=== PATIENT | female | born 1960 | race Caucasian/White ===

== ENCOUNTER → 2018-06-22 | Outpatient (CLI) | payer SELFPAY ==
--- NOTE | 2018-06-22 12:30 | RADIOLOGY REPORT (SQ) ---
EXAM DESCRIPTION: CHEST PA/LATERAL COMPLETED DATE/TIME: 06/22/2018 12:13 pm REASON FOR STUDY: CHRONIC OBSTRUCTIVE PULMONARY DISEASE COMPARISON: None. EXAM PARAMETERS: NUMBER OF VIEWS: two views TECHNIQUE: Digital Frontal and Lateral radiographic views of the chest acquired. RADIATION DOSE: NA LIMITATIONS: none FINDINGS: LUNGS AND PLEURA: Mild hyperinflation of the lungs and some flattening of the diaphragms. Mild bronchiectatic changes are noted centrally. Mild prominence of the interstitial markings in t he lungs, likely on a chronic basis. No acute pulmonary consolidation. No pneumothorax or pleural e ffusion. MEDIASTINUM AND HILAR STRUCTURES: No masses or contour abnormalities. HEART AND VASCULAR STRUCTURES: Heart normal size. No evidence for failure. BONES: No acute findings. HARDWARE: None in the chest. OTHER: No other significant finding. IMPRESSION: 1. Findings suggest COPD. Chronic mild changes in the lungs as above. No acute findin gs. TECHNICAL DOCUMENTATION: JOB ID: [id number] [employer]- All Rights Reserved Reading location - IP/workstation name: [email or web address]
== END ==
LOC: OD 11:56
PROVIDERS: ATTEND Internal Medicine
DX: J44.9 Chronic obstructive pulmonary disease, unspecified (principal)
CPT/HCPCS: 71046

== ENCOUNTER 2018-07-12 19:47 | Inpatient (IN) | payer SELFPAY ==
[2018-07-12] MEDS ORDERED: PREDNISONE 20 MG TABLET PO ONE (21:10)
[2018-07-12] MEDS ORDERED: IPRATROPIUM/ALBUTEROL 0.5-2.5 MG/3 ML AMPUL NEB ONE ×2 (21:10→21:44)
--- NOTE | 2018-07-12 21:43 | ER Document Report ---
ED Medical Screen (RME) - General Chief Complaint: Breathing Difficulty Stated Complaint: DIFFICULTY BREATHING Time Seen by Provider: 07/12/18 21:40 Primary Care Provider: YANELY DORMAN MD [Primary Care Provider] - Follow up as needed Notes: Patient is a 49-year-old female presents to the emergency department for shortness of breath. Patient states she does have a history of COPD and has been. States she has noticed some increased shortness of breath on exertion over the last couple of days. Patient states she also has a generalized cough and congestion but is denying fever. RME order set had already been placed by nursing staff. Patient had already been to x-ray upon my evaluation. GENERAL: Alert, interacts well. No acute distress. LUNGS: rhonchi to auscultation bilaterally . No respiratory distress. Patient is on 4 L oxygen via nasal cannula which is her norm. Patient speaking in full sentences. I have greeted and performed a rapid initial assessment of this patient. A comprehensive ED assessment and evaluation of the patient, analysis of test results and completion of the medical decision making process will be conducted by additional ED providers. TRAVEL OUTSIDE OF THE [place] IN LAST 30 DAYS: No - Related Data Allergies/Adverse Reactions: levofloxacin [From Levaquin] Adverse Reaction (Verified 07/12/18 20:01) Past Medical History Renal/ Medical History: Denies: Hx Peritoneal Dialysis Physical Exam - Vital signs Vitals: Temp Pulse Resp BP Pulse Ox 98.7 F 92 16 142/70 H 99 07/12/18 20:15 07/12/18 20:15 07/12/18 20:15 07/12/18 20:15 07/12/18 20:15 Course - Vital Signs Vital signs: Temp Pulse Resp BP Pulse Ox 98.7 F 92 16 142/70 H 99 07/12/18 20:15 07/12/18 20:15 07/12/18 20:15 07/12/18 20:15 07/12/18 20:15 Doctor's Discharge - Discharge Referrals: YANELY DORMAN MD [Primary Care Provider] - Follow up as needed
[2018-07-12] MEDS ORDERED: METHYLPREDNISOLONE INJ 125 MG/2 ML SDV IV ONE (21:44)
--- NOTE | 2018-07-12 22:14 | RADIOLOGY REPORT (SQ) ---
EXAM DESCRIPTION: XR CHEST 1 VIEW COMPLETED DATE/TME: 07/12/2018 21:10 CLINICAL HISTORY: 57 years, Female, difficulty breathing Compared to chest radiograph dated 06/22/2018. Findings: The heart is not enlarged. Left upper lobe airspace disease consistent with pneumonia. No pleural effusions. No pneumothorax. IMPRESSION: Patchy left upper lobe airspace disease. New from prior study, therefore consistent with pneumonia.
[2018-07-12] MEDS ORDERED: LEVOFLOXACIN 750 MG/D5W RTU 750 MG/150 ML RTUPB IV ONE (22:17)
[2018-07-13 00:03] LABS: ABSOLUTE BASOPHILS # (AUTO) 0.1 10^3/uL (0.0-0.2); ABSOLUTE EOSINOPHILS # (AUTO) 1.9 10^3/uL (0.0-0.6); ABSOLUTE LYMPHOCYTES (AUTO) 1.2 10^3/uL (0.5-4.7); ABSOLUTE MONOCYTES (AUTO) 1.6 10^3/uL (0.1-1.4); ABSOLUTE NEUT (AUTO) 13.7 10^3/uL (1.7-8.2); BASOPHILS % (AUTO) 0.3 % (0-2); EOSINOPHILS % (AUTO) 10.2 % (0-6); HEMATOCRIT 39.1 % (36.0-47.0); HEMOGLOBIN 12.9 g/dL (12.0-15.5); LYMPHOCYTES % (AUTO) 6.5 % (13-45); MEAN CORPUSCULAR HEMOGLOBIN 29.5 pg (27.0-33.4); MEAN CORPUSCULAR HGB CONC 32.9 g/dL (32.0-36.0); MEAN CORPUSCULAR VOLUME 90 fl (80-97); MONOCYTES % (AUTO) 8.7 % (3-13); PLATELET COUNT 474 10^3/uL (150-450); RED BLOOD COUNT 4.36 10^6/uL (3.72-5.28); RED CELL DISTRIBUTION WIDTH 13.8 % (11.5-14.0); SEGMENTED NEUTROPHILS % (AUTO) 74.3 % (42-78); TOTAL CELLS COUNTED % (AUTO) 100 %; WHITE BLOOD COUNT 18.5 10^3/uL (4.0-10.5)
[2018-07-13 00:17] LABS: ALANINE AMINOTRANSFERASE 22 U/L (9-52); ALBUMIN 3.8 g/dL (3.5-5.0); ALKALINE PHOSPHATASE 110 U/L (38-126); ANION GAP 11 (5-19); ASPARTATE AMINO TRANSFERASE 28 U/L (14-36); BILIRUBIN,DIRECT 0.3 mg/dL (0.0-0.4); BILIRUBIN,TOTAL 0.6 mg/dL (0.2-1.3); BLOOD UREA NITROGEN 18 mg/dL (7-20); CALCIUM 9.9 mg/dL (8.4-10.2); CARBON DIOXIDE 35 mmol/L (22-30); CHLORIDE 93 mmol/L (98-107); GLUCOSE 119 mg/dL (75-110); POTASSIUM 3.9 mmol/L (3.6-5.0); SODIUM 139.1 mmol/L (137-145); TOTAL PROTEIN 6.9 g/dL (6.3-8.2)
[2018-07-13] MEDS: ALBUTEROL SULFATE 0.083% NEB 2.5 MG/3 ML AMPUL NEB SCH ×2 (00:47→02:03)
[2018-07-13 01:15] LABS: APPEARANCE,URINE SLIGHTLY-CLOUDY; BILIRUBIN,URINE NEGATIVE (NEGATIVE); COLOR,URINE AMBER; GLUCOSE, URINE NEGATIVE (NEGATIVE); KETONES,URINE NEGATIVE (NEGATIVE); LEUKOCYTE ESTERASE,URINE LARGE (NEGATIVE); NITRITE,URINE NEGATIVE (NEGATIVE); PROTEIN,URINE NEGATIVE (NEGATIVE); URINE SPECIFIC GRAVITY 1.028; UROBILINOGEN,URINE NEGATIVE mg/dL (<2.0)
--- NOTE | 2018-07-13 01:39 | ER Document Report ---
ED General - General Chief Complaint: Breathing Difficulty Stated Complaint: DIFFICULTY BREATHING Time Seen by Provider: 07/12/18 21:40 Notes: Patient is a pleasant 57-year-old female with a history of COPD who is chronically on 3 L of oxygen at home. She said over the last week and a half she is been battling cough and difficulty breathing. She is followed by Dr. Gutierrez. Initially placed on Levaquin however the patient said she was g etting tremors in her hands and they thought it could be related to the Levaquin therefore they stopped and switched to doxycycline. She said despite this she her breathing is gotten worse and today she noticed that whenever she got up and walked she became very short of breath and sweaty and could not exert herself at all and therefore came to the ER. Subjective fevers at home. No vomiting. She was admitted last year with pneumonia and she says this feels very similar. TRAVEL OUTSIDE OF THE [place] IN LAST 30 DAYS: No - Related Data Allergies/Adverse Reactions: levofloxacin [From Levaquin] Adverse Reaction (Verified 07/12/18 23:11) Past Medical History - Social History Smoking Status: Unknown if Ever Smoked Frequency of alcohol use: None Drug Abuse: None Family History: Reviewed & Not Pertinent Patient has suicidal ideation: No Patient has homicidal ideation: No Renal/ Medical History: Denies: Hx Peritoneal Dialysis Review of Systems - Review of Systems Notes: My Normal Review Basic REVIEW OF SYSTEMS: CONSTITUTIONAL : Subjective fevers EENT: Denies eye, ear, throat, or mouth pain or symptoms. Denies nasal or sinus congestion. RESPIRATORY: Difficulty breathing GASTROINTESTINAL: Denies abdominal pain. Denies nausea, vomiting, or diarrhea. GENITOURINARY: Denies difficulty urinating, painful urination, burning, darrick quency, or blood in urine. MUSCULOSKELETAL: Denies neck or back pain or joint pain or swelling. SKIN: Denies rash or skin lesions. NEUROLOGICAL: Denies altered mental status or loss of consciousness. Denies headache. Denies weakness or paralysis or loss of use of either side. Denies problems with gait or speech. Denies sensory or motor loss. ALL OTHER SYSTEMS REVIEWED AND NEGATIVE. Physical Exam - Vital signs Vitals: Temp Pulse Resp BP Pulse Ox 98.7 F 92 16 142/70 H 99 07/12/18 20:15 07/12/18 20:15 07/12/18 20:15 07/12/18 20:15 07/12/18 20:15 - Notes Notes: General Appearance: Well nourished, alert, cooperative, mild acute distress, no obvious discomfort. Vitals: reviewed, See vital signs table. Head: no swelling or tenderness to the head Eyes: PERRL, EOMI, Conjuctiva clear Mouth: No decreasd moisture Lungs: Some rhonchorous breath sounds with diminished in the left Heart: Normal rate, Regular rythm, No murmur, no rub Abdomen: Normal BS, soft, No rigidity, No abdominal tenderness, No guarding, no rebound, no abdominal masses, no organomegaly Extremities: s good pulses in all extremities, no swelling or tenderness in the extremities, no edema. Skin: warm, dry, appropriate color, no rash Neuro: speech clear, oriented x 3, normal affect, responds appropriately to questions. Course - Re-evaluation Re-evalutation: 07/13/18 01:45 Patient has significant upper lobe pneumonia in the left side with failure of outpatient antibiotics as well as increased oxygen requirement and difficulty breathing. I feel the appropriate to admit her for admission. I did speak with Dr. Gutierrez who agrees with plan. I did give the patient Levaquin as she says last time she had pneumonia last year this is what worked well for her. She is has a Levaquin allergy list but she says she is does not think she is actually allergic to it and they had try to afford and she developed a tremor which they were not convinced is related to Levaquin. She received Levaquin here and has not had any tremor or other adverse reaction. Dictation of this chart was performed using voice recognition software; therefore, there may be some unintended grammatical errors. - Vital Signs Vital signs: Temp Pulse Resp BP Pulse Ox 98.2 F 96 19 97/59 L 96 07/13/18 00:01 07/13/18 02:40 07/13/18 04:01 07/13/18 04:01 07/13/18 04:01 - Laboratory Result Diagrams: 07/12/18 23:30 07/12/18 23:30 Laboratory results interpreted by me: 07/12/18 07/12/18 07/13/18 23:30 23:30 00:53 WBC 18.5 H Plt Count 474 H Lymphocytes % 6.5 L Eosinophils % 10.2 H Absolute Neutrophils 13.7 H Absolute Monocytes 1.6 H Absolute Eosinophils 1.9 H Chloride 93 L Carbon Dioxide 35 H Glucose 119 H Ur Leukocyte Esterase LARGE H Discharge - Discharge Clinical Impression: Pneumonia Qualifiers: Pneumonia type: due to unspecified organism Laterality: left Lung location: upper lobe of lung Qualified Code(s): J18.1 - Lobar pneumonia, unspecified organism Condition: Stable Disposition: ADMITTED INPATIENT Admitting Provider: Matt
[2018-07-13] MEDS ORDERED: TIZANIDINE HCL 4 MG TABLET PO ONE (01:43)
[2018-07-13] MEDS ORDERED: LEVOTHYROXINE SODIUM 0.075 MG TABLET PO ONE (01:44)
[2018-07-13] MEDS ORDERED: MONTELUKAST SODIUM 10 MG TABLET PO ONE (01:44)
[2018-07-13] MEDS ORDERED: GABAPENTIN 300 MG CAPSULE PO ONE (01:44)
[2018-07-13] MEDS ORDERED: ARIPIPRAZOLE 5 MG TABLET PO ONE (01:44)
[2018-07-13 02:27] LABS: CREATINE KINASE MB 1.81 ng/mL (<4.55)
[2018-07-13 02:28] LABS: TROPONIN I < 0.012 ng/mL
[2018-07-13] MEDS: LEVALBUTEROL HCL NEB 1.25 MG/3 ML AMPUL NEB SCH ×8 (02:40→23:53)
[2018-07-13 03:18] LABS: ARTERIAL BLOOD BASE EXCESS 9.7 mmol/L; ARTERIAL BLOOD H2CO3 1.48 mmol/L (1.05-1.35); ARTERIAL BLOOD HCO3 34.8 mmol/L (20-24); ARTERIAL BLOOD O2 SATURATION 95.3 % (94-98); ARTERIAL BLOOD PCO2 49.2 mmHg (35-45); ARTERIAL BLOOD PH 7.47 (7.35-7.45); ARTERIAL BLOOD PO2 72.7 mmHg (80-100); ARTERIAL BLOOD TOTAL CO2 36.4 mmol/L (21-25)
[2018-07-13 03:19] LABS: ARTERIAL BLOOD FIO2 2L
[2018-07-13] MEDS: NORMAL SALINE 1000 ML 1,000 ML IV PRN ×2 (03:24→19:21)
[2018-07-13] MEDS ORDERED: CEFEPIME 2 GM/D5W RTU 2 GM/50 ML RTUPB IV SCH (06:00)
--- NOTE | 2018-07-13 06:05 | RADIOLOGY REPORT (SQ) ---
EXAM: CT chest with IV contrast CLINICAL DATA: 57-year-old female with severe COPD, pneumonia and possible lung mass TECHNICAL DATA: Axial CT imaging of the chest was performed following the administration of intravenous contrast. Sagittal and coronal reconstructed images were then performed. The CT study is performed according to ALARA (as low as reasonably achievable) or ALARA/IMAGE GENTLY, with automatic adjustment of mA and/or kV according to patient size. Performed on: 07/13/2018 at 5:30 AM Comparison: Prior CT chest performed on 03/25/2012 and chest x-ray performed on 07/12/2018 and 06/22/2018. FINDINGS: CT CHEST: Lungs: The lungs are well expanded. There are diffuse centrilobular emphysematous changes. There is patchy airspace consolidation throughout the left upper lobe with air bronchograms most consistent with lobar pneumonia. There is very minimal septal thickening throughout the left lung. The right lung is grossly clear with minimal fibrosis and/or atelectatic changes. There is no evidence of a pneumothorax. There is no pleural effusion. Heart: The heart is normal in size. There is no pericardial effusion. Mediastinum:The mediastinum is unremarkable. The mediastinal vessels are normal in caliber and contour. Bones:No acute osseous abnormalities are identified. There are mild degenerative changes along the thoracic spine. Soft tissues:No focal soft tissue abnormalities are identified. Lymphadenopathy: No pathologic hilar, mediastinal or axillary lymphadenopathy is identified. Upper abdomen: No acute abnormalities are identified. IMPRESSION: 1. Patchy airspace consolidation throughout the left upper lobe most consistent with lobar pneumonia. 2. Diffuse centrilobular emphysematous changes. 3. Minimal fibrosis and/or atelectasis in the right lower lobe
[2018-07-13] MEDS: LANSOPRAZOLE 30 MG TAB.RAP.DR PO SCH ×2 (06:32→19:20)
--- NOTE | 2018-07-13 06:54 | EKG REPORT ---
SEVERITY:- NORMAL ECG - SINUS RHYTHM : Confirmed by: Iain Sánchez MD 13-Jul-2018 06:54:18
[2018-07-13] MEDS: ENOXAPARIN SODIUM INJ 40 MG/0.4 ML DISP.SYRIN SUBCUT SCH (10:59)
[2018-07-13] MEDS ORDERED: (PENDING PHARMACY ID) (Buspirone Hcl [Buspar 5 Mg Tablet] 7.5 MG) PO SCH (18:30)
[2018-07-13] MEDS ORDERED: (PENDING PHARMACY ID) (Losartan/Hydrochlorothiazide [Hyzaar 100-12.5 Tablet] 1 TAB) PO SCH (18:30)
[2018-07-13] MEDS ORDERED: HYDROCODONE/ACETAMINOPHEN 10-325 MG TABLET PO PRN (18:51)
[2018-07-13] MEDS: HYDROCODONE/ACETAMINOPHEN 10-325 MG TABLET PO PRN (19:20)
[2018-07-13] MEDS: LOSARTAN POTASSIUM 50 MG TABLET PO SCH (20:41)
--- NOTE | 2018-07-13 20:48 | PDOC H&P ---
History of Present Illness Admission Date/PCP: 07/13/18 01:58 YANELY DORMAN MD History of Present Illness: DEBI CHAVEZ is a 57 year old female, She has very severe chronic obstructive lung disease, she came to the hospital for evaluation of cough, shortness of breath, she was treated outpatient for COPD exacerbation with p.o. antibiotic, bronchodilators, in the emergency room a chest x-ray was done that demonstrated left upper lobe patchy infiltrate subsequently CT chest with contrast was obtained it confirmed that is left upper lobe pneumonia. The arterial blood gas was done consistent with hypoxemia with respiratory alkalosis. Past Medical History Cardiac Medical History: Reports: Hypertension Pulmonary Medical History: Reports: Chronic Obstructive Pulmonary Disease (COPD) Psychiatric Medical History: Reports: Depression, General Anxiety Disorder Social History Smoking Status: Former Smoker Last Time Smoked: 2011 Frequency of Alcohol Use: None Hx Recreational Drug Use: No Hx Prescription Drug Abuse: No - Advance Directive Resuscitation Status: Full Code Family History Family History: Reviewed & Not Pertinent Parental Family History Reviewed: Yes Children Family History Reviewed: Yes Sibling(s) Family History Reviewed.: Yes Medication/Allergy Home Medications: Albuterol Sulfate [Proair HFA Inhalation Aerosol 8.5 gm MDI] 2 puff IH Q6HP PRN 07/13/18 Buspirone HCl [Buspar 5 mg Tablet] 7.5 mg PO Q12 07/13/18 Fluticasone/Salmeterol [Fluticasone-Salmeterol 113-14] 2 puff IH Q12 07/13/18 Guaifenesin [Mucinex] 600 mg PO Q12HP PRN 07/13/18 Hydrocodone Bit/Acetaminophen [Hydrocodon-Acetaminophn 10-325] 1 tab PO Q8HP PRN 07/13/18 Levothyroxine Sodium [Synthroid 0.075 mg Tablet] 0.075 mg PO DAILY 07/13/18 RX: Albuterol Sulfate [Ventolin 0.083% Neb 2.5 mg/3 mL Ampul] 1 vial IH RTQ4HP PRN 07/13/18 RX: Aripiprazole [Abilify] 5 mg PO DAILY 07/13/18 RX: Gabapentin [Neurontin 300 mg Capsule] 300 mg PO Q8H 07/13/18 RX: Ipratropium [place] [Atrovent 0.02% Neb 0.5 mg/2.5 ml Ampul] 1 vial IH RTQ6 07/13/18 RX: Losartan/Hydrochlorothiazide [Hyzaar 100-12.5 Tablet] 1 tab PO DAILY 07/13/18 RX: Montelukast Sodium [Singulair] 10 mg PO DAILY 07/13/18 RX: Paroxetine HCl [Paxil] 30 mg PO DAILY 07/13/18 RX: Testosterone Cypionate [Depo-Testosterone] 15 mg IM Q14D 07/13/18 Tizanidine HCl [Zanaflex] 2 mg PO Q12 07/13/18 Wixela 250/50 Mcg 1 puff IH Q12 07/13/18 Allergies/Adverse Reactions: [facility] [[facility] Adverse Reaction (Verified 07/12/18 23:11) Review of Systems Constitutional: PRESENT: fatigue Eyes: ABSENT: visual disturbances Ears: ABSENT: hearing changes Cardiovascular: PRESENT: dyspnea on exertion Respiratory: PRESENT: cough, dyspnea, sputum Gastrointestinal: ABSENT: as per HPI, abdominal pain, bloating, coffee ground emesis, constipation, diarrhea, dysphagia, heartburn, hematemesis, hematochezia, melena, nausea, vomiting, other Genitourinary: ABSENT: dysuria, hematuria Musculoskeletal: ABSENT: joint swelling Integumentary: ABSENT: rash, wounds Neurological: ABSENT: abnormal gait, abnormal speech, confusion, dizziness, focal weakness, syncope Psychiatric: ABSENT: anxiety, depression, homidical ideation, suicidal ideation Hematologic/Lymphatic: ABSENT: easy bleeding, easy bruising, lymphadenopathy Physical Exam Vital Signs: Temp Pulse Resp BP Pulse Ox 97.9 F 89 18 110/43 L 98 07/13/18 16:18 07/13/18 19:29 07/13/18 16:58 07/13/18 16:18 07/13/18 16:58 Intake & Output 07/12/18 07/13/18 07/14/18 06:59 06:59 06:59 Intake Total 150 848 Balance 150 848 Weight 68.8 kg General appearance: PRESENT: mild distress Head exam: PRESENT: atraumatic, normocephalic Eye exam: PRESENT: PERRLA Ear exam: PRESENT: normal external ear exam Mouth exam: PRESENT: moist, tongue midline Neck exam: PRESENT: full ROM Respiratory exam: PRESENT: decreased breath sounds, rhonchi Cardiovascular exam: PRESENT: RRR, +S1, +S2 Vascular exam: PRESENT: normal capillary refill GI/Abdominal exam: PRESENT: normal bowel sounds, soft Rectal exam: PRESENT: deferred Neurological exam: PRESENT: alert, CN II-XII grossly intact Psychiatric exam: PRESENT: appropriate affect, normal mood Skin exam: PRESENT: dry, intact, warm Results Laboratory Results: 07/12/18 23:30 07/12/18 23:30 07/12/18 07/12/18 07/13/18 23:30 23:30 00:53 WBC 18.5 H RBC 4.36 Hgb 12.9 Hct 39.1 MCV 90 MCH 29.5 MCHC 32.9 RDW 13.8 Plt Count 474 H Seg Neutrophils % 74.3 Lymphocytes % 6.5 L Monocytes % 8.7 Eosinophils % 10.2 H Basophils % 0.3 Absolute Neutrophils 13.7 H Absolute Lymphocytes 1.2 Absolute Monocytes 1.6 H Absolute Eosinophils 1.9 H Absolute Basophils 0.1 Carbonic Acid HCO3/H2CO3 Ratio ABG pH ABG pCO2 ABG pO2 ABG HCO3 ABG O2 Saturation ABG Base Excess FiO2 Sodium 139.1 Potassium 3.9 Chloride 93 L Carbon Dioxide 35 H Anion Gap 11 BUN 18 Creatinine 0.85 Est GFR ( Amer) > 60 Est GFR (Non-Af Amer) > 60 Glucose 119 H Calcium 9.9 Total Bilirubin 0.6 AST 28 ALT 22 Alkaline Phosphatase 110 Total Protein 6.9 Albumin 3.8 Urine Color RISHI Urine Appearance SLIGHTLY-CLOUDY Urine pH 5.0 Ur Specific [place] 1.028 Urine Protein NEGATIVE Urine Glucose (UA) NEGATIVE Urine Ketones NEGATIVE Urine Blood NEGATIVE Urine Nitrite NEGATIVE Ur Leukocyte Esterase LARGE H Urine WBC (Auto) 35 Urine RBC (Auto) 3 07/13/18 02:55 WBC RBC Hgb Hct MCV MCH MCHC RDW Plt Count Seg Neutrophils % Lymphocytes % Monocytes % Eosinophils % Basophils % Absolute Neutrophils Absolute Lymphocytes Absolute Monocytes Absolute Eosinophils Absolute Basophils Carbonic Acid 1.48 H HCO3/H2CO3 Ratio 23:1 ABG pH 7.47 H ABG pCO2 49.2 H ABG pO2 72.7 L ABG HCO3 34.8 H ABG O2 Saturation 95.3 ABG Base Excess 9.7 FiO2 2L Sodium Potassium Chloride Carbon Dioxide Anion Gap BUN Creatinine Est GFR ( Amer) Est GFR (Non-Af Amer) Glucose Calcium Total Bilirubin AST ALT Alkaline Phosphatase Total Protein Albumin Urine Color Urine Appearance Urine pH Ur Specific [place] Urine Protein Urine Glucose (UA) Urine Ketones Urine Blood Urine Nitrite Ur Leukocyte Esterase Urine WBC (Auto) Urine RBC (Auto) 07/12/18 07/12/18 23:30 23:30 Creatine Kinase 86 CK-MB (CK-2) 1.81 Troponin I < 0.012 Impressions: Chest X-Ray 07/12/18 21:10 IMPRESSION: Patchy left upper lobe airspace disease. New from prior study, therefore consistent with pneumonia. Chest CT 07/13/18 00:00 IMPRESSION: 1. Patchy airspace consolidation throughout the left upper lobe most consistent with lobar pneumonia. 2. Diffuse centrilobular emphysematous changes. 3. Minimal fibrosis and/or atelectasis in the right lower lobe Assessment & Plan - Diagnosis (1) Left upper lobe pneumonia Qualifiers: Pneumonia type: due to unspecified organism Qualified Code(s): J18.1 - Lobar pneumonia, unspecified organism Is this a current diagnosis for this admission?: Yes Plan: Patient will be treated with IV antibiotic to cover community-acquired pathogens including Pseudomonas (2) Acute hypoxemic respiratory failure Is this a current diagnosis for this admission?: Yes Plan: Continue oxygen via nasal cannula (3) Acute respiratory alkalosis Is this a current diagnosis for this admission?: Yes
[2018-07-13] MEDS: CEFEPIME HCL 2 GM in DEXTROSE 5%-WATER 50 ML IV SCH (20:49)
[2018-07-13] MEDS: MONTELUKAST SODIUM 10 MG TABLET PO SCH (20:49)
[2018-07-13] MEDS: ARIPIPRAZOLE 5 MG TABLET PO SCH (20:49)
[2018-07-13] MEDS: LEVOTHYROXINE SODIUM 0.075 MG TABLET PO SCH (20:49)
[2018-07-13] MEDS: HYDROCHLOROTHIAZIDE 12.5 MG TABLET PO SCH (20:50)
[2018-07-13] MEDS: LEVOFLOXACIN 750 MG/D5W RTU 750 MG/150 ML RTUPB IV SCH (21:09)
[2018-07-13] MEDS: BUSPIRONE 7.5 MG PO SCH (21:53)
[2018-07-13] MEDS ORDERED: BUSPIRONE 5 MG PO SCH (22:00)
[2018-07-14] MEDS: LEVALBUTEROL HCL NEB 1.25 MG/3 ML AMPUL NEB SCH ×8 (02:23→23:48)
[2018-07-14] MEDS: LANSOPRAZOLE 30 MG TAB.RAP.DR PO SCH ×2 (05:02→17:17)
[2018-07-14] MEDS: CEFEPIME HCL 2 GM in DEXTROSE 5%-WATER 50 ML IV SCH (05:02)
[2018-07-14 07:01] LABS: HEMATOCRIT 35.2 % (36.0-47.0); HEMOGLOBIN 11.7 g/dL (12.0-15.5); MEAN CORPUSCULAR HEMOGLOBIN 29.6 pg (27.0-33.4); MEAN CORPUSCULAR HGB CONC 33.2 g/dL (32.0-36.0); MEAN CORPUSCULAR VOLUME 89 fl (80-97); PLATELET COUNT 442 10^3/uL (150-450); RED BLOOD COUNT 3.94 10^6/uL (3.72-5.28); RED CELL DISTRIBUTION WIDTH 13.4 % (11.5-14.0); WHITE BLOOD COUNT 18.9 10^3/uL (4.0-10.5)
[2018-07-14 07:14] LABS: ALANINE AMINOTRANSFERASE 24 U/L (9-52); ALBUMIN 3.4 g/dL (3.5-5.0); ALKALINE PHOSPHATASE 95 U/L (38-126); ANION GAP 8 (5-19); ASPARTATE AMINO TRANSFERASE 20 U/L (14-36); BILIRUBIN,DIRECT 0.3 mg/dL (0.0-0.4); BILIRUBIN,TOTAL 0.3 mg/dL (0.2-1.3); BLOOD UREA NITROGEN 15 mg/dL (7-20); CALCIUM 9.1 mg/dL (8.4-10.2); CARBON DIOXIDE 34 mmol/L (22-30); CHLORIDE 99 mmol/L (98-107); GLUCOSE 141 mg/dL (75-110); POTASSIUM 4.4 mmol/L (3.6-5.0); SODIUM 141.2 mmol/L (137-145); TOTAL PROTEIN 6.3 g/dL (6.3-8.2)
[2018-07-14 08:06] LABS: ABSOLUTE LYMPHOCYTES# (MANUAL) 0.4 10^3/uL (0.5-4.7); ABSOLUTE MONOCYTES # (MANUAL) 0.8 10^3/uL (0.1-1.4); ABSOLUTE NEUTROPHILS# (MANUAL) 17.8 10^3/uL (1.7-8.2); BASOPHILS % (MANUAL) 0 % (0-2); EOSINOPHILS % (MANUAL) 0 % (0-6); LYMPHOCYTES % (MANUAL) 2 % (13-45); MONOCYTES % (MANUAL) 4 % (3-13); PLATELET COMMENT ADEQUATE; RBC MORPHOLOGY COMMENT NORMO-CYTIC/CHROMIC; SEGMENTED NEUTROPHILS % (MAN) 94 % (42-78); TOTAL CELLS COUNTED 100
[2018-07-14] MEDS: HYDROCODONE/ACETAMINOPHEN 10-325 MG TABLET PO PRN ×2 (08:18→17:16)
[2018-07-14] MEDS: LEVOTHYROXINE SODIUM 0.075 MG TABLET PO SCH (08:18)
[2018-07-14] MEDS: NORMAL SALINE 1000 ML 1,000 ML IV PRN (08:24)
[2018-07-14] MEDS ORDERED: FLUTICASONE IH SCH (10:00)
[2018-07-14] MEDS ORDERED: SALMETEROL IH SCH (10:00)
[2018-07-14] MEDS ORDERED: (PENDING PHARMACY ID) (Paroxetine Hcl [Paxil] 30 MG) PO SCH (10:00)
[2018-07-14] MEDS ORDERED: PAROXETINE HCL 20 MG TABLET PO SCH (10:00)
[2018-07-14] MEDS: HYDROCHLOROTHIAZIDE 12.5 MG TABLET PO SCH (12:29)
[2018-07-14] MEDS: ARIPIPRAZOLE 5 MG TABLET PO SCH (12:29)
[2018-07-14] MEDS: MONTELUKAST SODIUM 10 MG TABLET PO SCH (12:29)
[2018-07-14] MEDS: LOSARTAN POTASSIUM 50 MG TABLET PO SCH (12:29)
[2018-07-14] MEDS: ENOXAPARIN SODIUM INJ 40 MG/0.4 ML DISP.SYRIN SUBCUT SCH (12:30)
[2018-07-14] MEDS: BUSPIRONE 7.5 MG PO SCH ×2 (12:35→21:22)
[2018-07-14] MEDS: GABAPENTIN 300 MG CAPSULE PO SCH ×2 (17:17→21:22)
[2018-07-14] MEDS: CEFEPIME 2 GM/D5W RTU 2 GM/50 ML RTUPB IV SCH (17:20)
--- NOTE | 2018-07-14 20:07 | PDOC PROGRESS REPORT ---
Subjective Progress Note for:: 07/14/18 Subjective:: She complains of shortness of breath on minimal exertion Reason For Visit: CHELSEA PNEUMONIA, H/O VERY SEVERE COPD Physical Exam Vital Signs: Temp Pulse Resp BP Pulse Ox 97.4 F 80 16 124/56 L 98 07/14/18 15:08 07/14/18 17:37 07/14/18 17:37 07/14/18 15:08 07/14/18 17:37 Intake & Output 07/13/18 07/14/18 07/15/18 06:59 06:59 06:59 Intake Total 150 1598 1653 Output Total 800 750 Balance 150 798 903 Weight 68.8 kg 68.9 kg General appearance: PRESENT: no acute distress Eye exam: PRESENT: PERRLA Respiratory exam: PRESENT: rhonchi Cardiovascular exam: PRESENT: +S1, +S2 GI/Abdominal exam: PRESENT: soft Neurological exam: PRESENT: alert Results Laboratory Results: 07/14/18 05:42 07/14/18 05:42 07/14/18 07/14/18 05:42 05:42 WBC 18.9 H RBC 3.94 Hgb 11.7 L Hct 35.2 L MCV 89 MCH 29.6 MCHC 33.2 RDW 13.4 Plt Count 442 Seg Neutrophils % Not Reportable Lymphocytes % Not Reportable Monocytes % Not Reportable Eosinophils % Not Reportable Basophils % Not Reportable Absolute Neutrophils Not Reportable Absolute Lymphocytes Not Reportable Absolute Monocytes Not Reportable Absolute Eosinophils Not Reportable Absolute Basophils Not Reportable Sodium 141.2 Potassium 4.4 Chloride 99 Carbon Dioxide 34 H Anion Gap 8 BUN 15 Creatinine 0.80 Est GFR ( Amer) > 60 Est GFR (Non-Af Amer) > 60 Glucose 141 H Calcium 9.1 Total Bilirubin 0.3 AST 20 ALT 24 Alkaline Phosphatase 95 Total Protein 6.3 Albumin 3.4 L 07/12/18 07/12/18 23:30 23:30 Creatine Kinase 86 CK-MB (CK-2) 1.81 Troponin I < 0.012 Impressions: Chest X-Ray 07/12/18 21:10 IMPRESSION: Patchy left upper lobe airspace disease. New from prior study, therefore consistent with pneumonia. Chest CT 07/13/18 00:00 IMPRESSION: 1. Patchy airspace consolidation throughout the left upper lobe most consistent with lobar pneumonia. 2. Diffuse centrilobular emphysematous changes. 3. Minimal fibrosis and/or atelectasis in the right lower lobe Assessment & Plan - Diagnosis (1) Left upper lobe pneumonia Qualifiers: Pneumonia type: due to unspecified organism Qualified Code(s): J18.1 - Lobar pneumonia, unspecified organism Is this a current diagnosis for this admission?: Yes Plan: continue antibiotic , (2) Acute hypoxemic respiratory failure Is this a current diagnosis for this admission?: Yes (3) Acute respiratory alkalosis Is this a current diagnosis for this admission?: Yes (4) Chronic obstructive pulmonary disease Qualifiers: COPD type: unspecified COPD Qualified Code(s): J44.9 - Chronic obstructive pulmonary disease, unspecified Is this a current diagnosis for this admission?: Yes Plan: consult pulmonary
[2018-07-14] MEDS: LEVOFLOXACIN 750 MG/D5W RTU 750 MG/150 ML RTUPB IV SCH (21:22)
[2018-07-15] MEDS: LEVALBUTEROL HCL NEB 1.25 MG/3 ML AMPUL NEB SCH ×6 (02:23→20:14)
[2018-07-15 04:55] LABS: ABSOLUTE BASOPHILS # (AUTO) 0.1 10^3/uL (0.0-0.2); ABSOLUTE EOSINOPHILS # (AUTO) 0.5 10^3/uL (0.0-0.6); ABSOLUTE LYMPHOCYTES (AUTO) 1.5 10^3/uL (0.5-4.7); BASOPHILS % (AUTO) 0.7 % (0-2); EOSINOPHILS % (AUTO) 3.4 % (0-6); HEMATOCRIT 34.1 % (36.0-47.0); HEMOGLOBIN 11.4 g/dL (12.0-15.5); LYMPHOCYTES % (AUTO) 10.6 % (13-45); MEAN CORPUSCULAR HEMOGLOBIN 29.6 pg (27.0-33.4); MEAN CORPUSCULAR HGB CONC 33.4 g/dL (32.0-36.0); MEAN CORPUSCULAR VOLUME 89 fl (80-97); MONOCYTES % (AUTO) 7.3 % (3-13); PLATELET COUNT 511 10^3/uL (150-450); RED BLOOD COUNT 3.85 10^6/uL (3.72-5.28); RED CELL DISTRIBUTION WIDTH 13.6 % (11.5-14.0); TOTAL CELLS COUNTED % (AUTO) 100 %; WHITE BLOOD COUNT 14.1 10^3/uL (4.0-10.5)
[2018-07-15] MEDS: GABAPENTIN 300 MG CAPSULE PO SCH ×3 (05:05→22:29)
[2018-07-15] MEDS: CEFEPIME 2 GM/D5W RTU 2 GM/50 ML RTUPB IV SCH ×2 (05:05→18:17)
[2018-07-15] MEDS: LANSOPRAZOLE 30 MG TAB.RAP.DR PO SCH ×2 (05:05→18:08)
[2018-07-15] MEDS: LEVOTHYROXINE SODIUM 0.075 MG TABLET PO SCH (05:05)
[2018-07-15 05:23] LABS: ALANINE AMINOTRANSFERASE 15 U/L (9-52); ALBUMIN 3.1 g/dL (3.5-5.0); ALKALINE PHOSPHATASE 81 U/L (38-126); ANION GAP 6 (5-19); ASPARTATE AMINO TRANSFERASE 16 U/L (14-36); BILIRUBIN,DIRECT 0.3 mg/dL (0.0-0.4); BILIRUBIN,TOTAL 0.3 mg/dL (0.2-1.3); BLOOD UREA NITROGEN 17 mg/dL (7-20); CALCIUM 8.8 mg/dL (8.4-10.2); CARBON DIOXIDE 35 mmol/L (22-30); CHLORIDE 100 mmol/L (98-107); GLUCOSE 103 mg/dL (75-110); SODIUM 140.9 mmol/L (137-145); TOTAL PROTEIN 5.7 g/dL (6.3-8.2)
[2018-07-15] MEDS: HYDROCODONE/ACETAMINOPHEN 10-325 MG TABLET PO PRN ×2 (09:36→18:08)
--- NOTE | 2018-07-15 10:11 | RADIOLOGY REPORT (SQ) ---
EXAM DESCRIPTION: CHEST 2 VIEWS COMPLETED DATE/TIME: 07/15/2018 9:57 am REASON FOR STUDY: pneumonia COMPARISON: 07/12/2018, CT chest, 07/13/2018 EXAM PARAMETERS: NUMBER OF VIEWS: two views TECHNIQUE: Digital Frontal and Lateral radiographic views of the chest acquired. RADIATION DOSE: NA LIMITATIONS: none FINDINGS: LUNGS AND PLEURA: There is improved heterogeneous opacity of the left upper lobe. MEDIASTINUM AND HILAR STRUCTURES: No masses or contour abnormalities. HEART AND VASCULAR STRUCTURES: Heart normal size. No evidence for failure. BONES: No acute findings. HARDWARE: None in the chest. OTHER: No other significant finding. IMPRESSION: Improved heterogeneous opacity of the left upper lobe. Findings most consistent with im proving infection. Recommend continued radiographic follow-up to complete resolution in 6 to 8 weeks . TECHNICAL DOCUMENTATION: JOB ID: [id number] [employer]- All Rights Reserved Reading location - IP/workstation name: [email or web address]
[2018-07-15] MEDS: LOSARTAN POTASSIUM 50 MG TABLET PO SCH (11:25)
[2018-07-15] MEDS: ENOXAPARIN SODIUM INJ 40 MG/0.4 ML DISP.SYRIN SUBCUT SCH (11:25)
[2018-07-15] MEDS: HYDROCHLOROTHIAZIDE 12.5 MG TABLET PO SCH (11:25)
[2018-07-15] MEDS: MONTELUKAST SODIUM 10 MG TABLET PO SCH (11:26)
[2018-07-15] MEDS: BUSPIRONE 7.5 MG PO SCH ×2 (11:26→22:29)
[2018-07-15] MEDS: ARIPIPRAZOLE 5 MG TABLET PO SCH (11:26)
--- NOTE | 2018-07-15 14:36 | RADIOLOGY REPORT (SQ) ---
EXAM DESCRIPTION: CT HEAD WITHOUT COMPLETED DATE/TIME: 07/15/2018 2:19 pm REASON FOR STUDY: Diplopia COMPARISON: None. TECHNIQUE: Axial images acquired through the brain without intravenous contrast. Images reviewed wi th bone, brain and subdural windows. Additional sagittal and coronal reconstructions were generated. Images stored on PACS. All CT scanners at this facility use dose modulation, iterative reconstruction, and/or weight based d osing when appropriate to reduce radiation dose to as low as reasonably achievable (ALARA). [facility]: Dose Right [facility]: CareDose [facility]: Dose Right [facility]: Teradose 4D [facility]: Procyrion RADIATION DOSE: CT Rad equipment meets quality standard of care and radiation dose reduction techniq ues were employed. CTDIvol: 48.6 mGy. DLP: 856 mGy-cm. mGy. LIMITATIONS: None. FINDINGS: VENTRICLES: Normal size and contour. CEREBRUM: No masses. No hemorrhage. No midline shift. No evidence for acute infarction. Few scatte red areas of low density in the white matter most likely chronic small vessel ischemic changes. CEREBELLUM: No masses. No hemorrhage. No alteration of density. No evidence for acute infarction. EXTRAAXIAL SPACES: No fluid collections. No masses. ORBITS AND GLOBE: No intra- or extraconal masses. Normal contour of globe without masses. CALVARIUM: No fracture. PARANASAL SINUSES: No fluid or mucosal thickening. SOFT TISSUES: No mass or hematoma. OTHER: No other significant finding. IMPRESSION: MILD CHRONIC MICROVASCULAR ISCHEMIA. NO ACUTE IMAGING FINDINGS IN THE BRAIN. EVIDENCE OF ACUTE STROKE: NO. COMMENT: Quality ID # [id number]: Final reports with documentation of one or more dose reduction techniques (e.g., Automated exposure control, adjustment of the mA and/or kV according to patient size, use of iterative reconstruction technique) TECHNICAL DOCUMENTATION: JOB ID: [id number]- All Rights Reserved Reading location - IP/workstation name: [email or web address]
--- NOTE | 2018-07-15 17:46 | PDOC PROGRESS REPORT ---
Subjective Progress Note for:: 07/15/18 Subjective:: Patient was seen by the bedside, the chest x-ray that was done today showed improvement in the pneumonia, she is very symptomatic from her disease because of the underlying very severe COPD. She was advised to stay a few more days to continue the present regimen of IV cefepime and Levaquin, the cefepime is only in IV form because she is responding very well it is appropriate to continue antibiotic for at least 7 days hopefully she could be discharged on Friday that liu be a total of 5 days of IV therapy Reason For Visit: CHELSEA PNEUMONIA, H/O VERY SEVERE COPD Physical Exam Vital Signs: Temp Pulse Resp BP Pulse Ox 97.4 F 84 24 H 119/58 L 100 07/15/18 16:00 07/15/18 16:00 07/15/18 16:00 07/15/18 16:00 07/15/18 16:00 Intake & Output 07/14/18 07/15/18 07/16/18 06:59 06:59 06:59 Intake Total 1598 2003 222 Output Total 269 948 8954 Balance 798 1253 -978 Weight 68.9 kg 71.2 kg General appearance: PRESENT: no acute distress Eye exam: PRESENT: PERRLA Respiratory exam: PRESENT: clear to auscultation christina Cardiovascular exam: PRESENT: +S1, +S2 GI/Abdominal exam: PRESENT: soft Neurological exam: PRESENT: alert Results Laboratory Results: 07/15/18 04:39 07/15/18 04:39 07/15/18 07/15/18 04:39 04:39 WBC 14.1 H RBC 3.85 Hgb 11.4 L Hct 34.1 L MCV 89 MCH 29.6 MCHC 33.4 RDW 13.6 Plt Count 511 H Seg Neutrophils % 78.0 Lymphocytes % 10.6 L Monocytes % 7.3 Eosinophils % 3.4 Basophils % 0.7 Absolute Neutrophils 11.0 H Absolute Lymphocytes 1.5 Absolute Monocytes 1.0 Absolute Eosinophils 0.5 Absolute Basophils 0.1 Sodium 140.9 Potassium 4.0 Chloride 100 Carbon Dioxide 35 H Anion Gap 6 BUN 17 Creatinine 0.95 Est GFR ( Amer) > 60 Est GFR (Non-Af Amer) > 60 Glucose 103 Calcium 8.8 Total Bilirubin 0.3 AST 16 ALT 15 Alkaline Phosphatase 81 Total Protein 5.7 L Albumin 3.1 L 07/12/18 07/12/18 23:30 23:30 Creatine Kinase 86 CK-MB (CK-2) 1.81 Troponin I < 0.012 Impressions: Chest CT 07/13/18 00:00 IMPRESSION: 1. Patchy airspace consolidation throughout the left upper lobe most consistent with lobar pneumonia. 2. Diffuse centrilobular emphysematous changes. 3. Minimal fibrosis and/or atelectasis in the right lower lobe Chest X-Ray 07/15/18 00:00 IMPRESSION: Improved heterogeneous opacity of the left upper lobe. Findings most consistent with improving infection. Recommend continued radiographic follow-up to complete resolution in 6 to [address] 07/15/18 00:00 IMPRESSION: MILD CHRONIC MICROVASCULAR ISCHEMIA. NO ACUTE IMAGING FINDINGS IN THE BRAIN. EVIDENCE OF ACUTE STROKE: NO. Assessment & Plan - Diagnosis (1) Left upper lobe pneumonia Qualifiers: Pneumonia type: due to unspecified organism Qualified Code(s): J18.1 - Lobar pneumonia, unspecified organism Is this a current diagnosis for this admission?: Yes Plan: Continue IV treatment (2) Acute hypoxemic respiratory failure Is this a current diagnosis for this admission?: Yes (3) Acute respiratory alkalosis Is this a current diagnosis for this admission?: Yes (4) Chronic obstructive pulmonary disease Qualifiers: COPD type: unspecified COPD Qualified Code(s): J44.9 - Chronic obstructive pulmonary disease, unspecified Is this a current diagnosis for this admission?: Yes
[2018-07-15] MEDS: LEVOFLOXACIN 750 MG/D5W RTU 750 MG/150 ML RTUPB IV SCH (22:29)
[2018-07-16] MEDS: LEVALBUTEROL HCL NEB 1.25 MG/3 ML AMPUL NEB SCH ×4 (02:18→20:14)
[2018-07-16] MEDS: CEFEPIME 2 GM/D5W RTU 2 GM/50 ML RTUPB IV SCH ×2 (05:35→18:00)
[2018-07-16] MEDS: LANSOPRAZOLE 30 MG TAB.RAP.DR PO SCH ×2 (05:35→16:11)
[2018-07-16] MEDS: LEVOTHYROXINE SODIUM 0.075 MG TABLET PO SCH (05:35)
[2018-07-16 05:37] LABS: ABSOLUTE BASOPHILS # (AUTO) 0.1 10^3/uL (0.0-0.2); ABSOLUTE EOSINOPHILS # (AUTO) 1.4 10^3/uL (0.0-0.6); ABSOLUTE LYMPHOCYTES (AUTO) 1.4 10^3/uL (0.5-4.7); ABSOLUTE MONOCYTES (AUTO) 1.3 10^3/uL (0.1-1.4); ABSOLUTE NEUT (AUTO) 8.9 10^3/uL (1.7-8.2); BASOPHILS % (AUTO) 0.6 % (0-2); EOSINOPHILS % (AUTO) 10.9 % (0-6); HEMATOCRIT 35.4 % (36.0-47.0); HEMOGLOBIN 11.8 g/dL (12.0-15.5); MEAN CORPUSCULAR HEMOGLOBIN 29.7 pg (27.0-33.4); MEAN CORPUSCULAR HGB CONC 33.3 g/dL (32.0-36.0); MEAN CORPUSCULAR VOLUME 89 fl (80-97); MONOCYTES % (AUTO) 9.8 % (3-13); PLATELET COUNT 609 10^3/uL (150-450); RED BLOOD COUNT 3.97 10^6/uL (3.72-5.28); RED CELL DISTRIBUTION WIDTH 13.9 % (11.5-14.0); SEGMENTED NEUTROPHILS % (AUTO) 67.7 % (42-78); TOTAL CELLS COUNTED % (AUTO) 100 %; WHITE BLOOD COUNT 13.1 10^3/uL (4.0-10.5)
[2018-07-16 05:59] LABS: ALANINE AMINOTRANSFERASE 19 U/L (9-52); ALBUMIN 3.1 g/dL (3.5-5.0); ALKALINE PHOSPHATASE 79 U/L (38-126); ANION GAP 5 (5-19); ASPARTATE AMINO TRANSFERASE 11 U/L (14-36); BILIRUBIN,DIRECT 0.4 mg/dL (0.0-0.4); BILIRUBIN,TOTAL 0.4 mg/dL (0.2-1.3); BLOOD UREA NITROGEN 12 mg/dL (7-20); CALCIUM 9.2 mg/dL (8.4-10.2); CARBON DIOXIDE 39 mmol/L (22-30); CHLORIDE 97 mmol/L (98-107); GLUCOSE 97 mg/dL (75-110); POTASSIUM 4.1 mmol/L (3.6-5.0); SODIUM 141.3 mmol/L (137-145); TOTAL PROTEIN 5.6 g/dL (6.3-8.2)
[2018-07-16] MEDS: HYDROCODONE/ACETAMINOPHEN 10-325 MG TABLET PO PRN ×2 (08:08→16:11)
[2018-07-16] MEDS: MONTELUKAST SODIUM 10 MG TABLET PO SCH (10:47)
[2018-07-16] MEDS: HYDROCHLOROTHIAZIDE 12.5 MG TABLET PO SCH (10:47)
[2018-07-16] MEDS: ENOXAPARIN SODIUM INJ 40 MG/0.4 ML DISP.SYRIN SUBCUT SCH (10:47)
[2018-07-16] MEDS: LOSARTAN POTASSIUM 50 MG TABLET PO SCH (10:48)
[2018-07-16] MEDS: ARIPIPRAZOLE 5 MG TABLET PO SCH (10:48)
[2018-07-16] MEDS: BUSPIRONE 7.5 MG PO SCH ×2 (14:49→21:38)
--- NOTE | 2018-07-16 21:24 | PDOC PROGRESS REPORT ---
Subjective Progress Note for:: 07/16/18 Subjective:: Patient seen by the bedside, she continues to improve on present regimen Reason For Visit: CHELSEA PNEUMONIA, H/O VERY SEVERE COPD Physical Exam Vital Signs: Temp Pulse Resp BP Pulse Ox 98.0 F 86 16 105/53 L 96 07/16/18 08:09 07/16/18 20:15 07/16/18 20:15 07/16/18 08:09 07/16/18 20:15 Intake & Output 07/15/18 07/16/18 07/17/18 06:59 06:59 06:59 Intake Total 2002 999 50 Output Total 750 2100 Balance 1253 -1101 50 Weight 71.2 kg 70.9 kg General appearance: PRESENT: no acute distress Eye exam: PRESENT: PERRLA Respiratory exam: PRESENT: rhonchi Cardiovascular exam: PRESENT: +S1, +S2 GI/Abdominal exam: PRESENT: soft Neurological exam: PRESENT: alert Results Laboratory Results: 07/16/18 05:26 07/16/18 05:26 07/16/18 07/16/18 05:26 05:26 WBC 13.1 H RBC 3.97 Hgb 11.8 L Hct 35.4 L MCV 89 MCH 29.7 MCHC 33.3 RDW 13.9 Plt Count 609 H Seg Neutrophils % 67.7 Lymphocytes % 11.0 L Monocytes % 9.8 Eosinophils % 10.9 H Basophils % 0.6 Absolute Neutrophils 8.9 H Absolute Lymphocytes 1.4 Absolute Monocytes 1.3 Absolute Eosinophils 1.4 H Absolute Basophils 0.1 Sodium 141.3 Potassium 4.1 Chloride 97 L Carbon Dioxide 39 H Anion Gap 5 BUN 12 Creatinine 0.88 Est GFR ( Amer) > 60 Est GFR (Non-Af Amer) > 60 Glucose 97 Calcium 9.2 Total Bilirubin 0.4 AST 11 L ALT 19 Alkaline Phosphatase 79 Total Protein 5.6 L Albumin 3.1 L 07/12/18 07/12/18 23:30 23:30 Creatine Kinase 86 CK-MB (CK-2) 1.81 Troponin I < 0.012 Impressions: Chest CT 07/13/18 00:00 IMPRESSION: 1. Patchy airspace consolidation throughout the left upper lobe most consistent with lobar pneumonia. 2. Diffuse centrilobular emphysematous changes. 3. Minimal fibrosis and/or atelectasis in the right lower lobe Chest X-Ray 07/15/18 00:00 IMPRESSION: Improved heterogeneous opacity of the left upper lobe. Findings most consistent with improving infection. Recommend continued radiographic follow-up to complete resolution in 6 to [address] 07/15/18 00:00 IMPRESSION: MILD CHRONIC MICROVASCULAR ISCHEMIA. NO ACUTE IMAGING FINDINGS IN THE BRAIN. EVIDENCE OF ACUTE STROKE: NO. Assessment & Plan - Diagnosis (1) Left upper lobe pneumonia Qualifiers: Pneumonia type: due to unspecified organism Qualified Code(s): J18.1 - Lobar pneumonia, unspecified organism Is this a current diagnosis for this admission?: Yes Plan: Continue IV treatment (2) Acute hypoxemic respiratory failure Is this a current diagnosis for this admission?: Yes (3) Acute respiratory alkalosis Is this a current diagnosis for this admission?: Yes (4) Chronic obstructive pulmonary disease Qualifiers: COPD type: unspecified COPD Qualified Code(s): J44.9 - Chronic obstructive pulmonary disease, unspecified Is this a current diagnosis for this admission?: Yes
[2018-07-16] MEDS: GABAPENTIN 300 MG CAPSULE PO SCH (21:39)
[2018-07-16] MEDS: LEVOFLOXACIN 750 MG/D5W RTU 750 MG/150 ML RTUPB IV SCH (21:39)
[2018-07-17] MEDS: LEVALBUTEROL HCL NEB 1.25 MG/3 ML AMPUL NEB SCH ×4 (02:31→21:05)
[2018-07-17] MEDS: CEFEPIME 2 GM/D5W RTU 2 GM/50 ML RTUPB IV SCH ×2 (05:34→17:31)
[2018-07-17] MEDS: LANSOPRAZOLE 30 MG TAB.RAP.DR PO SCH (05:34)
[2018-07-17] MEDS: LEVOTHYROXINE SODIUM 0.075 MG TABLET PO SCH (05:34)
[2018-07-17] MEDS: HYDROCODONE/ACETAMINOPHEN 10-325 MG TABLET PO PRN ×2 (08:15→16:39)
[2018-07-17] MEDS: ENOXAPARIN SODIUM INJ 40 MG/0.4 ML DISP.SYRIN SUBCUT SCH (11:32)
[2018-07-17] MEDS: HYDROCHLOROTHIAZIDE 12.5 MG TABLET PO SCH (11:33)
[2018-07-17] MEDS: BUSPIRONE 7.5 MG PO SCH ×2 (11:33→22:58)
[2018-07-17] MEDS: MONTELUKAST SODIUM 10 MG TABLET PO SCH (11:33)
[2018-07-17] MEDS: ARIPIPRAZOLE 5 MG TABLET PO SCH (11:33)
[2018-07-17] MEDS: LOSARTAN POTASSIUM 50 MG TABLET PO SCH (11:33)
[2018-07-17] MEDS: PANTOPRAZOLE SODIUM 40 MG TABLET.DR PO SCH (16:39)
--- NOTE | 2018-07-17 22:09 | PDOC PROGRESS REPORT ---
Subjective Progress Note for:: 07/17/18 Subjective:: Patient alert, she continues to improve on present antibiotic regimen, she is advised to stay the weekend. She has very severe COPD, she presented with severe pneumonia that affected predominantly the left upper lobe the last CXR that was done suggest improvement typically pneumonia is treated for 7 days because she has underlying very severe COPD I advised her to stay the weekend to receive more antibiotics for total of 10 days Reason For Visit: CHELSEA PNEUMONIA, H/O VERY SEVERE COPD Physical Exam Vital Signs: Temp Pulse Resp BP Pulse Ox 97.3 F 73 16 109/53 L 97 07/17/18 11:35 07/17/18 19:00 07/17/18 13:40 07/17/18 11:35 07/17/18 13:40 Intake & Output 07/16/18 07/17/18 07/18/18 06:59 06:59 06:59 Intake Total 999 2 644 Output Total 2100 0 Balance -1101 2052 644 Weight 70.9 kg 71 kg 71 kg General appearance: PRESENT: no acute distress, well-developed, well-nourished Head exam: PRESENT: atraumatic, normocephalic Eye exam: PRESENT: conjunctiva pink, EOMI, PERRLA. ABSENT: scleral icterus Ear exam: PRESENT: normal external ear exam Mouth exam: PRESENT: moist, tongue midline Neck exam: PRESENT: full ROM. ABSENT: carotid bruit, JVD, lymphadenopathy, thyromegaly Respiratory exam: PRESENT: rhonchi Cardiovascular exam: PRESENT: RRR, +S1, +S2 Pulses: PRESENT: normal dorsalis pedis pul, +2 pedal pulses bilateral Vascular exam: PRESENT: normal capillary refill GI/Abdominal exam: PRESENT: normal bowel sounds, soft Rectal exam: PRESENT: deferred Neurological exam: PRESENT: alert, awake, oriented to person, oriented to place, oriented to time, oriented to situation, CN II-XII grossly intact. ABSENT: motor sensory deficit Psychiatric exam: PRESENT: appropriate affect, normal mood. ABSENT: homicidal ideation, suicidal ideation Skin exam: PRESENT: dry, intact, warm. ABSENT: cyanosis, rash Results Laboratory Results: 07/16/18 05:26 07/16/18 05:26 07/12/18 07/12/18 23:30 23:30 Creatine Kinase 86 CK-MB (CK-2) 1.81 Troponin I < 0.012 Impressions: Chest CT 07/13/18 00:00 IMPRESSION: 1. Patchy airspace consolidation throughout the left upper lobe most consistent with lobar pneumonia. 2. Diffuse centrilobular emphysematous changes. 3. Minimal fibrosis and/or atelectasis in the right lower lobe Chest X-Ray 07/15/18 00:00 IMPRESSION: Improved heterogeneous opacity of the left upper lobe. Findings most consistent with improving infection. Recommend continued radiographic follow-up to complete resolution in 6 to [address] 07/15/18 00:00 IMPRESSION: MILD CHRONIC MICROVASCULAR ISCHEMIA. NO ACUTE IMAGING FINDINGS IN THE BRAIN. EVIDENCE OF ACUTE STROKE: NO. Assessment & Plan - Diagnosis (1) Left upper lobe pneumonia Qualifiers: Pneumonia type: due to unspecified organism Qualified Code(s): J18.1 - Lobar pneumonia, unspecified organism Is this a current diagnosis for this admission?: Yes Plan: Continue IV treatment (2) Acute hypoxemic respiratory failure Is this a current diagnosis for this admission?: Yes (3) Acute respiratory alkalosis Is this a current diagnosis for this admission?: Yes (4) Chronic obstructive pulmonary disease Qualifiers: COPD type: unspecified COPD Qualified Code(s): J44.9 - Chronic obstructive pulmonary disease, unspecified Is this a current diagnosis for this admission?: Yes Plan: She would need pulmonary rehabilitation
[2018-07-17] MEDS: GABAPENTIN 300 MG CAPSULE PO SCH (22:51)
[2018-07-17] MEDS: LEVOFLOXACIN 750 MG/D5W RTU 750 MG/150 ML RTUPB IV SCH (22:51)
[2018-07-18] MEDS: LEVALBUTEROL HCL NEB 1.25 MG/3 ML AMPUL NEB SCH ×4 (02:04→20:26)
[2018-07-18] MEDS: CEFEPIME 2 GM/D5W RTU 2 GM/50 ML RTUPB IV SCH ×2 (06:05→17:06)
[2018-07-18] MEDS: LEVOTHYROXINE SODIUM 0.075 MG TABLET PO SCH (06:09)
[2018-07-18] MEDS: PANTOPRAZOLE SODIUM 40 MG TABLET.DR PO SCH ×2 (06:09→17:06)
[2018-07-18] MEDS: HYDROCODONE/ACETAMINOPHEN 10-325 MG TABLET PO PRN ×2 (06:22→14:33)
[2018-07-18] MEDS: LOSARTAN POTASSIUM 50 MG TABLET PO SCH (09:16)
[2018-07-18] MEDS: ENOXAPARIN SODIUM INJ 40 MG/0.4 ML DISP.SYRIN SUBCUT SCH (09:16)
[2018-07-18] MEDS: HYDROCHLOROTHIAZIDE 12.5 MG TABLET PO SCH (09:16)
[2018-07-18] MEDS: ARIPIPRAZOLE 5 MG TABLET PO SCH (09:16)
[2018-07-18] MEDS: MONTELUKAST SODIUM 10 MG TABLET PO SCH (09:16)
[2018-07-18] MEDS: BUSPIRONE 7.5 MG PO SCH ×2 (09:17→21:28)
--- NOTE | 2018-07-18 11:19 | PDOC PROGRESS REPORT ---
Subjective Progress Note for:: 07/18/18 Subjective:: Patient was admitted for the pneumonia and COPD currently doing well Patient is denied any chest pain denied any shortness of the breath Patient is oxygen dependent Reason For Visit: CHELSEA PNEUMONIA, H/O VERY SEVERE COPD Physical Exam Vital Signs: Temp Pulse Resp BP Pulse Ox 97.4 F 77 16 103/58 L 98 07/18/18 07:58 07/18/18 08:37 07/18/18 08:37 07/18/18 07:58 07/18/18 08:37 Intake & Output 07/17/18 07/18/18 07/19/18 06:59 06:59 06:59 Intake Total 2051 1266 50 Output Total 0 Balance 2051 126 50 Weight 71 kg 70 kg General appearance: PRESENT: no acute distress, well-developed, well-nourished Head exam: PRESENT: atraumatic, normocephalic Eye exam: PRESENT: conjunctiva pink, EOMI, PERRLA. ABSENT: scleral icterus Ear exam: PRESENT: normal external ear exam Mouth exam: PRESENT: moist, tongue midline Neck exam: PRESENT: full ROM. ABSENT: carotid bruit, JVD, lymphadenopathy, thyromegaly Respiratory exam: PRESENT: clear to auscultation christina Cardiovascular exam: PRESENT: RRR. ABSENT: diastolic murmur, rubs, systolic murmur Vascular exam: PRESENT: normal capillary refill GI/Abdominal exam: PRESENT: normal bowel sounds, soft. ABSENT: distended, guarding, mass, organolmegaly, rebound, tenderness Rectal exam: PRESENT: deferred Musculoskeletal exam: PRESENT: ambulatory Neurological exam: PRESENT: alert, awake, oriented to person, oriented to place, oriented to time, oriented to situation, CN II-XII grossly intact. ABSENT: motor sensory deficit Psychiatric exam: PRESENT: appropriate affect, normal mood. ABSENT: homicidal ideation, suicidal ideation Skin exam: PRESENT: dry, intact, warm. ABSENT: cyanosis, rash Results Laboratory Results: 07/16/18 05:26 07/16/18 05:26 07/15/18 22:30 Sputum Gram Stain - Final 07/12/18 23:43 Blood Blood Culture - Final NO GROWTH IN 5 DAYS 07/12/18 23:30 Blood Blood Culture - Final NO GROWTH IN 5 DAYS 07/12/18 07/12/18 23:30 23:30 Creatine Kinase 86 CK-MB (CK-2) 1.81 Troponin I < 0.012 Impressions: Chest CT 07/13/18 00:00 IMPRESSION: 1. Patchy airspace consolidation throughout the left upper lobe most consistent with lobar pneumonia. 2. Diffuse centrilobular emphysematous changes. 3. Minimal fibrosis and/or atelectasis in the right lower lobe Chest X-Ray 07/15/18 00:00 IMPRESSION: Improved heterogeneous opacity of the left upper lobe. Findings most consistent with improving infection. Recommend continued radiographic follow-up to complete resolution in 6 to [address] 07/15/18 00:00 IMPRESSION: MILD CHRONIC MICROVASCULAR ISCHEMIA. NO ACUTE IMAGING FINDINGS IN THE BRAIN. EVIDENCE OF ACUTE STROKE: NO. Assessment & Plan - Diagnosis (1) Acute hypoxemic respiratory failure Is this a current diagnosis for this admission?: Yes (2) Chronic obstructive pulmonary disease Qualifiers: COPD type: unspecified COPD Qualified Code(s): J44.9 - Chronic obstructive pulmonary disease, unspecified Is this a current diagnosis for this admission?: Yes (3) Left upper lobe pneumonia Qualifiers: Pneumonia type: due to unspecified organism Qualified Code(s): J18.1 - Lobar pneumonia, unspecified organism Is this a current diagnosis for this admission?: Yes - Time Time Spent with patient: 15-24 minutes Medications reviewed and adjusted accordingly: Yes Anticipated discharge: Other Within: Other - Plan Summary Plan Summary: Continues to IV antibiotic Continues to nebulizer treatments
[2018-07-18] MEDS: GABAPENTIN 300 MG CAPSULE PO SCH (21:28)
[2018-07-18] MEDS: LEVOFLOXACIN 750 MG/D5W RTU 750 MG/150 ML RTUPB IV SCH (21:28)
[2018-07-19] MEDS: LEVALBUTEROL HCL NEB 1.25 MG/3 ML AMPUL NEB SCH ×4 (02:15→20:37)
[2018-07-19] MEDS: LEVOTHYROXINE SODIUM 0.075 MG TABLET PO SCH (05:28)
[2018-07-19] MEDS: CEFEPIME 2 GM/D5W RTU 2 GM/50 ML RTUPB IV SCH ×2 (05:28→17:02)
[2018-07-19] MEDS: PANTOPRAZOLE SODIUM 40 MG TABLET.DR PO SCH ×2 (05:28→16:31)
[2018-07-19] MEDS: HYDROCODONE/ACETAMINOPHEN 10-325 MG TABLET PO PRN ×2 (08:37→16:31)
[2018-07-19] MEDS: ENOXAPARIN SODIUM INJ 40 MG/0.4 ML DISP.SYRIN SUBCUT SCH (09:29)
[2018-07-19] MEDS: ARIPIPRAZOLE 5 MG TABLET PO SCH (09:30)
[2018-07-19] MEDS: HYDROCHLOROTHIAZIDE 12.5 MG TABLET PO SCH (09:30)
[2018-07-19] MEDS: MONTELUKAST SODIUM 10 MG TABLET PO SCH (09:30)
[2018-07-19] MEDS: BUSPIRONE 7.5 MG PO SCH ×2 (09:31→21:24)
--- NOTE | 2018-07-19 10:14 | PDOC PROGRESS REPORT ---
Subjective Progress Note for:: 07/19/18 Subjective:: Patient is feeling much better Patient is denied any chest pain denied any shortness of the breath Patient with no fever no chills Patient's blood pressure is running lower end but patients denied any symptoms currently hold the losartan Reason For Visit: CHELSEA PNEUMONIA, H/O VERY SEVERE COPD Physical Exam Vital Signs: Temp Pulse Resp BP Pulse Ox 97.7 F 73 16 108/47 L 99 07/19/18 07:44 07/19/18 09:09 07/19/18 09:09 07/19/18 07:44 07/19/18 09:09 Intake & Output 07/18/18 07/19/18 07/20/18 06:59 06:59 06:59 Intake Total 1266 1678 Output Total 0 Balance 1266 1678 Weight 70 kg 70.8 kg General appearance: PRESENT: no acute distress, well-developed, well-nourished Head exam: PRESENT: atraumatic, normocephalic Eye exam: PRESENT: conjunctiva pink, EOMI, PERRLA. ABSENT: scleral icterus Ear exam: PRESENT: normal external ear exam Mouth exam: PRESENT: moist, tongue midline Neck exam: PRESENT: full ROM. ABSENT: carotid bruit, JVD, lymphadenopathy, thyromegaly Respiratory exam: PRESENT: clear to auscultation christina Cardiovascular exam: ABSENT: diastolic murmur, rubs, systolic murmur Vascular exam: PRESENT: normal capillary refill GI/Abdominal exam: PRESENT: normal bowel sounds, soft. ABSENT: distended, guarding, mass, organolmegaly, rebound, tenderness Rectal exam: PRESENT: deferred Extremities exam: ABSENT: pedal edema Neurological exam: PRESENT: alert, awake, oriented to person, oriented to place, oriented to time, oriented to situation, CN II-XII grossly intact. ABSENT: motor sensory deficit Psychiatric exam: PRESENT: appropriate affect, normal mood. ABSENT: homicidal ideation, suicidal ideation Skin exam: PRESENT: dry, intact, warm. ABSENT: cyanosis, rash Results Laboratory Results: 07/16/18 05:26 07/16/18 05:26 07/15/18 22:30 Sputum Gram Stain - Final 07/12/18 07/12/18 23:30 23:30 Creatine Kinase 86 CK-MB (CK-2) 1.81 Troponin I < 0.012 Impressions: Chest CT 07/13/18 00:00 IMPRESSION: 1. Patchy airspace consolidation throughout the left upper lobe most consistent with lobar pneumonia. 2. Diffuse centrilobular emphysematous changes. 3. Minimal fibrosis and/or atelectasis in the right lower lobe Chest X-Ray 07/15/18 00:00 IMPRESSION: Improved heterogeneous opacity of the left upper lobe. Findings most consistent with improving infection. Recommend continued radiographic follow-up to complete resolution in 6 to [address] 07/15/18 00:00 IMPRESSION: MILD CHRONIC MICROVASCULAR ISCHEMIA. NO ACUTE IMAGING FINDINGS IN THE BRAIN. EVIDENCE OF ACUTE STROKE: NO. Assessment & Plan - Diagnosis (1) Acute hypoxemic respiratory failure Is this a current diagnosis for this admission?: Yes Plan: Currently doing better (2) Chronic obstructive pulmonary disease Qualifiers: COPD type: unspecified COPD Qualified Code(s): J44.9 - Chronic obstructive pulmonary disease, unspecified Is this a current diagnosis for this admission?: Yes Plan: Continues on nebulizers (3) Left upper lobe pneumonia Qualifiers: Pneumonia type: due to unspecified organism Qualified Code(s): J18.1 - Lobar pneumonia, unspecified organism Is this a current diagnosis for this admission?: Yes Plan: Continues to IV antibiotic - Time Time Spent with patient: 15-24 minutes Medications reviewed and adjusted accordingly: Yes Anticipated discharge: Home Within: Other - Plan Summary Plan Summary: hold losartan Continues to current medications
[2018-07-19] MEDS: LOSARTAN POTASSIUM 50 MG TABLET PO SCH (10:33)
[2018-07-19] MEDS: GABAPENTIN 300 MG CAPSULE PO SCH (21:23)
[2018-07-19] MEDS: LEVOFLOXACIN 750 MG/D5W RTU 750 MG/150 ML RTUPB IV SCH (21:25)
[2018-07-20] MEDS: LEVALBUTEROL HCL NEB 1.25 MG/3 ML AMPUL NEB SCH ×4 (02:23→20:45)
[2018-07-20] MEDS: LEVOTHYROXINE SODIUM 0.075 MG TABLET PO SCH (05:29)
[2018-07-20] MEDS: PANTOPRAZOLE SODIUM 40 MG TABLET.DR PO SCH ×2 (05:29→17:00)
[2018-07-20] MEDS: CEFEPIME 2 GM/D5W RTU 2 GM/50 ML RTUPB IV SCH ×2 (05:30→17:00)
[2018-07-20] MEDS: HYDROCODONE/ACETAMINOPHEN 10-325 MG TABLET PO PRN (08:35)
[2018-07-20] MEDS: ARIPIPRAZOLE 5 MG TABLET PO SCH (10:13)
[2018-07-20] MEDS: HYDROCHLOROTHIAZIDE 12.5 MG TABLET PO SCH (10:13)
[2018-07-20] MEDS: MONTELUKAST SODIUM 10 MG TABLET PO SCH (10:13)
[2018-07-20] MEDS: ENOXAPARIN SODIUM INJ 40 MG/0.4 ML DISP.SYRIN SUBCUT SCH (10:13)
[2018-07-20] MEDS: LOSARTAN POTASSIUM 50 MG TABLET PO SCH (10:13)
[2018-07-20] MEDS: BUSPIRONE 7.5 MG PO SCH ×2 (10:17→21:45)
--- NOTE | 2018-07-20 16:23 | Pulmonary Function Test ---
Pulmonary Function Test Date of Procedure:: 07/20/18 INDICATION:: dyspnea Referring Provider: Dr. Shereen Gutierrez - Report Spirometry: FVC 1.15 L 37% FEV1 0.42 L 18% FEV1/FVC % 37 predicted 78 FEF 25-75% 0.31 L 13% Impression: Severe obstructive ventilatory defect.restrictive defect is suggested but cannot be diagnosed on the basis of spirometry alone. if clinically indicated complete pulmonary function test would be warranted
--- NOTE | 2018-07-20 18:11 | RADIOLOGY REPORT (SQ) ---
EXAM DESCRIPTION: CHEST SINGLE VIEW COMPLETED DATE/TIME: 07/20/2018 5:46 pm REASON FOR STUDY: copd COMPARISON: 07/15/2018 EXAM PARAMETERS: NUMBER OF VIEWS: One view. TECHNIQUE: Single frontal radiographic view of the chest acquired. RADIATION DOSE: NA LIMITATIONS: None. FINDINGS: LUNGS AND PLEURA: Persistent opacification the left upper lobe laterally with stranding to the left hilum MEDIASTINUM AND HILAR STRUCTURES: No masses. Contour normal. HEART AND VASCULAR STRUCTURES: Heart normal in size. Normal vasculature. BONES: No acute findings. HARDWARE: None in the chest. OTHER: No other significant finding. IMPRESSION: Opacification in the left upper lobe with stranding toward the left hilum. May represen t resolving pneumonia. Cannot exclude neoplasm. TECHNICAL DOCUMENTATION: JOB ID: [id number] [email or web address] All Rights Reserved Reading location - IP/workstation name: [email or web address]
--- NOTE | 2018-07-20 20:10 | PDOC DISCHARGE SUMMARY ---
General - Admit/Disc Date/PCP Admission Date/Primary Care Provider: 07/13/18 01:58 YANELY DORMNA MD Discharge Date: 07/21/18 - Discharge Diagnosis (1) Left upper lobe pneumonia Is this a current diagnosis for this admission?: Yes (2) Acute hypoxemic respiratory failure Is this a current diagnosis for this admission?: Yes (3) Acute respiratory alkalosis Is this a current diagnosis for this admission?: Yes (4) Chronic obstructive pulmonary disease Is this a current diagnosis for this admission?: Yes - Additional Information Resuscitation Status: Full Code Prescriptions: Levofloxacin [Levaquin 750 mg Tablet] 750 mg PO DAILY #10 tab Home Medications: Albuterol Sulfate [Proair HFA Inhalation Aerosol 8.5 gm MDI] 2 puff IH Q6HP PRN 07/13/18 Albuterol Sulfate [Ventolin 0.083% Neb 2.5 mg/3 mL Ampul] 1 vial IH RTQ4HP PRN 07/13/18 Aripiprazole [Abilify] 5 mg PO DAILY 07/13/18 Buspirone HCl [Buspar 5 mg Tablet] 7.5 mg PO Q12 07/13/18 Gabapentin [Neurontin 300 mg Capsule] 300 mg PO QHS 07/13/18 Guaifenesin [Mucinex] 600 mg PO Q12HP PRN 07/13/18 Hydrocodone Bit/Acetaminophen [Hydrocodon-Acetaminophn 10-325] 1 tab PO Q8HP PRN 07/13/18 Ipratropium [place] [Atrovent 0.02% Neb 0.5 mg/2.5 ml Ampul] 1 vial IH RTQ6 07/13/18 Levothyroxine Sodium [Synthroid 0.075 mg Tablet] 0.075 mg PO Q6AM 07/13/18 Losartan/Hydrochlorothiazide [Hyzaar 100-12.5 Tablet] 1 tab PO DAILY 07/13/18 Montelukast Sodium [Singulair] 10 mg PO DAILY 07/13/18 Testosterone Cypionate [Depo-Testosterone] 15 mg IM Q14D 07/13/18 Tizanidine HCl [Zanaflex] 4 mg PO QHS 07/13/18 Fluticasone/Salmeterol [Advair 250-50 Diskus 14 Dose/Diskus] 1 inh IH Q12 07/14/18 Guaifenesin/Dextromethorphan [Mucinex Dm ER 600-30 mg Tablet] 1 each PO Q12 07/14/18 Vortioxetine Hydrobromide [Trintellix] 10 mg PO DAILY 07/14/18 Levofloxacin [Levaquin 750 mg Tablet] 750 mg PO DAILY #10 tab 07/20/18 History of Present Illness History of Present Illness: DEBI CHAVEZ is a 57 year old female, She has very severe chronic obstructive lung disease, she came to the hospital for evaluation of cough, shortness of breath, she was treated outpatient for COPD exacerbation with p.o. antibiotic, bronchodilators, in the emergency room a chest x-ray was done that demonstrated left upper lobe patchy infiltrate subsequently CT chest with contrast was obtained it confirmed that is left upper lobe pneumonia. The arterial blood gas was done consistent with hypoxemia with respiratory alkalosis. Hospital Course Hospital Course: She has very severe COPD she was admitted for the management of left upper lobe pneumonia, she was treated with IV Levaquin and cefepime with improvement in her symptoms. She has end-stage COPD very symptomatic on minimal exertion.She has very severe COPD she also was seen by pulmonary she may be a candidate for lung transplant, I explained to her that I would refer her to [facility] lung transplant program for consideration for lung transplant she is a candidate Physical Exam Vital Signs: Temp Pulse Resp BP Pulse Ox 97.5 F 71 16 114/49 L 100 07/20/18 16:43 07/20/18 19:00 07/20/18 16:43 07/20/18 16:43 07/20/18 16:43 Intake & Output 07/19/18 07/20/18 07/21/18 06:59 06:59 06:59 Intake Total 1678 1419 1160 Output Total 0 0 Balance 1678 1419 1160 Weight 70.8 kg 71.2 kg General appearance: PRESENT: no acute distress Eye exam: PRESENT: PERRLA Respiratory exam: PRESENT: decreased breath sounds, rhonchi Cardiovascular exam: PRESENT: +S1, +S2 Neurological exam: PRESENT: alert, CN II-XII grossly intact Results Laboratory Results: 07/16/18 05:26 07/16/18 05:26 07/15/18 22:30 Sputum Gram Stain - Final 07/15/18 22:30 Sputum Sputum Culture - Final Acinetobacter Baumannii/Haem C.albicans/C.dubliniensis Greatly Reduced Normal Jennifer 07/12/18 07/12/18 23:30 23:30 Creatine Kinase 86 CK-MB (CK-2) 1.81 Troponin I < 0.012 Impressions: Chest CT 07/13/18 00:00 IMPRESSION: 1. Patchy airspace consolidation throughout the left upper lobe most consistent with lobar pneumonia. 2. Diffuse centrilobular emphysematous changes. 3. Minimal fibrosis and/or atelectasis in the right lower lobe Head CT 07/15/18 00:00 IMPRESSION: MILD CHRONIC MICROVASCULAR ISCHEMIA. NO ACUTE IMAGING FINDINGS IN THE BRAIN. EVIDENCE OF ACUTE STROKE: NO. Chest X-Ray 07/20/18 00:00 IMPRESSION: Opacification in the left upper lobe with stranding toward the left hilum. May represent resolving pneumonia. Cannot exclude neoplasm. Qualifiers - * PATIENT BEING DISCHARGED WITH ANY OF THE FOLLOWING DIAGNOSIS: No
[2018-07-20] MEDS: GABAPENTIN 300 MG CAPSULE PO SCH (21:45)
[2018-07-21] MEDS: LEVALBUTEROL HCL NEB 1.25 MG/3 ML AMPUL NEB SCH ×3 (01:37→13:36)
[2018-07-21] MEDS: LEVOTHYROXINE SODIUM 0.075 MG TABLET PO SCH (05:24)
[2018-07-21] MEDS: PANTOPRAZOLE SODIUM 40 MG TABLET.DR PO SCH (05:24)
[2018-07-21] MEDS: CEFEPIME 2 GM/D5W RTU 2 GM/50 ML RTUPB IV SCH (05:25)
[2018-07-21] MEDS: HYDROCODONE/ACETAMINOPHEN 10-325 MG TABLET PO PRN ×2 (05:35→13:54)
[2018-07-21] MEDS: MONTELUKAST SODIUM 10 MG TABLET PO SCH (13:11)
[2018-07-21] MEDS: LOSARTAN POTASSIUM 50 MG TABLET PO SCH (13:11)
[2018-07-21] MEDS: HYDROCHLOROTHIAZIDE 12.5 MG TABLET PO SCH (13:11)
[2018-07-21] MEDS: ARIPIPRAZOLE 5 MG TABLET PO SCH (13:11)
[2018-07-21] MEDS: BUSPIRONE 7.5 MG PO SCH (13:12)
[2018-07-21] MEDS: ENOXAPARIN SODIUM INJ 40 MG/0.4 ML DISP.SYRIN SUBCUT SCH (13:13)
[2018-07-21 14:07] VITALS: BP 119/58
== END 2018-07-21 14:44 | disposition home or self-care (01) | DRG 193 ==
LOC: ER 19:47 → EH 07-13 01:58 → 3W 07-13 16:05
PROVIDERS: ADMIT Internal Medicine; ATTEND Internal Medicine
PROC: 3E0F73Z Introduction of Anti-inflammatory into Respiratory Tract, Via Natural or Artificial Opening (ICD-10-PCS; principal; 2018-07-13)
DX: J18.1 Lobar pneumonia, unspecified organism (principal); J96.01 Acute respiratory failure with hypoxia; J44.0 Chronic obstructive pulmonary disease with (acute) lower respiratory infection; J44.1 Chronic obstructive pulmonary disease with (acute) exacerbation; I10 Essential (primary) hypertension; F32.9 Major depressive disorder, single episode, unspecified; F41.1 Generalized anxiety disorder; Z79.899 Other long term (current) drug therapy; Z79.891 Long term (current) use of opiate analgesic; Z79.890 Hormone replacement therapy; Z87.891 Personal history of nicotine dependence; Z88.3 Allergy status to other anti-infective agents; Z99.81 Dependence on supplemental oxygen
CPT/HCPCS: 36415; 70450; 71045; 71046; 71260; 80053; 81001; 81332; 82550; 82553; 82803; 83036; 84484; 85025; 87040; 87070; 87077; 87186; 87205; 93005; 93010; 94010; 94640; 94667; 94668; 96365; 96375; 99285; J0692; J1650; J1956; J2930; J3490; J7030; J7620

== ENCOUNTER → 2018-08-04 | Outpatient (CLI) | payer SELFPAY ==
--- NOTE | 2018-08-04 15:07 | RADIOLOGY REPORT (SQ) ---
EXAM DESCRIPTION: KNEE LEFT 2 VIEWS COMPLETED DATE/TIME: 08/04/2018 2:38 pm REASON FOR STUDY: PAIN IN LEFT KNEE M25.562 PAIN IN LEFT KNEE COMPARISON: None. NUMBER OF VIEWS: Four views. TECHNIQUE: AP, lateral, and both oblique radiographic images acquired of the left knee. LIMITATIONS: None. FINDINGS: MINERALIZATION: Normal. BONES: No acute fracture or dislocation. No worrisome bone lesions. JOINT: Mild narrowing at the patellofemoral compartment and the lateral compartment of the knee. Sm all to mild suprapatellar effusion suggested. SOFT TISSUES: No soft tissue swelling. No radio-opaque foreign body. OTHER: No other significant finding. IMPRESSION: 1. No acute osseous findings. 2. Mild narrowing at the patellofemoral and lateral compartments of the knee. 3. Small to mild suprapatellar effusion suggested. TECHNICAL DOCUMENTATION: JOB ID: [id number] [employer]- All Rights Reserved Reading location - IP/workstation name: [email or web address]
== END ==
LOC: OD 14:11
PROVIDERS: ATTEND Internal Medicine
DX: M25.562 Pain in left knee (principal)

== ENCOUNTER → 2018-11-24 | Outpatient (CLI) | payer SELFPAY ==
--- NOTE | 2018-11-24 16:43 | RADIOLOGY REPORT (SQ) ---
EXAM DESCRIPTION: CTA CHEST COMPLETED DATE/TIME: 11/24/2018 4:02 pm REASON FOR STUDY: (R06.02)SHORTNESS OF BREATH R06.02 SHORTNESS OF BREATH COMPARISON: 07/13/2018 TECHNIQUE: CT scan of the chest performed using helical scanning technique with dynamic intravenous contrast injection. Images reviewed with lung, soft tissue and bone windows. Reconstructed coronal and sagittal MPR images reviewed. Additional 3 dimensional post-processing performed to develop Maximal Intensity Projection images (CO P). All images stored on PACS. All CT scanners at this facility use dose modulation, iterative reconstruction, and/or weight based d osing when appropriate to reduce radiation dose to as low as reasonably achievable (ALARA). [facility]: Dose Right [facility]: CareDose [facility]: Dose Right [facility]: Teradose 4D [facility]: [email or web address] CONTRAST TYPE AND DOSE: contrast/concentration: Isovue 350.00 mg/ml; Total Contrast Delivered: 63.0 ml; Total Saline Delivered: 85.0 ml Contrast bolus adequate for pulmonary arteries and aorta. RENAL FUNCTION: GFR > 60. RADIATION DOSE: CT Rad equipment meets quality standard of care and radiation dose reduction techniq ues were employed. CTDIvol: 7.1 - 22.5 mGy. DLP: 302 mGy-cm. . LIMITATIONS: None. FINDINGS: LUNGS AND PLEURA: No pneumothorax. Multiple bilateral areas of parenchymal nodularity are similar compared with the July exam, however some nodular areas in the left upper lobe were obscure d by consolidation on the previous study. Severe emphysema. No pleural effusions. AORTA AND GREAT VESSELS: No aneurysm or dissection. HEART: No pericardial effusion. Moderate coronary artery calcifications. PULMONARY ARTERIES: No emboli visualized in the main pulmonary arteries or the segmental branches. HILAR AND MEDIASTINAL STRUCTURES: Similar small nodes. HARDWARE: None in the chest. UPPER ABDOMEN: No significant findings. Limited exam. THYROID AND OTHER SOFT TISSUES: No masses. No adenopathy. BONES: No acute or significant finding. 3D MIPS: Confirm above findings. OTHER: No other significant finding. IMPRESSION: No emboli visualized in the main pulmonary arteries or the segmental branches.Multiple b ilateral areas of parenchymal nodularity are similar compared with the July exam, however some nodul ar areas in the left upper lobe were obscured by consolidation on the previous study. Severe emphyse ma. No pleural effusions. COMMENT: Additional follow-up chest CT recommended in 4-6 months to document stability. Quality ID # [id number]: Final reports with documentation of one or more dose reduction techniques (e.g., Au tomated exposure control, adjustment of the mA and/or kV according to patient size, use of iterative reconstruction technique) TECHNICAL DOCUMENTATION: JOB ID: [id number] [place]-72 2010 [employer]- All Rights Reserved Reading location - IP/workstation name: [email or web address]
== END ==
LOC: RAD 15:48
PROVIDERS: ATTEND Internal Medicine
DX: R06.02 Shortness of breath (principal)
CPT/HCPCS: 71275; 82565

== ENCOUNTER → 2018-12-18 | Outpatient (CLI) | payer SELFPAY ==
--- NOTE | 2018-12-18 14:30 | RADIOLOGY REPORT (SQ) ---
EXAM DESCRIPTION: CT ABD/PELVIS WITH IV ONLY COMPLETED DATE/TIME: 12/18/2018 2:11 pm REASON FOR STUDY: (R10.9)UNSPECIFIED ABDOMINAL PAIN R10.9 UNSPECIFIED ABDOMINAL PAIN COMPARISON: None. TECHNIQUE: CT scan of the abdomen and pelvis performed using helical scanning technique with dynamic intravenous contrast injection. No oral contrast. Images reviewed with lung, soft tissue, and bone windows. Reconstructed coronal and sagittal MPR images reviewed. Delayed images for evaluation of the urinary system also acquired. All images stored on PACS. All CT scanners at this facility use dose modulation, iterative reconstruction, and/or weight based d osing when appropriate to reduce radiation dose to as low as reasonably achievable (ALARA). [facility]: Dose Right [facility]: CareDose [facility]: Dose Right [facility]: Teradose 4D [facility]: [employer] CONTRAST TYPE AND DOSE: contrast/concentration: Isovue 350.00 mg/ml; Total Contrast Delivered: 74.0 ml; Total Saline Delivered: 67.0 ml RENAL FUNCTION: GFR > 60. RADIATION DOSE: CT Rad equipment meets quality standard of care and radiation dose reduction techniq ues were employed. CTDIvol: NaN - NaN mGy. DLP: 0 mGy-cm.. LIMITATIONS: None. FINDINGS: LOWER CHEST: No significant findings. No nodules or infiltrates. LIVER: Normal size. No masses. No dilated ducts. SPLEEN: Normal size. No focal lesions. PANCREAS: No masses. No significant calcifications. No adjacent inflammation or peripancreatic fluid collections. Pancreatic duct not dilated. GALLBLADDER: No identified stones by CT criteria. No inflammatory changes to suggest cholecystitis. ADRENAL GLANDS: No significant masses or asymmetry. RIGHT KIDNEY AND URETER: No solid masses. No significant calcifications. No hydronephrosis or hyd roureter. LEFT KIDNEY AND URETER: No solid masses. No significant calcifications. No hydronephrosis or hydr oureter. AORTA AND VESSELS: No aneurysm. No dissection. Renal arteries, SMA, celiac without stenosis. RETROPERITONEUM: No retroperitoneal adenopathy, hemorrhage or masses. BOWEL AND PERITONEAL CAVITY: Abundant gas and fecal material within nondilated colon. No masses or i nflammatory changes. No free fluid or peritoneal masses. APPENDIX: Normal. PELVIS: No mass. No free fluid. Normal bladder. ABDOMINAL WALL: No masses. No hernias. BONES: No significant or acute findings. OTHER: No other significant finding. IMPRESSION: No acute findings in the abdomen or pelvis. TECHNICAL DOCUMENTATION: JOB ID: [id number] Quality ID # [id number]: Final reports with documentation of one or more dose reduction techniques (e.g., Au tomated exposure control, adjustment of the mA and/or kV according to patient size, use of iterative reconstruction technique) 2010 [employer]- All Rights Reserved Reading location - IP/workstation name: [email or web address]
== END ==
LOC: RAD 13:42
PROVIDERS: ATTEND Internal Medicine
DX: R10.9 Unspecified abdominal pain (principal)
CPT/HCPCS: 74177; 82565

== ENCOUNTER → 2019-03-01 | Outpatient (CLI) | payer SELFPAY ==
--- NOTE | 2019-03-01 17:02 | RADIOLOGY REPORT (SQ) ---
EXAM DESCRIPTION: CHEST PA/LATERAL COMPLETED DATE/TIME: 03/01/2019 4:44 pm REASON FOR STUDY: PNEUMONIA, UNSPECIFIED ORGANISM COMPARISON: 11/23/2018 EXAM PARAMETERS: NUMBER OF VIEWS: two views TECHNIQUE: Digital Frontal and Lateral radiographic views of the chest acquired. RADIATION DOSE: NA LIMITATIONS: none FINDINGS: LUNGS AND PLEURA: No opacities, masses or pneumothorax. No pleural effusion. MEDIASTINUM AND HILAR STRUCTURES: No masses or contour abnormalities. HEART AND VASCULAR STRUCTURES: Heart normal size. No evidence for failure. BONES: No acute findings. HARDWARE: None in the chest. OTHER: No other significant finding. IMPRESSION: NO SIGNIFICANT RADIOGRAPHIC FINDING IN THE CHEST. TECHNICAL DOCUMENTATION: JOB ID: [id number] [employer]- All Rights Reserved Reading location - IP/workstation name: [email or web address]
== END ==
LOC: OD 16:29
PROVIDERS: ATTEND Internal Medicine
DX: J18.9 Pneumonia, unspecified organism (principal)
CPT/HCPCS: 71046

== ENCOUNTER 2019-05-03 14:12 | Emergency (ER) | payer SELFPAY ==
[2019-05-03] MEDS ORDERED: IPRATROPIUM/ALBUTEROL 0.5-2.5 MG/3 ML AMPUL NEB ONE ×2 (15:47→20:17)
--- NOTE | 2019-05-03 15:50 | ER Document Report ---
ED Medical Screen (RME) - General Chief Complaint: Breathing Difficulty Stated Complaint: BREATHING PROBLEMS Time Seen by Provider: 05/03/19 15:41 Primary Care Provider: YANELY DORMAN MD [Primary Care Provider] - Follow up as needed Notes: Patient is a 58-year-old female with a history of COPD, dependent on 2 L nasal nasal cannula of oxygen who presents emergency department with a chief complaint of shortness of breath and difficulty breathing. Patient reports is been present for 4 days. She reports she has had a productive cough with green sputum. Patient states she does take albuterol inhalers, duo nebulizers as well as Spiriva at home without much relief. Patient reports that her grandson does have similar symptoms and was diagnosed with upper respiratory infection. Patient reports she has not had to increase for 2 L of oxygen since having increased shortness of breath. Patient denies nausea, vomiting or diarrhea. Patient denies body aches. Patient denies fever. TRAVEL OUTSIDE OF THE [place] IN LAST 30 DAYS: No - Related Data Allergies/Adverse Reactions: No Known Allergies Allergy (Unverified 07/14/18 12:49) Past Medical History - Social History Frequency of alcohol use: None Drug Abuse: None - Past Medical History Cardiac Medical History: Reports: Hx Hypertension Pulmonary Medical History: Reports: Hx COPD Renal/ Medical History: Denies: Hx Peritoneal Dialysis Psychiatric Medical History: Reports: Hx Depression Physical Exam - Vital signs Vitals: Temp Pulse Resp BP Pulse Ox 98.1 F 89 24 H 123/59 L 96 05/03/19 14:20 05/03/19 14:20 05/03/19 14:20 05/03/19 14:20 05/03/19 14:20 - Respiratory Respiratory status: No respiratory distress Chest status: Nontender Breath sounds: Rhonchi - Scattered rhonchi noted throughout. There is no stridor, rales or wheezing. Patient does have a productive cough. Chest palpation: Normal Course - Re-evaluation Re-evalutation: 05/03/19 15:49 In triage patient's oxygen saturation is at 95 to 96% on 2 L nasal cannula. Patient is not tachycardic, hypotensive or febrile. I have greeted and performed a rapid initial assessment of this patient. A comprehensive ED assessment and evaluation of the patient, analysis of test results and completion of the medical decision making process will be conducted by additional ED providers. - Vital Signs Vital signs: Temp Pulse Resp BP Pulse Ox 98.1 F 89 24 H 123/59 L 96 05/03/19 14:20 05/03/19 14:20 05/03/19 14:20 05/03/19 14:20 05/03/19 14:20 Doctor's Discharge - Discharge Referrals: YANELY DORMAN MD [Primary Care Provider] - Follow up as needed
[2019-05-03 16:28] LABS: ABSOLUTE BASOPHILS # (AUTO) 0.1 10^3/uL (0.0-0.2); ABSOLUTE EOSINOPHILS # (AUTO) 0.4 10^3/uL (0.0-0.6); ABSOLUTE LYMPHOCYTES (AUTO) 1.9 10^3/uL (0.5-4.7); ABSOLUTE MONOCYTES (AUTO) 1.2 10^3/uL (0.1-1.4); ABSOLUTE NEUT (AUTO) 9.9 10^3/uL (1.7-8.2); BASOPHILS % (AUTO) 1.1 % (0-2); EOSINOPHILS % (AUTO) 3.1 % (0-6); HEMATOCRIT 44.6 % (36.0-47.0); HEMOGLOBIN 14.7 g/dL (12.0-15.5); LYMPHOCYTES % (AUTO) 13.8 % (13-45); MEAN CORPUSCULAR HEMOGLOBIN 29.3 pg (27.0-33.4); MEAN CORPUSCULAR HGB CONC 32.9 g/dL (32.0-36.0); MEAN CORPUSCULAR VOLUME 89 fl (80-97); MONOCYTES % (AUTO) 8.8 % (3-13); PLATELET COUNT 501 10^3/uL (150-450); RED CELL DISTRIBUTION WIDTH 13.8 % (11.5-14.0); SEGMENTED NEUTROPHILS % (AUTO) 73.2 % (42-78); TOTAL CELLS COUNTED % (AUTO) 100 %; WHITE BLOOD COUNT 13.5 10^3/uL (4.0-10.5)
--- NOTE | 2019-05-03 16:41 | RADIOLOGY REPORT (SQ) ---
EXAM DESCRIPTION: CHEST 2 VIEWS COMPLETED DATE/TIME: 05/03/2019 4:31 pm REASON FOR STUDY: PRODUCTIVE COUGH COMPARISON: 03/01/2019 EXAM PARAMETERS: NUMBER OF VIEWS: two views TECHNIQUE: Digital Frontal and Lateral radiographic views of the chest acquired. RADIATION DOSE: NA LIMITATIONS: none FINDINGS: LUNGS AND PLEURA: No opacities, masses or pneumothorax. No pleural effusion. MEDIASTINUM AND HILAR STRUCTURES: No masses or contour abnormalities. HEART AND VASCULAR STRUCTURES: Heart normal size. No evidence for failure. BONES: No acute findings. HARDWARE: None in the chest. OTHER: No other significant finding. IMPRESSION: NO ACUTE RADIOGRAPHIC FINDING IN THE CHEST. TECHNICAL DOCUMENTATION: JOB ID: [id number] [employer]- All Rights Reserved Reading location - IP/workstation name: [email or web address]
[2019-05-03 16:45] LABS: ALBUMIN 4.5 g/dL (3.5-5.0); ALKALINE PHOSPHATASE 95 U/L (38-126); ANION GAP 12 (5-19); ASPARTATE AMINO TRANSFERASE 26 U/L (14-36); BILIRUBIN,DIRECT 0.2 mg/dL (0.0-0.4); BILIRUBIN,TOTAL 0.4 mg/dL (0.2-1.3); BLOOD UREA NITROGEN 18 mg/dL (7-20); CALCIUM 10.2 mg/dL (8.4-10.2); CARBON DIOXIDE 35 mmol/L (22-30); CHLORIDE 94 mmol/L (98-107); GLUCOSE 97 mg/dL (75-110); POTASSIUM 4.5 mmol/L (3.6-5.0); TOTAL PROTEIN 7.7 g/dL (6.3-8.2)
[2019-05-03] MEDS ORDERED: PREDNISONE 20 MG TABLET PO ONE (20:17)
--- NOTE | 2019-05-03 20:18 | ER Document Report ---
HPI - HPI Time Seen by Provider: 05/03/19 15:41 Pain Level: Denies Context: Patient is a 58-year-old female with a history of COPD, dependent on 2 L nasal nasal cannula of oxygen who presents emergency department with a chief complaint of shortness of breath and difficulty breathing. Patient reports is been present for 4 days. She reports she has had a productive cough with green sputum. Patient states she does take albuterol inhalers, duo nebulizers as well as Spiriva at home without much relief. Patient reports that her grandson does have similar symptoms and was diagnosed with upper respiratory infection. Patient reports she has not had to increase for 2 L of oxygen since having increased shortness of breath. Patient denies nausea, vomiting or diarrhea. Patient denies body aches. Patient denies fever. Past Medical History - General Information source: Patient - Social History Smoking Status: Former Smoker Frequency of alcohol use: None Drug Abuse: None Lives with: Family Family History: Reviewed & Not Pertinent Patient has suicidal ideation: No Patient has homicidal ideation: No - Past Medical History Cardiac Medical History: Reports: Hx Hypertension Pulmonary Medical History: Reports: Hx COPD EENT Medical History: Reports: None Neurological Medical History: Reports: None Endocrine Medical History: Reports: None Renal/ Medical History: Reports: None. Denies: Hx Peritoneal Dialysis Malignancy Medical History: Reports: None GI Medical History: Reports: None Musculoskeletal Medical History: Reports None Skin Medical History: Reports None Psychiatric Medical History: Reports: Hx Depression Traumatic Medical History: Reports: None Infectious Medical History: Reports: None Surgical Hx: Negative - Immunizations Hx Pneumococcal Vaccination: 06/05/18 Vertical Provider Document - CONSTITUTIONAL Agree With Documented VS: Yes Exam Limitations: No Limitations General Appearance: No Apparent Distress Notes: GENERAL: Well-appearing, well-nourished and in no acute distress. HEAD: Atraumatic, normocephalic. EYES: Pupils equal round and reactive to light, extraocular movements intact, sclera anicteric, conjunctiva are normal. ENT: TMs normal, nares patent, oropharynx clear without exudates. Moist mucous membranes. + rhinorrhea. NECK: Normal range of motion, supple without lymphadenopathy or JVD. LUNGS: Scattered rhonchi. No wheezing, rales, or crackles. HEART: Regular rate and rhythm without murmurs, rubs or gallops. ABDOMEN: Soft, nontender, normoactive bowel sounds. No guarding, no rebound. No masses appreciated. BACK: No cervical, thoracic, lumbar midline tenderness. No saddle anesthesia, normal distal neurovascular exam. GENITOURINARY: Deferred. EXTREMITIES: Normal range of motion, no pitting or edema. No clubbing or cyanosis. NEUROLOGICAL: Cranial nerves II through XII grossly intact. Normal speech, norm al gait. PSYCH: Normal mood, normal affect. SKIN: Warm, Dry, normal turgor, no rashes or lesions noted. - INFECTION CONTROL TRAVEL OUTSIDE OF THE [place] IN LAST 30 DAYS: No Course - Re-evaluation Re-evalutation: 05/03/19 20:25 Patient chest x-ray is negative. Patient does have a slight leukocytosis of 13. We will treat the patient as a upper respiratory infection with COPD exacerbation. Patient reports she does feel much better after receiving her DuoNeb earlier during her emergency department stay. Will give patient another breathing treatment. Patient reports she does have a nebulizer at home with her Spiriva and her albuterol. We will start the patient on steroids and have her follow-up with Dr. Dorman tomorrow. I did give the patient strict return precautions. Patient is on 2 L nasal cannula at this time which she always wears. Patient no acute distress and is ambulating around the department without dyspnea or cough. She reports that her grandson does have similar symptoms as well. 05/03/19 20:36 At time of discharge patient is not tachycardic, hypotensive or hypoxic. Patient nontoxic-appearing. Patient receiving duo neb and then will be discharged home. - Vital Signs Vital signs: Temp Pulse Resp BP Pulse Ox 98.1 F 89 24 H 123/59 L 96 05/03/19 14:20 05/03/19 14:20 05/03/19 14:20 05/03/19 14:20 05/03/19 14:20 - Laboratory Result Diagrams: 05/03/19 16:14 05/03/19 16:14 Laboratory results interpreted by me: 05/03/19 05/03/19 16:14 16:14 WBC 13.5 H Plt Count 501 H Absolute Neuts (auto) 9.9 H Chloride 94 L Carbon Dioxide 35 H Est GFR (MDRD) Non-Af 52 L Discharge - Discharge Clinical Impression: Cough, Shortness of breath COPD (chronic obstructive pulmonary disease) Qualifiers: COPD type: chronic bronchitis Chronic bronchitis type: mucopurulent Qualified Code(s): J41.1 - Mucopurulent chronic bronchitis Condition: Stable Disposition: HOME, SELF-CARE Additional Instructions: *Today was in the emergency department for shortness of breath. Your chest x- ray was negative. *I have also started you on oral steroids. Please take this as prescribed. Please continue to use your albuterol inhaler, nebulizer and your Spiriva. Please follow-up with your primary care physician and return to the emergency department if your symptoms worsen such as fever, increased shortness of breath, inability to take a deep breath or chest pain. Chronic Obstructive Lung Disease You have chronic obstructive lung disease (COPD). The symptoms come from emphysema (damage to small airways, with trapping of air in large sacks in the lung) and chronic bronchitis (repeated infection and damage to larger airways). The cause is almost always cigarette smoking, although dust exposure, asthma, and infections contribute. You should avoid fumes, dust, and smoke (especially tobacco smoke). Your condition will flare from time to time. There is no cure, but the symptoms can be treated. Bronchodilators (asthma medicine) are often helpful. Antibiotics help when infection is present. When shortness of breath is severe, we may prescribe cortisone medication. If medicine doesn't help enough, we can arrange for you to have an oxygen tank at home. Notify your doctor at once if sputum becomes thick, foul, or bloody, if you develop a fever or chest pain, or if your shortness of breath worsens. Prescriptions: Prednisone [Deltasone 10 mg Tablet] 10 mg PO ASDIR PRN #21 tablet PRN Reason: Referrals: YANELY DORMAN MD [Primary Care Provider] - Follow up as needed
[2019-05-03 20:32] VITALS: BP 126/69
== END 2019-05-03 21:01 | disposition home or self-care (01) ==
LOC: ER 14:12
DX: J44.9 Chronic obstructive pulmonary disease, unspecified (principal); Z99.81 Dependence on supplemental oxygen; Z79.899 Other long term (current) drug therapy; R06.02 Shortness of breath; R05 Cough; I10 Essential (primary) hypertension; Z87.891 Personal history of nicotine dependence; D72.829 Elevated white blood cell count, unspecified
CPT/HCPCS: 94640 ×2; 99285; 36415; 85025; 80053; 71046; J7512; J7620

== ENCOUNTER 2019-10-17 23:37 | Inpatient (IN) | payer SELFPAY ==
--- NOTE | 2019-10-18 00:02 | ER Document Report ---
ED Medical Screen (RME) - General Chief Complaint: Abdominal Pain Stated Complaint: ABDOMINAL PAIN Time Seen by Provider: 10/17/19 23:58 Primary Care Provider: MELLISA BERUMEN DO [Primary Care Provider] - Follow up as needed Information source: Patient Notes: This is a 58-year-old female who was recently discharged from another facility for exacerbation of COPD 2 days ago. Since that time she is gone home and she is developed right lower quadrant pain which she has had for about 2 days she took a laxative today try to see if it would help she did have a bowel movement did not really relieve the pain she is actually pretty tender to touch they did send her home on steroids she has had an appendectomy when she was a child but she does have an awful lot of pain she has no history of diverticulitis. TRAVEL OUTSIDE OF THE [place] IN LAST 30 DAYS: No - Related Data Allergies/Adverse Reactions: No Known Allergies Allergy (Unverified 07/14/18 12:49) Past Medical History - Social History Chew tobacco use (# tins/day): No Frequency of alcohol use: None Drug Abuse: None - Past Medical History Cardiac Medical History: Reports: Hx Hypertension Pulmonary Medical History: Reports: Hx COPD Renal/ Medical History: Denies: Hx Peritoneal Dialysis Psychiatric Medical History: Reports: Hx Depression Physical Exam - Vital signs Vitals: Temp Pulse Resp BP Pulse Ox 98.9 F 80 24 H 149/73 H 97 10/17/19 23:46 10/17/19 23:46 10/17/19 23:46 10/17/19 23:46 10/17/19 23:46 Course - Vital Signs Vital signs: Temp Pulse Resp BP Pulse Ox 97.6 F 80 24 H 149/73 H 97 10/17/19 23:47 10/17/19 23:46 10/17/19 23:46 10/17/19 23:46 10/17/19 23:46 Doctor's Discharge - Discharge Referrals: MELLISA BERUMEN DO [Primary Care Provider] - Follow up as needed
[2019-10-18 00:50] LABS: HEMATOCRIT 46.2 % (36.0-47.0); HEMOGLOBIN 15.2 g/dL (12.0-15.5); MEAN CORPUSCULAR HEMOGLOBIN 29.4 pg (27.0-33.4); MEAN CORPUSCULAR VOLUME 89 fl (80-97); PLATELET COUNT 586 10^3/uL (150-450); RED BLOOD COUNT 5.17 10^6/uL (3.72-5.28); RED CELL DISTRIBUTION WIDTH 14.3 % (11.5-14.0); WHITE BLOOD COUNT 10.9 10^3/uL (4.0-10.5)
[2019-10-18 01:04] LABS: ALBUMIN 3.5 g/dL (3.5-5.0); ALKALINE PHOSPHATASE 93 U/L (38-126); ANION GAP 6 (5-19); ASPARTATE AMINO TRANSFERASE 20 U/L (14-36); BILIRUBIN,DIRECT 0.3 mg/dL (0.0-0.4); BILIRUBIN,TOTAL 1.3 mg/dL (0.2-1.3); BLOOD UREA NITROGEN 19 mg/dL (7-20); CALCIUM 9.6 mg/dL (8.4-10.2); CARBON DIOXIDE 38 mmol/L (22-30); CHLORIDE 93 mmol/L (98-107); GLUCOSE 172 mg/dL (75-110); POTASSIUM 4.7 mmol/L (3.6-5.0); TOTAL PROTEIN 5.9 g/dL (6.3-8.2)
[2019-10-18] MEDS: NORMAL SALINE 1000 ML 1,000 ML IV PRN ×2 (01:10→03:38)
[2019-10-18 01:12] LABS: ABSOLUTE LYMPHOCYTES# (MANUAL) 0.2 10^3/uL (0.5-4.7); ABSOLUTE MONOCYTES # (MANUAL) 0.4 10^3/uL (0.1-1.4); ANISOCYTOSIS 1+; BAND NEUTROPHILS % (MANUAL) 3 % (3-5); BASOPHILS % (MANUAL) 0 % (0-2); EOSINOPHILS % (MANUAL) 0 % (0-6); LYMPHOCYTES % (MANUAL) 2 % (13-45); MONOCYTES % (MANUAL) 4 % (3-13); PLATELET COMMENT INCREASED; POLYCHROMASIA 1+; SEGMENTED NEUTROPHILS % (MAN) 91 % (42-78); TOTAL CELLS COUNTED 100
[2019-10-18] MEDS ORDERED: KETOROLAC TROMETHAMINE INJ/PF 30 MG/1 ML SDV IV ONE (01:42)
--- NOTE | 2019-10-18 01:44 | ER Document Report ---
ED General - General Chief Complaint: Abdominal Pain Stated Complaint: ABDOMINAL PAIN Time Seen by Provider: 10/17/19 23:58 Primary Care Provider: MELLISA BERUMEN DO [NO LOCAL MD] - Follow up as needed Notes: Patient is a 58-year-old white female with a history of COPD who was recently admitted to another hospital for COPD exacerbation who was discharged today and a half ago returns today with a chief complaint of lower abdominal discomfort and constipation. Patient started for the past 4 days or so she has been constipated. She states that she became constipated while in the hospital. She does not know why specifically. States that she is tried home oral laxatives without any improvement. She denies any associated nausea or vomiting. Denies any chest pain or shortness of breath. Denies any urinary complaints, vaginal bleeding or discharge. No fevers. TRAVEL OUTSIDE OF THE [place] IN LAST 30 DAYS: No - Related Data Allergies/Adverse Reactions: No Known Allergies Allergy (Unverified 07/14/18 12:49) Past Medical History - General Information source: Patient - Social History Smoking Status: Never Smoker Chew tobacco use (# tins/day): No Frequency of alcohol use: None Drug Abuse: None Family History: Reviewed & Not Pertinent Patient has homicidal ideation: No - Past Medical History Cardiac Medical History: Reports: Hx Hypertension Pulmonary Medical History: Reports: Hx COPD Renal/ Medical History: Denies: Hx Peritoneal Dialysis Psychiatric Medical History: Reports: Hx Depression - Immunizations Hx Pneumococcal Vaccination: 06/05/18 Review of Systems - Review of Systems Gastrointestinal: Abdominal pain, Other - Constipation -: Yes All other systems reviewed and negative Physical Exam - Vital signs Vitals: Temp Pulse Resp BP Pulse Ox 98.9 F 80 24 H 149/73 H 97 10/17/19 23:46 10/17/19 23:46 10/17/19 23:46 10/17/19 23:46 10/17/19 23:46 - General General appearance: Appears well, Alert In distress: None - Respiratory Respiratory status: No respiratory distress Chest status: Nontender Breath sounds: Normal Chest palpation: Normal - Cardiovascular Rhythm: Regular Heart sounds: Normal auscultation - Abdominal Inspection: Normal Distension: No distension Bowel sounds: Normal Tenderness: Tender - Diffuse - Back Back: No: CVA tenderness - Neurological Neuro grossly intact: Yes Cognition: Normal Orientation: AAOx4 Wallace Coma Scale Eye Opening: Spontaneous Emmons Coma Scale Verbal: Oriented Emmons Coma Scale Motor: Obeys Commands Wallace Coma Scale Total: 15 Speech: Normal Sensory: Normal - Psychological Associated symptoms: Normal affect, Normal mood - Skin Skin Temperature: Warm Skin Moisture: Dry Skin Color: Normal Course - Re-evaluation Re-evalutation: 10/18/19 03:[address] Montez, radiologist and he advised that the patient has a ruptured cecal volvulus. I immediately called Dr. Hawkins, surgical list operations intern. He requested Zosyn IV, 2 L normal saline, rapid COVID testing, a Romo catheter with measurements of output and 150 cc/h normal saline. I discussed with the patient the findings and the need for surgery. The patient immediately refused. She stated she will not have surgery. I explained to her that if she does not have the operation she will most certainly . She then stated she did not want to have the surgery here. She advised that she wanted to wait and talk to her . I advised her that time is greatly of the essence. She stated that she did not care that she still wanted to call her to consult with him before making any decisions. I asked her if we may provide her the maintenance care Dr. Hawkins recommended while she attempt to make a d ecision. She agreed to the measures noted above but at this time has declined surgery at our facility. She states she thinks she would like to go to a neighboring facility [place]. She will discuss with her and let us know. 10/18/19 03:38 Dr. Hawkins in the ED, evaluated the patient in the emergency department room. He is planning for surgery however the patient is still undecided as to whether or not she would like to have surgery here. 10/18/19 04:17 Patient is elected to stay for surgery. The OR team is here to obtain the patient. She is still stable and will be transported to the operating room under the care of Dr. Hawkins. - Vital Signs Vital signs: Temp Pulse Resp BP Pulse Ox 97.6 F 80 21 H 149/73 H 92 10/17/19 23:47 10/17/19 23:46 10/18/19 03:22 10/17/19 23:46 10/18/19 03:22 - Laboratory Result Diagrams: 10/18/19 00:24 10/18/19 00:24 Laboratory results interpreted by me: 10/18/19 10/18/19 10/18/19 00:24 00:24 03:48 WBC 10.9 H RDW 14.3 H Plt Count 586 H Seg Neuts % (Manual) 91 H Lymphocytes % (Manual) 2 L Abs Neuts (Manual) 10.2 H Abs Lymphs (Manual) 0.2 L Sodium 136.5 L Chloride 93 L Carbon Dioxide 38 H Glucose 172 H Total Protein 5.9 L Lipase 19.3 L Urine Protein 100 H Urine Ketones TRACE H Urine Urobilinogen 2.0 H Discharge - Discharge Clinical Impression: perforated cecal volvulus Condition: Serious Disposition: ADMITTED INPATIENT Admitting Provider: Dr. Do Joe Admitted: OR Referrals: MELLISA BERUMEN DO [NO LOCAL MD] - Follow up as needed
[2019-10-18] MEDS ORDERED: HYDROMORPHONE HCL INJ/PF 2 MG/ML AMPULE IV ONE (02:54)
--- NOTE | 2019-10-18 02:58 | RADIOLOGY REPORT (SQ) ---
EXAM DESCRIPTION: CT ABDOMEN PELVIS WITH IV CONTRAST COMPLETED DATE/TME: 10/17/2019 23:59 CLINICAL HISTORY: pain COMPARISON: 12/18/2018 TECHNIQUE: CT of the abdomen and pelvis performed following IV administration of 73 mL of Omnipaque 350. FINDINGS: Lung Bases: The visualized lung bases are clear. Bones: No destructive bone lesions identified. Abdomen: Liver: The liver has normal size and density. No intrahepatic biliary dilatation. Gallbladder: No calcified gallstones. Spleen, Pancreas, and Adrenal Glands: The spleen, pancreas, and adrenal glands are unremarkable. Kidneys: No hydronephrosis or obstructing calculus. Vasculature: Aortoiliac atherosclerosis. The portal vein is patent. The proximal visceral and renal arteries are patent. Stomach: The stomach and duodenum have normal course. Other: Free intraperineal air. Moderate amount of free fluid. Pelvis: Bladder: Urinary bladder is unremarkable. Bowel: The cecum is distended and contains post toward the left upper abdomen. There is twisting of the mid ascending colon. Mild wall thickening of the small bowel may be reactive. Appendix: Not identified. Pelvis: Uterus is not enlarged. IMPRESSION: 1. 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 Urgent finding reported to Olu SILVEIRA at 10/18/2019 1:55 AM CDT This exam was performed according to our departmental dose-optimization program, which includes automated exposure control, adjustment of the mA and/or kV according to patient size and/or use of iterative reconstruction technique.
[2019-10-18] MEDS ORDERED: PIPERACILLIN/TAZOBACTAM 3.375 GM VIAL IV ONE (02:59)
[2019-10-18] MEDS ORDERED: NORMAL SALINE 1000 ML 1,000 ML IV PRN ×3 (02:59→06:36)
[2019-10-18] MEDS ORDERED: BUPIVACAINE HCL 0.25 % INJ/PF (2.5 MG/1 ML) 30 ML VIAL ONE (03:54)
[2019-10-18 04:12] LABS: APPEARANCE,URINE CLEAR; BILIRUBIN,URINE NEGATIVE (NEGATIVE); COLOR,URINE YELLOW; GLUCOSE, URINE NEGATIVE (NEGATIVE); KETONES,URINE TRACE mg/dL (NEGATIVE); LEUKOCYTE ESTERASE,URINE NEGATIVE (NEGATIVE); NITRITE,URINE NEGATIVE (NEGATIVE); PROTEIN,URINE 100 mg/dL (NEGATIVE); URINE SPECIFIC GRAVITY 1.023
[2019-10-18] MEDS ORDERED: METHYLPREDNISOLONE INJ 125 MG/2 ML SDV ONE (04:12)
[2019-10-18] MEDS ORDERED: MORPHINE SULFATE 10 MG/ML INJ ONE (04:12)
[2019-10-18] MEDS ORDERED: FENTANYL CITRATE INJ/PF 250 MCG/5 ML AMPULE ONE (04:12)
[2019-10-18] MEDS ORDERED: MIDAZOLAM 2 MG/2 ML INJ ONE ×2 (04:12→06:04)
[2019-10-18] MEDS ORDERED: SUGAMMADEX SODIUM 200 MG/2 ML SDV IV ONE (04:12)
[2019-10-18] MEDS ORDERED: PROPOFOL INJ 200 MG/20 ML VIAL IV ONE (04:13)
--- NOTE | 2019-10-18 04:25 | PDOC CONSULTATION ---
Consultation Consult Date: 10/18/19 Provider Consulted: SURGICAL SURGICALIST Consult reason:: free air on CT History of Present Illness Admission Date/PCP: YANELY DORMAN MD Patient complains of: severe abdominal pain History of Present Illness: DEBI CHAVEZ is a 58 year old female with a 2 day history of increasing abdominal pain. She has COPD and is on home oxygen. She reports abdominal pain that is sharp,stabbing, and is constant. She rates it 6 out of 10. She was recently released from the hospital in [place] 2 days ago for respiratory difficulties. Her pain encompasses her entire abdomen. It does not radiate. Movement and palpation make it worse. Nothing makes it better. She reports chronic shortness of breath and home O2. She also suffers from chronic constipation. She denies CP, headache orthostasis, nausea, vomiting, fevers, chills, melena, hematochezia, hematemesis, blurry vision, dizziness, orthostasis. Past Medical History Cardiac Medical History: Reports: Hypertension Pulmonary Medical History: Reports: Chronic Obstructive Pulmonary Disease (COPD) Psychiatric Medical History: Reports: Depression Past Surgical History Past Surgical History: Reports: Appendectomy Social History Smoking Status: Never Smoker Electronic Cigarette use?: No Frequency of Alcohol Use: None Hx Recreational Drug Use: No Hx Prescription Drug Abuse: No Family History Family History: Reviewed & Not Pertinent Parental Family History Reviewed: Yes Children Family History Reviewed: Yes Sibling(s) Family History Reviewed.: Yes Medication/Allergy Home Medications: Albuterol Sulfate [Proair HFA Inhalation Aerosol 8.5 gm MDI] 2 puff IH Q6HP PRN 07/13/18 Albuterol Sulfate [Ventolin 0.083% Neb 2.5 mg/3 mL Ampul] 1 vial IH RTQ4HP PRN 07/13/18 Aripiprazole [Abilify] 5 mg PO DAILY 07/13/18 Buspirone HCl [Buspar 5 mg Tablet] 7.5 mg PO Q12 07/13/18 Gabapentin [Neurontin 300 mg Capsule] 300 mg PO QHS 07/13/18 Guaifenesin [Mucinex] 600 mg PO Q12HP PRN 07/13/18 Hydrocodone Bit/Acetaminophen [Hydrocodon-Acetaminophn 10-325] 1 tab PO Q8HP PRN 07/13/18 Ipratropium [place] [Atrovent 0.02% Neb 0.5 mg/2.5 ml Ampul] 1 vial IH RTQ6 07/13/18 Levothyroxine Sodium [Synthroid 0.075 mg Tablet] 0.075 mg PO Q6AM 07/13/18 Losartan/Hydrochlorothiazide [Hyzaar 100-12.5 Tablet] 1 tab PO DAILY 07/13/18 Montelukast Sodium [Singulair] 10 mg PO DAILY 07/13/18 Testosterone Cypionate [Depo-Testosterone] 15 mg IM Q14D 07/13/18 Tizanidine HCl [Zanaflex] 4 mg PO QHS 07/13/18 Fluticasone/Salmeterol [Advair 250-50 Diskus 14 Dose/Diskus] 1 inh IH Q12 07/14/18 Guaifenesin/Dextromethorphan [Mucinex Dm ER 600-30 mg Tablet] 1 each PO Q12 0 07/14/18 Vortioxetine Hydrobromide [Trintellix] 10 mg PO DAILY 07/14/18 Levofloxacin [Levaquin 750 mg Tablet] 750 mg PO DAILY #10 tab 07/20/18 Prednisone [Deltasone 10 mg Tablet] 10 mg PO ASDIR PRN #21 tablet 05/03/19 Allergies/Adverse Reactions: No Known Allergies Allergy (Unverified 07/14/18 12:49) Review of Systems Constitutional: ABSENT: anorexia, chills, fatigue, fever(s), headache(s), weakness Eyes: ABSENT: visual disturbances Ears: ABSENT: hearing changes Nose, Mouth, and Throat: ABSENT: sore throat Cardiovascular: PRESENT: dyspnea on exertion. ABSENT: chest pain Respiratory: PRESENT: cough, dyspnea - chronic Gastrointestinal: PRESENT: abdominal pain, bloating. ABSENT: hematemesis, hematochezia, melena, nausea, vomiting Genitourinary: ABSENT: dysuria Musculoskeletal: ABSENT: back pain Integumentary: ABSENT: pruritus, rash Neurological: ABSENT: confusion, convulsions, dizziness, weakness Psychiatric: ABSENT: anxiety, depression Endocrine: ABSENT: cold intolerance, heat intolerance Hematologic/Lymphatic: ABSENT: easy bleeding, easy bruising Physical Exam Vital Signs: Temp Pulse Resp BP Pulse Ox 97.6 F 80 24 H 149/73 H 97 10/17/19 23:47 10/17/19 23:46 10/17/19 23:46 10/17/19 23:46 10/17/19 23:46 Intake & Output 10/16/19 10/17/19 10/18/19 06:59 06:59 06:59 Intake Total 1000 Balance 1000 Weight 63.049 kg General appearance: PRESENT: mild distress - abdominal discomfort Head exam: PRESENT: atraumatic, normocephalic Eye exam: PRESENT: EOMI, PERRLA. ABSENT: scleral icterus Mouth exam: PRESENT: moist, neck supple Neck exam: ABSENT: meningismus, tenderness, thyromegaly, tracheal deviation Respiratory exam: PRESENT: unlabored, other - wearing supplemental oxygen. ABSENT: tachypnea, wheezes Cardiovascular exam: PRESENT: RRR. ABSENT: tachycardia Pulses: PRESENT: normal radial pulses Vascular exam: PRESENT: normal capillary refill. ABSENT: pallor GI/Abdominal exam: PRESENT: distended, firm, guarding, tenderness - all 4 abdominal quadrants Rectal exam: PRESENT: deferred Musculoskeletal exam: ABSENT: deformity Neurological exam: PRESENT: alert, awake, oriented to person, oriented to place, oriented to time, oriented to situation, CN II-XII grossly intact Psychiatric exam: PRESENT: anxious. ABSENT: agitated, depressed Skin exam: ABSENT: cyanosis, erythema, jaundice Results Laboratory Results: 10/18/19 00:24 10/18/19 00:24 10/18/19 10/18/19 00:24 00:24 WBC 10.9 H RBC 5.17 Hgb 15.2 Hct 46.2 MCV 89 MCH 29.4 MCHC 33.0 RDW 14.3 H Plt Count 586 H Seg Neutrophils % Not Reportable Sodium 136.5 L Potassium 4.7 Chloride 93 L Carbon Dioxide 38 H Anion Gap 6 BUN 19 Creatinine 0.55 Est GFR ( Amer) > 60 Glucose 172 H Calcium 9.6 Total Bilirubin 1.3 AST 20 Alkaline Phosphatase 93 Total Protein 5.9 L Albumin 3.5 Lipase 19.3 L 10/18/19 00:24 Troponin I 0.012 Impressions: Abdomen/Pelvis CT 10/17/19 23:59 IMPRESSION: 1. 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 Urgent finding reported to Olu SILVEIRA at 10/18/2019 1:55 AM CDT This exam was performed according to our departmental dose-optimization program, which includes automated exposure control, adjustment of the mA and/or kV according to patient size and/or use of iterative reconstruction technique. Assessment & Plan - Diagnosis (1) Free intraperitoneal air Is this a current diagnosis for this admission?: Yes (2) Acute abdomen Is this a current diagnosis for this admission?: Yes - Plan Summary Plan Summary: This is a 58-year-old female with an acute abdomen and pneumoperitoneum. Her pain has progressively worsened over the last [address] scan is consistent with possible cecal volvulus (I have personally reviewed the images), although her free air could be from any number of sources. I have discussed the differential diagnosis, surgical treatments, and myriad options at length with the patient. After several discussions with her (including a discussion of transfer to [place]) she has decided to remain in [place], and pursue treatment here. I have recommended exploratory laparotomy, with possible bowel resection, possible ostomy. The patient has agreed to this. Risks/benefits discussed, informed consent obtained, and all questions answered. Patient has a long history of COPD. She is currently taking oral steroids. This will certainly affect her postsurgical critical care, as well as decisions made in the operating room. I have discussed prolonged ventilatory support as a possibility. The patient is aware of the possibility of such complications, and wishes to proceed with surgery. I have personally discussed the patient's care with the cash processor, who will be asked to manage the patient after surgery. Start Zosyn. Romo catheter now. 2 L normal saline bolus now.
[2019-10-18] MEDS ORDERED: PROPOFOL 1,000 MG/100 ML INFUS..BTL IV PRN (06:35)
[2019-10-18] MEDS ORDERED: DEXTROSE 50%-WATER 25 GM/50 ML DISP.SYRIN IV PRN ×4 (06:35→06:36)
[2019-10-18] MEDS ORDERED: GLUCAGON,HUMAN RECOMB 1 MG INJ SUBCUT PRN ×2 (06:35→06:36)
[2019-10-18] MEDS ORDERED: DEXTROSE 40% GEL 15 GM TUBE PO PRN ×4 (06:35→06:36)
[2019-10-18] MEDS ORDERED: ONDANSETRON HCL INJ/PF 4 MG/2 ML SDV IV PRN ×2 (06:35→06:36)
[2019-10-18] MEDS ORDERED: ACETAMINOPHEN 1,000 MG/100 ML RTUPB IV SCH (06:40)
[2019-10-18] MEDS ORDERED: PROPOFOL 1,000 MG/100 ML INFUS..BTL IV ONE (06:41)
[2019-10-18] MEDS ORDERED: PANTOPRAZOLE SODIUM 40 MG VIAL IV SCH (07:00)
--- NOTE | 2019-10-18 07:09 | Operative Report ---
Nonrecallable Operative Report DATE OF SURGERY: 10/18/19 PREOPERATIVE DIAGNOSIS: 1. Free intra-abdominal air. 2. Acute abdomen. POSTOPERATIVE DIAGNOSIS: 1. and 2. the same. 3. Perforated sigmoid diverticulitis with feculent peritonitis OPERATION: 1. Exploratory laparotomy. 2. Sigmoid colon resection. 3. Descending colon, end colostomy SURGEON: SERJIO AVILA ANESTHESIA: GA TISSUE REMOVED OR ALTERED: Sigmoid colon COMPLICATIONS: Feculent peritonitis. Hypotension. Need for ventilatory support after surgery. ESTIMATED BLOOD LOSS: 50 cc PROCEDURE: Drains/implants: 15 Bahamian round Sudarshan drain in the pelvis. Procedure in detail: After informed consent was obtained from the patient, she was brought to the operating room and laid in supine position. The area of the abdomen was prepped and draped in a normal sterile fashion. A midline laparotomy incision was then created with a 10 blade scalpel. The abdomen was entered sharply. Upon entering the abdomen feculent peritonitis was identified. The abdomen was then copiously irrigated and suctioned to clean the murky/feculent fluid from the abdominal cavity. Inspection of the abdomen was then undertaken. Inspection started in the right lower quadrant at the cecum. The cecum was very dilated, but this appears chronic. There was no evidence of abnormal cecal rotation, cecal necrosis, or cecal obstruction. Next the transverse colon was identified, which was normal. The duodenum and stomach were inspected. The posterior sac was entered, and the posterior stomach was inspected. No evidence of perforation was found on the anterior stomach, posterior stomach, or along the duodenum. Next the sigmoid and descending colon were inspected. Upon mobilization of the sigmoid colon, obvious feculent material was found in the pelvis. There was a large amount of small bowel stuck to the sigmoid colon. It was evident that the sigmoid colon was the source of the issue. The small bowel was run from the ligament of Treitz to the ileocecal valve. There was some serosal reaction to the feculent peritonitis and perforation, however no obvious perforation of the small bowel could be identified. Next, attention was turned to removal of the inflamed/perforated segment of sigmoid colon. The sigmoid colon was elevated away from the left pelvic sidewall. The peritoneum was incised sharply. Mobilization was undertaken using a mixture of sharp and blunt dissection. The ureter was identified and spared from injury along its entire course. Next the sigmoid colon was retracted anteriorly. The sigmoid colon was divided at the rectosigmoid junction using a contour stapler. Next, an area of the proximal sigmoid/descending colon was chosen for division. An unaffected area of the colon was divided, again using the contour stapler. Next, the affected portion of the sigmoid colon was removed from its mesentery using clamps and ties. The sigmoid colon was then passed off the field and sent to pathology. The abdomen was then copiously irrigated and suctioned. The remaining colon and small bowel was again inspected. No evidence of further perforation could be identified. The small bowel and colon were then returned to the abdominal cavity. A suitable place was chosen on the left lower quadrant for colostomy placement. An area of the skin was excised, and a cruciate incision was created in the anterior fascia. The rectus muscle was spread, and the posterior fascia was also divided in cruciate fashion. The descending colon was then brought out through the left lower quadrant incision. It reached the skin nicely. A 15 Bahamian round Sudarshan drain was then placed through a separate stab incision and left within the pelvis. The drain was sutured to the skin using 2-0 nylon. Next, the midline fascia was reapproximated using #1 looped PDS suture in simple running fashion. The overlying skin was closed with skin sachin. Attention was then turned to maturing of the colostomy. The colon was opened, and matured in Eunice fashion. 3-0 Vicryl pop-off were used circumferentially to Eunice the ostomy. After this was completed, the ostomy appliance was placed, and the procedure was concluded. All sponge, instrument, and needle counts were correct x2. Condition: Critical to ICU.
--- NOTE | 2019-10-18 07:20 | EKG REPORT ---
SEVERITY:- ABNORMAL ECG - SINUS RHYTHM RIGHT ATRIAL ABNORMALITY : Confirmed by: Iain Sánchez MD 18-Oct-2019 07:19:57
--- NOTE | 2019-10-18 07:20 | EKG REPORT ---
SEVERITY:- ABNORMAL ECG - SINUS RHYTHM RIGHT ATRIAL ABNORMALITY : Confirmed by: Iain Sánchez MD 18-Oct-2019 07:19:43
[2019-10-18] MEDS ORDERED: DEXMEDETOMIDINE IN 0.9 % NACL 400 MCG/100 ML RTUPB IV PRN (07:28)
--- NOTE | 2019-10-18 07:46 | CRITICAL CARE ADMISSION REPORT ---
HPI Date:: 10/18/19 Time:: 06:40 Reason for ICU Reason:: Perforated Bowel Admission Date/Time & PCP: Admission Date/Time: 10/18/19 04:32 Primary Care Provider: YANELY DORMAN MD HPI: DEBI CHAVEZ is a 58 year old female with medical history of COPD on home oxygen at 2 L nasal cannula. Was recently discharged from [place] with COPD exacerbation on prednisone. Presented to the ED with a 2 day history of increasing abdominal pain. She reported abdominal pain that is sharp,stabbing, and is constant. She rates it 6 out of 10. Her pain is diffuse. It does not radiate. Movement and palpation make it worse. Nothing makes it better. She is on opiates for chronic pain also suffers from chronic constipation. She denies CP, headache orthostasis, nausea, vomiting, fevers, chills, melena, hematochezia, hematemesis, blurry vision, dizziness, orthostasis. CT A/P showed perforated cecal volvulus with dilationof the cecum directed toward the left upper abdomen and free intraperitoneal air and fluid. She was taken to the OR by Dr. Hawkins for exploratory lap. She is status post sigmoid resection with end colostomy. She is admitted to the ICU for further management, she is currently intubated. - Diagnosis/Plan (1) Acute abdomen Is this a current diagnosis for this admission?: Yes Plan: CT scan of the abdomen and pelvis showed a cecal volvulus with free fluid and free air. She was taken to the OR by Dr. Hawkins she is status post sigmoid resection with end colostomy. Continue Zosyn CBC and BMP now Start Precedex for sedation and this should also help with her pain. Monitor SAMANTHA output (2) Chronic obstructive pulmonary disease Qualifiers: COPD type: chronic bronchitis Chronic bronchitis type: mucopurulent Qualified Code(s): J41.1 - Mucopurulent chronic bronchitis Is this a current diagnosis for this admission?: Yes Plan: Had recent hospitalization at [place] for COPD exacerbation, is on prednisone at home Start hydrocortisone 100 mg every 8 hours Chest x-ray now Start duo nebs Plan Summary: VTE Prophylaxis: - Lovenox -SCD's Disposition: -ICU Past Medical History Cardiac Medical History: Reports: Hypertension Pulmonary Medical History: Reports: Chronic Obstructive Pulmonary Disease (COPD) Psychiatric Medical History: Reports: Depression Past Surgical History Past Surgical History: Reports: Appendectomy Social/Family History - Social History Smoking Status: Unknown if Ever Smoked Frequency of Alcohol Use: None Hx Recreational Drug Use: No Hx Prescription Drug Abuse: No - Medication/Allergies Home Medications: Albuterol Sulfate [Proair HFA Inhalation Aerosol 8.5 gm MDI] 2 puff IH Q6HP PRN 07/13/18 Albuterol Sulfate [Ventolin 0.083% Neb 2.5 mg/3 mL Ampul] 1 vial IH RTQ4HP PRN 07/13/18 Aripiprazole [Abilify] 5 mg PO DAILY 07/13/18 Buspirone HCl [Buspar 5 mg Tablet] 7.5 mg PO Q12 07/13/18 Gabapentin [Neurontin 300 mg Capsule] 300 mg PO QHS 07/13/18 Guaifenesin [Mucinex] 600 mg PO Q12HP PRN 07/13/18 Hydrocodone Bit/Acetaminophen [Hydrocodon-Acetaminophn 10-325] 1 tab PO Q8HP PRN 07/13/18 Ipratropium [place] [Atrovent 0.02% Neb 0.5 mg/2.5 ml Ampul] 1 vial IH RTQ6 07/13/18 Levothyroxine Sodium [Synthroid 0.075 mg Tablet] 0.075 mg PO Q6AM 07/13/18 Losartan/Hydrochlorothiazide [Hyzaar 100-12.5 Tablet] 1 tab PO DAILY 07/13/18 Montelukast Sodium [Singulair] 10 mg PO DAILY 07/13/18 Testosterone Cypionate [Depo-Testosterone] 15 mg IM Q14D 07/13/18 Tizanidine HCl [Zanaflex] 4 mg PO QHS 07/13/18 Fluticasone/Salmeterol [Advair 250-50 Diskus 14 Dose/Diskus] 1 inh IH Q12 07/14/18 Guaifenesin/Dextromethorphan [Mucinex Dm ER 600-30 mg Tablet] 1 each PO Q12 07/14/18 Vortioxetine Hydrobromide [Trintellix] 10 mg PO DAILY 07/14/18 Levofloxacin [Levaquin 750 mg Tablet] 750 mg PO DAILY #10 tab 07/20/18 Prednisone [Deltasone 10 mg Tablet] 10 mg PO ASDIR PRN #21 tablet 05/03/19 Allergies/Adverse Reactions: No Known Allergies Allergy (Unverified 07/14/18 12:49) Physical Exam Vital Signs: Temp Pulse Resp BP Pulse Ox 98.4 F 55 L 16 99/69 L 92 10/18/19 06:46 10/18/19 06:51 10/18/19 06:46 10/18/19 06:46 10/18/19 03:22 Intake & Output 10/17/19 10/18/19 10/19/19 06:59 06:59 06:59 Intake Total 3850 Output Total 2850 Balance 1000 Weight 62.9 kg Weight/Height Weight 62.9 kg Height 5 ft 1 in General appearance: PRESENT: no acute distress Head exam: PRESENT: atraumatic Eye exam: PRESENT: PERRLA Mouth exam: PRESENT: moist, neck supple Neck exam: PRESENT: full ROM Respiratory exam: PRESENT: wheezes Cardiovascular exam: PRESENT: RRR, +S1, +S2 GI/Abdominal exam: PRESENT: other - Midline abd incision, Left side colostomy, Right side SAMANTHA Gentrourinary exam: PRESENT: indwelling catheter Extremities exam: PRESENT: full ROM Neurological exam: PRESENT: other - Sedated on propofol Tubes/Lines: PRESENT: Endotracheal Tube, Other - SAMANTHA drain, Colostomy Laboratory/Radiographs Laboratory Results: 10/18/19 00:24 10/18/19 00:24 10/18/19 10/18/19 10/18/19 00:24 00:24 03:48 WBC 10.9 H RBC 5.17 Hgb 15.2 Hct 46.2 MCV 89 MCH 29.4 MCHC 33.0 RDW 14.3 H Plt Count 586 H Seg Neutrophils % Not Reportable Sodium 136.5 L Potassium 4.7 Chloride 93 L Carbon Dioxide 38 H Anion Gap 6 BUN 19 Creatinine 0.55 Est GFR ( Amer) > 60 Glucose 172 H Calcium 9.6 Total Bilirubin 1.3 AST 20 Alkaline Phosphatase 93 Total Protein 5.9 L Albumin 3.5 Lipase 19.3 L Urine Color YELLOW Urine Appearance CLEAR Urine pH 8.0 Ur Specific Berry 1.023 Urine Protein 100 H Urine Glucose (UA) NEGATIVE Urine Ketones TRACE H Urine Blood NEGATIVE Urine Nitrite NEGATIVE Ur Leukocyte Esterase NEGATIVE Urine WBC (Auto) 2 Urine RBC (Auto) 4 10/18/19 00:24 Troponin I 0.012 Impressions: Abdomen/Pelvis CT 10/17/19 23:59 IMPRESSION: 1. 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 Urgent finding reported to Olu SILVEIRA at 10/18/2019 1:55 AM CDT This exam was performed according to our departmental dose-optimization program, which includes automated exposure control, adjustment of the mA and/or kV according to patient size and/or use of iterative reconstruction technique. Critical Time Critical Time (minutes): 60 -: The care of a critically ill patient is dynamic. This note represents a static moment in the admission process. Orders and treatments may be given simultaneously and urgently, and time is not operations support representative of the treatment process. This patient requires Critical Care secondary to life threatening organ or limb dysfunction. Without Critical Care services, the patient is at risk for increased mortality and morbidity.
--- NOTE | 2019-10-18 08:13 | RADIOLOGY REPORT (SQ) ---
EXAM DESCRIPTION: CHEST SINGLE VIEW IMAGES COMPLETED DATE/TIME: 10/18/2019 7:52 am REASON FOR STUDY: ETT placement COMPARISON: Chest films 05/03/2019, 03/01/2019, 11/23/2018 CT angio chest 11/24/2018 EXAM PARAMETERS: NUMBER OF VIEWS: One view. TECHNIQUE: Single frontal radiographic view of the chest acquired. RADIATION DOSE: NA LIMITATIONS: Portable technique, respiratory therapy hardware over the left lung apex FINDINGS: LUNGS AND PLEURA: Hyperinflated and hyperlucent from obstructive disease. Left apical ple uroparenchymal scarring is partly obscured by respiratory therapy hardware. No acute infiltrates. N o pleural effusion or pneumothorax. MEDIASTINUM AND HILAR STRUCTURES: No masses. Contour normal. HEART AND VASCULAR STRUCTURES: Heart normal in size. Normal vasculature. BONES: No acute findings. HARDWARE: Endotracheal tube tip 6 cm above the kai. Nasogastric tube tip in the stomach, side por t at the GE junction. No central venous catheter identified OTHER: No other significant finding. IMPRESSION: Obstructive lung disease. Tubes in good positioning TECHNICAL DOCUMENTATION: JOB ID: [id number] 2010 [employer]- All Rights Reserved Reading location - IP/workstation name: [email or web address]
[2019-10-18 08:14] LABS: INTERNATIONAL RATION (INR) 1.06; PROTHROMBIN TIME 13.8 SEC (11.4-15.4)
[2019-10-18 08:15] LABS: PARTIAL THROMBOPLASTIN TIME 25.1 SEC (23.5-35.8)
[2019-10-18] MEDS ORDERED: ALBUMIN HUMAN 500 ML IV ONE ×2 (08:53→19:00)
[2019-10-18] MEDS ORDERED: FENTANYL CITRATE INJ/PF 100 MCG/2 ML AMPUL ONE (09:21)
[2019-10-18] MEDS ORDERED: NOREPINEPHRINE BITARTRATE INJ/PF 4 MG/4 ML SDV IV ONE (09:48)
[2019-10-18] MEDS ORDERED: FENTANYL CITRATE INJ/PF 100 MCG/2 ML AMPUL IV ONE (10:00)
[2019-10-18] MEDS ORDERED: PHENYLEPHRINE HCL INJ/PF 10 MG/1 ML SDV ONE (10:12)
[2019-10-18] MEDS ORDERED: SUCCINYLCHOLINE CHLORIDE INJ 200 MG/10 ML VIAL ONE (10:12)
[2019-10-18] MEDS ORDERED: ONDANSETRON HCL INJ/PF 4 MG/2 ML SDV ONE (10:12)
[2019-10-18] MEDS ORDERED: ROCURONIUM BROMIDE INJ 50 MG/5 ML VIAL IV ONE (10:12)
[2019-10-18] MEDS ORDERED: LIDOCAINE 2% INJ-PF (20 MG/ML) 2 ML AMPUL ONE (10:12)
--- NOTE | 2019-10-18 10:48 | Operative Report ---
Bedside Procedure - History of Present Illness History of Present Illness: DEBI CHAVEZ is a 58 year old female with medical history of COPD on home oxygen at 2 L nasal cannula. Was recently discharged from [facility] with COPD exacerbation on prednisone. Presented to the ED with a 2 day history of increasing abdominal pain. She reported abdominal pain that is sharp,stabbing, and is constant. She rates it 6 out of 10. Her pain is diffuse. It does not radiate. Movement and palpation make it worse. Nothing makes it better. She is on opiates for chronic pain also suffers from chronic constipation. She denies CP, headache orthostasis, nausea, vomiting, fevers, chills, melena, hematochezia, hematemesis, blurry vision, dizziness, orthostasis. CT A/P showed perforated cecal volvulus with dilationof the cecum directed toward the left upper abdomen and free intraperitoneal air and fluid. She was taken to the OR by Dr. Hawkins for exploratory lap. She is status post sigmoid resection with end colostomy. She is admitted to the ICU for further management, she is currently intubated. She developed hypotension in ICU. Indication for Procedure: Sepsis with shock Date: 10/18/19 Provider: RANDA BRITO - Central Line Right Internal jugular Time completed: 10:00 Consent obtained: Yes Central line pre-insertion: Sterile PPE donned, Chloraprep applied, Sterile drapes applied Central line lumen type: Triple Anesthetic type: 1% Lidocaine mL's of anesthesia: 4 Ultrasound guided: Yes CM at insertion site: 15 Line secured with sutures: Yes Central line post-insertion: Blood return from lumens, Biopatch applied, Sutured, Sterile dressing applied, Position confirmed w/ CXR, Other - Confirmed on ultrasound--wire seen in IJ Number of attempts: 1 Complications: No Notes: 10/18/19 10:44 Procedure: Central line placement Indication: Procedure stretcher leveler operator: Anastasiia Attending physician: Anastasiia Consent: Emergent, discussed with on phone due to pandemic restrictions Consent was obtained from on phone prior to the procedure. Indications, risks, and benefits were explained and all questions were addressed. The procedure was performed emergently. Procedure summary: Amount of A timeout was performed. My hands were cleaned immediately prior to the procedure. I wore surgical cap, mask with protective eyewear, full gown and sterile gloves throughout the procedure. The patient was placed in Trendelenburg position. RIGHT IJ was prepped using chlorhexidine scrub and draped in sterile fashion using a full drape. Sterile probe cover was placed on ultrasound probe. The internal jugular vein was identified using ultrasound. Anesthesia was achieved over the vein using 4 cc of 1% lidocaine. Using real- time guidance, the introducer needle was inserted into the internal jugular vein under direct ultrasound visualization. Venous blood was withdrawn. The syringe was removed and a guidewire was advanced into the introducer needle. The guidewire was visualized in the internal jugular vein by ultrasound. A small incision was made at the skin surface with a scalpel and the introducer needle was exchanged for a dilator over the guidewire. After appropriate dilation was obtained, the dilator was exchanged over a wire for a 7 Norwegian, 20 cm central venous catheter. The wire was removed and the catheter was sutured in place at 15 cm. A IO patch was placed and a sterile Sorbaview shield was placed over the catheter at the insertion site. The patient tolerated the procedure well without any hemodynamic compromise. At time of procedure completion, all ports aspirated and flushed properly. Postprocedure x-ray shows central line in proper place. Estimated blood loss is approximately 5-8 cc.
--- NOTE | 2019-10-18 10:52 | Operative Report ---
Bedside Procedure - History of Present Illness History of Present Illness: DEBI CHAVEZ is a 58 year old female with medical history of COPD on home oxygen at 2 L nasal cannula. Was recently discharged from [place] with COPD exacerbation on prednisone. Presented to the ED with a 2 day history of increasing abdominal pain. She reported abdominal pain that is sharp,stabbing, and is constant. She rates it 6 out of 10. Her pain is diffuse. It does not radiate. Movement and palpation make it worse. Nothing makes it better. She is on opiates for chronic pain also suffers from chronic constipation. She denies CP, headache orthostasis, nausea, vomiting, fevers, chills, melena, hematochezia, hematemesis, blurry vision, dizziness, orthostasis. CT A/P showed perforated cecal volvulus with dilationof the cecum directed toward the left upper abdomen and free intraperitoneal air and fluid. She was taken to the OR by Dr. Hawkins for exploratory lap. She is status post sigmoid resection with end colostomy. She is admitted to the ICU for further management, she is currently intubated. She developed hypotension in ICU. Indication for Procedure: Hypotension Date: 10/18/19 Provider: RANDA LAURENT - Additional Procedures Arterial Line Time performed: 20:00 Notes: A-Line: Axillary Indication: Hypotension sepsis with shock Postprocedure diagnosis same Procedure husker operator: DO LORENZA Laurent Attending physician: DO LORENZA Laurent Consent: Obtained emergently by phone Indications, risks, and benefits were explained at length. Procedure summary: A timeout was performed. My hands were washed immediately prior to the procedure. I were surgical cap, mask with protective eyewear, sterile gown and sterile gloves throughout the procedure. A first attempt was tried in the right radial artery. Unfortunately wire could not be placed although blood was obtained. Given her hypotension we then cleansed and sterilized the right axillary region. First attempt without ultrasound guidance was done and placement into the vessel was noted but wire could not be placed and so it was repeated under ultrasound guidance using sterile dynamic ultrasound. Needle was placed in the artery good pulsatile blood flow was noted. A wire was unable to be placed in a 20-gauge long catheter was placed over wire. Wire was removed without difficulty. After the wire was removed blood was allowed to flow to clear debris. Catheter sutured in place and affixed to transducer tubing and then zeroed. Tolerated procedure well No complications except for inability to place right radial. Procedure excludes critical care time
[2019-10-18] MEDS ORDERED: DEXTROSE 5%-WATER 250 ML with NOREPINEPHRINE BITARTRATE 4 MG IV PRN ×2 (11:18)
[2019-10-18] MEDS ORDERED: RINGERS SOLUTION,LACTATED 1,000 ML IV ONE (11:18)
[2019-10-18] MEDS ORDERED: ESCITALOPRAM OXALATE 10 MG TABLET PO SCH (11:30)
[2019-10-18] MEDS ORDERED: PHARMACY COMMUNICATION ORDER MC NR (11:30)
[2019-10-18] MEDS: ALBUTEROL SULFATE 0.083% NEB 2.5 MG/3 ML AMPUL NEB SCH ×3 (11:33→20:22)
[2019-10-18] MEDS: ACETAMINOPHEN 1,000 MG/100 ML RTUPB IV SCH ×2 (11:56→17:21)
[2019-10-18] MEDS: RINGERS SOLUTION,LACTATED 1,000 ML IV PRN (11:58)
[2019-10-18] MEDS: ENOXAPARIN SODIUM INJ 40 MG/0.4 ML DISP.SYRIN SUBCUT SCH (11:58)
[2019-10-18 11:59] LABS: ARTERIAL BLOOD BASE EXCESS 1.3 mmol/L; ARTERIAL BLOOD H2CO3 1.44 mmol/L (1.05-1.35); ARTERIAL BLOOD HCO3 27.1 mmol/L (20-24); ARTERIAL BLOOD O2 SATURATION 92.2 % (94-98); ARTERIAL BLOOD PCO2 47.8 mmHg (35-45); ARTERIAL BLOOD PH 7.37 (7.35-7.45); ARTERIAL BLOOD PO2 65.3 mmHg (80-100); ARTERIAL BLOOD TOTAL CO2 28.5 mmol/L (21-25)
[2019-10-18 12:00] LABS: ARTERIAL BLOOD FIO2 25%
[2019-10-18] MEDS ORDERED: PIPERACILLIN SODIUM/TAZOBACTAM 3.375 GM in NORMAL SALINE 100 ML IV SCH (12:00)
[2019-10-18] MEDS ORDERED: PIPERACILLIN SODIUM/TAZOBACTAM 4.5 GM in NORMAL SALINE 100 ML IV SCH (12:00)
[2019-10-18] MEDS: FENTANYL CITRATE INJ/PF 100 MCG/2 ML AMPUL IV PRN ×2 (12:14→17:22)
--- NOTE | 2019-10-18 12:41 | RADIOLOGY REPORT (SQ) ---
EXAM DESCRIPTION: CHEST SINGLE VIEW IMAGES COMPLETED DATE/TIME: 10/18/2019 12:26 pm REASON FOR STUDY: Line placement COMPARISON: CT chest 11/24/2018 Chest films 03/01/2019, 10/18/2019 EXAM PARAMETERS: NUMBER OF VIEWS: One view. TECHNIQUE: Single frontal radiographic view of the chest acquired. RADIATION DOSE: NA LIMITATIONS: Respiratory therapy hardware over the left lung apex FINDINGS: LUNGS AND PLEURA: Left apical pleuroparenchymal scarring. No acute infiltrates. No pleur al effusion. No pneumothorax. MEDIASTINUM AND HILAR STRUCTURES: No masses. Contour normal. HEART AND VASCULAR STRUCTURES: No cardiomegaly BONES: No acute findings. HARDWARE: Endotracheal tube tip 5 cm above the kai. Nasogastric tube tip in the stomach, side por t at the GE junction. Right jugular central line tip superior vena cava. Right-sided PICC line tip in the right subclavian vein OTHER: No other significant finding. IMPRESSION: Tubes and lines in good positioning. Left apical pleuroparenchymal scarring. No acute infiltrates. TECHNICAL DOCUMENTATION: JOB ID: [id number] 2010 [employer]- All Rights Reserved Reading location - IP/workstation name: [email or web address]
[2019-10-18] MEDS: HYDROCORTISONE SOD SUCCINATE INJ/PF 100 MG/2 ML SDV IV SCH ×2 (13:20→20:59)
[2019-10-18] MEDS: PIPERACILLIN SODIUM/TAZOBACTAM 4.5 GM in NORMAL SALINE 100 ML IV SCH ×2 (15:36→20:44)
--- NOTE | 2019-10-18 18:14 | Progress Note ---
Provider Note Provider Note: Patient seen in follow-up for hypotension and sepsis. She has received maintenance IV fluids as well as 500 cc of albumin. Her Levophed requirements are decreased but she is still dependent on 2 mics. Examination at bedside shows capillary refill at about 3 to 4 seconds. Extremities are slightly cool but there is no evidence of ischemia. Straight leg raise exam shows an improvement in blood pressure by more than 20 mmHg. Abdomen is nondistended there is no bleeding. Lactic acid is improved and less than 2 She is following commands. ABG reviewed Patient appears to have's some volume depletion still present and will give an additional dose of colloid therapy. We will continue to follow labs as well as pH status. Given her advanced lung disease disruption in the thoracoabdominal cylinder will maintain on ventilator to assure that there is stability. Will attempt to wean throughout the night as long as her labs and vitals remained stable.
[2019-10-19] MEDS: FENTANYL CITRATE INJ/PF 100 MCG/2 ML AMPUL IV PRN ×6 (00:06→19:51)
[2019-10-19] MEDS: ALBUTEROL SULFATE 0.083% NEB 2.5 MG/3 ML AMPUL NEB SCH ×4 (00:22→11:22)
[2019-10-19] MEDS: ACETAMINOPHEN 1,000 MG/100 ML RTUPB IV SCH ×3 (02:23→17:11)
[2019-10-19] MEDS: PIPERACILLIN SODIUM/TAZOBACTAM 4.5 GM in NORMAL SALINE 100 ML IV SCH ×4 (02:25→21:51)
[2019-10-19 04:52] LABS: ARTERIAL BLOOD BASE EXCESS 3.3 mmol/L; ARTERIAL BLOOD H2CO3 1.73 mmol/L (1.05-1.35); ARTERIAL BLOOD HCO3 30.4 mmol/L (20-24); ARTERIAL BLOOD O2 SATURATION 94.4 % (94-98); ARTERIAL BLOOD PCO2 57.6 mmHg (35-45); ARTERIAL BLOOD PH 7.34 (7.35-7.45); ARTERIAL BLOOD PO2 77.2 mmHg (80-100); ARTERIAL BLOOD TOTAL CO2 32.1 mmol/L (21-25); HEMATOCRIT 31.9 % (36.0-47.0); MEAN CORPUSCULAR HEMOGLOBIN 29.2 pg (27.0-33.4); MEAN CORPUSCULAR HGB CONC 32.9 g/dL (32.0-36.0); MEAN CORPUSCULAR VOLUME 89 fl (80-97); PLATELET COUNT 338 10^3/uL (150-450); RED BLOOD COUNT 3.59 10^6/uL (3.72-5.28); RED CELL DISTRIBUTION WIDTH 14.4 % (11.5-14.0)
[2019-10-19 04:55] LABS: ARTERIAL BLOOD FIO2 40%
[2019-10-19 04:57] LABS: INTERNATIONAL RATION (INR) 1.37
[2019-10-19 04:58] LABS: PARTIAL THROMBOPLASTIN TIME 35.1 SEC (23.5-35.8)
[2019-10-19 05:11] LABS: ALBUMIN 2.9 g/dL (3.5-5.0); ALKALINE PHOSPHATASE 51 U/L (38-126); ANION GAP 6 (5-19); ASPARTATE AMINO TRANSFERASE 18 U/L (14-36); BILIRUBIN,DIRECT 0.2 mg/dL (0.0-0.4); BILIRUBIN,TOTAL 0.8 mg/dL (0.2-1.3); BLOOD UREA NITROGEN 22 mg/dL (7-20); CALCIUM 8.3 mg/dL (8.4-10.2); CARBON DIOXIDE 31 mmol/L (22-30); CHLORIDE 101 mmol/L (98-107); GLUCOSE 108 mg/dL (75-110); PHOSPHORUS 3.5 mg/dL (2.5-4.5); POTASSIUM 3.9 mmol/L (3.6-5.0); TOTAL PROTEIN 4.9 g/dL (6.3-8.2)
[2019-10-19 05:16] LABS: HEMOGLOBIN 10.5 g/dL (12.0-15.5)
[2019-10-19 05:17] LABS: ABSOLUTE LYMPHOCYTES# (MANUAL) 0.6 10^3/uL (0.5-4.7); ABSOLUTE MONOCYTES # (MANUAL) 0.6 10^3/uL (0.1-1.4); BAND NEUTROPHILS % (MANUAL) 1 % (3-5); BASOPHILS % (MANUAL) 0 % (0-2); EOSINOPHILS % (MANUAL) 0 % (0-6); LYMPHOCYTES % (MANUAL) 3 % (13-45); MONOCYTES % (MANUAL) 3 % (3-13); SEGMENTED NEUTROPHILS % (MAN) 93 % (42-78); TOTAL CELLS COUNTED 100
[2019-10-19 05:19] LABS: ANISOCYTOSIS SLIGHT; OVALOCYTES SLIGHT; PLATELET COMMENT ADEQUATE; POIKILOCYTOSIS SLIGHT; SCHISTOCYTES SLIGHT; TEAR DROP CELLS SLIGHT; TOXIC GRANULATION SLIGHT
[2019-10-19] MEDS: HYDROCORTISONE SOD SUCCINATE INJ/PF 100 MG/2 ML SDV IV SCH ×3 (05:23→21:53)
[2019-10-19] MEDS: LEVOTHYROXINE SODIUM 0.1 MG TABLET NG SCH (08:41)
--- NOTE | 2019-10-19 09:39 | RADIOLOGY REPORT (SQ) ---
EXAM DESCRIPTION: CHEST SINGLE VIEW IMAGES COMPLETED DATE/TIME: 10/19/2019 5:48 am REASON FOR STUDY: sepsis with respiratory failure COMPARISON: CT angio chest 11/24/2018 Chest films 05/03/2019, 10/18/2019 EXAM PARAMETERS: NUMBER OF VIEWS: One view. TECHNIQUE: Single frontal radiographic view of the chest acquired. RADIATION DOSE: NA LIMITATIONS: None. FINDINGS: LUNGS AND PLEURA: Lungs are hyperlucent from obstructive lung disease. Left apical pleuro parenchymal nodular scarring is stable. No pleural effusion. No pneumothorax. No acute infiltrate. MEDIASTINUM AND HILAR STRUCTURES: No masses. Contour normal. HEART AND VASCULAR STRUCTURES: Heart normal in size. Normal vasculature. BONES: No acute findings. HARDWARE: Endotracheal tube has been removed. Nasogastric tube tip in the stomach, side port at the GE junction. Right jugular central line tip superior vena cava. OTHER: No other significant finding. IMPRESSION: Obstructive lung disease. No acute infiltrate. A nasogastric tube, right jugular central line in good positioning TECHNICAL DOCUMENTATION: JOB ID: [id number] 2010 [employer]- All Rights Reserved Reading location - IP/workstation name: [email or web address]
--- NOTE | 2019-10-19 09:59 | PDOC PROGRESS REPORT ---
Subjective Progress Note for:: 10/19/19 Subjective:: Feels okay. Some generalized weakness. Reason For Visit: PERFORATED BOWEL Physical Exam Vital Signs: Temp Pulse Resp BP Pulse Ox 99.1 F 74 16 109/61 98 10/18/19 08:43 10/19/19 09:05 10/19/19 09:05 10/18/19 19:46 10/19/19 09:05 Intake & Output 10/18/19 10/19/19 10/20/19 06:59 06:59 06:59 Intake Total 3850 5004 Output Total 2850 1275 Balance 1000 3729 Weight 62.9 kg 66.6 kg General appearance: PRESENT: no acute distress, cooperative Respiratory exam: PRESENT: clear to auscultation christina Cardiovascular exam: PRESENT: RRR GI/Abdominal exam: PRESENT: other - Soft, mildly distended, appropriate tenderness. Ostomy is pink. Wound is clean dry and intact. Results Laboratory Results: 10/19/19 04:13 10/19/19 04:13 10/18/19 10/18/19 10/19/19 10:49 11:42 04:13 WBC 19.0 H RBC 3.59 L Hgb 10.5 L D Hct 31.9 L MCV 89 MCH 29.2 MCHC 32.9 RDW 14.4 H Plt Count 338 Seg Neutrophils % Not Reportable Carbonic Acid 1.44 H HCO3/H2CO3 Ratio 18:1 ABG pH 7.37 ABG pCO2 47.8 H ABG pO2 65.3 L ABG HCO3 27.1 H ABG O2 Saturation 92.2 L ABG Base Excess 1.3 FiO2 25% Sodium Potassium Chloride Carbon Dioxide Anion Gap BUN Creatinine Est GFR ( Amer) Glucose Lactic Acid 1.5 Calcium Phosphorus Magnesium Total Bilirubin AST Alkaline Phosphatase Total Protein Albumin 10/19/19 10/19/19 10/19/19 04:13 04:13 04:13 WBC RBC Hgb Hct MCV MCH MCHC RDW Plt Count Seg Neutrophils % Carbonic Acid 1.73 H HCO3/H2CO3 Ratio 17:1 ABG pH 7.34 L ABG pCO2 57.6 H ABG pO2 77.2 L ABG HCO3 30.4 H ABG O2 Saturation 94.4 ABG Base Excess 3.3 FiO2 40% Sodium 137.5 Potassium 3.9 Chloride 101 Carbon Dioxide 31 H Anion Gap 6 BUN 22 H Creatinine 0.66 Est GFR ( Amer) > 60 Glucose 108 Lactic Acid 0.7 Calcium 8.3 L Phosphorus 3.5 Magnesium 2.7 H Total Bilirubin 0.8 AST 18 Alkaline Phosphatase 51 Total Protein 4.9 L Albumin 2.9 L 10/18/19 00:24 Troponin I 0.012 Impressions: Abdomen/Pelvis CT 10/17/19 23:59 IMPRESSION: 1. 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 Urgent finding reported to Olu SILVEIRA at 10/18/2019 1:55 AM CDT This exam was performed according to our departmental dose-optimization program, which includes automated exposure control, adjustment of the mA and/or kV according to patient size and/or use of iterative reconstruction technique. Chest X-Ray 10/19/19 06:00 IMPRESSION: Obstructive lung disease. No acute infiltrate. A nasogastric tube, right jugular central line in good positioning Assessment & Plan - Diagnosis (1) Diverticulitis Is this a current diagnosis for this admission?: Yes Plan: Status post Delgado's procedure. Overall patient looks pretty good. Urine out put diminishing, will give IV fluid bolus.
[2019-10-19] MEDS ORDERED: PANTOPRAZOLE SODIUM 40 MG VIAL IV SCH (10:00)
[2019-10-19] MEDS ORDERED: DILTIAZEM HCL INJ 25 MG/5 ML VIAL ONE (10:03)
[2019-10-19] MEDS ORDERED: DILTIAZEM HCL/D5W 125 MG/125 ML RTUINJ IV PRN (10:07)
[2019-10-19] MEDS ORDERED: DILTIAZEM HCL INJ 25 MG/5 ML VIAL IV ONE (10:15)
[2019-10-19] MEDS: ENOXAPARIN SODIUM INJ 40 MG/0.4 ML DISP.SYRIN SUBCUT SCH (10:18)
[2019-10-19] MEDS: ESCITALOPRAM OXALATE 10 MG TABLET NG SCH (10:19)
[2019-10-19] MEDS: RINGERS SOLUTION,LACTATED 1,000 ML IV PRN (10:22)
[2019-10-19] MEDS ORDERED: DILTIAZEM HCL 30 MG TABLET PO SCH ×2 (12:15→22:00)
[2019-10-19] MEDS ORDERED: NORMAL SALINE 1000 ML 1,000 ML IV ONE (15:30)
[2019-10-19] MEDS: LEVALBUTEROL HCL NEB 1.25 MG/3 ML AMPUL NEB SCH ×3 (15:33→20:31)
[2019-10-19] MEDS: BUDESONIDE NEB 0.5 MG/2 ML AMPUL NEB SCH ×2 (15:34→20:31)
--- NOTE | 2019-10-19 16:50 | PDOC CRITICAL CARE PROG REPORT ---
General Date:: 10/19/19 ICU Day:: 2 Hospital Day:: 2 Resuscitation Status: Full Code Medical Power of Director Of Business Continuity: Daniel Events in the past 12 to 24 Hours:: 10.19.2019: Patient is continuing to improve and she is now off vasopressor therapy. She met suitability for liberation from mechanical ventilation and this was done safely throughout the night. She did develop atrial fibrillation with rapid ventricular response this morning and this was controlled with an IV bolus of Cardizem and she was started on a Cardizem drip as well as her oral regimen. This was not associated with any hypotension. Heart rate is now currently controlled. Review of systems relevant to events:: 10.19.2019: Patient's heart rate now controlled on Cardizem. No abdominal discomfort. She denies chest pain. She feels slightly dyspneic when she develops atrial fibrillation but this is improved. When asked about her need for anticoagulation she was told that she would not needed and she has not wanted to be on anticoagulation for fear of bleeding. Reason for ICU Addmission:: Perforated Bowel - Medications: Medications reviewed and adjusted accordingly: Yes Vasopressors:: None Sedation:: None Physical Exam Vital Signs: Temp Pulse Resp BP Pulse Ox 99.1 F 74 14 109/61 100 10/18/19 08:43 10/19/19 09:05 10/19/19 13:00 10/18/19 19:46 10/19/19 13:00 Intake & Output 10/18/19 10/19/19 10/20/19 06:59 06:59 06:59 Intake Total 3850 5004 1210 Output Total 2850 1275 200 Balance 1000 3729 1010 Weight 62.9 kg 66.6 kg Weight/Height Weight 66.6 kg Height 5 ft 1 in General appearance: PRESENT: no acute distress, cooperative, thin Exam: Thin, ill appearing chronically ill-appearing 58-year-old female heart rate 130 during this initial part of the examination Head exam: PRESENT: atraumatic, normocephalic Eye exam: PRESENT: conjunctiva pink, EOMI, PERRLA. ABSENT: conjunctival injection, nystagmus, scleral icterus Mouth exam: PRESENT: dry mucosa, neck supple, tongue midline Teeth exam: PRESENT: edentulous Neck exam: ABSENT: carotid bruit, JVD, lymphadenopathy, thyromegaly Respiratory exam: PRESENT: clear to auscultation christina, unlabored. ABSENT: accessory muscle use, rales, rhonchi, tachypnea, wheezes Cardiovascular exam: PRESENT: irregular rhythm, tachycardia - Yes they can take anything he has a large Pulses: PRESENT: normal dorsalis pedis pul Vascular exam: PRESENT: normal capillary refill. ABSENT: pallor GI/Abdominal exam: PRESENT: diminished bowel sounds, tenderness - Near incision site., other - Ostomy mucosa appears pink and clear. No stool output. ABSENT: ascites, distended, organolmegaly - Yes yes that person was from [facility] and so I gave [place] papers to Luz Maria and out of there with the chart yet thanks Rectal exam: PRESENT: other - Ostomy bag present Gentrourinary exam: PRESENT: indwelling catheter Extremities exam: ABSENT: joint swelling Musculoskeletal exam: ABSENT: deformity, dislocation Neurological exam: PRESENT: awake, oriented to person, oriented to place, oriented to time, oriented to situation, CN II-XII grossly intact. ABSENT: motor sensory deficit Psychiatric exam: PRESENT: appropriate affect, normal mood Focused psych exam: ABSENT: restlessness Skin exam: PRESENT: dry, intact, normal color, warm. ABSENT: cyanosis, mottled, rash Tubes/Lines: PRESENT: Central Line, Arterial Catheter, Nasogastic Tube, Other - Romo catheter Laboratory/Radiographs Laboratory Results: 10/19/19 04:13 10/19/19 04:13 10/19/19 10/19/19 10/19/19 04:13 04:13 04:13 WBC 19.0 H RBC 3.59 L Hgb 10.5 L D Hct 31.9 L MCV 89 MCH 29.2 MCHC 32.9 RDW 14.4 H Plt Count 338 Seg Neutrophils % Not Reportable Carbonic Acid 1.73 H HCO3/H2CO3 Ratio 17:1 ABG pH 7.34 L ABG pCO2 57.6 H ABG pO2 77.2 L ABG HCO3 30.4 H ABG O2 Saturation 94.4 ABG Base Excess 3.3 FiO2 40% Sodium 137.5 Potassium 3.9 Chloride 101 Carbon Dioxide 31 H Anion Gap 6 BUN 22 H Creatinine 0.66 Est GFR ( Amer) > 60 Glucose 108 Lactic Acid Calcium 8.3 L Phosphorus 3.5 Magnesium 2.7 H Total Bilirubin 0.8 AST 18 Alkaline Phosphatase 51 Total Protein 4.9 L Albumin 2.9 L 10/19/19 04:13 WBC RBC Hgb Hct MCV MCH MCHC RDW Plt Count Seg Neutrophils % Carbonic Acid HCO3/H2CO3 Ratio ABG pH ABG pCO2 ABG pO2 ABG HCO3 ABG O2 Saturation ABG Base Excess FiO2 Sodium Potassium Chloride Carbon Dioxide Anion Gap BUN Creatinine Est GFR ( Amer) Glucose Lactic Acid 0.7 Calcium Phosphorus Magnesium Total Bilirubin AST Alkaline Phosphatase Total Protein Albumin 10/18/19 00:24 Troponin I 0.012 Impressions: Abdomen/Pelvis CT 10/17/19 23:59 IMPRESSION: 1. 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 Urgent finding reported to Olu SILVEIRA at 10/18/2019 1:55 AM CDT This exam was performed according to our departmental dose-optimization program, which includes automated exposure control, adjustment of the mA and/or kV according to patient size and/or use of iterative reconstruction technique. Chest X-Ray 10/19/19 06:00 IMPRESSION: Obstructive lung disease. No acute infiltrate. A nasogastric tube, right jugular central line in good positioning All labs, radiographs, diagnostic studies and EKGs were personally reviewed: Yes In addition, reports of radiographic and diagnostic studies were read: Yes Assessment and Plan - Diagnosis (1) Sepsis with acute respiratory failure and septic shock Qualifiers: Sepsis type: sepsis due to unspecified organism Is this a current diagnosis for this admission?: Yes (2) Peritonitis, acute generalized Is this a current diagnosis for this admission?: Yes (3) Perforation of sigmoid colon due to diverticulitis Is this a current diagnosis for this admission?: Yes (4) Acute hypoxemic respiratory failure Is this a current diagnosis for this admission?: Yes (5) Encounter for weaning from ventilator Is this a current diagnosis for this admission?: Yes (6) Chronic obstructive pulmonary disease Qualifiers: COPD type: chronic bronchitis Chronic bronchitis type: mucopurulent Qualified Code(s): J41.1 - Mucopurulent chronic bronchitis Is this a current diagnosis for this admission?: Yes Plan Summary: Respiratory: Patient's hypoxic respiratory failure is improved and she was able to be liberated from mechanical ventilation. She discloses that she often goes into atrial fibrillation when she is given albuterol treatments and notes that Xopenex does not cause tachycardia for her. We will exchange the albuterol for Xopenex. Continue to provide respiratory hygiene and support. She has extensive COPD and may need nighttime respiratory assistance. Infectious: Continue antibiotics. Recommendations are for at least 5 to 7 days as long as no active peritonitis continues. No need for antifungals Cardiac: By far the biggest reason for patient's ICU stay today include her respiratory failure and weaning from mechanical ventilation as well as her atrial fibrillation with rapid ventricular rate. Her chads vas 2 score is less than 1% which does not obligate her to anticoagulation. Given the paroxysmal nature of this she is at somewhat of a risk and maintenance on aspirin is recommended. Will start oral Cardizem therapy which she does take at home. Wean Cardizem drip. Hematologic: No active issues except for leukocytosis which may be explained by her surgery and steroids. We will continue to monitor Endocrine: Patient on stress dose steroids. Will attempt to wean as her condition clears. Renal: No active renal issues. Continue to monitor GFR Metabolic: Continue to monitor electrolytes. At some point nutrition will need to be considered. She has been ill and on steroids for a number of weeks. She has bitemporal muscle loss indicative of at least mild to moderate protein calorie malnutrition Alimentary: Currently no output from her ostomy. Continue to monitor closely. Limit narcotics as much as possible. Neurologic: Patient has physical deconditioning prior to admission. Will need physical therapy involved and have ordered this for today. Lines/Tubes: Central and arterial catheters placed 10/18/2019; will remove when patient is stable. Critical Time Critical Time (minutes): 50 Level of Care: ICU -: 1. The care of a critical patient is a dynamic process. This note is a sales representative printing supplies synopsis but static in nature. The timeframe for treatments given in order is not necessarily the actual time these treatments may have been done. 2. This patient requires critical care secondary to ongoing requirements for therapy not offered or safe outside the critical care environment. Transfer to a lower level of care will result in altered life or limb morbidity and mortality. 3. Multidisciplinary rounds completed. 4. ABCDE bundle addressed.
[2019-10-19] MEDS: DILTIAZEM HCL 30 MG TABLET NG SCH (21:40)
[2019-10-19] MEDS: KETOROLAC TROMETHAMINE 60 MG/2 ML SDV IV PRN (21:52)
[2019-10-20] MEDS: LEVALBUTEROL HCL NEB 1.25 MG/3 ML AMPUL NEB SCH ×6 (00:41→19:49)
[2019-10-20] MEDS: FENTANYL CITRATE INJ/PF 100 MCG/2 ML AMPUL IV PRN ×4 (01:16→16:49)
[2019-10-20] MEDS: PIPERACILLIN SODIUM/TAZOBACTAM 4.5 GM in NORMAL SALINE 100 ML IV SCH ×4 (03:06→20:40)
[2019-10-20] MEDS: ACETAMINOPHEN 1,000 MG/100 ML RTUPB IV SCH ×3 (03:06→22:34)
[2019-10-20] MEDS: RINGERS SOLUTION,LACTATED 1,000 ML IV PRN (04:50)
[2019-10-20 05:00] LABS: HEMATOCRIT 29.7 % (36.0-47.0); HEMOGLOBIN 9.8 g/dL (12.0-15.5); MEAN CORPUSCULAR HEMOGLOBIN 29.6 pg (27.0-33.4); MEAN CORPUSCULAR VOLUME 90 fl (80-97); RED BLOOD COUNT 3.31 10^6/uL (3.72-5.28); RED CELL DISTRIBUTION WIDTH 14.7 % (11.5-14.0); WHITE BLOOD COUNT 19.5 10^3/uL (4.0-10.5)
[2019-10-20 05:11] LABS: ANION GAP 6 (5-19); BLOOD UREA NITROGEN 24 mg/dL (7-20); CALCIUM 8.4 mg/dL (8.4-10.2); CARBON DIOXIDE 29 mmol/L (22-30); CHLORIDE 104 mmol/L (98-107); GLUCOSE 85 mg/dL (75-110); PHOSPHORUS 3.5 mg/dL (2.5-4.5); POTASSIUM 3.7 mmol/L (3.6-5.0)
[2019-10-20 05:21] LABS: ABSOLUTE LYMPHOCYTES# (MANUAL) 0.8 10^3/uL (0.5-4.7); BAND NEUTROPHILS % (MANUAL) 1 % (3-5); BASOPHILS % (MANUAL) 0 % (0-2); EOSINOPHILS % (MANUAL) 0 % (0-6); LYMPHOCYTES % (MANUAL) 4 % (13-45); MONOCYTES % (MANUAL) 5 % (3-13); SEGMENTED NEUTROPHILS % (MAN) 90 % (42-78); TOTAL CELLS COUNTED 100
[2019-10-20 05:22] LABS: ANISOCYTOSIS SLIGHT; PLATELET CLUMPS PRESENT; PLATELET COMMENT ADEQUATE; TOXIC GRANULATION SLIGHT
[2019-10-20 05:24] LABS: OVALOCYTES SLIGHT; PLATELET COUNT 295 10^3/uL (150-450)
[2019-10-20] MEDS: HYDROCORTISONE SOD SUCCINATE INJ/PF 100 MG/2 ML SDV IV SCH (05:29)
[2019-10-20 05:35] LABS: INTERNATIONAL RATION (INR) 1.08; PROTHROMBIN TIME 14.1 SEC (11.4-15.4)
[2019-10-20 05:36] LABS: PARTIAL THROMBOPLASTIN TIME 31.9 SEC (23.5-35.8)
[2019-10-20] MEDS: BUDESONIDE NEB 0.5 MG/2 ML AMPUL NEB SCH (08:33)
[2019-10-20] MEDS: LEVOTHYROXINE SODIUM 0.1 MG TABLET NG SCH (08:47)
[2019-10-20] MEDS: KETOROLAC TROMETHAMINE 60 MG/2 ML SDV IV PRN (09:03)
[2019-10-20] MEDS: ESCITALOPRAM OXALATE 10 MG TABLET NG SCH (09:05)
[2019-10-20] MEDS: DILTIAZEM HCL 30 MG TABLET NG SCH ×2 (09:05→22:33)
[2019-10-20] MEDS: ENOXAPARIN SODIUM INJ 40 MG/0.4 ML DISP.SYRIN SUBCUT SCH (09:09)
[2019-10-20] MEDS: ASPIRIN 81 MG TABLET, CHEWABLE PO SCH (09:57)
--- NOTE | 2019-10-20 14:20 | PDOC PROGRESS REPORT ---
Subjective Progress Note for:: 10/20/19 Reason For Visit: PERFORATED BOWEL Physical Exam Vital Signs: Temp Pulse Resp BP Pulse Ox 99.1 F 64 18 153/65 H 99 10/20/19 12:00 10/20/19 12:00 10/20/19 12:00 10/20/19 12:00 10/20/19 12:00 Intake & Output 10/19/19 10/20/19 10/21/19 06:59 06:59 06:59 Intake Total 5004 3692 210 Output Total 1275 785 600 Balance 3729 2907 -390 Weight 66.6 kg 69.7 kg Results Laboratory Results: 10/20/19 04:30 10/20/19 04:30 10/20/19 10/20/19 10/20/19 04:30 04:30 04:30 WBC 19.5 H RBC 3.31 L Hgb 9.8 L Hct 29.7 L MCV 90 MCH 29.6 MCHC 33.0 RDW 14.7 H Plt Count 295 Seg Neutrophils % Not Reportable Sodium Cancelled 139.0 Potassium Cancelled 3.7 Chloride Cancelled 104 Carbon Dioxide Cancelled 29 Anion Gap Cancelled 6 BUN Cancelled 24 H Creatinine Cancelled 0.64 Est GFR ( Amer) Cancelled > 60 Est GFR (Non-Af Amer) Cancelled Glucose Cancelled 85 Calcium Cancelled 8.4 Phosphorus 3.5 Magnesium 2.9 H 10/18/19 00:24 Troponin I 0.012 Impressions: Abdomen/Pelvis CT 10/17/19 23:59 IMPRESSION: 1. 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 Urgent finding reported to Olu SILVEIRA at 10/18/2019 1:55 AM CDT This exam was performed according to our departmental dose-optimization program, which includes automated exposure control, adjustment of the mA and/or kV according to patient size and/or use of iterative reconstruction technique. Chest X-Ray 10/19/19 06:00 IMPRESSION: Obstructive lung disease. No acute infiltrate. A nasogastric tube, right jugular central line in good positioning Assessment & Plan - Diagnosis (1) Free intraperitoneal air Is this a current diagnosis for this admission?: Yes (2) Acute abdomen Is this a current diagnosis for this admission?: Yes (3) Diverticulitis Is this a current diagnosis for this admission?: Yes - Plan Summary Plan Summary: This is a 58-year-old female with perforated sigmoid diverticulitis, and feculent peritonitis. The patient underwent Delgado's procedure with descending colostomy placement. Her colostomy is pink and productive today. I have removed her NG tube, and allowed her to have sips of clears. Wean steroids. Continue antibiotics. Out of bed to chair. Ostomy training. Aggressive pulmonary toilet.
--- NOTE | 2019-10-20 16:14 | PDOC CRITICAL CARE PROG REPORT ---
General Date:: 10/20/19 ICU Day:: 3 Hospital Day:: 3 Resuscitation Status: Full Code Medical Power of Girls Tennis Coach: Daniel Events in the past 12 to 24 Hours:: 10.20.2019: Patient successfully wean from mechanical ventilation and has had no respiratory compromise. She has had paroxysmal bouts of atrial fibrillation with rapid ventricular response requiring Cardizem therapy. She has been started on oral therapy with improvement in her heart rate. Nursing noted bleeding from incision site and Lovenox has been placed on hold. Has semi- formed liquid brown stool without blood in ostomy 10.19.2019: Patient is continuing to improve and she is now off vasopressor therapy. She met suitability for liberation from mechanical ventilation and this was done safely throughout the night. She did develop atrial fibrillation with rapid ventricular response this morning and this was controlled with an IV bolus of Cardizem and she was started on a Cardizem drip as well as her oral regimen. This was not associated with any hypotension. Heart rate is now currently controlled. Review of systems relevant to events:: 10.20.2019: No hemodynamic instability such as hypotension with elevation in heart rate. Her blood pressures have been adequately controlled. No chest pain or shortness of breath today. Midportion of her incision does have some active bleeding please see physical exam notes no hemodynamic instability or significant hemoglobin reduction. 10.19.2019: Patient's heart rate now controlled on Cardizem. No abdominal discomfort. She denies chest pain. She feels slightly dyspneic when she develops atrial fibrillation but this is improved. When asked about her need for anticoagulation she was told that she would not needed and she has not wanted to be on anticoagulation for fear of bleeding. Reason for ICU Addmission:: Perforated Bowel - Medications: Vasopressors:: None Sedation:: None Physical Exam Vital Signs: Temp Pulse Resp BP Pulse Ox 99.1 F 61 15 109/61 100 10/18/19 08:43 10/20/19 08:34 10/20/19 08:34 10/18/19 19:46 10/20/19 08:34 Intake & Output 10/19/19 10/20/19 10/21/19 06:59 06:59 06:59 Intake Total 5004 3692 Output Total 4265 785 175 Balance 3729 2907 -175 Weight 66.6 kg 69.7 kg Weight/Height Weight 69.7 kg Height 5 ft 1 in General appearance: PRESENT: no acute distress, disheveled, thin Exam: Older appearing 58-year-old female who appears chronically and acutely ill. There is no active toxic distress Head exam: PRESENT: atraumatic, normocephalic Eye exam: PRESENT: conjunctiva pink, EOMI, PERRLA. ABSENT: conjunctival injection, nystagmus, scleral icterus Mouth exam: PRESENT: dry mucosa, neck supple, tongue midline Teeth exam: PRESENT: edentulous Neck exam: PRESENT: other - Right internal jugular central venous catheter clean dry and intact. ABSENT: JVD, lymphadenopathy, thyromegaly Respiratory exam: PRESENT: clear to auscultation christina, unlabored. ABSENT: accessory muscle use, rales, rhonchi, tachypnea, wheezes Cardiovascular exam: PRESENT: irregular rhythm - Occasionally. Currently in sinus rhythm, other - Heart rate 60-65. ABSENT: tachycardia Vascular exam: PRESENT: normal capillary refill. ABSENT: pallor GI/Abdominal exam: PRESENT: firm, other - Incision is intact. In the midportion there is a small venule which appears to be bleeding partially. It is suppressed with compression. Placed Surgicel dressing on and pressure dressing with cessation. There was no active arterial bleeding.. ABSENT: ascites, distended Rectal exam: PRESENT: other - Ostomy has brown liquid stool. Mucosa appears pink without any cyanosis or bleeding. Gentrourinary exam: PRESENT: indwelling catheter Extremities exam: ABSENT: pedal edema Musculoskeletal exam: ABSENT: deformity, dislocation Neurological exam: PRESENT: alert, awake, oriented to person, oriented to place, oriented to time, oriented to situation, CN II-XII grossly intact, motor sensory deficit, other - Symmetrically globally weak and deconditioned. No focal motor deficits Psychiatric exam: PRESENT: appropriate affect, normal mood Focused psych exam: ABSENT: psychomotor agitation, restlessness Skin exam: PRESENT: dry, intact, normal color, warm. ABSENT: cyanosis, mottled, rash Tubes/Lines: PRESENT: Central Line, Arterial Catheter, Nasogastic Tube, Other - Romo type urinary catheter Laboratory/Radiographs Laboratory Results: 10/20/19 04:30 10/20/19 04:30 10/20/19 10/20/19 10/20/19 04:30 04:30 04:30 WBC 19.5 H RBC 3.31 L Hgb 9.8 L Hct 29.7 L MCV 90 MCH 29.6 MCHC 33.0 RDW 14.7 H Plt Count 295 Seg Neutrophils % Not Reportable Sodium Cancelled 139.0 Potassium Cancelled 3.7 Chloride Cancelled 104 Carbon Dioxide Cancelled 29 Anion Gap Cancelled 6 BUN Cancelled 24 H Creatinine Cancelled 0.64 Est GFR ( Amer) Cancelled > 60 Est GFR (Non-Af Amer) Cancelled Glucose Cancelled 85 Calcium Cancelled 8.4 Phosphorus 3.5 Magnesium 2.9 H 10/18/19 00:24 Troponin I 0.012 Impressions: Abdomen/Pelvis CT 10/17/19 23:59 IMPRESSION: 1. 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 Urgent finding reported to Olu SILVEIRA at 10/18/2019 1:55 AM CDT This exam was performed according to our departmental dose-optimization program, which includes automated exposure control, adjustment of the mA and/or kV according to patient size and/or use of iterative reconstruction technique. Chest X-Ray 10/19/19 06:00 IMPRESSION: Obstructive lung disease. No acute infiltrate. A nasogastric tube, right jugular central line in good positioning All labs, radiographs, diagnostic studies and EKGs were personally reviewed: Yes In addition, reports of radiographic and diagnostic studies were read: Yes Assessment and Plan - Diagnosis (1) Sepsis with acute respiratory failure and septic shock Qualifiers: Sepsis type: sepsis due to unspecified organism Is this a current diagnosis for this admission?: Yes (2) Peritonitis, acute generalized Is this a current diagnosis for this admission?: Yes (3) Perforation of sigmoid colon due to diverticulitis Is this a current diagnosis for this admission?: Yes (4) Acute hypoxemic respiratory failure Is this a current diagnosis for this admission?: Yes (5) Encounter for weaning from ventilator Is this a current diagnosis for this admission?: Yes (6) Chronic obstructive pulmonary disease Qualifiers: COPD type: chronic bronchitis Chronic bronchitis type: mucopurulent Qualified Code(s): J41.1 - Mucopurulent chronic bronchitis Is this a current diagnosis for this admission?: Yes Plan Summary: 10.20.2019: Respiratory: Patient's respiratory status is tenuous at baseline. Will need to continue aggressive pulmonary toilet and assurance of incentive spirometry use. She is on her current regimen but would not use any anticholinergic type drugs such as ipratropium. Infectious: Continue patient on Zosyn for these 5 to 7 days of less evidence of worsening infection occurs. Cardiac: Patient's atrial fibrillation is controlled. Continue p.o. Cardizem. Hematologic: Patient had some bleeding from the incision site. Chemical DVT prophylaxis has been placed on hold until this ceases. Endocrine: No active issues. Patient is on steroids for concern for adrenal insufficiency and we have reduced to 50 mg every 12h. Retainment of diurnal steroid pattern is essential and I placed her on the every 12 paradigm. She had been on 10 mg of prednisone coming in and the steroids will need to be adj udicated slowly over the next week. Renal: No active issues. Metabolic: Continue to monitor electrolyte panel Alimentary: Patient's NG tube is been removed. She does have stooling in her ostomy bag and the mucosa appears healthy. Surgery starting clears Neurologic: Have discontinued the patient's Abilify secondary to the constipation and parasympathomimetics effects on the bowel. Will need to watch for any withdrawal patterns. Sedation: None Lines/Tubes: Central line, arterial catheter and Romo have been removed today Other: Patient suitable for transfer to telemetry pending surgery evaluation. Physical therapy has been ordered 2020: Respiratory: Patient's hypoxic respiratory failure is improved and she was able to be liberated from mechanical ventilation. She discloses that she often goes into atrial fibrillation when she is given albuterol treatments and notes that Xopenex does not cause tachycardia for her. We will exchange the albuterol for Xopenex. Continue to provide respiratory hygiene and support. She has extensive COPD and may need nighttime respiratory assistance. Infectious: Continue antibiotics. Recommendations are for at least 5 to 7 days as long as no active peritonitis continues. No need for antifungals Cardiac: By far the biggest reason for patient's ICU stay today include her respiratory failure and weaning from mechanical ventilation as well as her atrial fibrillation with rapid ventricular rate. Her chads vas 2 score is less than 1% which does not obligate her to anticoagulation. Given the paroxysmal na ture of this she is at somewhat of a risk and maintenance on aspirin is recommended. Will start oral Cardizem therapy which she does take at home. Wean Cardizem drip. Hematologic: No active issues except for leukocytosis which may be explained by her surgery and steroids. We will continue to monitor Endocrine: Patient on stress dose steroids. Will attempt to wean as her condition clears. Renal: No active renal issues. Continue to monitor GFR Metabolic: Continue to monitor electrolytes. At some point nutrition will need to be considered. She has been ill and on steroids for a number of weeks. She has bitemporal muscle loss indicative of at least mild to moderate protein calorie malnutrition Alimentary: Currently no output from her ostomy. Continue to monitor closely. Limit narcotics as much as possible. Neurologic: Patient has physical deconditioning prior to admission. Will need physical therapy involved and have ordered this for today. Lines/Tubes: Central and arterial catheters placed 10/18/2019; will remove when patient is stable. Critical Time Critical Time (minutes): 0 - 12005- Level of Care: TELE Within: within 48 hours -: 1. The care of a critical patient is a dynamic process. This note is a operations representative synopsis but static in nature. The timeframe for treatments given in order is not necessarily the actual time these treatments may have been done. 2. This patient requires critical care secondary to ongoing requirements for therapy not offered or safe outside the critical care environment. Transfer to a lower level of care will result in altered life or limb morbidity and mortality. 3. Multidisciplinary rounds completed. 4. ABCDE bundle addressed.
[2019-10-20] MEDS: MORPHINE SULFATE 10 MG/ML INJ IV PRN ×2 (16:57→21:00)
[2019-10-20] MEDS ORDERED: HYDROCORTISONE SOD SUCCINATE INJ/PF 100 MG/2 ML SDV IV SCH (18:00)
[2019-10-20] MEDS ORDERED: HEPARIN SOD (PORCINE) 5,000 UNIT/ML 1 ML VIAL SUBCUT SCH (20:15)
[2019-10-20] MEDS: KETOROLAC TROMETHAMINE INJ/PF 30 MG/1 ML SDV IV SCH (22:31)
[2019-10-21] MEDS: LEVALBUTEROL HCL NEB 1.25 MG/3 ML AMPUL NEB SCH ×5 (00:12→19:59)
[2019-10-21] MEDS: MORPHINE SULFATE 10 MG/ML INJ IV PRN ×3 (03:08→17:57)
[2019-10-21] MEDS: PIPERACILLIN SODIUM/TAZOBACTAM 4.5 GM in NORMAL SALINE 100 ML IV SCH ×4 (03:09→21:05)
[2019-10-21] MEDS: RINGERS SOLUTION,LACTATED 1,000 ML IV PRN (03:09)
[2019-10-21 06:13] LABS: HEMATOCRIT 29.9 % (36.0-47.0); HEMOGLOBIN 9.7 g/dL (12.0-15.5); MEAN CORPUSCULAR HEMOGLOBIN 29.1 pg (27.0-33.4); MEAN CORPUSCULAR HGB CONC 32.3 g/dL (32.0-36.0); MEAN CORPUSCULAR VOLUME 90 fl (80-97); PLATELET COUNT 294 10^3/uL (150-450); RED BLOOD COUNT 3.32 10^6/uL (3.72-5.28); RED CELL DISTRIBUTION WIDTH 14.9 % (11.5-14.0); WHITE BLOOD COUNT 21.8 10^3/uL (4.0-10.5)
[2019-10-21 06:15] LABS: INTERNATIONAL RATION (INR) 1.15; PARTIAL THROMBOPLASTIN TIME 29.6 SEC (23.5-35.8); PROTHROMBIN TIME 14.7 SEC (11.4-15.4)
[2019-10-21 06:26] LABS: ANION GAP 5 (5-19); BLOOD UREA NITROGEN 26 mg/dL (7-20); CALCIUM 8.5 mg/dL (8.4-10.2); CARBON DIOXIDE 31 mmol/L (22-30); CHLORIDE 103 mmol/L (98-107); GLUCOSE 70 mg/dL (75-110); PHOSPHORUS 3.1 mg/dL (2.5-4.5); POTASSIUM 3.6 mmol/L (3.6-5.0)
[2019-10-21] MEDS: ACETAMINOPHEN 1,000 MG/100 ML RTUPB IV SCH ×3 (06:30→21:06)
[2019-10-21 06:32] LABS: ABSOLUTE LYMPHOCYTES# (MANUAL) 0.7 10^3/uL (0.5-4.7); ABSOLUTE MONOCYTES # (MANUAL) 0.7 10^3/uL (0.1-1.4); BAND NEUTROPHILS % (MANUAL) 1 % (3-5); BASOPHILS % (MANUAL) 0 % (0-2); EOSINOPHILS % (MANUAL) 0 % (0-6); LYMPHOCYTES % (MANUAL) 3 % (13-45); MONOCYTES % (MANUAL) 3 % (3-13); SEGMENTED NEUTROPHILS % (MAN) 93 % (42-78); TOTAL CELLS COUNTED 100
[2019-10-21 06:33] LABS: ANISOCYTOSIS SLIGHT; PLATELET COMMENT ADEQUATE
[2019-10-21] MEDS: KETOROLAC TROMETHAMINE INJ/PF 30 MG/1 ML SDV IV SCH ×3 (06:52→21:06)
--- NOTE | 2019-10-21 09:28 | PDOC PROGRESS REPORT ---
Subjective Progress Note for:: 10/21/19 Subjective:: Feels well. Awake and alert. Reason For Visit: PERFORATED BOWEL Physical Exam Vital Signs: Temp Pulse Resp BP Pulse Ox 98.2 F 103 H 20 112/72 100 10/21/19 07:21 10/21/19 07:21 10/21/19 07:21 10/21/19 07:21 10/21/19 07:21 Intake & Output 10/20/19 10/21/19 10/22/19 06:59 06:59 06:59 Intake Total 3692 2030 100 Output Total 785 875 Balance 2907 1155 100 Weight 69.7 kg 69 kg General appearance: PRESENT: no acute distress, cooperative Respiratory exam: PRESENT: clear to auscultation christina Cardiovascular exam: PRESENT: irregular rhythm GI/Abdominal exam: PRESENT: other - Soft, mildly distended, ostomy putting out stool and air. Very mild tenderness with no peritoneal signs. Wound is clean and dry with no erythema. Results Laboratory Results: 10/21/19 05:42 10/21/19 05:42 10/21/19 10/21/19 05:42 05:42 WBC 21.8 H RBC 3.32 L Hgb 9.7 L Hct 29.9 L MCV 90 MCH 29.1 MCHC 32.3 RDW 14.9 H Plt Count 294 Seg Neutrophils % Not Reportable Sodium 139.0 Potassium 3.6 Chloride 103 Carbon Dioxide 31 H Anion Gap 5 BUN 26 H Creatinine 0.67 Est GFR ( Amer) > 60 Glucose 70 L Calcium 8.5 Phosphorus 3.1 Magnesium 2.5 H 10/18/19 00:24 Troponin I 0.012 Impressions: Abdomen/Pelvis CT 10/17/19 23:59 IMPRESSION: 1. 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 Urgent finding reported to Olu SILVEIRA at 10/18/2019 1:55 AM CDT This exam was performed according to our departmental dose-optimization program, which includes automated exposure control, adjustment of the mA and/or kV according to patient size and/or use of iterative reconstruction technique. Chest X-Ray 10/19/19 06:00 IMPRESSION: Obstructive lung disease. No acute infiltrate. A nasogastric tube, right jugular central line in good positioning Assessment & Plan - Diagnosis (1) Diverticulitis Is this a current diagnosis for this admission?: Yes Plan: Status post Delgado's procedure. Abdominal exam looks good. Her white blood cell count is elevated but I do not think she has abdominal sepsis, leukocytosis likely due to her steroids. She has been on steroids at home for her COPD and I will leave her on prednisone for stress steroid coverage. I have asked her primary care physician, Dr. Gutierrez to assist in managing this patient with multiple medical issues including COPD, and atrial fib.
[2019-10-21] MEDS: ASPIRIN 81 MG TABLET, CHEWABLE PO SCH (10:22)
[2019-10-21] MEDS: ARIPIPRAZOLE 5 MG TABLET PO SCH (10:22)
[2019-10-21] MEDS: FLUTICASONE/UMECLIDIN/VILANTER 100-62.5-25 MCG/DOSE IH SCH (10:22)
[2019-10-21] MEDS: PREDNISONE 10 MG TABLET PO SCH ×2 (10:22→17:13)
[2019-10-21] MEDS: ESCITALOPRAM OXALATE 10 MG TABLET NG SCH (10:22)
[2019-10-21] MEDS: DILTIAZEM HCL 30 MG TABLET NG SCH ×2 (10:25→21:05)
[2019-10-21] MEDS: PANTOPRAZOLE SODIUM 40 MG TABLET.DR PO SCH (11:11)
[2019-10-21] MEDS ORDERED: ENOXAPARIN SODIUM INJ 40 MG/0.4 ML DISP.SYRIN SUBCUT SCH (20:00)
--- NOTE | 2019-10-21 20:26 | PDOC CONSULTATION ---
Consultation Consult Date: 10/21/19 Attending physician:: KYLIE HALLMAN Provider Consulted: YANELY DORMAN Consult reason:: Medical management of a surgical patient with a chronic medical condition History of Present Illness Admission Date/PCP: 10/18/19 04:32 YANELY DORMAN MD History of Present Illness: DEBI CHAVEZ is a 58 year old female, She is well-known to me, she has end- stage COPD on home oxygen recently referred to lung transplant center at [facility], not yet on the list because of lack of medical insurance she apparently was admitted on October 18, 2019 when she sustained a perforated sigmoid colon she underwent colectomy with diverting colostomy bag subsequently managed in ICU now on the floor. She developed paroxysmal atrial fibrillation, No history of atrial fibrillation that I know of.She has other comorbid conditions including major depression hypothyroidism on hormone placement therapy Past Medical History Cardiac Medical History: Reports: Hypertension Pulmonary Medical History: Reports: Chronic Obstructive Pulmonary Disease (COPD) Endocrine Medical History: Reports: Hypothyroidism Psychiatric Medical History: Reports: Depression Past Surgical History Past Surgical History: Reports: Appendectomy Social History Smoking Status: Former Smoker Electronic Cigarette use?: No Frequency of Alcohol Use: None Hx Recreational Drug Use: No Hx Prescription Drug Abuse: No - Advance Directive Resuscitation Status: Full Code Family History Family History: Reviewed & Not Pertinent Parental Family History Reviewed: Yes Children Family History Reviewed: Yes Sibling(s) Family History Reviewed.: Yes Medication/Allergy Home Medications: Aripiprazole [Abilify] 5 mg PO DAILY 07/13/18 Prednisone [Deltasone 10 mg Tablet] 10 mg PO ASDIR PRN #21 tablet 05/03/19 Budesonide [Pulmicort Neb 0.5 mg/2 ml Ampul] 0.5 mg NEB RTBID 10/18/19 Diltiazem HCl [Cardizem 30 mg Tablet] 1 tab PO DAILY 10/18/19 Escitalopram Oxalate [Lexapro 10 mg Tablet] 20 mg PO DAILY 10/18/19 Ipratropium [place] [Atrovent 0.02% Neb 0.5 mg/2.5 ml Ampul] 0.5 mg NEB RTQID 10/18/19 Levalbuterol HCl [Xopenex Neb 1.25 mg/3 ml Ampul] 1.25 mg NEB [id number] PRN 10/18/19 Levothyroxine Sodium [Synthroid 0.1 mg Tablet] 0.1 mg PO QAM 10/18/19 Allergies/Adverse Reactions: No Known Allergies Allergy (Verified 10/19/19 07:35) Review of Systems Constitutional: ABSENT: chills, fever(s), headache(s), weight gain, weight loss Eyes: ABSENT: visual disturbances Ears: ABSENT: hearing changes Cardiovascular: ABSENT: chest pain, dyspnea on exertion, edema, orthropnea, palpitations Respiratory: ABSENT: cough, hemoptysis Gastrointestinal: ABSENT: abdominal pain, constipation, diarrhea, hematemesis, hematochezia, nausea, vomiting Genitourinary: ABSENT: dysuria, hematuria Musculoskeletal: ABSENT: joint swelling Integumentary: ABSENT: rash, wounds Neurological: ABSENT: abnormal gait, abnormal speech, confusion, dizziness, focal weakness, syncope Psychiatric: ABSENT: anxiety, depression, homidical ideation, suicidal ideation Endocrine: ABSENT: cold intolerance, heat intolerance, menstrual abnormalities, polydipsia, polyuria Hematologic/Lymphatic: ABSENT: easy bleeding, easy bruising, lymphadenopathy Physical Exam Vital Signs: Temp Pulse Resp BP Pulse Ox 97.3 F 59 L 18 125/57 L 98 10/21/19 15:22 10/21/19 19:59 10/21/19 19:59 10/21/19 15:22 10/21/19 19:59 Intake & Output 10/20/19 10/21/19 10/22/19 06:59 06:59 06:59 Intake Total 3692 2030 880 Output Total 785 875 480 Balance 2907 1155 400 Weight 69.7 kg 69 kg General appearance: PRESENT: no acute distress, well-developed, well-nourished Head exam: PRESENT: atraumatic, normocephalic Eye exam: PRESENT: conjunctiva pink, EOMI, PERRLA Ear exam: PRESENT: normal external ear exam Mouth exam: PRESENT: moist, tongue midline Neck exam: PRESENT: full ROM Respiratory exam: PRESENT: decreased breath sounds Cardiovascular exam: PRESENT: RRR, +S1, +S2 Pulses: PRESENT: normal dorsalis pedis pul, +2 pedal pulses bilateral Vascular exam: PRESENT: normal capillary refill GI/Abdominal exam: PRESENT: normal bowel sounds, soft Rectal exam: PRESENT: deferred Neurological exam: PRESENT: alert, CN II-XII grossly intact Psychiatric exam: PRESENT: appropriate affect, normal mood Skin exam: PRESENT: dry, intact, warm Results Laboratory Results: 10/21/19 05:42 10/21/19 05:42 10/21/19 10/21/19 05:42 05:42 WBC 21.8 H RBC 3.32 L Hgb 9.7 L Hct 29.9 L MCV 90 MCH 29.1 MCHC 32.3 RDW 14.9 H Plt Count 294 Seg Neutrophils % Not Reportable Sodium 139.0 Potassium 3.6 Chloride 103 Carbon Dioxide 31 H Anion Gap 5 BUN 26 H Creatinine 0.67 Est GFR ( Amer) > 60 Glucose 70 L Calcium 8.5 Phosphorus 3.1 Magnesium 2.5 H 10/18/19 00:24 Troponin I 0.012 Impressions: Abdomen/Pelvis CT 10/17/19 23:59 IMPRESSION: 1. 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 Urgent finding reported to Olu SILVEIRA at 10/18/2019 1:55 AM CDT This exam was performed according to our departmental dose-optimization program, which includes automated exposure control, adjustment of the mA and/or kV according to patient size and/or use of iterative reconstruction technique. Chest X-Ray 10/19/19 06:00 IMPRESSION: Obstructive lung disease. No acute infiltrate. A nasogastric tube, right jugular central line in good positioning Assessment & Plan - Diagnosis (1) Chronic obstructive pulmonary disease Qualifiers: COPD type: chronic bronchitis Chronic bronchitis type: mucopurulent Qualified Code(s): J41.1 - Mucopurulent chronic bronchitis Is this a current diagnosis for this admission?: Yes Plan: She has end-stage COPD on home oxygen she is very prone to acute exacerbation, start patient back on Trelegy, encourage incentive spirometry to help expand collapsed alveoli, she may need steroid to help her with exacerbation if needed (2) Major depression Qualifiers: Major depression recurrence: recurrent Active/Remission status: currently active Major depression episode severity: severe Psychotic features: without psychotic features Qualified Code(s): F33.2 - Major depressive disorder, recurrent severe without psychotic features Is this a current diagnosis for this admission?: Yes Plan: Start back her regular antidepressant (3) Hypothyroidism Qualifiers: 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
[2019-10-22] MEDS: MORPHINE SULFATE 10 MG/ML INJ IV PRN ×3 (01:40→15:37)
[2019-10-22] MEDS: RINGERS SOLUTION,LACTATED 1,000 ML IV PRN (01:41)
[2019-10-22] MEDS: PIPERACILLIN SODIUM/TAZOBACTAM 4.5 GM in NORMAL SALINE 100 ML IV SCH ×4 (02:29→21:12)
[2019-10-22] MEDS: ACETAMINOPHEN 1,000 MG/100 ML RTUPB IV SCH ×3 (05:14→21:13)
[2019-10-22] MEDS: PANTOPRAZOLE SODIUM 40 MG TABLET.DR PO SCH (05:14)
[2019-10-22] MEDS: KETOROLAC TROMETHAMINE INJ/PF 30 MG/1 ML SDV IV SCH ×3 (05:15→21:11)
[2019-10-22] MEDS: LEVALBUTEROL HCL NEB 1.25 MG/3 ML AMPUL NEB SCH ×2 (07:49→19:46)
[2019-10-22] MEDS: LEVALBUTEROL HCL NEB 0.63 MG/3 ML AMPUL NEB PRN ×2 (08:58→17:49)
[2019-10-22] MEDS: ENOXAPARIN SODIUM INJ 40 MG/0.4 ML DISP.SYRIN SUBCUT SCH (09:26)
[2019-10-22] MEDS: ESCITALOPRAM OXALATE 10 MG TABLET NG SCH (09:27)
[2019-10-22] MEDS: ASPIRIN 81 MG TABLET, CHEWABLE PO SCH (09:27)
[2019-10-22] MEDS: DILTIAZEM HCL 30 MG TABLET NG SCH ×2 (09:27→21:12)
[2019-10-22] MEDS: ARIPIPRAZOLE 5 MG TABLET PO SCH (09:27)
[2019-10-22] MEDS: PREDNISONE 10 MG TABLET PO SCH ×2 (09:28→17:30)
[2019-10-22] MEDS: FLUTICASONE/UMECLIDIN/VILANTER 100-62.5-25 MCG/DOSE IH SCH (09:28)
--- NOTE | 2019-10-22 10:37 | PDOC PROGRESS REPORT ---
Subjective Progress Note for:: 10/22/19 Subjective:: Feels okay. Nursing staff had documented an episode of emesis on the I&O sheet but I believe it is a mistake because the patient vehemently denies any episodes of nausea and vomiting yesterday. She is tolerating a diet well. Reason For Visit: PERFORATED BOWEL Physical Exam Vital Signs: Temp Pulse Resp BP Pulse Ox 97.4 F 121 H 26 H 143/63 H 98 10/22/19 07:16 10/22/19 08:58 10/22/19 08:58 10/22/19 07:16 10/22/19 08:58 Intake & Output 10/21/19 10/22/19 10/23/19 06:59 06:59 06:59 Intake Total 2030 2280 Output Total 875 1930 Balance 1155 350 Weight 69 kg 71.9 kg General appearance: PRESENT: no acute distress, cooperative Respiratory exam: PRESENT: rhonchi Cardiovascular exam: PRESENT: irregular rhythm GI/Abdominal exam: PRESENT: other - Soft, nondistended, minimal tenderness, wound clean dry and intact. Ostomy bag with feces. Drain output is serosanguineous. Results Laboratory Results: 10/21/19 05:42 10/21/19 05:42 10/18/19 00:24 Troponin I 0.012 Impressions: Abdomen/Pelvis CT 10/17/19 23:59 IMPRESSION: 1. 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 Urgent finding reported to Olu SILVEIRA at 10/18/2019 1:55 AM CDT This exam was performed according to our departmental dose-optimization program, which includes automated exposure control, adjustment of the mA and/or kV according to patient size and/or use of iterative reconstruction technique. Chest X-Ray 10/19/19 06:00 IMPRESSION: Obstructive lung disease. No acute infiltrate. A nasogastric tube, right jugular central line in good positioning Assessment & Plan - Diagnosis (1) Diverticulitis Is this a current diagnosis for this admission?: Yes Plan: Status post Delgado's procedure. Patient looks good from abdominal standpoint however she still has A. fib with a intermittent rapid ventricular rate. Defer to Dr. Gutierrez for management. Remove abdominal drain today.
--- NOTE | 2019-10-22 21:12 | PDOC PROGRESS REPORT ---
Subjective Progress Note for:: 10/22/19 Subjective:: Patient seen by the bedside, she is overly short of breath using accessory muscles of respiration to breathe, on auscultation of the lung there is diminished air entry. She said she is very short of breath on mild exertion Reason For Visit: PERFORATED BOWEL Physical Exam Vital Signs: Temp Pulse Resp BP Pulse Ox 98.7 F 60 16 148/70 H 99 10/22/19 18:08 10/22/19 19:46 10/22/19 19:46 10/22/19 18:08 10/22/19 19:46 Intake & Output 10/21/19 10/22/19 10/23/19 06:59 06:59 06:59 Intake Total 2030 2280 660 Output Total 875 1930 75 Balance 1155 350 585 Weight 69 kg 71.9 kg General appearance: PRESENT: severe distress Eye exam: PRESENT: PERRLA Respiratory exam: PRESENT: accessory muscle use, decreased breath sounds Cardiovascular exam: PRESENT: +S1, +S2 GI/Abdominal exam: PRESENT: soft Neurological exam: PRESENT: alert, CN II-XII grossly intact Results Laboratory Results: 10/21/19 05:42 10/21/19 05:42 10/18/19 00:24 Troponin I 0.012 Impressions: Abdomen/Pelvis CT 10/17/19 23:59 IMPRESSION: 1. 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 Urgent finding reported to Olu SILVEIRA at 10/18/2019 1:55 AM CDT This exam was performed according to our departmental dose-optimization program, which includes automated exposure control, adjustment of the mA and/or kV according to patient size and/or use of iterative reconstruction technique. Chest X-Ray 10/19/19 06:00 IMPRESSION: Obstructive lung disease. No acute infiltrate. A nasogastric tube, right jugular central line in good positioning Assessment & Plan - Diagnosis (1) Chronic obstructive pulmonary disease Qualifiers: COPD type: chronic bronchitis Chronic bronchitis type: mucopurulent Qualified Code(s): J41.1 - Mucopurulent chronic bronchitis Is this a current diagnosis for this admission?: Yes Plan: Patient with COPD with acute exacerbation, start prednisone 40 mg p.o. 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 Qualified Code(s): E03.8 - Other specified hypothyroidism; E06.3 - Autoimmune thyroiditis Is this a current diagnosis for this admission?: Yes Plan: Continue hormone replacement therapy (4) Perforation of sigmoid colon due to diverticulitis Is this a current diagnosis for this admission?: Yes - Time Time Spent with patient: 25-34 minutes Level of Care: MEDICAL Medications reviewed and adjusted accordingly: Yes - Inpatient Certification Based on my medical assessment, after consideration of the patient's comorbidities, presenting symptoms, or acuity I expect that the services needed warrant INPATIENT care.: Yes I certify that my determination is in accordance with my understanding of Medicare's requirements for reasonable and necessary INPATIENT services [42 CFR 412.3e].: Yes
[2019-10-23] MEDS: RINGERS SOLUTION,LACTATED 1,000 ML IV PRN ×2 (02:38→23:54)
[2019-10-23] MEDS: PIPERACILLIN SODIUM/TAZOBACTAM 4.5 GM in NORMAL SALINE 100 ML IV SCH ×4 (02:38→21:27)
[2019-10-23] MEDS: MORPHINE SULFATE 10 MG/ML INJ IV PRN ×6 (02:42→23:42)
[2019-10-23] MEDS: ACETAMINOPHEN 1,000 MG/100 ML RTUPB IV SCH ×2 (05:33→16:34)
[2019-10-23] MEDS: KETOROLAC TROMETHAMINE INJ/PF 30 MG/1 ML SDV IV SCH ×3 (05:33→21:27)
[2019-10-23] MEDS: PANTOPRAZOLE SODIUM 40 MG TABLET.DR PO SCH (05:33)
[2019-10-23] MEDS: LEVALBUTEROL HCL NEB 1.25 MG/3 ML AMPUL NEB SCH ×2 (08:31→19:53)
[2019-10-23] MEDS: DILTIAZEM HCL 30 MG TABLET NG SCH (09:27)
[2019-10-23] MEDS: ARIPIPRAZOLE 5 MG TABLET PO SCH (09:27)
[2019-10-23] MEDS: ASPIRIN 81 MG TABLET, CHEWABLE PO SCH (09:27)
[2019-10-23] MEDS: ESCITALOPRAM OXALATE 10 MG TABLET NG SCH (09:27)
[2019-10-23] MEDS: FLUTICASONE/UMECLIDIN/VILANTER 100-62.5-25 MCG/DOSE IH SCH (09:28)
[2019-10-23] MEDS: ENOXAPARIN SODIUM INJ 40 MG/0.4 ML DISP.SYRIN SUBCUT SCH (09:28)
[2019-10-23 09:45] LABS: HEMATOCRIT 30.6 % (36.0-47.0); MEAN CORPUSCULAR HEMOGLOBIN 29.1 pg (27.0-33.4); MEAN CORPUSCULAR HGB CONC 32.5 g/dL (32.0-36.0); MEAN CORPUSCULAR VOLUME 89 fl (80-97); PLATELET COUNT 340 10^3/uL (150-450); RED BLOOD COUNT 3.43 10^6/uL (3.72-5.28); RED CELL DISTRIBUTION WIDTH 14.6 % (11.5-14.0); WHITE BLOOD COUNT 17.5 10^3/uL (4.0-10.5)
[2019-10-23] MEDS ORDERED: PREDNISONE 20 MG TABLET PO SCH (10:00)
[2019-10-23 10:06] LABS: BLOOD UREA NITROGEN 14 mg/dL (7-20); CALCIUM 8.4 mg/dL (8.4-10.2); GLUCOSE 80 mg/dL (75-110); POTASSIUM 4.1 mmol/L (3.6-5.0)
[2019-10-23 10:11] LABS: CARBON DIOXIDE 35 mmol/L (22-30); CHLORIDE 98 mmol/L (98-107)
[2019-10-23 10:15] LABS: ANION GAP 4 (5-19)
[2019-10-23 10:16] LABS: ABSOLUTE LYMPHOCYTES# (MANUAL) 1.2 10^3/uL (0.5-4.7); ABSOLUTE MONOCYTES # (MANUAL) 0.7 10^3/uL (0.1-1.4); BASOPHILS % (MANUAL) 0 % (0-2); EOSINOPHILS % (MANUAL) 0 % (0-6); LYMPHOCYTES % (MANUAL) 7 % (13-45); MONOCYTES % (MANUAL) 4 % (3-13); SEGMENTED NEUTROPHILS % (MAN) 89 % (42-78); TOTAL CELLS COUNTED 100
[2019-10-23 10:17] LABS: ANISOCYTOSIS SLIGHT; OVALOCYTES SLIGHT
[2019-10-23 10:18] LABS: PLATELET COMMENT ADEQUATE
[2019-10-23] MEDS: LEVALBUTEROL HCL NEB 0.63 MG/3 ML AMPUL NEB PRN (12:06)
--- NOTE | 2019-10-23 12:39 | PDOC PROGRESS REPORT ---
Subjective Progress Note for:: 10/23/19 Subjective:: This is a 58-year-old female patient of Dr. Gutierrez with end-stage COPD recently underwent for the perforated sigmoid colon surgery currently on the surgical service Patient is in the floor the nurse call about increasing the more shortness of the breath and A. fib according to the nursing staff patient have at least once a day episode like that patient seen by Dr. Gutierrez's And patient of end-stage COPD and put on a p.o. prednisone When I saw the patient's patient is currently on a nonrebreather feeling better Patient uses a BiPAP at night Patient is waiting for the lung transplant at [facility] Patient's denied any chest pain Patient seen by the cardiology Dr. Camp on a bedside reviewed the EKG consistent with A. fib with a heart rate is 140 and I transfer the patient on IMCU for the Cardizem drips We will also get a CT angiogram to rule out underlying any PE due to recent surgery Patient currently on a heparin subcu for the DVT prophylaxis Reason For Visit: PERFORATED BOWEL Physical Exam Vital Signs: Temp Pulse Resp BP Pulse Ox 97.4 F 63 16 163/75 H 95 10/23/19 06:45 10/23/19 08:31 10/23/19 08:31 10/23/19 06:45 10/23/19 08:31 Intake & Output 10/22/19 10/23/19 10/24/19 06:59 06:59 06:59 Intake Total 2280 2060 100 Output Total 1930 100 Balance 350 1960 100 Weight 71.9 kg 71.9 kg General appearance: PRESENT: mild distress Head exam: PRESENT: atraumatic, normocephalic Eye exam: PRESENT: conjunctiva pink, EOMI, PERRLA. ABSENT: scleral icterus Ear exam: PRESENT: normal external ear exam Mouth exam: PRESENT: moist, tongue midline Neck exam: PRESENT: full ROM. ABSENT: carotid bruit, JVD, lymphadenopathy, thyromegaly Respiratory exam: PRESENT: decreased breath sounds Cardiovascular exam: PRESENT: RRR. ABSENT: diastolic murmur, rubs, systolic murmur Pulses: PRESENT: normal dorsalis pedis pul, +2 pedal pulses bilateral Vascular exam: PRESENT: normal capillary refill GI/Abdominal exam: PRESENT: normal bowel sounds, soft. ABSENT: distended, guarding, mass, organolmegaly, rebound, tenderness Rectal exam: PRESENT: deferred Neurological exam: PRESENT: alert, awake, oriented to person, oriented to place, oriented to time, oriented to situation, CN II-XII grossly intact. ABSENT: motor sensory deficit Psychiatric exam: PRESENT: appropriate affect, normal mood. ABSENT: homicidal ideation, suicidal ideation Skin exam: PRESENT: dry, intact, warm. ABSENT: cyanosis, rash Results Laboratory Results: 10/23/19 09:16 10/23/19 09:16 10/23/19 10/23/19 09:16 09:16 WBC 17.5 H RBC 3.43 L Hgb 10.0 L Hct 30.6 L MCV 89 MCH 29.1 MCHC 32.5 RDW 14.6 H Plt Count 340 Seg Neutrophils % Not Reportable Sodium 137.0 Potassium 4.1 Chloride 98 Carbon Dioxide 35 H Anion Gap 4 L BUN 14 Creatinine 0.49 L Est GFR ( Amer) > 60 Glucose 80 Calcium 8.4 10/18/19 00:24 Troponin I 0.012 Impressions: Abdomen/Pelvis CT 10/17/19 23:59 IMPRESSION: 1. 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 Urgent finding reported to Olu SILVEIRA at 10/18/2019 1:55 AM CDT This exam was performed according to our departmental dose-optimization program, which includes automated exposure control, adjustment of the mA and/or kV according to patient size and/or use of iterative reconstruction technique. Assessment & Plan - Diagnosis (1) Shortness of breath Is this a current diagnosis for this admission?: Yes Plan: With a due to the recent surgery will get the CT angiogram to rule out any PE Patient most likely due to the end-stage COPD Continue Xopenex nebulizer treatment We will start on IV Solu-Medrol Patient's primary need a continuous the BiPAP at night Discussed with the the pulmonary (2) Atrial fibrillation with rapid ventricular response Is this a current diagnosis for this admission?: Yes Plan: Start the patient on a Cardizem drips (3) Perforation of sigmoid colon due to diverticulitis Is this a current diagnosis for this admission?: Yes Plan: Follow-up with the surgery (4) Acute hypoxemic respiratory failure Is this a current diagnosis for this admission?: Yes Plan: We will get the ABG to consult for Dr. Dickey pulmonary (5) Chronic obstructive pulmonary disease Qualifiers: COPD type: chronic bronchitis Chronic bronchitis type: mucopurulent Qualified Code(s): J41.1 - Mucopurulent chronic bronchitis Is this a current diagnosis for this admission?: Yes Plan: Continues the nebulizer treatments start on IV Solu-Medrol - Time Time Spent with patient: 35 or more minutes Level of Care: IMCU Medications reviewed and adjusted accordingly: Yes Anticipated discharge: Other Within: Other - Plan Summary Plan Summary: Put the patient on IMCU Very excellent discussions with the pulmonary cardiology Discussed with the patient's Currently stable We will get the CT angiogram
--- NOTE | 2019-10-23 12:49 | RADIOLOGY REPORT (SQ) ---
EXAM DESCRIPTION: CHEST SINGLE VIEW IMAGES COMPLETED DATE/TIME: 10/23/2019 12:35 pm REASON FOR STUDY: acute shortness of breath COMPARISON: 10/19/2019 EXAM PARAMETERS: NUMBER OF VIEWS: One view. TECHNIQUE: Single frontal radiographic view of the chest acquired. RADIATION DOSE: NA LIMITATIONS: None. FINDINGS: LUNGS AND PLEURA: Bibasilar hazy opacities, new from October 18. No definite pleural effus ions. MEDIASTINUM AND HILAR STRUCTURES: No masses. Contour normal. HEART AND VASCULAR STRUCTURES: Heart normal in size. Normal vasculature. BONES: No acute findings. HARDWARE: None in the chest. OTHER: No other significant finding. IMPRESSION: New bibasilar hazy opacities. This may represent atelectasis, however an infectious pro cess such as pneumonia could have a similar appearance. Clinical correlation is required. TECHNICAL DOCUMENTATION: JOB ID: [id number] 2010 [employer]- All Rights Reserved Reading location - IP/workstation name: [email or web address] PAINTING MACHINE [email or web address]--COMP
[2019-10-23 12:50] LABS: ARTERIAL BLOOD BASE EXCESS 6.4 mmol/L; ARTERIAL BLOOD FIO2 100%; ARTERIAL BLOOD H2CO3 2.12 mmol/L (1.05-1.35); ARTERIAL BLOOD HCO3 34.7 mmol/L (20-24); ARTERIAL BLOOD O2 SATURATION 98.7 % (94-98); ARTERIAL BLOOD PH 7.31 (7.35-7.45); ARTERIAL BLOOD PO2 150.9 mmHg (80-100); ARTERIAL BLOOD TOTAL CO2 36.8 mmol/L (21-25)
[2019-10-23 12:52] LABS: ARTERIAL BLOOD PCO2 70.3 mmHg (35-45)
--- NOTE | 2019-10-23 12:52 | PDOC PROGRESS REPORT ---
Subjective Progress Note for:: 10/23/19 Subjective:: c/o sob no c/o abd pain Reason For Visit: PERFORATED BOWEL s/p hartmans for perforated diverticulitis Physical Exam Vital Signs: Temp Pulse Resp BP Pulse Ox 97.4 F 105 H 22 H 163/75 H 95 10/23/19 06:45 10/23/19 12:06 10/23/19 12:06 10/23/19 06:45 10/23/19 12:06 Intake & Output 10/22/19 10/23/19 10/24/19 06:59 06:59 06:59 Intake Total 2280 2060 100 Output Total 193 100 Balance 350 1960 100 Weight 71.9 kg 71.9 kg General appearance: PRESENT: mild distress Eye exam: PRESENT: EOMI Ear exam: PRESENT: normal external ear exam Mouth exam: PRESENT: moist Respiratory exam: PRESENT: decreased breath sounds, rhonchi Cardiovascular exam: PRESENT: tachycardia Breast: PRESENT: Normal GI/Abdominal exam: PRESENT: soft, other - stoma functional Rectal exam: PRESENT: deferred Extremities exam: PRESENT: full ROM Musculoskeletal exam: PRESENT: ambulatory Neurological exam: PRESENT: alert, awake, oriented to person, oriented to place Psychiatric exam: PRESENT: appropriate affect Skin exam: PRESENT: dry, erythema Results Laboratory Results: 10/23/19 09:16 10/23/19 09:16 10/23/19 10/23/19 09:16 09:16 WBC 17.5 H RBC 3.43 L Hgb 10.0 L Hct 30.6 L MCV 89 MCH 29.1 MCHC 32.5 RDW 14.6 H Plt Count 340 Seg Neutrophils % Not Reportable Sodium 137.0 Potassium 4.1 Chloride 98 Carbon Dioxide 35 H Anion Gap 4 L BUN 14 Creatinine 0.49 L Est GFR ( Amer) > 60 Glucose 80 Calcium 8.4 10/18/19 00:24 Troponin I 0.012 Impressions: Abdomen/Pelvis CT 10/17/19 23:59 IMPRESSION: 1. 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 Urgent finding reported to Olu SILVEIRA at 10/18/2019 1:55 AM CDT This exam was performed according to our departmental dose-optimization program, which includes automated exposure control, adjustment of the mA and/or kV according to patient size and/or use of iterative reconstruction technique. Assessment & Plan - Plan Summary Plan Summary: pt noted to be in atrial fib and sob this am pt passsing stool and michael po no c/o abd pain Dr Harvey notified and will tx to imcu. surgery will cont to follow,, appropiate to tx pt to medical service at this time.
[2019-10-23] MEDS ORDERED: DILTIAZEM HCL/D5W 125 MG/125 ML RTUINJ IV PRN (12:59)
[2019-10-23] MEDS: METHYLPREDNISOLONE INJ 40 MG/1 ML SDV IV SCH ×2 (13:35→21:27)
--- NOTE | 2019-10-23 14:23 | EKG REPORT ---
SEVERITY:- ABNORMAL ECG - ATRIAL FIBRILLATION, V-RATE 96-165 BORDERLINE T WAVE ABNORMALITIES : Confirmed by: Iain Sánchez MD 23-Oct-2019 14:22:23
--- NOTE | 2019-10-23 15:15 | RADIOLOGY REPORT (SQ) ---
EXAM DESCRIPTION: CTA CHEST IMAGES COMPLETED DATE/TIME: 10/23/2019 2:40 pm REASON FOR STUDY: sob COMPARISON: 11/24/2018 TECHNIQUE: CT scan of the chest performed using helical scanning technique with dynamic intravenous contrast injection. Images reviewed with lung, soft tissue and bone windows. Reconstructed coronal and sagittal MPR images reviewed. Additional 3 dimensional post-processing performed to develop Maximal Intensity Projection images ([place] P). All images stored on PACS. All CT scanners at this facility use dose modulation, iterative reconstruction, and/or weight based d osing when appropriate to reduce radiation dose to as low as reasonably achievable (ALARA). [facility]: Dose Right [facility]: CareDose [facility]: Dose Right [facility]: Teradose 4D [facility]: DIIME CONTRAST TYPE AND DOSE: 100 mL Omnipaque 350- low osmolar. Contrast bolus not optimized for the pulmonary arteries. RENAL FUNCTION: GFR > 60. RADIATION DOSE: CT Rad equipment meets quality standard of care and radiation dose reduction techniq ues were employed. CTDIvol: 3.3 - 14.3 mGy. DLP: 510 mGy-cm. . LIMITATIONS: Lack of contrast and pulmonary arteries limits evaluation pulmonary embolus. FINDINGS: LUNGS AND PLEURA: There is a moderate right-sided pleural effusion did show some loculatio n and associated compressive atelectasis. There is a small left-sided pleural effusion present as we ll. Some mild loculation is present with the left effusion. There are multiple pulmonary nodules sc attered throughout the upper lungs, similar to prior exam. Severe centrilobular emphysematous change s are present throughout. No definite new nodules or significant growth in the size nodules when com pared to prior exam. AORTA AND GREAT VESSELS: No aneurysm. No dissection. HEART: No pericardial effusion. No significant coronary artery calcifications. PULMONARY ARTERIES: No contrast present within the pulmonary arteries, limiting evaluation for pulmon betzaida embolus. There is no CT evidence of right heart strain. HILAR AND MEDIASTINAL STRUCTURES: No identified masses or abnormal nodes. HARDWARE: None in the chest. UPPER ABDOMEN: No significant findings. Limited exam. THYROID AND OTHER SOFT TISSUES: No masses. No adenopathy. BONES: No acute or significant finding. OTHER: No other significant finding. IMPRESSION: 1. Limited examination due to contrast bolus timing with no contrast present within pul monary arteries. As such no evaluation for pulmonary embolus is possible. 2. Moderate right-sided pleural effusion with some loculation and small left-sided pleural effusion with some loculation. 3. Severe emphysematous changes. COMMENT: Quality ID # [id number]: Final reports with documentation of one or more dose reduction techniques (e.g., Automated exposure control, adjustment of the mA and/or kV according to patient size, use of iterative reconstruction technique) TECHNICAL DOCUMENTATION: JOB ID: [id number] 2010 [employer]- All Rights Reserved Reading location - IP/workstation name: [email or web address] [email or web address]--COMP
[2019-10-23] MEDS: ENOXAPARIN SODIUM INJ 80 MG/0.8 ML DISP.SYRIN SUBCUT SCH (17:25)
[2019-10-23] MEDS ORDERED: ENOXAPARIN SODIUM INJ 40 MG/0.4 ML DISP.SYRIN SUBCUT SCH (18:00)
--- NOTE | 2019-10-23 18:45 | EKG REPORT ---
SEVERITY:- NORMAL ECG - SINUS BRADYCARDIA : Confirmed by: Iain Sánchez MD 23-Oct-2019 18:44:22
--- NOTE | 2019-10-23 22:11 | PDOC CONSULTATION ---
Consultation-Blank Consultation: CARDIOLOGY CONSULTATION by Dr. Allie Randall on 10/23/2019. Patient seen at 3:30 PM. 60 minutes spent with patient more than 50% time spent in direct patient care. REASON FOR CONSULTATION: Paroxysmal atrial fibrillation. CONSULT REQUESTING PHYSICIAN: Dr. Harvey. History of present illness: Patient is a 58-year-old female with known history of end-stage COPD who has been referred to [facility] for possible lung transplant admitted with abdominal pain and found to have ruptured divertic ulitis. She had had a Pina procedure. Today the patient was seen to go into several episodes of paroxysmal atrial fibrillation interspersed with sinus rhythm. She also was noted to have coinciding symptoms of increased shortness of breath and hypoxemia. She denies any chest pain discomfort. There is chronic orthopnea present. There is no leg edema. There is no ventricle arrhythmia seen on the monitor. The patient's CTA of the chest was inconclusive due to contrast not being present in the pulmonary artery and hence pulmonary embolism could not be ruled out.. The patient is being placed on IV Cardizem drip and will be transferred to a telemetry monitoring unit. She will also be started on Lovenox 1 mg/kg subcutaneously every 12 hours. As mentioned earlier the patient has no prior history of atrial fibrillation or coronary artery disease or [place]. She denies prior history of congestive heart failure. But the patient is very sedentary due to the fact that she has end-stage COPD. The patient's corrected Song vas 2 score is 2. Hence chronic anticoagulation is indicated. Past Medical History Cardiac Medical History: Reports: Hypertension. No prior history of atrial fibrillation. No history of congestive heart failure. No history of myocardial infarction. No syncope. Pulmonary Medical History: Reports: Chronic Obstructive Pulmonary Disease (COPD). She also claims to have sleep apnea and uses BiPAP therapy at home. Endocrine Medical History: Reports: Hypothyroidism. No history of diabetes mellitus. Psychiatric Medical History: Reports: Depression Past Surgical History Past Surgical History: Reports: Appendectomy, at this admission patient has had a Delgado's procedure done for ruptured diverticulitis. Social History Smoking Status: Former Smoker Electronic Cigarette use?: No Frequency of Alcohol Use: None Hx Recreational Drug Use: No Hx Prescription Drug Abuse: No - Advance Directive Resuscitation Status: Full Code. The patient's is her surrogate healthcare decision maker. Family History Family History: Reviewed & Not Pertinent Parental Family History Reviewed: Yes Children Family History Reviewed: Yes Sibling(s) Family History Reviewed.: Yes Medication/Allergy Home Medications: Aripiprazole [Abilify] 5 mg PO DAILY 07/13/18 Prednisone [Deltasone 10 mg Tablet] 10 mg PO ASDIR PRN #21 tablet 05/03/19 Budesonide [Pulmicort Neb 0.5 mg/2 ml Ampul] 0.5 mg NEB RTBID 10/18/19 Diltiazem HCl [Cardizem 30 mg Tablet] 1 tab PO DAILY 10/18/19 Escitalopram Oxalate [Lexapro 10 mg Tablet] 20 mg PO DAILY 10/18/19 Ipratropium [place] [Atrovent 0.02% Neb 0.5 mg/2.5 ml Ampul] 0.5 mg NEB RTQID 10/18/19 Levalbuterol HCl [Xopenex Neb 1.25 mg/3 ml Ampul] 1.25 mg NEB RTQ8HP PRN 10/18/19 Levothyroxine Sodium [Synthroid 0.1 mg Tablet] 0.1 mg PO QAM 10/18/19 Allergies/Adverse Reactions: No Known Allergies Allergy (Verified 10/19/19 07:35) Current Medications Generic Name Dose Route Start Last Admin Trade Name Freq PRN Reason Stop Dose Admin Aripiprazole 5 mg 10/21/19 10:00 10/23/19 09:27 Abilify 5 Mg Tablet PO 11/20/19 09:59 5 mg DAILY JESSA Administration Aspirin 81 mg 10/20/19 10:00 10/23/19 09:27 Aspirin 81 Mg Chewable Tablet PO 11/19/19 09:59 81 mg DAILY JESSA Administration Enoxaparin Sodium 70 mg 10/23/19 18:00 10/23/19 17:25 Lovenox Inj 80 Mg/0.8 Ml Disp.Syrin SUBCUT 11/22/19 17:59 70 mg Q12A JESSA Administration Escitalopram Oxalate 20 mg 10/19/19 10:00 10/23/19 09:27 Lexapro 10 Mg Tablet NG 11/17/19 11:29 20 mg DAILY JESSA Administration Fluticasone/Vilanterol 1 inh 10/21/19 10:00 10/23/19 09:28 Trelegy 100-62.5-25 Mcg Ellipta 14 Dose/Dpi IH 11/20/19 09:59 1 inhaler DAILY JESSA Administration Lactated Ringer's 1,000 mls @ 50 mls/hr 10/18/19 11:18 10/23/19 02:38 Lactated Ringers 1000 Ml Iv Soln IV 11/17/19 11:17 50 mls/hr CONTINUOUS PRN Administration THIS MED IS NOT "PRN" Piperacillin Sod/Tazobactam 100 mls @ 200 mls/hr 10/18/19 15:00 10/23/19 21:27 Sod 4.5 gm/ Sodium Chloride IV 10/25/19 14:59 200 mls/hr Q6A JESSA 200 mls/hr Administration Acetaminophen 1,000 mg in 100 mls @ 400 mls/hr 10/20/19 22:00 10/23/19 16:55 Ofirmev Inj/Pf 1000 Mg/100 Ml Sdv IV 10/23/19 21:59 Infused Q8 JESSA Infusion Diltiazem HCl 125 mg in 125 mls @ 0 mls/hr 10/23/19 12:59 10/23/19 13:29 Cardizem Rtu Inj 125 Mg-D5w 125 Ml Premix IV 11/22/19 12:58 5 mls/hr CONTINUOUS PRN 5 mls/hr THIS MED IS NOT "PRN" Administration Protocol Titrate Ketorolac Tromethamine 30 mg 10/20/19 22:00 10/23/19 21:27 Toradol Inj/Pf 30 Mg/1 Ml Sdv IV 10/25/19 21:59 30 mg Q8 JESSA Administration Levalbuterol HCl 0.63 mg 10/21/19 13:20 10/23/19 12:06 Xopenex Neb 0.63 Mg/3 Ml Ampul NEB 11/20/19 13:19 0.63 mg RTQ6HP PRN Administration FOR WHEEZING Levalbuterol HCl 1.25 mg 10/21/19 20:00 10/23/19 19:53 Xopenex Neb 1.25 Mg/3 Ml Ampul NEB 11/20/19 19:59 1.25 mg RTBID JESSA Administration Methylprednisolone Sodium Succinate 40 mg 10/23/19 14:00 10/23/19 21:27 Solu-Medrol Inj/Pf 40 Mg/1 Ml Sdv IV 11/22/19 13:59 40 mg Q8 JESSA Administration Morphine Sulfate 4 mg 10/20/19 16:47 10/23/19 19:36 Morphine 10 Mg/Ml Inj IV 10/27/19 16:46 4 mg Q4HP PRN Administration FOR BREAKTHROUGH PAIN Pantoprazole Sodium 40 mg 10/21/19 12:00 10/23/19 05:[address] Tablet PO 11/20/19 11:59 40 mg Q6AM JESSA Administration Discontinued Medications Generic Name Dose Route Start Last Admin Trade Name Freq PRN Reason Stop Dose Admin Albuterol 2.5 mg 10/18/19 12:00 10/19/19 11:22 Ventolin 0.083% Neb 2.5 Mg/3 Ml Ampul NEB 11/17/19 11:59 Not Given RTQ4 JESSA Budesonide 0.5 mg 10/19/19 12:15 10/20/19 08:33 Pulmicort Neb 0.5 Mg/2 Ml Ampul NEB 11/18/19 12:14 0.5 mg RTBID JESSA Administration Bupivacaine HCl Confirm 10/18/19 03:54 10/18/19 05:50 Sensorcaine-Mpf 0.25% Inj 30 Ml Sdv Administered 10/18/19 03:55 30 ml Dose Administration 30 ml .ROUTE .STK-MED ONE Dextrose 12.5 gm 10/18/19 06:36 Dextrose Inj 50% Syringe (25 Gm/50 Ml) IV 11/17/19 06:35 PRN PRN FOR BG 50-69 IN ALERT PATIENT Protocol Dextrose 25 gm 10/18/19 06:36 Dextrose Inj 50% Syringe (25 Gm/50 Ml) IV 11/17/19 06:35 PRN PRN See Label Comments Protocol Dextrose 12.5 gm 10/18/19 06:35 Dextrose Inj 50% Syringe (25 Gm/50 Ml) IV 11/17/19 06:34 PRN PRN FOR BG 50-69 IN ALERT PATIENT Protocol Dextrose 25 gm 10/18/19 06:35 Dextrose Inj 50% Syringe (25 Gm/50 Ml) IV 11/17/19 06:34 PRN PRN See Label Comments Protocol Diltiazem HCl Confirm 10/19/19 10:03 10/19/19 10:23 Cardizem Inj 25 Mg/5 Ml Vial Administered 10/19/19 10:04 Not Given Dose 25 mg .ROUTE .STK-MED ONE Diltiazem HCl 10 mg 10/19/19 10:15 10/19/19 10:22 Cardizem Inj 25 Mg/5 Ml Vial IV 10/19/19 10:16 10 mg NOW ONE Administration Diltiazem HCl 30 mg 10/19/19 12:15 10/19/19 12:06 Cardizem 30 Mg Tablet PO 11/18/19 12:14 30 mg DAILY JESSA Administration Diltiazem HCl 30 mg 10/19/19 22:00 Cardizem 30 Mg Tablet PO 11/18/19 21:59 Q12 JESSA Diltiazem HCl 30 mg 10/19/19 22:00 10/23/19 09:27 Cardizem 30 Mg Tablet NG 11/18/19 21:59 30 mg Q12 JESSA Administration Enoxaparin Sodium 40 mg 10/18/19 10:00 10/20/19 09:09 Lovenox Inj 40 Mg/0.4 Ml Disp.Syrin SUBCUT 11/17/19 09:59 40 mg DAILY JESSA Administration Enoxaparin Sodium 40 mg 10/21/19 20:00 Lovenox Inj 40 Mg/0.4 Ml Disp.Syrin SUBCUT 11/20/19 19:59 DAILY JESSA Enoxaparin Sodium 40 mg 10/22/19 10:00 10/23/19 09:28 Lovenox Inj 40 Mg/0.4 Ml Disp.Syrin SUBCUT 11/20/19 09:59 40 mg DAILY JESSA Administration Escitalopram Oxalate 20 mg 10/18/19 11:30 10/18/19 13:24 Lexapro 10 Mg Tablet PO 11/17/19 11:29 Not Given DAILY JESSA Fentanyl Citrate Confirm 10/18/19 04:12 Sublimaze Inj/Pf 250 Mcg/5 Ml Ampule Administered 10/18/19 04:13 Dose 250 mcg .ROUTE .STK-MED ONE Fentanyl Citrate Confirm 10/18/19 09:21 10/18/19 10:01 Sublimaze Inj/Pf 100 Mcg/2 Ml Ampule Administered 10/18/19 09:22 Not Given Dose 100 mcg .ROUTE .STK-MED ONE Fentanyl Citrate 100 mcg 10/18/19 10:00 10/18/19 10:01 Sublimaze Inj/Pf 100 Mcg/2 Ml Ampule IV 10/18/19 10:01 100 mcg NOW ONE Administration Fentanyl Citrate 50 mcg 10/18/19 11:26 10/20/19 12:33 Sublimaze Inj/Pf 100 Mcg/2 Ml Ampule IV 10/25/19 11:25 50 mcg Q4HP PRN Administration FOR PAIN SCALE 1-3 Fentanyl Citrate 100 mcg 10/18/19 11:26 10/19/19 14:58 Sublimaze Inj/Pf 100 Mcg/2 Ml Ampule IV 10/25/19 11:25 100 mcg Q4HP PRN Administration FOR PAIN SCALE 4-5 Glucagon 1 mg 10/18/19 06:36 Glucagen Inj 1 Mg Vial SUBCUT 11/17/19 06:35 PRN PRN Evaluate for BG < 70 Protocol Glucagon 1 mg 10/18/19 06:35 Glucagen Inj 1 Mg Vial SUBCUT 11/17/19 06:34 PRN PRN Evaluate for BG < 70 Protocol Glucose 15 gm 10/18/19 06:36 Glutose 40% Gel 15 Gm Tube PO 11/17/19 06:35 PRN PRN For BG 50-69 in Alert Patient Protocol Glucose 30 gm 10/18/19 06:36 Glutose 40% Gel 15 Gm Tube PO 11/17/19 06:35 PRN PRN FOR BG < 50 IN ALERT PATIENT Protocol Glucose 15 gm 10/18/19 06:35 Glutose 40% Gel 15 Gm Tube PO 11/17/19 06:34 PRN PRN For BG 50-69 in Alert Patient Protocol Glucose 30 gm 10/18/19 06:35 Glutose 40% Gel 15 Gm Tube PO 11/17/19 06:34 PRN PRN FOR BG < 50 IN ALERT PATIENT Protocol Hard Fat/Phenylephrine 10 mg 10/18/19 10:12 Dariusz-Synephrine Inj/Pf 10 Mg/1 Ml Sdv .ROUTE 10/18/19 10:13 .STK-MED ONE Heparin Sodium (Porcine) 5,000 unit 10/20/19 20:15 Heparin Inj 5,000 Units/Ml 1 Ml Vial SUBCUT 11/19/19 20:14 Q8 JESSA Hydrocortisone Sodium Succinate 100 mg 10/18/19 14:00 10/19/19 14:57 Solu-Cortef Inj/Pf 100 Mg/ 2 Ml Sdv IV 11/17/19 13:59 100 mg Q8 JESSA Administration Hydrocortisone Sodium Succinate 50 mg 06/16/20 22:00 10/20/19 05:29 Solu-Cortef Inj/Pf 100 Mg/ 2 Ml Sdv IV 11/18/19 21:59 50 mg Q8 JESSA Administration Hydrocortisone Sodium Succinate 50 mg 10/20/19 18:00 Solu-Cortef Inj/Pf 100 Mg/ 2 Ml Sdv IV 11/19/19 17:59 Q12A JESSA Hydromorphone HCl 1 mg 10/18/19 02:54 10/18/19 02:57 Dilaudid Inj/Pf 2 Mg/Ml Ampule IV 10/18/19 02:55 1 mg NOW ONE Administration Sodium Chloride 1,000 mls @ 999 mls/hr 10/18/19 00:00 10/18/19 07:45 Nacl 0.9% 1000 Ml Iv Soln IV 11/17/19 00:00 Infused CONTINUOUS PRN Infusion THIS MED IS NOT "PRN" Sodium Chloride 1,000 mls @ 0 mls/hr 10/18/19 02:59 10/18/19 07:45 Nacl 0.9% 1000 Ml Iv Soln IV Infused X 2 BAGS PRN Infusion THIS MED IS NOT "PRN" Wide Open Sodium Chloride 1,000 mls @ 0 mls/hr 10/18/19 03:00 Nacl 0.9% 1000 Ml Iv Soln IV 11/17/19 02:59 CONTINUOUS PRN PER PROTOCOL As Directed Sodium Chloride 1,000 mls @ 150 mls/hr 10/18/19 06:36 10/18/19 10:00 Nacl 0.9% 1000 Ml Iv Soln IV 11/17/19 06:35 0 mls/hr CONTINUOUS PRN Infusion THIS MED IS NOT "PRN" Piperacillin Sod/Tazobactam 100 mls @ 200 mls/hr 10/18/19 12:00 Sod 3.375 gm/ Sodium Chloride IV 10/25/19 11:59 Q6 JESSA Acetaminophen 1,000 mg in 100 mls @ 400 mls/hr 10/18/19 06:40 10/18/19 08:38 Ofirmev Inj/Pf 1000 Mg/100 Ml Sdv IV 10/21/19 06:39 Not Given Q8 JESSA Propofol Confirm 10/18/19 06:41 10/18/19 07:45 Diprivan Rtu 1000 Mg/100 Ml Inf.Bottle Administered 10/18/19 06:42 Not Given Dose 1,000 mg in 100 mls @ ud IV .STK-MED ONE Propofol 1,000 mg in 100 mls @ 1.891 mls/hr 10/18/19 06:35 10/19/19 01:20 Diprivan Rtu 1000 Mg/100 Ml Inf.Bottle IV 11/17/19 06:34 0 mcg/kg/min CONTINUOUS PRN 0 mls/hr THIS MED IS NOT "PRN" Titration Protocol 5 MCG/KG/MIN Dexmedetomidine/Sodium Chloride 400 mcg in 100 mls @ 6.29 mls/hr 10/18/19 07:28 10/18/19 11:26 Precedex 400 Mcg/Ns 100 Ml Iv Premix IV 11/17/19 07:27 0 mcg/kg/hr CONTINUOUS PRN 0 mls/hr THIS MED IS NOT "PRN" Titration Protocol 0.4 MCG/KG/HR Acetaminophen 1,000 mg in 100 mls @ 400 mls/hr 10/18/19 10:00 10/20/19 09:25 Ofirmev Inj/Pf 1000 Mg/100 Ml Sdv IV 10/21/19 09:59 Infused Q8A JESSA Infusion Albumin Human 500 mls @ 1,000 mls/hr 10/18/19 08:53 10/18/19 09:41 Albutein 5% Inj 25 Gm/500 Ml Premixed Bottle IV 10/18/19 09:22 Infused NOW ONE Infusion Lactated Ringer's 1,000 mls @ 2,000 mls/hr 10/18/19 11:18 10/18/19 10:45 Lactated Ringers 1000 Ml Iv Soln IV 10/18/19 11:47 Infused BOLUS ONE Infusion Norepinephrine Bitartrate 4 mg 254 mls @ 0 mls/hr 10/18/19 11:18 10/18/19 19:51 / Dextrose IV 11/17/19 11:17 0 mcg/min CONTINUOUS PRN 0 mls/hr THIS MED IS NOT "PRN" Titration Protocol Titrate Albumin Human 500 mls @ 2,000 mls/hr 10/18/19 19:00 10/18/19 19:00 Albutein 5% Inj 25 Gm/500 Ml Premixed Bottle IV 10/18/19 19:14 Infused NOW ONE Infusion Diltiazem HCl 125 mg in 125 mls @ 0 mls/hr 10/19/19 10:07 10/20/19 11:12 Cardizem Rtu Inj 125 Mg-D5w 125 Ml Premix IV 11/18/19 10:06 Infused CONTINUOUS PRN Titration THIS MED IS NOT "PRN" Protocol Titrate Sodium Chloride 1,000 mls @ 500 mls/hr 10/19/19 15:30 10/19/19 17:10 Nacl 0.9% 1000 Ml Iv Soln IV 10/19/19 17:29 Infused BOLUS ONE Infusion Ketorolac Tromethamine 30 mg 10/18/19 01:42 10/18/19 01:54 Toradol Inj/Pf 30 Mg/1 Ml Sdv IV 10/18/19 01:43 30 mg NOW ONE Administration Ketorolac Tromethamine 60 mg 10/19/19 21:22 10/20/19 09:03 Toradol Inj/Pf 60 Mg/2 Ml Sdv IV 10/22/19 21:21 60 mg Q8HP PRN Administration FOR PAIN Levalbuterol HCl 1.25 mg 10/19/19 12:15 10/20/19 16:59 Xopenex Neb 1.25 Mg/3 Ml Ampul NEB 11/18/19 12:14 Not Given Q4H JESSA Levalbuterol HCl 1.25 mg 10/20/19 20:00 10/21/19 12:44 Xopenex Neb 1.25 Mg/3 Ml Ampul NEB 11/19/19 19:59 1.25 mg RTQ4 JESSA Administration Levothyroxine Sodium 0.1 mg 10/19/19 08:00 10/20/19 08:47 Synthroid 0.1 Mg Tablet NG 11/18/19 07:59 0.1 mg QAM JESSA Administration Lidocaine HCl 2 ml 10/18/19 10:12 Xylocaine 2% Inj-Pf (20 Mg/Ml) 2 Ml Ampul .ROUTE 10/18/19 10:13 .STK-MED ONE Methylprednisolone Sodium Succinate Confirm 10/18/19 04:12 Solu-Medrol Inj/Pf 125 Mg/2 Ml Sdv Administered 10/18/19 04:13 Dose 125 mg .ROUTE .STK-MED ONE Midazolam HCl Confirm 10/18/19 04:12 Versed 2 Mg/2 Ml Inj Administered 10/18/19 04:13 Dose 2 mg .ROUTE .STK-MED ONE Midazolam HCl Confirm 10/18/19 06:04 Versed 2 Mg/2 Ml Inj Administered 10/18/19 06:05 Dose 2 mg .ROUTE .STK-MED ONE Morphine Sulfate Confirm 10/18/19 04:12 Morphine 10 Mg/Ml Inj Administered 10/18/19 04:13 Dose 10 mg .ROUTE .STK-MED ONE Norepinephrine Bitartrate Confirm 10/18/19 09:48 10/18/19 11:51 Levophed Inj/Pf 4 Mg/4 Ml Sdv Administered 10/18/19 09:49 Not Given Dose 4 mg IV .STK-MED ONE Ondansetron HCl 4 mg 10/18/19 06:36 Zofran Inj/Pf 4 Mg/2 Ml Sdv IV 11/17/19 06:35 Q4HP PRN FOR NAUSEA/VOMITING Ondansetron HCl 4 mg 10/18/19 06:35 Zofran Inj/Pf 4 Mg/2 Ml Sdv IV 11/17/19 06:34 Q4HP PRN FOR NAUSEA/VOMITING Ondansetron HCl 4 mg 10/18/19 10:12 Zofran Inj/Pf 4 Mg/2 Ml Sdv .ROUTE 10/18/19 10:13 .STK-MED ONE Pantoprazole Sodium 40 mg 10/18/19 07:00 10/18/19 08:29 Protonix Iv Inj 40 Mg Vial IV 10/25/19 06:59 40 mg Q12 JESSA Administration Pantoprazole Sodium 40 mg 10/19/19 10:00 10/19/19 10:14 Protonix Iv Inj 40 Mg Vial IV 10/21/19 09:59 40 mg DAILY JESSA Administration Pharmacy Profile Note 1 each 10/18/19 11:30 Medication Communication Order 11/17/19 11:29 .NOTICE NR Piperacillin Sod/Tazobactam Sod 3.375 gm 10/18/19 02:59 10/18/19 03:21 Zosyn Inj 3.375 Gm Vial IV 10/18/19 03:00 3.375 gm IVBAG (ED) ONE Administration Prednisone 10 mg 10/21/19 10:00 10/22/19 17:30 Deltasone 10 Mg Tablet PO 11/20/19 09:59 10 mg BID JESSA Administration Prednisone 40 mg 10/23/19 10:00 10/23/19 09:27 Deltasone 20 Mg Tablet PO 11/22/19 09:59 40 mg DAILY JESSA Administration Propofol Confirm 10/18/19 04:13 Diprivan Inj 200 Mg/20 Ml Vial Administered 10/18/19 04:14 Dose 200 mg IV .STK-MED ONE Rocuronium [place] 100 mg 10/18/19 10:12 Zemuron Inj 50 Mg/5 Ml Vial IV 10/18/19 10:13 .STK-MED ONE Sodium Chloride 2.5 ml 10/18/19 14:00 10/20/19 13:17 Saline Flush 2.5 Ml Monoject Prefil Syrin IV 11/17/19 13:59 Not Given Q8 JESSA Sodium Chloride 2.5 ml 10/18/19 14:00 10/20/19 13:17 Saline Flush 2.5 Ml Monoject Prefil Syrin IV 11/17/19 13:59 Not Given Q8 JESSA Succinylcholine Chloride 200 mg 10/18/19 10:12 Anectine Inj 200 Mg/10 Ml Vial .ROUTE 10/18/19 10:13 .STK-MED ONE Sugammadex Sodium Confirm 10/18/19 04:12 Bridion 200 Mg/2 Ml Sdv Administered 10/18/19 04:13 Dose 200 mg IV .STK-MED ONE Review of Systems Constitutional: ABSENT: chills, fever(s), headache(s), weight gain, weight loss Eyes: ABSENT: visual disturbances Ears: ABSENT: hearing changes Cardiovascular: ABSENT: chest pain, dyspnea on exertion, edema, orthropnea, palpitations Respiratory: ABSENT: cough, hemoptysis Gastrointestinal: ABSENT: abdominal pain, constipation, diarrhea, hematemesis, hematochezia, nausea, vomiting Genitourinary: ABSENT: dysuria, hematuria Musculoskeletal: ABSENT: joint swelling Integumentary: ABSENT: rash, wounds Neurological: ABSENT: abnormal gait, abnormal speech, confusion, dizziness, focal weakness, syncope Psychiatric: ABSENT: anxiety, depression, homidical ideation, suicidal ideation Endocrine: ABSENT: cold intolerance, heat intolerance, menstrual abnormalities, polydipsia, polyuria Hematologic/Lymphatic: ABSENT: easy bleeding, easy bruising, lymphadenopathy PHYSICAL EXAMINATION: Patient appears to be chronically ill and appears to be frail build and malnourished. She has intermittent shortness of breath. Selected Entries 10/23/19 10/23/19 16:17 16:38 Temperature 98.1 F Temperature Axillary Source Pulse Rate 56 L Respiratory 14 Rate Blood Pressure 123/72 Blood Pressure 89 Mean BP Location Right Arm BP Position Sitting O2 Sat by Pulse 97 Oximetry Fraction of 40 Inspired Oxygen (FIO2) Oxygen Flow 10 Rate Oxygen Delivery Bipap Method HEAD: Is atraumatic. Normocephalic. EYES: Pupils are equal round regular reactive light accommodation. Extraocular movements are normal. There is no conjunctival pallor. There is no scleral icterus. EARS: Tympanic membranes are intact. External auditory canals are clear. NOSE: There is no deviated nasal septum. There is no inflammation nasal mucous membrane. MOUTH: Mucous membranes of the mouth are moist. Tongue is moist. There is no ulcers. There is no bleeding from the gums. THROAT: There is no redness of the oropharynx. There is no exudates. SKIN: There is no skin rashes. There is no petechia or ecchymosis. There is no skin lesions. NECK: Is supple. There is no JVD. Carotids are equal there is no bruit. There is no lymphadenopathy. There is no goiter. There is no accessory muscle respiration use. Trachea central. LUNGS: There is diminished air entry prolonged expiration with scattered rhonchi. There is no wheezing. There is absent breath sounds and a small area in the right base. And to a lesser area in the left base. On percussion there is hyperresonance. There is no chest wall tenderness. HEART: S1-S2 is heard. There is intermittent S1 of variable intensity. S1 is of normal intensity with the patient sinus mechanism. There is systolic murmur left sternal border and the apex there is no rub. ABDOMEN: Soft. Nontender. Recent surgical incision dressing is dry and clean. Bowel sounds are present. EXTREMITIES: Femorals are well felt. Leg pulses well felt. There is no pedal edema. There is no DVT or cellulitis. There is no cyanosis or clubbing. CUSHION PADDER: The patient is conscious awake alert oriented x3 with no focal deficit. PSYCHIATRIC: Although the patient judgment insight are intact she appears to be depressed. She is also slightly anxious. Abdomen/Pelvis CT 10/17/19 23:59 IMPRESSION: 1. 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 Urgent finding reported to Olu SILVEIRA at 10/18/2019 1:55 AM CDT This exam was performed according to our departmental dose-optimization program, which includes automated exposure control, adjustment of the mA and/or kV according to patient size and/or use of iterative reconstruction technique. Chest X-Ray 10/18/19 00:00 IMPRESSION: Tubes and lines in good positioning. Left apical pleuroparenchymal scarring. No acute infiltrates. Chest X-Ray 10/18/19 06:42 IMPRESSION: Obstructive lung disease. Tubes in good positioning Chest X-Ray 10/19/19 06:00 IMPRESSION: Obstructive lung disease. No acute infiltrate. A nasogastric tube, right jugular central line in good positioning Chest X-Ray 10/23/19 00:00 IMPRESSION: New bibasilar hazy opacities. This may represent atelectasis, however an infectious process such as pneumonia could have a similar appearance. Clinical correlation is required. Chest/Abdomen CTA 10/23/19 00:00 IMPRESSION: 1. Limited examination due to contrast bolus timing with no contrast present within pulmonary arteries. As such no evaluation for pulmonary embolus is possible. 2. Moderate right-sided pleural effusion with some loculation and small left- sided pleural effusion with some loculation. 3. Severe emphysematous changes. Labs- Entire Visit 10/18/19 10/18/19 10/18/19 00:24 00:24 00:24 WBC 10.9 H RBC 5.17 Hgb 15.2 Hct 46.2 MCV 89 MCH 29.4 MCHC 33.0 RDW 14.3 H Plt Count 586 H Lymph % (Auto) Not Reportable [place] % (Auto) Not Reportable Eos % (Auto) Not Reportable Baso % (Auto) Not Reportable Absolute Neuts (auto) Not Reportable Absolute Lymphs (auto) Not Reportable Absolute Monos (auto) Not Reportable Absolute Eos (auto) Not Reportable Absolute Basos (auto) Not Reportable Total Counted 100 Seg Neutrophils % Not Reportable Seg Neuts % (Manual) 91 H Band Neutrophils % 3 Lymphocytes % (Manual) 2 L Monocytes % (Manual) 4 Eosinophils % (Manual) 0 Basophils % (Manual) 0 Abs Neuts (Manual) 10.2 H Abs Lymphs (Manual) 0.2 L Abs Monocytes (Manual) 0.4 Absolute Eos (Manual) 0.0 Abs Basophils (Manual) 0.0 Toxic Granulation Clumped Platelets Platelet Comment INCREASED Polychromasia 1+ Poikilocytosis Anisocytosis 1+ Tear Drop Cells Ovalocytes Schistocytes PT INR APTT Carbonic Acid HCO3/H2CO3 Ratio ABG pH ABG pCO2 ABG pO2 ABG HCO3 ABG Total CO2 ABG O2 Saturation ABG Base Excess FiO2 Sodium 136.5 L Potassium 4.7 Chloride 93 L Carbon Dioxide 38 H Anion Gap 6 BUN 19 Creatinine 0.55 Est GFR ( Amer) > 60 Est GFR (Non-Af Amer) Est GFR (MDRD) Non-Af > 60 Glucose 172 H Lactic Acid Calcium 9.6 Phosphorus Magnesium Total Bilirubin 1.3 Direct Bilirubin 0.3 Neonat Total Bilirubin Not Reportable Neonat Direct Bilirubin Not Reportable Neonat Indirect Bili Not Reportable AST 20 ALT 15 Alkaline Phosphatase 93 Troponin I 0.012 Total Protein 5.9 L Albumin 3.5 Lipase 19.3 L EGFR Urine Color Urine Appearance Urine pH Ur Specific [place] Urine Protein Urine Glucose (UA) Urine Ketones Urine Blood Urine Nitrite Urine Bilirubin Urine Urobilinogen Ur Leukocyte Esterase Urine WBC (Auto) Urine RBC (Auto) U Hyaline Cast (Auto) Urine Bacteria (Auto) Urine Mucus (Auto) Urine Ascorbic Acid 10/18/19 10/18/19 10/18/19 03:48 07:59 07:59 WBC RBC Hgb Hct MCV MCH MCHC RDW Plt Count Lymph % (Auto) [place] % (Auto) Eos % (Auto) Baso % (Auto) Absolute Neuts (auto) Absolute Lymphs (auto) Absolute Monos (auto) Absolute Eos (auto) Absolute Basos (auto) Total Counted Seg Neutrophils % Seg Neuts % (Manual) Band Neutrophils % Lymphocytes % (Manual) Monocytes % (Manual) Eosinophils % (Manual) Basophils % (Manual) Abs Neuts (Manual) Abs Lymphs (Manual) Abs Monocytes (Manual) Absolute Eos (Manual) Abs Basophils (Manual) Toxic Granulation Clumped Platelets Platelet Comment Polychromasia Poikilocytosis Anisocytosis Tear Drop Cells Ovalocytes Schistocytes PT 13.8 INR 1.06 APTT 25.1 Carbonic Acid HCO3/H2CO3 Ratio ABG pH ABG pCO2 ABG pO2 ABG HCO3 ABG Total CO2 ABG O2 Saturation ABG Base Excess FiO2 Sodium Potassium Chloride Carbon Dioxide Anion Gap BUN Creatinine Est GFR ( Amer) Est GFR (Non-Af Amer) Est GFR (MDRD) Non-Af Glucose Lactic Acid 2.5 H Calcium Phosphorus Magnesium Total Bilirubin Direct Bilirubin Neonat Total Bilirubin Neonat Direct Bilirubin Neonat Indirect Bili AST ALT Alkaline Phosphatase Troponin I Total Protein Albumin Lipase EGFR Urine Color YELLOW Urine Appearance CLEAR Urine pH 8.0 Ur Specific [place] 1.023 Urine Protein 100 H Urine Glucose (UA) NEGATIVE Urine Ketones TRACE H Urine Blood NEGATIVE Urine Nitrite NEGATIVE Urine Bilirubin NEGATIVE Urine Urobilinogen 2.0 H Ur Leukocyte Esterase NEGATIVE Urine WBC (Auto) 2 Urine RBC (Auto) 4 U Hyaline Cast (Auto) 1 Urine Bacteria (Auto) TRACE Urine Mucus (Auto) MANY Urine Ascorbic Acid NEGATIVE 10/18/19 10/18/19 10/19/19 10:49 11:42 04:13 WBC 19.0 H RBC 3.59 L Hgb 10.5 L D Hct 31.9 L MCV 89 MCH 29.2 MCHC 32.9 RDW 14.4 H Plt Count 338 Lymph % (Auto) Not Reportable [place] % (Auto) Not Reportable Eos % (Auto) Not Reportable Baso % (Auto) Not Reportable Absolute Neuts (auto) Not Reportable Absolute Lymphs (auto) Not Reportable Absolute Monos (auto) Not Reportable Absolute Eos (auto) Not Reportable Absolute Basos (auto) Not Reportable Total Counted 100 Seg Neutrophils % Not Reportable Seg Neuts % (Manual) 93 H Band Neutrophils % 1 L Lymphocytes % (Manual) 3 L Monocytes % (Manual) 3 Eosinophils % (Manual) 0 Basophils % (Manual) 0 Abs Neuts (Manual) 17.9 H Abs Lymphs (Manual) 0.6 Abs Monocytes (Manual) 0.6 Absolute Eos (Manual) 0.0 Abs Basophils (Manual) 0.0 Toxic Granulation SLIGHT Clumped Platelets Platelet Comment ADEQUATE Polychromasia Poikilocytosis SLIGHT Anisocytosis SLIGHT Tear Drop Cells SLIGHT Ovalocytes SLIGHT Schistocytes SLIGHT PT INR APTT Carbonic Acid 1.44 H HCO3/H2CO3 Ratio 18:1 ABG pH 7.37 ABG pCO2 47.8 H ABG pO2 65.3 L ABG HCO3 27.1 H ABG Total CO2 28.5 H ABG O2 Saturation 92.2 L ABG Base Excess 1.3 FiO2 25% Sodium Potassium Chloride Carbon Dioxide Anion Gap BUN Creatinine Est GFR ( Amer) Est GFR (Non-Af Amer) Est GFR (MDRD) Non-Af Glucose Lactic Acid 1.5 Calcium Phosphorus Magnesium Total Bilirubin Direct Bilirubin Neonat Total Bilirubin Neonat Direct Bilirubin Neonat Indirect Bili AST ALT Alkaline Phosphatase Troponin I Total Protein Albumin Lipase EGFR Urine Color Urine Appearance Urine pH Ur Specific [place] Urine Protein Urine Glucose (UA) Urine Ketones Urine Blood Urine Nitrite Urine Bilirubin Urine Urobilinogen Ur Leukocyte Esterase Urine WBC (Auto) Urine RBC (Auto) U Hyaline Cast (Auto) Urine Bacteria (Auto) Urine Mucus (Auto) Urine Ascorbic Acid 10/19/19 10/19/19 10/19/19 04:13 04:13 04:13 WBC RBC Hgb Hct MCV MCH MCHC RDW Plt Count Lymph % (Auto) [place] % (Auto) Eos % (Auto) Baso % (Auto) Absolute Neuts (auto) Absolute Lymphs (auto) Absolute Monos (auto) Absolute Eos (auto) Absolute Basos (auto) Total Counted Seg Neutrophils % Seg Neuts % (Manual) Band Neutrophils % Lymphocytes % (Manual) Monocytes % (Manual) Eosinophils % (Manual) Basophils % (Manual) Abs Neuts (Manual) Abs Lymphs (Manual) Abs Monocytes (Manual) Absolute Eos (Manual) Abs Basophils (Manual) Toxic Granulation Clumped Platelets Platelet Comment Polychromasia Poikilocytosis Anisocytosis Tear Drop Cells Ovalocytes Schistocytes PT 17.0 H INR 1.37 APTT 35.1 Carbonic Acid 1.73 H HCO3/H2CO3 Ratio 17:1 ABG pH 7.34 L ABG pCO2 57.6 H ABG pO2 77.2 L ABG HCO3 30.4 H ABG Total CO2 32.1 H ABG O2 Saturation 94.4 ABG Base Excess 3.3 FiO2 40% Sodium 137.5 Potassium 3.9 Chloride 101 Carbon Dioxide 31 H Anion Gap 6 BUN 22 H Creatinine 0.66 Est GFR ( Amer) > 60 Est GFR (Non-Af Amer) Est GFR (MDRD) Non-Af > 60 Glucose 108 Lactic Acid Calcium 8.3 L Phosphorus 3.5 Magnesium 2.7 H Total Bilirubin 0.8 Direct Bilirubin 0.2 Neonat Total Bilirubin Not Reportable Neonat Direct Bilirubin Not Reportable Neonat Indirect Bili Not Reportable AST 18 ALT 12 Alkaline Phosphatase 51 Troponin I Total Protein 4.9 L Albumin 2.9 L Lipase EGFR Urine Color Urine Appearance Urine pH Ur Specific [place] Urine Protein Urine Glucose (UA) Urine Ketones Urine Blood Urine Nitrite Urine Bilirubin Urine Urobilinogen Ur Leukocyte Esterase Urine WBC (Auto) Urine RBC (Auto) U Hyaline Cast (Auto) Urine Bacteria (Auto) Urine Mucus (Auto) Urine Ascorbic Acid 10/19/19 10/20/19 10/20/19 04:13 04:30 04:30 WBC RBC Hgb Hct MCV MCH MCHC RDW Plt Count Lymph % (Auto) [place] % (Auto) Eos % (Auto) Baso % (Auto) Absolute Neuts (auto) Absolute Lymphs (auto) Absolute Monos (auto) Absolute Eos (auto) Absolute Basos (auto) Total Counted Seg Neutrophils % Seg Neuts % (Manual) Band Neutrophils % Lymphocytes % (Manual) Monocytes % (Manual) Eosinophils % (Manual) Basophils % (Manual) Abs Neuts (Manual) Abs Lymphs (Manual) Abs Monocytes (Manual) Absolute Eos (Manual) Abs Basophils (Manual) Toxic Granulation Clumped Platelets Platelet Comment Polychromasia Poikilocytosis Anisocytosis Tear Drop Cells Ovalocytes Schistocytes PT INR APTT Carbonic Acid HCO3/H2CO3 Ratio ABG pH ABG pCO2 ABG pO2 ABG HCO3 ABG Total CO2 ABG O2 Saturation ABG Base Excess FiO2 Sodium Cancelled 139.0 Potassium Cancelled 3.7 Chloride Cancelled 104 Carbon Dioxide Cancelled 29 Anion Gap Cancelled 6 BUN Cancelled 24 H Creatinine Cancelled 0.64 Est GFR ( Amer) Cancelled > 60 Est GFR (Non-Af Amer) Cancelled Est GFR (MDRD) Non-Af Cancelled > 60 Glucose Cancelled 85 Lactic Acid 0.7 Calcium Cancelled 8.4 Phosphorus 3.5 Magnesium 2.9 H Total Bilirubin Direct Bilirubin Neonat Total Bilirubin Neonat Direct Bilirubin Neonat Indirect Bili AST ALT Alkaline Phosphatase Troponin I Total Protein Albumin Lipase EGFR Cancelled Urine Color Urine Appearance Urine pH Ur Specific [place] Urine Protein Urine Glucose (UA) Urine Ketones Urine Blood Urine Nitrite Urine Bilirubin Urine Urobilinogen Ur Leukocyte Esterase Urine WBC (Auto) Urine RBC (Auto) U Hyaline Cast (Auto) Urine Bacteria (Auto) Urine Mucus (Auto) Urine Ascorbic Acid 10/20/19 10/20/19 10/21/19 04:30 04:30 05:42 WBC 19.5 H RBC 3.31 L Hgb 9.8 L Hct 29.7 L MCV 90 MCH 29.6 MCHC 33.0 RDW 14.7 H Plt Count 295 Lymph % (Auto) Not Reportable [place] % (Auto) Not Reportable Eos % (Auto) Not Reportable Baso % (Auto) Not Reportable Absolute Neuts (auto) Not Reportable Absolute Lymphs (auto) Not Reportable Absolute Monos (auto) Not Reportable Absolute Eos (auto) Not Reportable Absolute Basos (auto) Not Reportable Total Counted 100 Seg Neutrophils % Not Reportable Seg Neuts % (Manual) 90 H Band Neutrophils % 1 L Lymphocytes % (Manual) 4 L Monocytes % (Manual) 5 Eosinophils % (Manual) 0 Basophils % (Manual) 0 Abs Neuts (Manual) 17.7 H Abs Lymphs (Manual) 0.8 Abs Monocytes (Manual) 1.0 Absolute Eos (Manual) 0.0 Abs Basophils (Manual) 0.0 Toxic Granulation SLIGHT Clumped Platelets PRESENT Platelet Comment ADEQUATE Polychromasia Poikilocytosis Anisocytosis SLIGHT Tear Drop Cells Ovalocytes SLIGHT Schistocytes PT 14.1 14.7 INR 1.08 1.15 APTT 31.9 29.6 Carbonic Acid HCO3/H2CO3 Ratio ABG pH ABG pCO2 ABG pO2 ABG HCO3 ABG Total CO2 ABG O2 Saturation ABG Base Excess FiO2 Sodium Potassium Chloride Carbon Dioxide Anion Gap BUN Creatinine Est GFR ( Amer) Est GFR (Non-Af Amer) Est GFR (MDRD) Non-Af Glucose Lactic Acid Calcium Phosphorus Magnesium Total Bilirubin Direct Bilirubin Neonat Total Bilirubin Neonat Direct Bilirubin Neonat Indirect Bili AST ALT Alkaline Phosphatase Troponin I Total Protein Albumin Lipase EGFR Urine Color Urine Appearance Urine pH Ur Specific [place] Urine Protein Urine Glucose (UA) Urine Ketones Urine Blood Urine Nitrite Urine Bilirubin Urine Urobilinogen Ur Leukocyte Esterase Urine WBC (Auto) Urine RBC (Auto) U Hyaline Cast (Auto) Urine Bacteria (Auto) Urine Mucus (Auto) Urine Ascorbic Acid 10/21/19 10/21/19 10/23/19 05:42 05:42 09:16 WBC 21.8 H 17.5 H RBC 3.32 L 3.43 L Hgb 9.7 L 10.0 L Hct 29.9 L 30.6 L MCV 90 89 MCH 29.1 29.1 MCHC 32.3 32.5 RDW 14.9 H 14.6 H Plt Count 294 340 Lymph % (Auto) Not Reportable Not Reportable [place] % (Auto) Not Reportable Not Reportable Eos % (Auto) Not Reportable Not Reportable Baso % (Auto) Not Reportable Not Reportable Absolute Neuts (auto) Not Reportable Not Reportable Absolute Lymphs (auto) Not Reportable Not Reportable Absolute Monos (auto) Not Reportable Not Reportable Absolute Eos (auto) Not Reportable Not Reportable Absolute Basos (auto) Not Reportable Not Reportable Total Counted 100 100 Seg Neutrophils % Not Reportable Not Reportable Seg Neuts % (Manual) 93 H 89 H Band Neutrophils % 1 L Lymphocytes % (Manual) 3 L 7 L Monocytes % (Manual) 3 4 Eosinophils % (Manual) 0 0 Basophils % (Manual) 0 0 Abs Neuts (Manual) 20.5 H 15.6 H Abs Lymphs (Manual) 0.7 1.2 Abs Monocytes (Manual) 0.7 0.7 Absolute Eos (Manual) 0.0 0.0 Abs Basophils (Manual) 0.0 0.0 Toxic Granulation Clumped Platelets Platelet Comment ADEQUATE ADEQUATE Polychromasia Poikilocytosis Anisocytosis SLIGHT SLIGHT Tear Drop Cells Ovalocytes SLIGHT Schistocytes PT INR APTT Carbonic Acid HCO3/H2CO3 Ratio ABG pH ABG pCO2 ABG pO2 ABG HCO3 ABG Total CO2 ABG O2 Saturation ABG Base Excess FiO2 Sodium 139.0 Potassium 3.6 Chloride 103 Carbon Dioxide 31 H Anion Gap 5 BUN 26 H Creatinine 0.67 Est GFR ( Amer) > 60 Est GFR (Non-Af Amer) Est GFR (MDRD) Non-Af > 60 Glucose 70 L Lactic Acid Calcium 8.5 Phosphorus 3.1 Magnesium 2.5 H Total Bilirubin Direct Bilirubin Neonat Total Bilirubin Neonat Direct Bilirubin Neonat Indirect Bili AST ALT Alkaline Phosphatase Troponin I Total Protein Albumin Lipase EGFR Urine Color Urine Appearance Urine pH Ur Specific [place] Urine Protein Urine Glucose (UA) Urine Ketones Urine Blood Urine Nitrite Urine Bilirubin Urine Urobilinogen Ur Leukocyte Esterase Urine WBC (Auto) Urine RBC (Auto) U Hyaline Cast (Auto) Urine Bacteria (Auto) Urine Mucus (Auto) Urine Ascorbic Acid 10/23/19 10/23/19 09:16 12:40 WBC RBC Hgb Hct MCV MCH MCHC RDW Plt Count Lymph % (Auto) [place] % (Auto) Eos % (Auto) Baso % (Auto) Absolute Neuts (auto) Absolute Lymphs (auto) Absolute Monos (auto) Absolute Eos (auto) Absolute Basos (auto) Total Counted Seg Neutrophils % Seg Neuts % (Manual) Band Neutrophils % Lymphocytes % (Manual) Monocytes % (Manual) Eosinophils % (Manual) Basophils % (Manual) Abs Neuts (Manual) Abs Lymphs (Manual) Abs Monocytes (Manual) Absolute Eos (Manual) Abs Basophils (Manual) Toxic Granulation Clumped Platelets Platelet Comment Polychromasia Poikilocytosis Anisocytosis Tear Drop Cells Ovalocytes Schistocytes PT INR APTT Carbonic Acid 2.12 H HCO3/H2CO3 Ratio 16:1 ABG pH 7.31 L ABG pCO2 70.3 H* ABG pO2 150.9 H ABG HCO3 34.7 H ABG Total CO2 36.8 H ABG O2 Saturation 98.7 H ABG Base Excess 6.4 FiO2 100% Sodium 137.0 Potassium 4.1 Chloride 98 Carbon Dioxide 35 H Anion Gap 4 L BUN 14 Creatinine 0.49 L Est GFR ( Amer) > 60 Est GFR (Non-Af Amer) Est GFR (MDRD) Non-Af > 60 Glucose 80 Lactic Acid Calcium 8.4 Phosphorus Magnesium Total Bilirubin Direct Bilirubin Neonat Total Bilirubin Neonat Direct Bilirubin Neonat Indirect Bili AST ALT Alkaline Phosphatase Troponin I Total Protein Albumin Lipase EGFR Urine Color Urine Appearance Urine pH Ur Specific [place] Urine Protein Urine Glucose (UA) Urine Ketones Urine Blood Urine Nitrite Urine Bilirubin Urine Urobilinogen Ur Leukocyte Esterase Urine WBC (Auto) Urine RBC (Auto) U Hyaline Cast (Auto) Urine Bacteria (Auto) Urine Mucus (Auto) Urine Ascorbic Acid Today's first EKG on the patient shows atrial fibrillation with rapid ventricle response. Mild ST wave changes diffuse. Subsequent EKG shows sinus bradycardia within normal limits. Both EKGs have been interpreted by me after reviewing them. IMPRESSION/RECOMMENDATION: 1. Paroxysmal atrial fibrillation: Patient has intermittent episodes of paroxysmal atrial fibrillation. Recommend Lovenox 1 mg/kg subcutaneously every 12 hours and also start the patient on a Cardizem drip. Transfer the patient to the [facility] for further telemetry monitoring. Note the patient's atrial fibrillation coincides with the patient's hypoxic spells with increased shortness of breath. 2. Acute on chronic respiratory failure with hypoxemia continue BiPAP on oxygen and respiratory treatments. 3. Chronic obstructive pulmonary disease with acute exacerbation. Patient has end-stage chronic obstructive pulmonary disease. Also the patient has sleep apnea. Hence would recommend pulmonary consult to see the patient will benefit from a outpatient noninvasive ventilator such as Trilogy. Continue intensive anti-COPD treatment including steroids. And antibiotics. 4. History of hypertension: Blood pressure well controlled 5. History of hypothyroidism: Continue replacement. 6. History of depression. 7. Status post Delgado's procedure for ruptured diverticulitis: The patient is having bowel movement and there is no abdominal pain. Medications reviewed. Medications added. Medical regimen and management plan discussed with Dr Harvey in detail. 60 minutes spent on this patient more than 50% of time spent direct patient care. Medical decision making is of high complexity. Will follow.
[2019-10-24] MEDS: PIPERACILLIN SODIUM/TAZOBACTAM 4.5 GM in NORMAL SALINE 100 ML IV SCH ×4 (03:23→20:35)
[2019-10-24] MEDS: METHYLPREDNISOLONE INJ 40 MG/1 ML SDV IV SCH ×2 (05:47→18:10)
[2019-10-24] MEDS: ENOXAPARIN SODIUM INJ 80 MG/0.8 ML DISP.SYRIN SUBCUT SCH ×2 (05:50→18:10)
[2019-10-24] MEDS: KETOROLAC TROMETHAMINE INJ/PF 30 MG/1 ML SDV IV SCH ×3 (05:52→22:20)
[2019-10-24] MEDS: PANTOPRAZOLE SODIUM 40 MG TABLET.DR PO SCH (05:52)
[2019-10-24] MEDS: MORPHINE SULFATE 10 MG/ML INJ IV PRN ×4 (05:52→22:20)
[2019-10-24 08:33] LABS: HEMATOCRIT 31.8 % (36.0-47.0); HEMOGLOBIN 10.2 g/dL (12.0-15.5); MEAN CORPUSCULAR HEMOGLOBIN 28.7 pg (27.0-33.4); MEAN CORPUSCULAR HGB CONC 32.2 g/dL (32.0-36.0); MEAN CORPUSCULAR VOLUME 89 fl (80-97); PLATELET COUNT 329 10^3/uL (150-450); RED BLOOD COUNT 3.56 10^6/uL (3.72-5.28); RED CELL DISTRIBUTION WIDTH 14.4 % (11.5-14.0); WHITE BLOOD COUNT 23.5 10^3/uL (4.0-10.5)
[2019-10-24 08:38] LABS: ANION GAP 6 (5-19); BLOOD UREA NITROGEN 15 mg/dL (7-20); CALCIUM 8.4 mg/dL (8.4-10.2); CARBON DIOXIDE 32 mmol/L (22-30); CHLORIDE 97 mmol/L (98-107); GLUCOSE 91 mg/dL (75-110); POTASSIUM 3.9 mmol/L (3.6-5.0)
[2019-10-24] MEDS: LEVALBUTEROL HCL NEB 1.25 MG/3 ML AMPUL NEB SCH ×2 (08:38→20:07)
[2019-10-24 08:59] LABS: ABSOLUTE LYMPHOCYTES# (MANUAL) 0.5 10^3/uL (0.5-4.7); ABSOLUTE MONOCYTES # (MANUAL) 0.5 10^3/uL (0.1-1.4); BASOPHILS % (MANUAL) 0 % (0-2); EOSINOPHILS % (MANUAL) 0 % (0-6); LYMPHOCYTES % (MANUAL) 2 % (13-45); MONOCYTES % (MANUAL) 2 % (3-13); SEGMENTED NEUTROPHILS % (MAN) 96 % (42-78); TOTAL CELLS COUNTED 100
[2019-10-24 09:00] LABS: ANISOCYTOSIS SLIGHT; PLATELET COMMENT ADEQUATE
[2019-10-24] MEDS: FLUTICASONE/UMECLIDIN/VILANTER 100-62.5-25 MCG/DOSE IH SCH (09:49)
[2019-10-24] MEDS: ASPIRIN 81 MG TABLET, CHEWABLE PO SCH (09:49)
[2019-10-24] MEDS: ARIPIPRAZOLE 5 MG TABLET PO SCH (09:49)
[2019-10-24] MEDS: ESCITALOPRAM OXALATE 10 MG TABLET NG SCH (09:49)
--- NOTE | 2019-10-24 09:57 | PDOC PROGRESS REPORT ---
Subjective Progress Note for:: 10/24/19 Subjective:: FEELS BETTER THIS AM Reason For Visit: PERFORATED BOWEL Physical Exam Vital Signs: Temp Pulse Resp BP Pulse Ox 98.0 F 98 18 154/76 H 96 10/24/19 07:49 10/24/19 08:40 10/24/19 08:40 10/24/19 07:49 10/24/19 08:40 Intake & Output 10/23/19 10/24/19 10/25/19 06:59 06:59 06:59 Intake Total 2060 2558 Output Total 100 1250 Balance 1960 1308 Weight 71.9 kg 69.7 kg General appearance: PRESENT: no acute distress Head exam: PRESENT: normocephalic Eye exam: PRESENT: EOMI Ear exam: PRESENT: normal external ear exam Mouth exam: PRESENT: moist Neck exam: PRESENT: full ROM Respiratory exam: PRESENT: rhonchi Cardiovascular exam: PRESENT: RRR Pulses: PRESENT: normal radial pulses, normal femoral pulses Vascular exam: PRESENT: normal capillary refill Breast: PRESENT: Normal GI/Abdominal exam: PRESENT: soft, other - STOMA FUNCTIONAL STOOL IN STOMA BAG Rectal exam: PRESENT: deferred Extremities exam: PRESENT: full ROM Musculoskeletal exam: PRESENT: full ROM Neurological exam: PRESENT: alert, awake, oriented to place Skin exam: PRESENT: dry Results Laboratory Results: 10/24/19 07:43 10/24/19 07:43 10/23/19 10/23/19 10/23/19 09:16 09:16 12:40 WBC 17.5 H RBC 3.43 L Hgb 10.0 L Hct 30.6 L MCV 89 MCH 29.1 MCHC 32.5 RDW 14.6 H Plt Count 340 Seg Neutrophils % Not Reportable Carbonic Acid 2.12 H HCO3/H2CO3 Ratio 16:1 ABG pH 7.31 L ABG pCO2 70.3 H* ABG pO2 150.9 H ABG HCO3 34.7 H ABG O2 Saturation 98.7 H ABG Base Excess 6.4 FiO2 100% Sodium 137.0 Potassium 4.1 Chloride 98 Carbon Dioxide 35 H Anion Gap 4 L BUN 14 Creatinine 0.49 L Est GFR ( Amer) > 60 Glucose 80 Calcium 8.4 10/24/19 10/24/19 07:43 07:43 WBC 23.5 H RBC 3.56 L Hgb 10.2 L Hct 31.8 L MCV 89 MCH 28.7 MCHC 32.2 RDW 14.4 H Plt Count 329 Seg Neutrophils % Not Reportable Carbonic Acid HCO3/H2CO3 Ratio ABG pH ABG pCO2 ABG pO2 ABG HCO3 ABG O2 Saturation ABG Base Excess FiO2 Sodium 134.7 L Potassium 3.9 Chloride 97 L Carbon Dioxide 32 H Anion Gap 6 BUN 15 Creatinine 0.49 L Est GFR ( Amer) > 60 Glucose 91 Calcium 8.4 10/18/19 00:24 Troponin I 0.012 Impressions: Abdomen/Pelvis CT 10/17/19 23:59 IMPRESSION: 1. 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 Urgent finding reported to Olu SILVEIRA at 10/18/2019 1:55 AM CDT This exam was performed according to our departmental dose-optimization program, which includes automated exposure control, adjustment of the mA and/or kV according to patient size and/or use of iterative reconstruction technique. Chest X-Ray 10/23/19 00:00 IMPRESSION: New bibasilar hazy opacities. This may represent atelectasis, however an infectious process such as pneumonia could have a similar appearance. Clinical correlation is required. Chest/Abdomen CTA 10/23/19 00:00 IMPRESSION: 1. Limited examination due to contrast bolus timing with no contrast present within pulmonary arteries. As such no evaluation for pulmonary embolus is possible. 2. Moderate right-sided pleural effusion with some loculation and small left- sided pleural effusion with some loculation. 3. Severe emphysematous changes. Assessment & Plan - Plan Summary Plan Summary: S/P EXPLORATORY LAPAROTOMY AND COLOSTOMY IWTH HARTMANS PROCEDURE FOR PERFORATED DIVERYTICULITIS NOW WITH RETURN OF BOWEL FUNCTION HARDIK CLEARS PT DEVELOPED AFIB AND WORSENING COPD, MANAGED IN IMCU BY MEDICINE PT HAS RETURN OF BOWEL FUNCLTION AND HARDIK DIET WILL ADVANCE TO SOFT DIET
--- NOTE | 2019-10-24 10:52 | PDOC PROGRESS REPORT ---
Subjective Progress Note for:: 10/24/19 Subjective:: Patient is currently doing well Patient still having some short of breath Patient CTA was showing some moderate right-sided pleural effusions Unable to comment on the pulmonary embolism Patient otherwise currently off the Cardizem drips Denied any chest pain Patient's white count is elevated but no fever Patient is currently on a steroid Currently on IV Zosyn According to the surgery all stable and surgical standpoint Reason For Visit: PERFORATED BOWEL Physical Exam Vital Signs: Temp Pulse Resp BP Pulse Ox 98.0 F 98 18 154/76 H 96 10/24/19 07:49 10/24/19 08:40 10/24/19 08:40 10/24/19 07:49 10/24/19 08:40 Intake & Output 10/23/19 10/24/19 10/25/19 06:59 06:59 06:59 Intake Total 2060 2558 Output Total 100 1250 Balance 1960 1308 Weight 71.9 kg 69.7 kg General appearance: PRESENT: no acute distress, well-developed, well-nourished Head exam: PRESENT: atraumatic, normocephalic Eye exam: PRESENT: conjunctiva pink, EOMI, PERRLA. ABSENT: scleral icterus Ear exam: PRESENT: normal external ear exam Mouth exam: PRESENT: moist, tongue midline Neck exam: PRESENT: full ROM. ABSENT: carotid bruit, JVD, lymphadenopathy, thyromegaly Respiratory exam: PRESENT: decreased breath sounds Cardiovascular exam: PRESENT: RRR. ABSENT: diastolic murmur, rubs, systolic murmur Vascular exam: PRESENT: normal capillary refill GI/Abdominal exam: PRESENT: normal bowel sounds, soft. ABSENT: distended, guarding, mass, organolmegaly, rebound, tenderness Additonal comments: Surgical site is incision is intact Rectal exam: PRESENT: deferred Neurological exam: PRESENT: alert, awake, oriented to person, oriented to place, oriented to time, oriented to situation, CN II-XII grossly intact. ABSENT: motor sensory deficit Psychiatric exam: PRESENT: appropriate affect, normal mood. ABSENT: homicidal ideation, suicidal ideation Skin exam: PRESENT: dry, intact, warm. ABSENT: cyanosis, rash Results Laboratory Results: 10/24/19 07:43 10/24/19 07:43 10/23/19 10/24/19 10/24/19 12:40 07:43 07:43 WBC 23.5 H RBC 3.56 L Hgb 10.2 L Hct 31.8 L MCV 89 MCH 28.7 MCHC 32.2 RDW 14.4 H Plt Count 329 Seg Neutrophils % Not Reportable Carbonic Acid 2.12 H HCO3/H2CO3 Ratio 16:1 ABG pH 7.31 L ABG pCO2 70.3 H* ABG pO2 150.9 H ABG HCO3 34.7 H ABG O2 Saturation 98.7 H ABG Base Excess 6.4 FiO2 100% Sodium 134.7 L Potassium 3.9 Chloride 97 L Carbon Dioxide 32 H Anion Gap 6 BUN 15 Creatinine 0.49 L Est GFR ( Amer) > 60 Glucose 91 Calcium 8.4 10/18/19 00:24 Troponin I 0.012 Impressions: Abdomen/Pelvis CT 10/17/19 23:59 IMPRESSION: 1. 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 Urgent finding reported to Olu SILVEIRA at 10/18/2019 1:55 AM CDT This exam was performed according to our departmental dose-optimization program, which includes automated exposure control, adjustment of the mA and/or kV according to patient size and/or use of iterative reconstruction technique. Chest X-Ray 10/23/19 00:00 IMPRESSION: New bibasilar hazy opacities. This may represent atelectasis, however an infectious process such as pneumonia could have a similar appearance. Clinical correlation is required. Chest/Abdomen CTA 10/23/19 00:00 IMPRESSION: 1. Limited examination due to contrast bolus timing with no contrast present within pulmonary arteries. As such no evaluation for pulmonary embolus is possible. 2. Moderate right-sided pleural effusion with some loculation and small left- sided pleural effusion with some loculation. 3. Severe emphysematous changes. Assessment & Plan - Diagnosis (1) Shortness of breath Is this a current diagnosis for this admission?: Yes Plan: Patient CT angiograms shows a moderate right-sided pleural effusion May be a consider thoracocentesis Continues the IV antibiotics Continues the nebulizer treatments (2) Atrial fibrillation with rapid ventricular response Is this a current diagnosis for this admission?: Yes Plan: Currently follow with the Dr. Randall patient is off the Cardizem drips currently on a full dose of Lovenox (3) Perforation of sigmoid colon due to diverticulitis Is this a current diagnosis for this admission?: Yes Plan: Currently follow-up with the surgery (4) Acute hypoxemic respiratory failure Is this a current diagnosis for this admission?: Yes Plan: Continues the BiPAP we will repeat the ABG consult the Dr. Cabral (5) Chronic obstructive pulmonary disease Qualifiers: COPD type: chronic bronchitis Chronic bronchitis type: mucopurulent Qualified Code(s): J41.1 - Mucopurulent chronic bronchitis Is this a current diagnosis for this admission?: Yes (6) Pleural effusion Is this a current diagnosis for this admission?: Yes Plan: We will consider repeat the chest x-ray tomorrow and may be a thoracocentesis (7) Leukocytosis Qualifiers: Leukocytosis type: unspecified Qualified Code(s): D72.829 - Elevated white blood cell count, unspecified Is this a current diagnosis for this admission?: Yes Plan: We will get the lactic acid Continue with IV Zosyn We will get the stool for C. difficile Possible from the steroid will reduce the steroid dose (8) Pneumonia Qualifiers: Pneumonia type: due to unspecified organism Laterality: left Lung location: upper lobe of lung Is this a current diagnosis for this admission?: Yes Plan: Continues IV antibiotic - Time Time Spent with patient: 25-34 minutes Level of Care: IMCU Medications reviewed and adjusted accordingly: Yes Anticipated discharge: Other Within: Other - Plan Summary Plan Summary: See MD orders
[2019-10-24 11:46] LABS: ARTERIAL BLOOD BASE EXCESS 10.7 mmol/L; ARTERIAL BLOOD FIO2 40%; ARTERIAL BLOOD H2CO3 1.81 mmol/L (1.05-1.35); ARTERIAL BLOOD HCO3 37.2 mmol/L (20-24); ARTERIAL BLOOD O2 SATURATION 95.7 % (94-98); ARTERIAL BLOOD PH 7.41 (7.35-7.45); ARTERIAL BLOOD PO2 80.4 mmHg (80-100)
[2019-10-24] MEDS: DILTIAZEM HCL 30 MG TABLET PO SCH ×2 (14:39→22:19)
--- NOTE | 2019-10-24 21:37 | Progress Note ---
Provider Note Provider Note: CARDIOLOGY PROGRESS NOTE by Dr. Allie Randall on 10/24/2019 SUBJECTIVE: The patient is off the BiPAP. She is back to baseline which shortness of breath. She still has orthopnea. She is converted to sinus rhythm. Her Cardizem drip has been discontinued last night due to bradycardia. Hence we will start the patient on a small dose of p.o. Cardizem. She denies any chest pain discomfort. She has no PND or leg edema. There is no ventricular arrhythmias seen on the monitor. She does have cough but states that she is not able to bring up any sputum. PHYSICAL EXAMINATION: The patient appears to be chronically ill and appears to be malnourished. At present off of BiPAP and is on nasal cannula oxygen. Selected Entries 10/24/19 11:51 Temperature 97.9 F Temperature Axillary Source Pulse Rate 67 Respiratory 20 Rate Blood Pressure 159/70 H Blood Pressure 99 Mean BP Location Right Arm BP Position Sitting O2 Sat by Pulse 94 Oximetry Oxygen Flow 3.00 Rate Oxygen Delivery Nasal Cannula Method HEAD: Is atraumatic. Normocephalic. EYES: Pupils are equal round regular reactive light accommodation. Extraocular movements are normal. There is no conjunctival pallor. There is no scleral icterus. EARS: Tympanic membranes are intact. External auditory canals are clear. NOSE: There is no deviated nasal septum. There is no inflammation nasal mucous membrane. MOUTH: Mucous membranes of the mouth are moist. Tongue is moist. There is no ulcers. There is no bleeding from the gums. THROAT: There is no redness of the oropharynx. There is no exudates. SKIN: There is no skin rashes. There is no petechia or ecchymosis. There is no skin lesions. NECK: Is supple. There is no JVD. Carotids are equal there is no bruit. There is no lymphadenopathy. There is no goiter. There is no accessory muscle respiration use. Trachea central. LUNGS: There is diminished air entry prolonged expiration with scattered rhonchi. There is no wheezing. There is absent breath sounds and a small area in the right base. And to a lesser area in the left base. On percussion there is hyperresonance. There is no chest wall tenderness. HEART: S1-S2 is heard. There is intermittent S1 of variable intensity. S1 is of normal intensity with the patient sinus mechanism. There is systolic murmur left sternal border and the apex there is no rub. ABDOMEN: Soft. Nontender. Recent surgical incision dressing is dry and clean. Bowel sounds are present. EXTREMITIES: Femorals are well felt. Leg pulses well felt. There is no pedal edema. There is no DVT or cellulitis. There is no cyanosis or clubbing. CORPORATE LEGAL SECRETARY: The patient is conscious awake alert oriented x3 with no focal deficit. PSYCHIATRIC: Although the patient judgment insight are intact she appears to be depressed. She is also slightly anxious. Abdomen/Pelvis CT 10/17/19 23:59 IMPRESSION: 1. 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 Urgent finding reported to Olu SILVEIRA at 10/18/2019 1:55 AM CDT This exam was performed according to our departmental dose-optimization program, which includes automated exposure control, adjustment of the mA and/or kV according to patient size and/or use of iterative reconstruction technique. Chest X-Ray 10/18/19 00:00 IMPRESSION: Tubes and lines in good positioning. Left apical pleuroparenchymal scarring. No acute infiltrates. Chest X-Ray 10/18/19 06:42 IMPRESSION: Obstructive lung disease. Tubes in good positioning Chest X-Ray 10/19/19 06:00 IMPRESSION: Obstructive lung disease. No acute infiltrate. A nasogastric tube, right jugular central line in good positioning Chest X-Ray 10/23/19 00:00 IMPRESSION: New bibasilar hazy opacities. This may represent atelectasis, however an infectious process such as pneumonia could have a similar appearance. Clinical correlation is required. Chest/Abdomen CTA 10/23/19 00:00 IMPRESSION: 1. Limited examination due to contrast bolus timing with no contrast present within pulmonary arteries. As such no evaluation for pulmonary embolus is possible. 2. Moderate right-sided pleural effusion with some loculation and small left- sided pleural effusion with some loculation. 3. Severe emphysematous changes. Labs- All tests 24 hr 10/24/19 10/24/19 10/24/19 07:43 07:43 11:01 WBC 23.5 H RBC 3.56 L Hgb 10.2 L Hct 31.8 L MCV 89 MCH 28.7 MCHC 32.2 RDW 14.4 H Plt Count 329 Lymph % (Auto) Not Reportable [place] % (Auto) Not Reportable Eos % (Auto) Not Reportable Baso % (Auto) Not Reportable Absolute Neuts (auto) Not Reportable Absolute Lymphs (auto) Not Reportable Absolute Monos (auto) Not Reportable Absolute Eos (auto) Not Reportable Absolute Basos (auto) Not Reportable Total Counted 100 Seg Neutrophils % Not Reportable Seg Neuts % (Manual) 96 H Lymphocytes % (Manual) 2 L Monocytes % (Manual) 2 L Eosinophils % (Manual) 0 Basophils % (Manual) 0 Abs Neuts (Manual) 22.6 H Abs Lymphs (Manual) 0.5 Abs Monocytes (Manual) 0.5 Absolute Eos (Manual) 0.0 Abs Basophils (Manual) 0.0 Platelet Comment ADEQUATE Anisocytosis SLIGHT Carbonic Acid HCO3/H2CO3 Ratio ABG pH ABG pCO2 ABG pO2 ABG HCO3 ABG Total CO2 ABG O2 Saturation ABG Base Excess FiO2 Sodium 134.7 L Potassium 3.9 Chloride 97 L Carbon Dioxide 32 H Anion Gap 6 BUN 15 Creatinine 0.49 L Est GFR ( Amer) > 60 Est GFR (MDRD) Non-Af > 60 Glucose 91 Lactic Acid 0.8 Calcium 8.4 10/24/19 11:35 WBC RBC Hgb Hct MCV MCH MCHC RDW Plt Count Lymph % (Auto) [place] % (Auto) Eos % (Auto) Baso % (Auto) Absolute Neuts (auto) Absolute Lymphs (auto) Absolute Monos (auto) Absolute Eos (auto) Absolute Basos (auto) Total Counted Seg Neutrophils % Seg Neuts % (Manual) Lymphocytes % (Manual) Monocytes % (Manual) Eosinophils % (Manual) Basophils % (Manual) Abs Neuts (Manual) Abs Lymphs (Manual) Abs Monocytes (Manual) Absolute Eos (Manual) Abs Basophils (Manual) Platelet Comment Anisocytosis Carbonic Acid 1.81 H HCO3/H2CO3 Ratio 20:1 ABG pH 7.41 ABG pCO2 60.0 H ABG pO2 80.4 ABG HCO3 37.2 H ABG Total CO2 39.0 H ABG O2 Saturation 95.7 ABG Base Excess 10.7 FiO2 40% Sodium Potassium Chloride Carbon Dioxide Anion Gap BUN Creatinine Est GFR ( Amer) Est GFR (MDRD) Non-Af Glucose Lactic Acid Calcium IMPRESSION/RECOMMENDATION: 1. Paroxysmal atrial fibrillation: Patient has intermittent episodes of paroxysmal atrial fibrillation. At presentation sinus rhythm. Hence the Cardizem drip has been stopped due to bradycardia. Her heart rate is improved now. We will start the patient on a small dose of Cardizem 30 mg p.o. every 8 hours and then have transition to long-acting preparation. The patient states she prefers not to be on anticoagulation. Since she has no insurance she is aware of the risks of TIA or CVA. We will try to get the patient Medicaid. 2. Acute on chronic respiratory failure with hypoxemia continue BiPAP on oxygen and respiratory treatments. 3. Chronic obstructive pulmonary disease with acute exacerbation. Patient has end-stage chronic obstructive pulmonary disease. Also the patient has sleep apnea. Hence would recommend pulmonary consult to see the patient will benefit from a outpatient noninvasive ventilator such as Trilogy. Continue intensive anti-COPD treatment including steroids. And antibiotics. This appears to be improved and the patient's making progress towards her baseline status. 4. History of hypertension: Blood pressure well controlled 5. History of hypothyroidism: Continue replacement. 6. History of depression. 7. Status post Delgado's procedure for ruptured diverticulitis: The patient is having bowel movement and there is no abdominal pain. Medications reviewed. Medications added. Medical regimen and management plan discussed with Dr Harvey in detail. 40 minutes spent on this patient more than 50% of time spent direct patient care. Medical decision making is of high complexity. Cardiac status is stable.Hence will sign off.
[2019-10-24] MEDS: RINGERS SOLUTION,LACTATED 1,000 ML IV PRN (22:19)
[2019-10-25] MEDS: PIPERACILLIN SODIUM/TAZOBACTAM 4.5 GM in NORMAL SALINE 100 ML IV SCH ×2 (04:20→10:56)
[2019-10-25] MEDS: DILTIAZEM HCL 30 MG TABLET PO SCH (06:30)
[2019-10-25] MEDS: PANTOPRAZOLE SODIUM 40 MG TABLET.DR PO SCH (06:30)
[2019-10-25] MEDS: METHYLPREDNISOLONE INJ 40 MG/1 ML SDV IV SCH ×2 (06:31→18:01)
[2019-10-25] MEDS: ENOXAPARIN SODIUM INJ 80 MG/0.8 ML DISP.SYRIN SUBCUT SCH (06:32)
[2019-10-25] MEDS: MORPHINE SULFATE 10 MG/ML INJ IV PRN ×2 (06:32→10:56)
[2019-10-25] MEDS: KETOROLAC TROMETHAMINE INJ/PF 30 MG/1 ML SDV IV SCH ×2 (06:32→17:54)
[2019-10-25 06:34] LABS: HEMATOCRIT 28.9 % (36.0-47.0); HEMOGLOBIN 9.5 g/dL (12.0-15.5); MEAN CORPUSCULAR HEMOGLOBIN 28.9 pg (27.0-33.4); MEAN CORPUSCULAR HGB CONC 32.9 g/dL (32.0-36.0); MEAN CORPUSCULAR VOLUME 88 fl (80-97); PLATELET COUNT 295 10^3/uL (150-450); RED BLOOD COUNT 3.29 10^6/uL (3.72-5.28); RED CELL DISTRIBUTION WIDTH 14.1 % (11.5-14.0); WHITE BLOOD COUNT 26.5 10^3/uL (4.0-10.5)
[2019-10-25 07:14] LABS: BLOOD UREA NITROGEN 17 mg/dL (7-20); CALCIUM 8.2 mg/dL (8.4-10.2); GLUCOSE 130 mg/dL (75-110); POTASSIUM 3.4 mmol/L (3.6-5.0)
[2019-10-25 07:19] LABS: CARBON DIOXIDE 36 mmol/L (22-30); CHLORIDE 98 mmol/L (98-107)
[2019-10-25 07:27] LABS: ABSOLUTE LYMPHOCYTES# (MANUAL) 0.5 10^3/uL (0.5-4.7); ABSOLUTE MONOCYTES # (MANUAL) 0.8 10^3/uL (0.1-1.4); ANION GAP 3 (5-19); BASOPHILS % (MANUAL) 0 % (0-2); EOSINOPHILS % (MANUAL) 0 % (0-6); LYMPHOCYTES % (MANUAL) 2 % (13-45); MONOCYTES % (MANUAL) 3 % (3-13); SEGMENTED NEUTROPHILS % (MAN) 95 % (42-78); TOTAL CELLS COUNTED 100
[2019-10-25 07:29] LABS: ANISOCYTOSIS SLIGHT; OVALOCYTES SLIGHT; PLATELET COMMENT ADEQUATE; TOXIC GRANULATION SLIGHT; TOXIC VACUOLATION PRESENT
[2019-10-25] MEDS: LEVALBUTEROL HCL NEB 1.25 MG/3 ML AMPUL NEB SCH (07:51)
--- NOTE | 2019-10-25 08:58 | RADIOLOGY REPORT (SQ) ---
EXAM DESCRIPTION: CHEST SINGLE VIEW IMAGES COMPLETED DATE/TIME: 10/25/2019 7:52 am REASON FOR STUDY: pleural effusion COMPARISON: AP view of the chest from 10/23/2019. EXAM PARAMETERS: NUMBER OF VIEWS: One view. TECHNIQUE: An AP view of the chest was obtained. RADIATION DOSE: NA LIMITATIONS: None. FINDINGS: LUNGS AND PLEURA: Unchanged radiographic appearance of the lungs and pleura. MEDIASTINUM AND HILAR STRUCTURES: Stable mediastinal and hilar contours. HEART AND VASCULAR STRUCTURES: The cardiac silhouette and pulmonary vasculature are within normal watkins its. BONES: No acute findings. HARDWARE: None in the chest. OTHER: No other finding. IMPRESSION: Unchanged bilateral basilar predominant pleural and parenchymal opacities. TECHNICAL DOCUMENTATION: JOB ID: [id number] 2010 [employer] All Rights Reserved Reading location - IP/workstation name: [email or web address]
[2019-10-25] MEDS: ESCITALOPRAM OXALATE 10 MG TABLET NG SCH (10:57)
[2019-10-25] MEDS: ASPIRIN 81 MG TABLET, CHEWABLE PO SCH (10:57)
[2019-10-25] MEDS: ARIPIPRAZOLE 5 MG TABLET PO SCH (10:57)
[2019-10-25] MEDS: FLUTICASONE/UMECLIDIN/VILANTER 100-62.5-25 MCG/DOSE IH SCH (10:58)
--- NOTE | 2019-10-25 11:10 | PDOC CONSULTATION ---
Consultation Consult Date: 10/25/19 Attending physician:: BARI MEMBRENO Provider Consulted: CHARLES BARBA Consult reason:: Acute on chronic respiratory failure History of Present Illness Admission Date/PCP: 10/18/19 04:32 YANELY DORMAN MD History of Present Illness: DEBI CHAVEZ is a 58 year old female with no medical problems presented to the hospital with abdominal pain and found out that she needed a Pina procedure. She was also noted to be in paroxysmal atrial fibrillation and is being followed by cardiology she is maintained on CPAP BiPAP at all times and is also of note that her was recently diagnosed COVID positive and her rapid screen is pending. He denies cough hemoptysis PPD status unknown no history of chronic lung disease as a child or adolescent exposed to large amounts of past smoke as a child as well as an adult she herself smoked a pack and half a day for 30 years denies any occupational exposure to potential respiratory toxins she has 1 pet dog no recent travel no anginal-like chest pain sleeps on 3 pillows no PND no nocturnal cough no edema she carries a diagnosis of obstructive sleep apnea and wears a BiPAP nightly Past Medical History Cardiac Medical History: Reports: Atrial Fibrillation, Hypertension Pulmonary Medical History: Reports: Chronic Obstructive Pulmonary Disease (COPD), Respiratory Failure, Sleep Apnea Endocrine Medical History: Reports: Hypothyroidism Renal/ Medical History: Denies: Chronic Kidney Disease, End Stage Renal Disease Malignancy Medical History: Reports: None GI Medical History: Denies: Crohn's Disease, Ulcerative Colitis Musculoskeltal Medical History: Denies: Gout Skin Medical History: Denies: Eczema, Psoriasis Psychiatric Medical History: Reports: Depression Traumatic Medical History: Denies: Gunshot Wound, Pneumothorax Hematology: Denies: Sickle Cell Disease Infectious Medical History: Denies: HIV Past Surgical History Past Surgical History: Reports: Appendectomy, Other - Pina procedure Social History Information Source: Patient, [facility] Records Smoking Status: Former Smoker Cigarettes Packs Per Day: 2 Number of Years Smokin Passive smoke exposure as: Both Frequency of Alcohol Use: None Hx Recreational Drug Use: No Hx Prescription Drug Abuse: No Do you have pets?: Yes Have you had any respiratory illnesses as a child?: No Have you been exposed to any sick contacts recently?: Yes Have you had any recent respiratory illnesses?: Yes Have you travelled outside of [place] in the past 12 months?: No - Advance Directive Resuscitation Status: Full Code Family History Family History: COPD, Hypertension Parental Family History Reviewed: Yes Children Family History Reviewed: Yes Sibling(s) Family History Reviewed.: Yes Medication/Allergy Home Medications: Aripiprazole [Abilify] 5 mg PO DAILY 07/13/18 Prednisone [Deltasone 10 mg Tablet] 10 mg PO ASDIR PRN #21 tablet 05/03/19 Budesonide [Pulmicort Neb 0.5 mg/2 ml Ampul] 0.5 mg NEB RTBID 10/18/19 Diltiazem HCl [Cardizem 30 mg Tablet] 1 tab PO DAILY 10/18/19 Escitalopram Oxalate [Lexapro 10 mg Tablet] 20 mg PO DAILY 10/18/19 Ipratropium [place] [Atrovent 0.02% Neb 0.5 mg/2.5 ml Ampul] 0.5 mg NEB RTQID 10/18/19 Levalbuterol HCl [Xopenex Neb 1.25 mg/3 ml Ampul] 1.25 mg NEB RTQ8HP PRN 10/18/19 Levothyroxine Sodium [Synthroid 0.1 mg Tablet] 0.1 mg PO QAM 10/18/19 Allergies/Adverse Reactions: No Known Allergies Allergy (Verified 10/19/19 07:35) Review of Systems Hematologic/Lymphatic: PRESENT: easy bleeding Physical Exam Vital Signs: Temp Pulse Resp BP Pulse Ox 97.5 F 58 L 17 138/61 H 91 L 10/25/19 03:27 10/25/19 07:51 10/25/19 07:51 10/25/19 03:27 10/25/19 07:51 Intake & Output 10/24/19 10/25/19 10/26/19 06:59 06:59 06:59 Intake Total 2558 2578 Output Total 1250 Balance 1308 2578 Weight 69.7 kg 73.9 kg General appearance: PRESENT: no acute distress, cooperative, disheveled, thin, well-developed, well-nourished Head exam: PRESENT: atraumatic, normocephalic Eye exam: PRESENT: conjunctiva pale, EOMI. ABSENT: nystagmus, periorbital swelling, scleral icterus Mouth exam: PRESENT: dry mucosa, neck supple, tongue midline Neck exam: ABSENT: carotid bruit, full ROM, JVD, lymphadenopathy, meningismus, tenderness, thyromegaly, tracheal deviation, tracheostomy, other Respiratory exam: PRESENT: decreased breath sounds, prolonged expiratory phas, rhonchi, symmetrical, tachypnea, wheezes. ABSENT: retraction, stridor Cardiovascular exam: PRESENT: irregular rhythm Pulses: PRESENT: normal radial pulses GI/Abdominal exam: PRESENT: soft. ABSENT: guarding, mass, rebound, tenderness Extremities exam: ABSENT: calf tenderness, clubbing, joint swelling, tenderness Musculoskeletal exam: ABSENT: deformity, dislocation Neurological exam: PRESENT: alert, awake Psychiatric exam: PRESENT: depressed, flat affect Skin exam: PRESENT: dry, warm, other - Diffuse ecchymosis Results Laboratory Results: 10/25/19 05:58 10/25/19 05:58 10/24/19 10/24/19 10/25/19 11:01 11:35 05:58 WBC 26.5 H RBC 3.29 L Hgb 9.5 L Hct 28.9 L MCV 88 MCH 28.9 MCHC 32.9 RDW 14.1 H Plt Count 295 Seg Neutrophils % Not Reportable Carbonic Acid 1.81 H HCO3/H2CO3 Ratio 20:1 ABG pH 7.41 ABG pCO2 60.0 H ABG pO2 80.4 ABG HCO3 37.2 H ABG O2 Saturation 95.7 ABG Base Excess 10.7 FiO2 40% Sodium Potassium Chloride Carbon Dioxide Anion Gap BUN Creatinine Est GFR ( Amer) Glucose Lactic Acid 0.8 Calcium 10/25/19 05:58 WBC RBC Hgb Hct MCV MCH MCHC RDW Plt Count Seg Neutrophils % Carbonic Acid HCO3/H2CO3 Ratio ABG pH ABG pCO2 ABG pO2 ABG HCO3 ABG O2 Saturation ABG Base Excess FiO2 Sodium 136.7 L Potassium 3.4 L Chloride 98 Carbon Dioxide 36 H Anion Gap 3 L BUN 17 Creatinine 0.50 L Est GFR ( Amer) > 60 Glucose 130 H Lactic Acid Calcium 8.2 L 10/18/19 00:24 Troponin I 0.012 Impressions: Abdomen/Pelvis CT 10/17/19 23:59 IMPRESSION: 1. 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 Urgent finding reported to Olu SILVEIRA at 10/18/2019 1:55 AM CDT This exam was performed according to our departmental dose-optimization program, which includes automated exposure control, adjustment of the mA and/or kV according to patient size and/or use of iterative reconstruction technique. Chest/Abdomen CTA 10/23/19 00:00 IMPRESSION: 1. Limited examination due to contrast bolus timing with no contrast present within pulmonary arteries. As such no evaluation for pulmonary embolus is possible. 2. Moderate right-sided pleural effusion with some loculation and small left- sided pleural effusion with some loculation. 3. Severe emphysematous changes. Chest X-Ray 10/25/19 08:00 IMPRESSION: Unchanged bilateral basilar predominant pleural and parenchymal opacities. Assessment & Plan - Diagnosis (1) Acute and chronic respiratory failure ([id number]) Qualifiers: Respiratory failure complication: hypoxia and hypercapnia Qualified C ode(s): J96.21 - Acute and chronic respiratory failure with hypoxia; J96.22 - Acute and chronic respiratory failure with hypercapnia Is this a current diagnosis for this admission?: Yes Plan: Even on BiPAP patient has elevated PCO2 may do better on trilogy The above patient has failed BiPAP with a patent airway. This patient would benefit from noninvasive mechanical ventilation via the trilogy AVAPS/AE and faster responding AVAPS rates. The trilogy is able to provide a target tidal volume and also adjusting the EPAP pressures to maintain a patent airway as well as an oral backup rate this machine will help improve PaCO2 levels. The severity of the patient's condition will lead to future hospitalizations and readmissions as well as life-threatening situations without the use of this device day and night. Trilogy home vent needed for [facility]capnic respiratory failure[facility] 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 8 - Other specified hypothyroidism; E06.3 - Autoimmune thyroiditis Is this a current diagnosis for this admission?: Yes Plan: Continue Synthroid (4) Chronic obstructive pulmonary disease Qualifiers: COPD type: chronic bronchitis Chronic bronchitis type: mucopurulent Qualified Code(s): J41.1 - Mucopurulent chronic bronchitis Is this a current diagnosis for this admission?: Yes Plan: Generic Name Dose Route Start Last Admin Trade Name Freq PRN Reason Stop Dose Admin Fluticasone/Vilanterol 1 inh 10/21/19 10:00 10/24/19 09:49 Trelegy 100-62.5-25 Mcg Ellipta 14 Dose/Dpi IH 11/20/19 09:59 1 inhaler DAILY JESSA Methylprednisolone Sodium Succinate 20 mg 10/24/19 18:00 10/25/19 06:31 Solu-Medrol Inj/Pf 40 Mg/1 Ml Sdv IV 11/23/19 17:59 20 mg Q12A JESSA Levalbuterol HCl 0.63 mg 10/21/19 13:20 10/23/19 12:06 Xopenex Neb 0.63 Mg/3 Ml Ampul NEB 11/20/19 13:19 0.63 mg RTQ6HP PRN FOR WHEEZING Levalbuterol HCl 1.25 mg 10/21/19 20:00 10/25/19 07:51 Xopenex Neb 1.25 Mg/3 Ml Ampul NEB 11/20/19 19:59 1.25 mg RTBID JESSA Continue current therapy consider addition of Daliresp (5) Encounter for preoperative screening laboratory testing for COVID-19 virus Is this a current diagnosis for this admission?: Yes Plan: Pending - Time Time Spent with patient: 55 min
[2019-10-25] MEDS ORDERED: DILTIAZEM HCL/D5W 125 MG/125 ML RTUINJ IV ONE (11:45)
[2019-10-25] MEDS ORDERED: FUROSEMIDE INJ/PF 40 MG/4 ML SDV ONE (11:59)
[2019-10-25 12:00] LABS: ARTERIAL BLOOD BASE EXCESS -2.1 mmol/L; ARTERIAL BLOOD FIO2 60%; ARTERIAL BLOOD H2CO3 1.38 mmol/L (1.05-1.35); ARTERIAL BLOOD HCO3 23.8 mmol/L (20-24); ARTERIAL BLOOD O2 SATURATION 98.7 % (94-98); ARTERIAL BLOOD PH 7.33 (7.35-7.45); ARTERIAL BLOOD PO2 147.6 mmHg (80-100); ARTERIAL BLOOD TOTAL CO2 25.2 mmol/L (21-25)
[2019-10-25] MEDS ORDERED: DILTIAZEM HCL/D5W 125 MG/125 ML RTUINJ IV PRN (12:15)
[2019-10-25] MEDS ORDERED: ETOMIDATE INJ/PF 20 MG/10 ML SDV IV ONE (12:48)
[2019-10-25] MEDS ORDERED: FUROSEMIDE INJ/PF 40 MG/4 ML SDV IV ONE (13:00)
--- NOTE | 2019-10-25 13:04 | PDOC PROGRESS REPORT ---
Subjective Progress Note for:: 10/25/19 Reason For Visit: PERFORATED BOWEL Patient seen on the floor at approximately 11:00 AM, and acute respiratory decompensation despite maximum side BiPAP support. Patient was found to be COVID positive this morning. Physical Exam Vital Signs: Temp Pulse Resp BP Pulse Ox 97.5 F 58 L 32 H 138/61 H 100 10/25/19 03:27 10/25/19 07:51 10/25/19 11:50 10/25/19 03:27 10/25/19 11:50 Intake & Output 10/24/19 10/25/19 10/26/19 06:59 06:59 06:59 Intake Total 2558 2578 Output Total 1250 Balance 1308 2578 Weight 69.7 kg 73.9 kg General appearance: PRESENT: other - Obvious respiratory distress with tachypnea, labored breathing Eye exam: PRESENT: other - eyes bulging slightly Respiratory exam: PRESENT: other - Severely labored respirations, with cough GI/Abdominal exam: PRESENT: other - Abdominal wall examined. Midline dressing removed all sachin intact. The ostomy has approximately 100 cc of blood and clots. Ostomy appliance removed, clot around ostomy skin interface mopped up. No active bleeding identified. Colostomy is affected with index finger; no evidence of obstruction or bleeding Results Laboratory Results: 10/25/19 05:58 10/25/19 05:58 10/25/19 10/25/19 10/25/19 05:58 05:58 11:40 WBC 26.5 H RBC 3.29 L Hgb 9.5 L Hct 28.9 L MCV 88 MCH 28.9 MCHC 32.9 RDW 14.1 H Plt Count 295 Seg Neutrophils % Not Reportable Carbonic Acid 1.38 H HCO3/H2CO3 Ratio 17:1 ABG pH 7.33 L ABG pCO2 46.0 H ABG pO2 147.6 H ABG HCO3 23.8 ABG O2 Saturation 98.7 H ABG Base Excess -2.1 FiO2 60% Sodium 136.7 L Potassium 3.4 L Chloride 98 Carbon Dioxide 36 H Anion Gap 3 L BUN 17 Creatinine 0.50 L Est GFR ( Amer) > 60 Glucose 130 H Calcium 8.2 L 10/18/19 00:24 Troponin I 0.012 Impressions: Abdomen/Pelvis CT 10/17/19 23:59 IMPRESSION: 1. 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 Urgent finding reported to Olu SILVEIRA at 10/18/2019 1:55 AM CDT This exam was performed according to our departmental dose-optimization program, which includes automated exposure control, adjustment of the mA and/or kV according to patient size and/or use of iterative reconstruction technique. Chest/Abdomen CTA 10/23/19 00:00 IMPRESSION: 1. Limited examination due to contrast bolus timing with no contrast present within pulmonary arteries. As such no evaluation for pulmonary embolus is possible. 2. Moderate right-sided pleural effusion with some loculation and small left-s ided pleural effusion with some loculation. 3. Severe emphysematous changes. Chest X-Ray 10/25/19 08:00 IMPRESSION: Unchanged bilateral basilar predominant pleural and parenchymal opacities. 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 I spoke with Dr. Gutierrez, then the ski instructor the patient is deteriora ting a pulmonary situation. We just learned that the patient tested COVID positive. Appropriate isolation quarantining being initiated. Patient being transferred to the intensive care unit. 2. Agree with the holding of Lovenox 3. We will follow patient closely with you. Patient's prognosis is extremely grave given her COPD, end-stage, now with a COVID on board. Levels of aggressiveness will need to be addressed. - Time Time Spent: 30 to 50 Minutes
[2019-10-25] MEDS ORDERED: PROPOFOL 1,000 MG/100 ML INFUS..BTL IV ONE (13:31)
--- NOTE | 2019-10-25 14:48 | Operative Report ---
Bedside Procedure - History of Present Illness Indication for Procedure: IV access; critical care Date: 10/18/19 Provider: LUÍS TILLMAN - Central Line Right Internal jugular Time completed: 14:30 Consent obtained: No - Emergency concent Central line pre-insertion: Sterile PPE donned, Chloraprep applied, Sterile drapes applied Central line size (Fr.): 7 Central line lumen type: Triple Anesthetic type: 1% Lidocaine mL's of anesthesia: 3 Ultrasound guided: Yes CM at insertion site: 16 Line secured with sutures: Yes Central line post-insertion: Blood return from lumens, Biopatch applied, Sutured, Sterile dressing applied, Position confirmed w/ CXR Number of attempts: 1 Complications: No Notes: 10/25/19 16:19 Dr. Yuan at bedside during procedure.
--- NOTE | 2019-10-25 14:53 | Progress Note ---
Provider Note Provider Note: Patient was brought down to ICU to room 604 for critical care admission. Patient was obtunded and unresponsive. Patient need to be emergently intubated for airway protection. Dentures were in place. 2 attempts to remove dentures were unsuccessful. Patient was intubated with a 7.5 ET tube, placed at 25 cm at the upper teeth. End-tidal CO2 had positive color change. Breath sounds noted in all lung guzman. Patient placed on the ventilator. Respiratory at bedside secured ET tube OG tube was also placed at [address] Yuan at bedside during procedure. ET tube placement confirmed with chest x-ray. OG tube also in proper placement in the stomach.
[2019-10-25] MEDS ORDERED: NORMAL SALINE 1000 ML 2,000 ML IV ONE (15:03)
--- NOTE | 2019-10-25 15:18 | CRITICAL CARE ADMISSION REPORT ---
HPI Date:: 10/25/19 Time:: 13:00 Reason for ICU Reason:: Respiratory failure Admission Date/Time & PCP: Admission Date/Time: 10/18/19 04:32 Primary Care Provider: YANELY DORMAN MD HPI: Patient is a 58-year-old oxygen dependent female with a history of COPD who was upgraded to the ICU for respiratory failure. Patient was in IMCU and was transferred down to the ICU for ventilator support, she was already on BiPAP upstairs. Patient was discharged from [facility] prior to admission to the hospital. She presented to the emergency department 7 days ago with abdominal pain. Patient was initially brought to the OR for exploratory laparotomy for perforated sigmoid diverticulitis. An exploratory laparotomy was done and a sigmoid colon resection was done, along with a colostomy. Upstairs, the patient was tested for COVID-19, which was positive. Patient's was positive for COVID-19 at home. History obtained from:: Medical Record - Diagnosis/Plan (1) Acute and chronic respiratory failure ([id number]) Qualifiers: Respiratory failure complication: hypoxia and hypercapnia Qualified Code(s): J96.21 - Acute and chronic respiratory failure with hypoxia; J96.22 - A cute and chronic respiratory failure with hypercapnia Is this a current diagnosis for this admission?: Yes Plan: Ventilator support until patient is able to breathe on her own. (2) COVID-19 virus detected Is this a current diagnosis for this admission?: Yes Plan: Ventilator support. (3) Chronic obstructive pulmonary disease Qualifiers: COPD type: chronic bronchitis Chronic bronchitis type: mixed simple and mucopurulent Qualified Code(s): J41.8 - Mixed simple and mucopurulent chronic bronchitis Is this a current diagnosis for this admission?: Yes Plan: Continue ventilator. Daily weaning trials. (4) Perforation of sigmoid colon due to diverticulitis Is this a current diagnosis for this admission?: Yes Plan: We will continue to collaborate with surgery. Plan Summary: Ventilator support until the patient is able to adequately breathe on her own. Prognosis: Poor. Past Medical History Cardiac Medical History: Reports: Atrial Fibrillation, Hypertension Pulmonary Medical History: Reports: Chronic Obstructive Pulmonary Disease (COPD), Respiratory Failure, Sleep Apnea Endocrine Medical History: Reports: Hypothyroidism Renal/ Medical History: Denies: Chronic Kidney Disease, End Stage Renal Disease Malignancy Medical History: Reports: None GI Medical History: Denies: Crohn's Disease, Ulcerative Colitis Musculoskeltal Medical History: Denies: Gout Skin Medical History: Denies: Eczema, Psoriasis Psychiatric Medical History: Reports: Depression Traumatic Medical History: Denies: Gunshot Wound, Pneumothorax Hematology: Denies: Sickle Cell Disease Infectious Medical History: Denies: HIV Past Surgical History Past Surgical History: Reports: Appendectomy, Other - Pina procedure Social/Family History - Social History Smoking Status: Former Smoker Cigarettes Packs Per Day: 2 Number of Years Smokin Frequency of Alcohol Use: None Hx Recreational Drug Use: No Hx Prescription Drug Abuse: No - Medication/Allergies Home Medications: Aripiprazole [Abilify] 5 mg PO DAILY 07/13/18 Prednisone [Deltasone 10 mg Tablet] 10 mg PO ASDIR PRN #21 tablet 05/03/19 Budesonide [Pulmicort Neb 0.5 mg/2 ml Ampul] 0.5 mg NEB RTBID 10/18/19 Diltiazem HCl [Cardizem 30 mg Tablet] 1 tab PO DAILY 10/18/19 Escitalopram Oxalate [Lexapro 10 mg Tablet] 20 mg PO DAILY 10/18/19 Ipratropium [place] [Atrovent 0.02% Neb 0.5 mg/2.5 ml Ampul] 0.5 mg NEB RTQID 10/18/19 Levalbuterol HCl [Xopenex Neb 1.25 mg/3 ml Ampul] 1.25 mg NEB RTQ8HP PRN 10/18/19 Levothyroxine Sodium [Synthroid 0.1 mg Tablet] 0.1 mg PO QAM 10/18/19 Allergies/Adverse Reactions: No Known Allergies Allergy (Verified 10/19/19 07:35) Review of Systems ROS unobtainable: Due to mental status Physical Exam Vital Signs: Temp Pulse Resp BP Pulse Ox 97.5 F 58 L 32 H 138/61 H 94 10/25/19 03:27 10/25/19 07:51 10/25/19 11:50 10/25/19 03:27 10/25/19 14:16 Intake & Output 10/24/19 10/25/19 10/26/19 06:59 06:59 06:59 Intake Total 2558 2578 Output Total 1250 Balance 1308 2578 Weight 69.7 kg 73.9 kg Weight/Height Weight 73.9 kg Height 5 ft 1 in General appearance: PRESENT: other - Obtunded Head exam: PRESENT: atraumatic Eye exam: PRESENT: periorbital swelling Mouth exam: PRESENT: moist, tongue midline Teeth exam: PRESENT: poor dentation Respiratory exam: PRESENT: prolonged expiratory phas, rhonchi Cardiovascular exam: PRESENT: bradycardia Pulses: PRESENT: normal radial pulses, +1 pedal pulses bilateral Vascular exam: PRESENT: pallor GI/Abdominal exam: PRESENT: hypoactive bowel sounds, soft, other - Left-sided ostomy Torso Front/Back Image: 1 - Surgical incision with sachin Rectal exam: PRESENT: deferred Gentrourinary exam: PRESENT: indwelling catheter Extremities exam: PRESENT: full ROM Musculoskeletal exam: PRESENT: other - Generalized weakness Skin exam: PRESENT: mottled Tubes/Lines: PRESENT: Endotracheal Tube - Placed in ICU, Central Line - Right IJ placed in ICU, Arterial Catheter - Right femoral placed in ICU Laboratory/Radiographs Laboratory Results: 10/25/19 05:58 10/25/19 05:58 10/25/19 10/25/19 10/25/19 05:58 05:58 11:40 WBC 26.5 H RBC 3.29 L Hgb 9.5 L Hct 28.9 L MCV 88 MCH 28.9 MCHC 32.9 RDW 14.1 H Plt Count 295 Seg Neutrophils % Not Reportable Carbonic Acid 1.38 H HCO3/H2CO3 Ratio 17:1 ABG pH 7.33 L ABG pCO2 46.0 H ABG pO2 147.6 H ABG HCO3 23.8 ABG O2 Saturation 98.7 H ABG Base Excess -2.1 FiO2 60% Sodium 136.7 L Potassium 3.4 L Chloride 98 Carbon Dioxide 36 H Anion Gap 3 L BUN 17 Creatinine 0.50 L Est GFR ( Amer) > 60 Glucose 130 H Calcium 8.2 L 10/18/19 00:24 Troponin I 0.012 Impressions: Abdomen/Pelvis CT 10/17/19 23:59 IMPRESSION: 1. 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 Urgent finding reported to Olu SILVEIRA at 10/18/2019 1:55 AM CDT This exam was performed according to our departmental dose-optimization program, which includes automated exposure control, adjustment of the mA and/or kV according to patient size and/or use of iterative reconstruction technique. Chest/Abdomen CTA 10/23/19 00:00 IMPRESSION: 1. Limited examination due to contrast bolus timing with no contrast present within pulmonary arteries. As such no evaluation for pulmonary embolus is possible. 2. Moderate right-sided pleural effusion with some loculation and small left- sided pleural effusion with some loculation. 3. Severe emphysematous changes. Chest X-Ray 10/25/19 08:00 IMPRESSION: Unchanged bilateral basilar predominant pleural and parenchymal opacities. All labs, radiographs, diagnostic studies and EKGs were personally reviewed: Yes In addition, reports of radiographic and diagnostic studies were read: Yes Critical Time Critical Time (minutes): 60 -: The care of a critically ill patient is dynamic. This note represents a static moment in the admission process. Orders and treatments may be given simultaneously and urgently, and time is not pharmaceutical service representative of the treatment process. This patient requires Critical Care secondary to life threatening organ or limb dysfunction. Without Critical Care services, the patient is at risk for increased mortality and morbidity.
--- NOTE | 2019-10-25 15:57 | RADIOLOGY REPORT (SQ) ---
EXAM DESCRIPTION: CHEST SINGLE VIEW IMAGES COMPLETED DATE/TIME: 10/25/2019 3:28 pm REASON FOR STUDY: Intubation; central line placement COMPARISON: None. EXAM PARAMETERS: NUMBER OF VIEWS: One view. TECHNIQUE: Single frontal radiographic view of the chest acquired. RADIATION DOSE: NA LIMITATIONS: None. FINDINGS: LUNGS AND PLEURA: No opacities, masses or pneumothorax. No pleural effusion. MEDIASTINUM AND HILAR STRUCTURES: No masses. Contour normal. HEART AND VASCULAR STRUCTURES: Heart normal in size. Normal vasculature. BONES: No acute findings. HARDWARE: Endotracheal tube has its tip 3 cm above the kai. Right says central line has its tip i n the superior vena cava. NG tube extends to the stomach. Ill-defined opacification in the lung bas es, left more than right. OTHER: No other significant finding. IMPRESSION: Tube placement as described. Airspace disease in both lung bases, pneumonia versus atel ectasis. TECHNICAL DOCUMENTATION: JOB ID: [id number] 2010 [employer]- All Rights Reserved Reading location - IP/workstation name: [email or web address]
[2019-10-25] MEDS ORDERED: DEXTROSE 40% GEL 15 GM TUBE PO PRN ×2 (16:40)
[2019-10-25] MEDS ORDERED: DEXTROSE 50%-WATER 25 GM/50 ML DISP.SYRIN IV PRN ×2 (16:40)
[2019-10-25] MEDS ORDERED: GLUCAGON,HUMAN RECOMB 1 MG INJ SUBCUT PRN (16:40)
[2019-10-25] MEDS ORDERED: ACETAMINOPHEN 325 MG TABLET NG PRN (16:43)
[2019-10-25] MEDS ORDERED: PHARMACY COMMUNICATION ORDER MC NR (16:45)
[2019-10-25] MEDS ORDERED: RINGERS SOLUTION,LACTATED 1,000 ML IV PRN ×2 (16:53→22:12)
[2019-10-25] MEDS: FAMOTIDINE INJ/PF 20 MG/2 ML SDV IV SCH (18:01)
[2019-10-25] MEDS: HYDROXYCHLOROQUINE SULFATE 200 MG TABLET NG SCH (18:04)
[2019-10-25] MEDS: ENOXAPARIN SODIUM INJ 40 MG/0.4 ML DISP.SYRIN SUBCUT SCH (18:14)
--- NOTE | 2019-10-25 18:38 | Operative Report ---
Bedside Procedure - History of Present Illness Indication for Procedure: Hemodynamic monitoring Date: 10/18/19 Provider: LUÍS TILLMAN - Additional Procedures Arterial Line Time performed: 17:30 Notes: Right femoral arterial line placed. ChloraPrep was used to prep the area. Ultrasound was used to identify femoral artery. Introducer needle used. Guidewire advanced with no difficulty. Catheter placed. Nursing staff assisted in connecting arterial line to monitor. Arterial line sutured in place. Biopatch and sterile dressing placed.
[2019-10-25] MEDS ORDERED: RINGERS SOLUTION,LACTATED 500 ML IV ONE ×3 (19:35→20:42)
[2019-10-25] MEDS: PROPOFOL 1,000 MG/100 ML INFUS..BTL IV PRN (20:00)
--- NOTE | 2019-10-25 20:39 | PDOC PROGRESS REPORT ---
Subjective Progress Note for:: 10/25/19 Subjective:: Patient was admitted initially for the management of perforated colon. Patient spouse is also a patient in our office, he was seen last week in the office for evaluation of respiratory symptoms and also GI symptoms, SARS-CoV-2 was suspected as a potential etiology nasal swab was taken, results return today confirming that he has SARS-CoV-2 infection. I called the floor to advise them of the result of patient spouse and the need for her to be tested for SARS-CoV-2 with a rapid test, this came back positive. Patient with end-stage COPD, this patient will probably not do well, she has respiratory failure now intubated on mechanical ventilation. I discussed this with the about prognosis. probability of dying from COVID when mechanically intubated is more than 80%. Reason For Visit: ACUTE HYPERCARBIC RESPIRATORY FAILURE,NEED FOR INT Physical Exam Vital Signs: Temp Pulse Resp BP Pulse Ox 97.3 F 59 L 20 118/37 L 96 10/25/19 17:45 10/25/19 20:00 10/25/19 16:45 10/25/19 19:50 10/25/19 19:50 Intake & Output 10/24/19 10/25/19 10/26/19 06:59 06:59 06:59 Intake Total 2558 2578 500 Output Total 1250 65 Balance 1308 2578 435 Weight 69.7 kg 73.9 kg Results Laboratory Results: 10/25/19 05:58 10/25/19 05:58 10/25/19 10/25/19 10/25/19 05:58 05:58 11:40 WBC 26.5 H RBC 3.29 L Hgb 9.5 L Hct 28.9 L MCV 88 MCH 28.9 MCHC 32.9 RDW 14.1 H Plt Count 295 Seg Neutrophils % Not Reportable Carbonic Acid 1.38 H HCO3/H2CO3 Ratio 17:1 ABG pH 7.33 L ABG pCO2 46.0 H ABG pO2 147.6 H ABG HCO3 23.8 ABG O2 Saturation 98.7 H ABG Base Excess -2.1 FiO2 60% Sodium 136.7 L Potassium 3.4 L Chloride 98 Carbon Dioxide 36 H Anion Gap 3 L BUN 17 Creatinine 0.50 L Est GFR ( Amer) > 60 Glucose 130 H Calcium 8.2 L 10/18/19 00:24 Troponin I 0.012 Impressions: Abdomen/Pelvis CT 10/17/19 23:59 IMPRESSION: 1. 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 Urgent finding reported to Olu SILVEIRA at 10/18/2019 1:55 AM CDT This exam was performed according to our departmental dose-optimization program, which includes automated exposure control, adjustment of the mA and/or kV according to patient size and/or use of iterative reconstruction technique. Chest/Abdomen CTA 10/23/19 00:00 IMPRESSION: 1. Limited examination due to contrast bolus timing with no contrast present within pulmonary arteries. As such no evaluation for pulmonary embolus is possible. 2. Moderate right-sided pleural effusion with some loculation and small left- sided pleural effusion with some loculation. 3. Severe emphysematous changes. Chest X-Ray 10/25/19 14:48 IMPRESSION: Tube placement as described. Airspace disease in both lung bases, pneumonia versus atelectasis. Assessment & Plan - Diagnosis (1) Chronic obstructive pulmonary disease Qualifiers: COPD type: chronic bronchitis Chronic bronchitis type: mixed simple and mucopurulent Qualified Code(s): J41.8 - Mixed simple and mucopurulent chronic bronchitis Is this a current diagnosis for this admission?: Yes (2) Major depression Qualifiers: Major depression recurrence: recurrent Active/Remission status: currently active Major depression episode severity: severe Psychotic features: without psychotic features Qualified Code(s): F33.2 - Major depressive disorder, recurrent severe without psychotic features Is this a current diagnosis for this admission?: Yes (3) Hypothyroidism Qualifiers: 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 Qualified Code(s): E03.8 - Other specified hypothyroidism; E06.3 - Autoimmune thyroiditis Is this a current diagnosis for this admission?: Yes (4) Perforation of sigmoid colon due to diverticulitis Is this a current diagnosis for this admission?: Yes (5) Respiratory failure Qualifiers: Chronicity: acute Respiratory failure complication: hypoxia Qualified Code(s): J96.01 - Acute respiratory failure with hypoxia Is this a current diagnosis for this admission?: Yes Plan: Patient with respiratory failure due COVID-19 positive test (U07.1, COVID-19) with Acute Pneumonia (J12.89, Other viral pneumonia) (If respiratory failure or sepsis present, add as separate assessment)In ICU intubated managed by the hearing aid dispenser (6) Atrial fibrillation with rapid ventricular response Is this a current diagnosis for this admission?: Yes - Time Time Spent with patient: 25-34 minutes Level of Care: IMCU
[2019-10-25] MEDS: IPRATROPIUM/ALBUTEROL 0.5-2.5 MG/3 ML AMPUL NEB SCH (20:58)
[2019-10-25] MEDS ORDERED: NOREPINEPHRINE BITARTRATE INJ/PF 4 MG/4 ML SDV IV ONE (21:10)
[2019-10-25] MEDS: CEFTRIAXONE 1 GM/D5W RTU 1 GM/50 ML RTUPB IV SCH (21:30)
[2019-10-25] MEDS: DEXTROSE 5%-WATER 250 ML with NOREPINEPHRINE BITARTRATE 4 MG IV PRN ×2 (21:30)
[2019-10-25] MEDS ORDERED: CEFTRIAXONE SODIUM 1,000 MG in DEXTROSE 5%-WATER 100 ML IV SCH (22:00)
[2019-10-25] MEDS ORDERED: VASOPRESSIN INJ 20 UNIT/1 ML VIAL ONE (22:05)
[2019-10-25] MEDS ORDERED: DEXTROSE 5%-WATER 250 ML with VASOPRESSIN 100 UNIT IV PRN ×2 (22:11)
[2019-10-25 22:18] LABS: APPEARANCE,URINE CLOUDY; BILIRUBIN,URINE NEGATIVE (NEGATIVE); COLOR,URINE YELLOW; GLUCOSE, URINE 50 mg/dL (NEGATIVE); KETONES,URINE NEGATIVE (NEGATIVE); LEUKOCYTE ESTERASE,URINE NEGATIVE (NEGATIVE); NITRITE,URINE NEGATIVE (NEGATIVE); PROTEIN,URINE 100 mg/dL (NEGATIVE); URINE SPECIFIC GRAVITY 1.012; UROBILINOGEN,URINE NEGATIVE mg/dL (<2.0)
[2019-10-25 22:25] LABS: BLOOD UREA NITROGEN 26 mg/dL (7-20); GLUCOSE 143 mg/dL (75-110); PHOSPHORUS 3.6 mg/dL (2.5-4.5); POTASSIUM 3.6 mmol/L (3.6-5.0)
[2019-10-25 22:31] LABS: CARBON DIOXIDE 29 mmol/L (22-30); CHLORIDE 105 mmol/L (98-107)
[2019-10-25 22:37] LABS: ANION GAP 3 (5-19)
[2019-10-25] MEDS: AZITHROMYCIN 500 MG in DEXTROSE 5%-WATER 250 ML IV SCH (22:39)
[2019-10-25] MEDS ORDERED: AZITHROMYCIN INJ 500 MG VIAL IV ONE (23:00)
[2019-10-26] MEDS: IPRATROPIUM/ALBUTEROL 0.5-2.5 MG/3 ML AMPUL NEB SCH ×6 (00:50→19:53)
[2019-10-26] MEDS: RINGERS SOLUTION,LACTATED 1,000 ML IV PRN ×2 (01:30→02:51)
[2019-10-26 03:09] LABS: ANION GAP 5 (5-19); BLOOD UREA NITROGEN 30 mg/dL (7-20); CARBON DIOXIDE 29 mmol/L (22-30); CHLORIDE 102 mmol/L (98-107); GLUCOSE 196 mg/dL (75-110); POTASSIUM 3.4 mmol/L (3.6-5.0)
[2019-10-26 03:46] LABS: HEMATOCRIT 16.1 % (36.0-47.0); MEAN CORPUSCULAR HEMOGLOBIN 28.1 pg (27.0-33.4); MEAN CORPUSCULAR HGB CONC 31.8 g/dL (32.0-36.0); MEAN CORPUSCULAR VOLUME 88 fl (80-97); PLATELET COUNT 251 10^3/uL (150-450); RED BLOOD COUNT 1.83 10^6/uL (3.72-5.28); RED CELL DISTRIBUTION WIDTH 14.3 % (11.5-14.0)
[2019-10-26 04:01] LABS: ARTERIAL BLOOD BASE EXCESS 3.9 mmol/L; ARTERIAL BLOOD FIO2 40%; ARTERIAL BLOOD H2CO3 1.35 mmol/L (1.05-1.35); ARTERIAL BLOOD HCO3 28.7 mmol/L (20-24); ARTERIAL BLOOD O2 SATURATION 95.9 % (94-98); ARTERIAL BLOOD PCO2 44.8 mmHg (35-45); ARTERIAL BLOOD PH 7.42 (7.35-7.45); ARTERIAL BLOOD PO2 79.6 mmHg (80-100)
[2019-10-26] MEDS: LEVALBUTEROL HCL NEB 1.25 MG/3 ML AMPUL NEB SCH (04:04)
[2019-10-26 04:09] LABS: ABSOLUTE LYMPHOCYTES# (MANUAL) 0.9 10^3/uL (0.5-4.7); ABSOLUTE MONOCYTES # (MANUAL) 0.4 10^3/uL (0.1-1.4); BASOPHILS % (MANUAL) 0 % (0-2); EOSINOPHILS % (MANUAL) 0 % (0-6); LYMPHOCYTES % (MANUAL) 2 % (13-45); MONOCYTES % (MANUAL) 1 % (3-13); SEGMENTED NEUTROPHILS % (MAN) 97 % (42-78); TOTAL CELLS COUNTED 100
[2019-10-26 04:10] LABS: ANISOCYTOSIS SLIGHT; HYPOCHROMASIA SLIGHT; OVALOCYTES SLIGHT; PLATELET COMMENT ADEQUATE; POIKILOCYTOSIS SLIGHT; TOXIC GRANULATION 1+
[2019-10-26 04:17] LABS: WHITE BLOOD COUNT 44.3 10^3/uL (4.0-10.5)
[2019-10-26 04:18] LABS: HEMOGLOBIN 5.1 g/dL (12.0-15.5)
[2019-10-26] MEDS ORDERED: NORMAL SALINE 250 ML IV PRN ×2 (04:21)
[2019-10-26 05:02] LABS: CALCIUM 6.8 mg/dL (8.4-10.2)
[2019-10-26] MEDS ORDERED: RINGERS SOLUTION,LACTATED 1,000 ML IV PRN (05:41)
[2019-10-26] MEDS: METHYLPREDNISOLONE INJ 40 MG/1 ML SDV IV SCH ×2 (05:51→17:50)
[2019-10-26] MEDS: FAMOTIDINE INJ/PF 20 MG/2 ML SDV IV SCH ×2 (05:51→17:48)
[2019-10-26] MEDS: PANTOPRAZOLE SODIUM 40 MG PACKET.DR NG SCH (05:54)
[2019-10-26] MEDS: MAGNESIUM SULFATE/D5W 1 GM/100 ML RTUPB IV SCH ×4 (06:25→09:20)
[2019-10-26] MEDS: POTASSI CL 20 MEQ/50 ML RIDER 20 MEQ/50 ML RTUPB IV SCH ×4 (06:25→20:05)
[2019-10-26] MEDS: PROPOFOL 1,000 MG/100 ML INFUS..BTL IV PRN ×3 (06:39→23:45)
--- NOTE | 2019-10-26 08:23 | RADIOLOGY REPORT (SQ) ---
EXAM DESCRIPTION: CHEST SINGLE VIEW IMAGES COMPLETED DATE/TIME: 10/26/2019 6:42 am REASON FOR STUDY: r/o worsening infiltrate COMPARISON: AP view of the chest from 10/25/2019. EXAM PARAMETERS: NUMBER OF VIEWS: One view. TECHNIQUE: An AP view of the chest was obtained. RADIATION DOSE: NA LIMITATIONS: None. FINDINGS: LUNGS AND PLEURA: Unchanged radiographic appearance of the lungs and pleura. MEDIASTINUM AND HILAR STRUCTURES: Stable mediastinal and hilar contours. HEART AND VASCULAR STRUCTURES: Stable cardiac silhouette. BONES: No acute findings. HARDWARE: The tip of the endotracheal tube projects 4.9 cm above the kai. The tip of the right IJ central venous catheter projects within the SVC. The tip of the endotracheal tube projects past the gastroesophageal junction and outside the field of view of the radiograph. OTHER: No other finding. IMPRESSION: Tubes and lines as above. Otherwise unchanged radiographic appearance of the chest. TECHNICAL DOCUMENTATION: JOB ID: [id number] 2010 [employer]- All Rights Reserved Reading location - IP/workstation name: [email or web address]
[2019-10-26] MEDS: ARIPIPRAZOLE 5 MG TABLET NG SCH (09:21)
[2019-10-26] MEDS: ASPIRIN 81 MG TABLET, CHEWABLE NG SCH (09:22)
[2019-10-26] MEDS: ESCITALOPRAM OXALATE 10 MG TABLET NG SCH (09:23)
[2019-10-26] MEDS: HYDROXYCHLOROQUINE SULFATE 200 MG TABLET NG SCH ×3 (09:24→18:49)
[2019-10-26] MEDS: ENOXAPARIN SODIUM INJ 40 MG/0.4 ML DISP.SYRIN SUBCUT SCH (09:24)
--- NOTE | 2019-10-26 09:24 | PDOC PROGRESS REPORT ---
Subjective Progress Note for:: 10/26/19 Reason For Visit: ACUTE HYPERCARBIC RESPIRATORY FAILURE,NEED FOR INT Physical Exam Vital Signs: Temp Pulse Resp BP Pulse Ox 99.7 F 71 16 160/55 H 96 10/26/19 09:10 10/26/19 09:10 10/26/19 09:10 10/26/19 08:00 10/26/19 09:10 Intake & Output 10/25/19 10/26/19 10/27/19 06:59 06:59 06:59 Intake Total 2578 3285 651 Output Total 426 90 Balance 2578 6099 561 Weight 73.9 kg 76.7 kg Results Laboratory Results: 10/26/19 03:19 10/26/19 02:10 10/25/19 10/25/19 10/25/19 11:40 21:45 21:45 WBC RBC Hgb Hct MCV MCH MCHC RDW Plt Count Seg Neutrophils % Carbonic Acid 1.38 H HCO3/H2CO3 Ratio 17:1 ABG pH 7.33 L ABG pCO2 46.0 H ABG pO2 147.6 H ABG HCO3 23.8 ABG O2 Saturation 98.7 H ABG Base Excess -2.1 FiO2 60% Sodium Potassium Chloride Carbon Dioxide Anion Gap BUN Creatinine Est GFR ( Amer) Glucose Calcium Ionized Calcium Dayna 1.07 L Phosphorus Magnesium Ferritin TSH Urine Color YELLOW Urine Appearance CLOUDY Urine pH 6.0 Ur Specific [place] 1.012 Urine Protein 100 H Urine Glucose (UA) 50 H Urine Ketones NEGATIVE Urine Blood MODERATE H Urine Nitrite NEGATIVE Ur Leukocyte Esterase NEGATIVE Urine WBC (Auto) 15 Urine RBC (Auto) 13 Blood Type Antibody Screen 10/25/19 10/25/19 10/26/19 21:45 21:45 02:10 WBC RBC Hgb Hct MCV MCH MCHC RDW Plt Count Seg Neutrophils % Carbonic Acid HCO3/H2CO3 Ratio ABG pH ABG pCO2 ABG pO2 ABG HCO3 ABG O2 Saturation ABG Base Excess FiO2 Sodium 136.9 L 136.2 L Potassium 3.6 3.4 L Chloride 105 102 Carbon Dioxide 29 29 Anion Gap 3 L 5 BUN 26 H 30 H Creatinine 1.12 1.06 Est GFR ( Amer) > 60 > 60 Glucose 143 H 196 H Calcium 7.0 L* 6.8 L* Ionized Calcium Dayna Phosphorus 3.6 Magnesium 1.6 Ferritin 1280.00 H TSH 1.14 Urine Color Urine Appearance Urine pH Ur Specific [place] Urine Protein Urine Glucose (UA) Urine Ketones Urine Blood Urine Nitrite Ur Leukocyte Esterase Urine WBC (Auto) Urine RBC (Auto) Blood Type Antibody Screen 10/26/19 10/26/19 10/26/19 02:10 03:19 03:19 WBC Cancelled 44.3 H* RBC Cancelled 1.83 L Hgb Cancelled 5.1 L D Hct Cancelled 16.1 L MCV Cancelled 88 MCH Cancelled 28.1 MCHC Cancelled 31.8 L RDW Cancelled 14.3 H Plt Count Cancelled 251 Seg Neutrophils % Cancelled Not Reportable Carbonic Acid 1.35 HCO3/H2CO3 Ratio 21:1 ABG pH 7.42 ABG pCO2 44.8 ABG pO2 79.6 L ABG HCO3 28.7 H ABG O2 Saturation 95.9 ABG Base Excess 3.9 FiO2 40% Sodium Potassium Chloride Carbon Dioxide Anion Gap BUN Creatinine Est GFR ( Amer) Glucose Calcium Ionized Calcium Dayna Phosphorus Magnesium Ferritin TSH Urine Color Urine Appearance Urine pH Ur Specific [place] Urine Protein Urine Glucose (UA) Urine Ketones Urine Blood Urine Nitrite Ur Leukocyte Esterase Urine WBC (Auto) Urine RBC (Auto) Blood Type Antibody Screen 10/26/19 03:19 WBC RBC Hgb Hct MCV MCH MCHC RDW Plt Count Seg Neutrophils % Carbonic Acid HCO3/H2CO3 Ratio ABG pH ABG pCO2 ABG pO2 ABG HCO3 ABG O2 Saturation ABG Base Excess FiO2 Sodium Potassium Chloride Carbon Dioxide Anion Gap BUN Creatinine Est GFR ( Amer) Glucose Calcium Ionized Calcium Dayna Phosphorus Magnesium Ferritin TSH Urine Color Urine Appearance Urine pH Ur Specific [place] Urine Protein Urine Glucose (UA) Urine Ketones Urine Blood Urine Nitrite Ur Leukocyte Esterase Urine WBC (Auto) Urine RBC (Auto) Blood Type O POSITIVE Antibody Screen NEGATIVE 10/18/19 00:24 Troponin I 0.012 Impressions: Abdomen/Pelvis CT 10/17/19 23:59 IMPRESSION: 1. 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 Urgent finding reported to Olu SILVEIRA at 10/18/2019 1:55 AM CDT This exam was performed according to our departmental dose-optimization program, which includes automated exposure control, adjustment of the mA and/or kV according to patient size and/or use of iterative reconstruction technique. Chest/Abdomen CTA 10/23/19 00:00 IMPRESSION: 1. Limited examination due to contrast bolus timing with no contrast present within pulmonary arteries. As such no evaluation for pulmonary embolus is possible. 2. Moderate right-sided pleural effusion with some loculation and small left- sided pleural effusion with some loculation. 3. Severe emphysematous changes. Chest X-Ray 10/26/19 05:36 IMPRESSION: Tubes and lines as above. Otherwise unchanged radiographic appearance of the chest. Assessment & Plan - Diagnosis (1) Free intraperitoneal air Is this a current diagnosis for this admission?: Yes (2) Acute abdomen Is this a current diagnosis for this admission?: Yes (3) Diverticulitis Is this a current diagnosis for this admission?: Yes - Plan Summary Plan Summary: 58-year-old female status post Delgado's procedure for perforated sigmoid diverticulitis. The patient's ostomy is pink and productive. She remains on the ventilator, related to her poor baseline pulmonary status plus new infection with COVID-19. Critical care and ventilator management per the cement handler service. Surgery will continue to follow the patient, in relation to her intra- abdominal process. Continue with current supportive measures at this time.
[2019-10-26] MEDS: FLUTICASONE/UMECLIDIN/VILANTER 100-62.5-25 MCG/DOSE IH SCH (09:25)
[2019-10-26 11:53] LABS: HEMATOCRIT 28.5 % (36.0-47.0); MEAN CORPUSCULAR HEMOGLOBIN 29.4 pg (27.0-33.4); MEAN CORPUSCULAR HGB CONC 34.1 g/dL (32.0-36.0); MEAN CORPUSCULAR VOLUME 86 fl (80-97); PLATELET COUNT 184 10^3/uL (150-450); RED CELL DISTRIBUTION WIDTH 14.3 % (11.5-14.0)
[2019-10-26 12:09] LABS: BLOOD UREA NITROGEN 34 mg/dL (7-20); GLUCOSE 188 mg/dL (75-110); POTASSIUM 3.7 mmol/L (3.6-5.0)
[2019-10-26 12:15] LABS: CARBON DIOXIDE 29 mmol/L (22-30); CHLORIDE 102 mmol/L (98-107)
[2019-10-26 12:17] LABS: HEMOGLOBIN 9.7 g/dL (12.0-15.5); WHITE BLOOD COUNT 39.7 10^3/uL (4.0-10.5)
[2019-10-26] MEDS: BUDESONIDE NEB 0.25 MG/2 ML AMPUL NEB SCH ×2 (12:22→19:53)
[2019-10-26 12:27] LABS: ANION GAP 4 (5-19)
[2019-10-26] MEDS ORDERED: FENTANYL CITRATE INJ/PF 100 MCG/2 ML AMPUL ONE (13:13)
[2019-10-26] MEDS: FENTANYL CITRATE INJ/PF 100 MCG/2 ML AMPUL IV PRN ×3 (13:15→22:46)
[2019-10-26] MEDS ORDERED: POTASSIUM CHLORIDE 20 MEQ PACKET PO ONE (14:10)
[2019-10-26 14:22] LABS: PATH REVIEW PATHOLOGIST REVIEWED
--- NOTE | 2019-10-26 15:45 | RADIOLOGY REPORT (SQ) ---
EXAM DESCRIPTION: VENOUS UNILATERAL UPPER IMAGES COMPLETED DATE/TIME: 10/26/2019 3:27 pm REASON FOR STUDY: right upper extremity swelling COMPARISON: None. TECHNIQUE: Dynamic and static bae scale and color images acquired of the right arm venous system. S elected spectral images acquired with additional compression and augmentation maneuvers. The contrala teral subclavian vein and internal jugular vein were also imaged. Images stored on PACS. LIMITATIONS: None. FINDINGS: INTERNAL JUGULAR VEIN: Not able be seen because of central line with a bandage. SUBCLAVIAN VEIN: Normal compression, augmentation. No visualized echogenic material on bae scale. No defects on color images. AXILLARY VEIN: Normal compression, augmentation. No visualized echogenic material on bae scale. No d efects on color images. BRACHIAL VEIN: Normal compression, augmentation. No visualized echogenic material on bae scale. No d efects on color images. BASILIC VEIN: Normal compression, augmentation. No visualized echogenic material on bae scale. No de fects on color images. CEPHALIC VEIN: Normal compression, augmentation. No visualized echogenic material on bae scale. No d efects on color images. OTHER: No other significant finding. CONTRALATERAL SUBCLAVIAN VEIN AND INTERNAL JUGULAR VEIN: Normal phasicity, compression and augmentation. No visualized echogenic material on bae scale. No de fects on color images. IMPRESSION: NO EVIDENCE DVT OR SVT IN THE RIGHT ARM. TECHNICAL DOCUMENTATION: JOB ID: [id number] 2010 [employer]- All Rights Reserved Reading location - IP/workstation name: [email or web address]
--- NOTE | 2019-10-26 17:08 | PDOC CRITICAL CARE PROG REPORT ---
General Date:: 10/26/19 ICU Day:: 2 Ventilator Day:: 2 Hospital Day:: 10 Resuscitation Status: Full Code Medical Power of Drupal Web Developer: Daniel Cole Events in the past 12 to 24 Hours:: This is a 58-year-old female with acute respiratory failure due to COVID-19 pneumonia, identified on 10/24. She was admitted on 10/16 with abdominal pain, which was determined to be due to complicated (perforated) sigmoid diverticulitis. She underwent exploratory laparotomy with sigmoid resection and descending colon colostomy formation on 10/17. Surgery was complicated by feculent peritonitis and septic shock. She was treated with Zosyn and vasopressors. Her hospitalization has been complicated by the development of atrial fibrillation with rapid ventricular response, rate controlled with Cardizem. She actually was recovering well and transferred out of the ICU only to return on , requiring reintubation due to increased work of breathing 10/25: Remains intubated. On SIMV (PRVC) + PSV. FiO2 40%. Respiratory rate 20. Sedated with propofol. Off vasopressors. She has been started on Rocephin/ azithromycin for empiric treatment of community-acquired pneumonia. On Plaquenil. DVT prophylaxis has been discontinued due to concerns about potential bleeding from her colostomy. No bloody output is noted at this time. Nurse reports concerns about increased swelling in the right upper extremity. Patient demonstrates decreased pain sensation and some decrease in mobility of the right upper extremity. WBC 44.3, on steroids. Review of systems relevant to events:: Gastrointestinal: Status post exploratory laparotomy for perforated sigmoid diverticulitis Pulmonary: Acute respiratory failure, COVID-19 pneumonia Reason for ICU Addmission:: Respiratory failure - Medications: Medications reviewed and adjusted accordingly: Yes Physical Exam Vital Signs: Temp Pulse Resp BP Pulse Ox 99.3 F 71 22 H 160/55 H 97 10/26/19 10:00 10/26/19 09:10 10/26/19 10:00 10/26/19 08:00 10/26/19 10:00 Intake & Output 10/25/19 10/26/19 10/27/19 06:59 06:59 06:59 Intake Total 2578 9462 652 Output Total 426 280 Balance 9478 2469 372 Weight 73.9 kg 76.7 kg Weight/Height Weight 76.7 kg Height 1.55 m General appearance: PRESENT: no acute distress, cooperative Head exam: PRESENT: atraumatic, normocephalic Eye exam: PRESENT: conjunctiva pink, EOMI, PERRLA. ABSENT: conjunctival injection Mouth exam: PRESENT: moist, neck supple, other - ET tube in situ Neck exam: PRESENT: full ROM. ABSENT: carotid bruit, JVD, meningismus, tenderness Respiratory exam: PRESENT: clear to auscultation christina. ABSENT: rales, rhonchi Cardiovascular exam: PRESENT: irregular rhythm. ABSENT: gallop, rubs, systolic murmur Pulses: PRESENT: normal carotid pulses, normal dorsalis pedis pul GI/Abdominal exam: PRESENT: diminished bowel sounds, hypoactive bowel sounds, soft, other - Surgical incision stapled. ABSENT: distended, firm, guarding, mass, tenderness Neurological exam: PRESENT: alert, awake, CN II-XII grossly intact, motor sensory deficit - Right upper extremity weakness and decreased pain sensation Psychiatric exam: ABSENT: agitated, anxious Tubes/Lines: PRESENT: Endotracheal Tube, Central Line - Right IJ, Arterial Catheter - Right femoral, Nasogastic Tube Laboratory/Radiographs Laboratory Results: 10/26/19 03:19 10/26/19 02:10 10/25/19 10/25/19 10/25/19 11:40 21:45 21:45 WBC RBC Hgb Hct MCV MCH MCHC RDW Plt Count Seg Neutrophils % Carbonic Acid 1.38 H HCO3/H2CO3 Ratio 17:1 ABG pH 7.33 L ABG pCO2 46.0 H ABG pO2 147.6 H ABG HCO3 23.8 ABG O2 Saturation 98.7 H ABG Base Excess -2.1 FiO2 60% Sodium Potassium Chloride Carbon Dioxide Anion Gap BUN Creatinine Est GFR ( Amer) Glucose Calcium Ionized Calcium Dayna 1.07 L Phosphorus Magnesium Ferritin TSH Urine Color YELLOW Urine Appearance CLOUDY Urine pH 6.0 Ur Specific [place] 1.012 Urine Protein 100 H Urine Glucose (UA) 50 H Urine Ketones NEGATIVE Urine Blood MODERATE H Urine Nitrite NEGATIVE Ur Leukocyte Esterase NEGATIVE Urine WBC (Auto) 15 Urine RBC (Auto) 13 Blood Type Antibody Screen 10/25/19 10/25/19 10/26/19 21:45 21:45 02:10 WBC RBC Hgb Hct MCV MCH MCHC RDW Plt Count Seg Neutrophils % Carbonic Acid HCO3/H2CO3 Ratio ABG pH ABG pCO2 ABG pO2 ABG HCO3 ABG O2 Saturation ABG Base Excess FiO2 Sodium 136.9 L 136.2 L Potassium 3.6 3.4 L Chloride 105 102 Carbon Dioxide 29 29 Anion Gap 3 L 5 BUN 26 H 30 H Creatinine 1.12 1.06 Est GFR ( Amer) > 60 > 60 Glucose 143 H 196 H Calcium 7.0 L* 6.8 L* Ionized Calcium Dayna Phosphorus 3.6 Magnesium 1.6 Ferritin 1280.00 H TSH 1.14 Urine Color Urine Appearance Urine pH Ur Specific [place] Urine Protein Urine Glucose (UA) Urine Ketones Urine Blood Urine Nitrite Ur Leukocyte Esterase Urine WBC (Auto) Urine RBC (Auto) Blood Type Antibody Screen 10/26/19 10/26/19 10/26/19 02:10 03:19 03:19 WBC Cancelled 44.3 H* RBC Cancelled 1.83 L Hgb Cancelled 5.1 L D Hct Cancelled 16.1 L MCV Cancelled 88 MCH Cancelled 28.1 MCHC Cancelled 31.8 L RDW Cancelled 14.3 H Plt Count Cancelled 251 Seg Neutrophils % Cancelled Not Reportable Carbonic Acid 1.35 HCO3/H2CO3 Ratio 21:1 ABG pH 7.42 ABG pCO2 44.8 ABG pO2 79.6 L ABG HCO3 28.7 H ABG O2 Saturation 95.9 ABG Base Excess 3.9 FiO2 40% Sodium Potassium Chloride Carbon Dioxide Anion Gap BUN Creatinine Est GFR ( Amer) Glucose Calcium Ionized Calcium Dayna Phosphorus Magnesium Ferritin TSH Urine Color Urine Appearance Urine pH Ur Specific [place] Urine Protein Urine Glucose (UA) Urine Ketones Urine Blood Urine Nitrite Ur Leukocyte Esterase Urine WBC (Auto) Urine RBC (Auto) Blood Type Antibody Screen 10/26/19 03:19 WBC RBC Hgb Hct MCV MCH MCHC RDW Plt Count Seg Neutrophils % Carbonic Acid HCO3/H2CO3 Ratio ABG pH ABG pCO2 ABG pO2 ABG HCO3 ABG O2 Saturation ABG Base Excess FiO2 Sodium Potassium Chloride Carbon Dioxide Anion Gap BUN Creatinine Est GFR ( Amer) Glucose Calcium Ionized Calcium Dayna Phosphorus Magnesium Ferritin TSH Urine Color Urine Appearance Urine pH Ur Specific [place] Urine Protein Urine Glucose (UA) Urine Ketones Urine Blood Urine Nitrite Ur Leukocyte Esterase Urine WBC (Auto) Urine RBC (Auto) Blood Type O POSITIVE Antibody Screen NEGATIVE 10/18/19 00:24 Troponin I 0.012 Impressions: Abdomen/Pelvis CT 10/17/19 23:59 IMPRESSION: 1. 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 Urgent finding reported to Olu SILVEIRA at 10/18/2019 1:55 AM CDT This exam was performed according to our departmental dose-optimization program, which includes automated exposure control, adjustment of the mA and/or kV according to patient size and/or use of iterative reconstruction technique. Chest/Abdomen CTA 10/23/19 00:00 IMPRESSION: 1. Limited examination due to contrast bolus timing with no contrast present within pulmonary arteries. As such no evaluation for pulmonary embolus is possible. 2. Moderate right-sided pleural effusion with some loculation and small left- sided pleural effusion with some loculation. 3. Severe emphysematous changes. Chest X-Ray 10/26/19 05:36 IMPRESSION: Tubes and lines as above. Otherwise unchanged radiographic appearance of the chest. All labs, radiographs, diagnostic studies and EKGs were personally reviewed: Yes In addition, reports of radiographic and diagnostic studies were read: Yes Assessment and Plan - Diagnosis (1) Acute and chronic respiratory failure ([id number]) Qualifiers: Respiratory failure complication: hypoxia and hypercapnia Qualified Code(s): J96.21 - Acute and chronic respiratory failure with hypoxia; J96.22 - Acute and chronic respiratory failure with hypercapnia Is this a current diagnosis for this admission?: Yes Plan: Titrate vent settings based on ABG results. Propofol for sedation. Titrate for RASS -2. Check CVP. Start TF today. (2) Pneumonia due to COVID-19 virus Is this a current diagnosis for this admission?: Yes Plan: Currently on hydroxychloroquine 200 mg NG 3 times daily (10-day course). Also on azithromycin. Decrease azithromycin to 250 mg IV daily. (3) Atrial fibrillation with rapid ventricular response Is this a current diagnosis for this admission?: Yes Plan: Rate controlled with diltiazem 30 mg NG every 8 hours. (4) Hypokalemia Is this a current diagnosis for this admission?: Yes Plan: Replete (5) Hypomagnesemia Is this a current diagnosis for this admission?: Yes Plan: Replete (6) Leukocytosis Qualifiers: Leukocytosis type: unspecified Qualified Code(s): D72.829 - Elevated white blood cell count, unspecified Is this a current diagnosis for this admission?: Yes (7) Peritonitis, acute generalized Is this a current diagnosis for this admission?: Yes (8) Chronic obstructive pulmonary disease Qualifiers: COPD type: chronic bronchitis Chronic bronchitis type: mixed simple and mucopurulent Qualified Code(s): J41.8 - Mixed simple and mucopurulent chronic bronchitis Is this a current diagnosis for this admission?: Yes Plan: Continue Duonebs. Add Pulmicort. (9) Swelling of right upper extremity Is this a current diagnosis for this admission?: Yes Plan: Ultrasound right upper extremity to rule out DVT. Critical Time Critical Time (minutes): 45 Level of Care: ICU -: 1. The care of a critical patient is a dynamic process. This note is a sales representative door to door synopsis but static in nature. The timeframe for treatments given in order is not necessarily the actual time these treatments may have been done. 2. This patient requires critical care secondary to ongoing requirements for therapy not offered or safe outside the critical care environment. Transfer to a lower level of care will result in altered life or limb morbidity and mortality. 3. Multidisciplinary rounds completed. 4. ABCDE bundle addressed.
[2019-10-26] MEDS ORDERED: NORMAL SALINE 1000 ML 1,000 ML IV PRN (17:16)
[2019-10-26] MEDS ORDERED: POTASSI CL 20 MEQ/NS 1L 1,000 ML IV PRN (17:18)
[2019-10-26] MEDS ORDERED: FUROSEMIDE INJ/PF 40 MG/4 ML SDV IV PRN (17:22)
[2019-10-26] MEDS: CEFTRIAXONE 1 GM/D5W RTU 1 GM/50 ML RTUPB IV SCH (17:51)
[2019-10-26] MEDS ORDERED: FUROSEMIDE INJ/PF 20 MG/2 ML SDV IV ONE (18:00)
[2019-10-26] MEDS: AZITHROMYCIN 500 MG in DEXTROSE 5%-WATER 250 ML IV SCH (22:46)
[2019-10-27] MEDS: IPRATROPIUM/ALBUTEROL 0.5-2.5 MG/3 ML AMPUL NEB SCH ×6 (00:04→21:23)
[2019-10-27 01:13] LABS: ANION GAP 5 (5-19); BLOOD UREA NITROGEN 38 mg/dL (7-20); CARBON DIOXIDE 29 mmol/L (22-30); CHLORIDE 101 mmol/L (98-107); GLUCOSE 241 mg/dL (75-110); POTASSIUM 4.4 mmol/L (3.6-5.0)
[2019-10-27 01:20] LABS: CALCIUM 7.1 mg/dL (8.4-10.2)
[2019-10-27] MEDS ORDERED: INSULIN REG, HUMAN 100 UNIT/ML 3 ML VIAL (PYX) SUBCUT ONE (02:06)
[2019-10-27] MEDS: INSULIN REG, HUMAN 100 UNIT/ML 3 ML VIAL (PYX) SUBCUT SCH ×3 (05:36→18:28)
[2019-10-27] MEDS: METHYLPREDNISOLONE INJ 40 MG/1 ML SDV IV SCH ×2 (05:36→17:52)
[2019-10-27] MEDS: PANTOPRAZOLE SODIUM 40 MG PACKET.DR NG SCH (05:36)
[2019-10-27] MEDS: FAMOTIDINE INJ/PF 20 MG/2 ML SDV IV SCH ×2 (05:36→17:52)
[2019-10-27 06:13] LABS: ARTERIAL BLOOD BASE EXCESS 3.5 mmol/L; ARTERIAL BLOOD FIO2 40%; ARTERIAL BLOOD H2CO3 1.31 mmol/L (1.05-1.35); ARTERIAL BLOOD HCO3 28.2 mmol/L (20-24); ARTERIAL BLOOD O2 SATURATION 95.3 % (94-98); ARTERIAL BLOOD PCO2 43.5 mmHg (35-45); ARTERIAL BLOOD PH 7.43 (7.35-7.45); ARTERIAL BLOOD PO2 74.6 mmHg (80-100); ARTERIAL BLOOD TOTAL CO2 29.5 mmol/L (21-25)
[2019-10-27 06:35] LABS: BLOOD UREA NITROGEN 40 mg/dL (7-20); CALCIUM 7.3 mg/dL (8.4-10.2); CARBON DIOXIDE 29 mmol/L (22-30); CHLORIDE 103 mmol/L (98-107); GLUCOSE 158 mg/dL (75-110); HEMATOCRIT 24.5 % (36.0-47.0); HEMOGLOBIN 8.3 g/dL (12.0-15.5); MEAN CORPUSCULAR HEMOGLOBIN 29.2 pg (27.0-33.4); MEAN CORPUSCULAR HGB CONC 33.9 g/dL (32.0-36.0); MEAN CORPUSCULAR VOLUME 86 fl (80-97); PHOSPHORUS 3.1 mg/dL (2.5-4.5); PLATELET COUNT 160 10^3/uL (150-450); POTASSIUM 4.6 mmol/L (3.6-5.0); RED BLOOD COUNT 2.85 10^6/uL (3.72-5.28); RED CELL DISTRIBUTION WIDTH 14.5 % (11.5-14.0)
[2019-10-27 06:41] LABS: ANION GAP 3 (5-19)
[2019-10-27 07:21] LABS: ABSOLUTE MONOCYTES # (MANUAL) 0.3 10^3/uL (0.1-1.4); BASOPHILS % (MANUAL) 0 % (0-2); EOSINOPHILS % (MANUAL) 0 % (0-6); LYMPHOCYTES % (MANUAL) 0 % (13-45); MONOCYTES % (MANUAL) 1 % (3-13); SEGMENTED NEUTROPHILS % (MAN) 99 % (42-78); TOTAL CELLS COUNTED 100
[2019-10-27 07:22] LABS: TOXIC GRANULATION SLIGHT
[2019-10-27 07:23] LABS: ANISOCYTOSIS SLIGHT; PLATELET COMMENT ADEQUATE
[2019-10-27 07:24] LABS: WHITE BLOOD COUNT 34.7 10^3/uL (4.0-10.5)
[2019-10-27 07:25] LABS: HYPOCHROMASIA SLIGHT
[2019-10-27] MEDS: PROPOFOL 1,000 MG/100 ML INFUS..BTL IV PRN (07:51)
[2019-10-27] MEDS ORDERED: PHOSPHORUS #1 250 MG TABLET NG SCH (08:00)
--- NOTE | 2019-10-27 08:00 | PDOC PROGRESS REPORT ---
Subjective Progress Note for:: 10/27/19 Subjective:: pt more comfortable Reason For Visit: ACUTE HYPERCARBIC RESPIRATORY FAILURE,NEED FOR INT Physical Exam Vital Signs: Temp Pulse Resp BP Pulse Ox 99.0 F 67 7 L 127/51 H 98 10/27/19 06:00 10/27/19 04:00 10/27/19 06:00 10/26/19 20:00 10/27/19 06:00 Intake & Output 10/26/19 10/27/19 10/28/19 06:59 06:59 06:59 Intake Total 3285 1595 57 Output Total 426 1265 Balance 2859 330 57 Weight 76.7 kg 70.4 kg General appearance: PRESENT: mild distress Head exam: PRESENT: normocephalic Eye exam: PRESENT: EOMI Neck exam: PRESENT: full ROM Respiratory exam: PRESENT: decreased breath sounds, prolonged expiratory phas Pulses: PRESENT: normal femoral pulses, normal dorsalis pedis pul Vascular exam: PRESENT: normal capillary refill GI/Abdominal exam: PRESENT: soft, other - stoma pink, prductive Rectal exam: PRESENT: deferred Extremities exam: PRESENT: full ROM Musculoskeletal exam: PRESENT: full ROM Neurological exam: PRESENT: alert, awake Skin exam: PRESENT: dry Results Laboratory Results: 10/27/19 06:00 10/27/19 06:00 10/26/19 10/26/19 10/26/19 03:19 11:25 11:25 WBC 39.7 H* RBC 3.30 L Hgb 9.7 L D Hct 28.5 L MCV 86 MCH 29.4 MCHC 34.1 RDW 14.3 H Plt Count 184 Seg Neutrophils % Carbonic Acid HCO3/H2CO3 Ratio ABG pH ABG pCO2 ABG pO2 ABG HCO3 ABG O2 Saturation ABG Base Excess FiO2 Sodium 134.6 L Potassium 3.7 Chloride 102 Carbon Dioxide 29 Anion Gap 4 L BUN 34 H Creatinine 1.36 H Est GFR ( Amer) 48 L Glucose 188 H Calcium 7.0 L* Phosphorus Magnesium Blood Type O POSITIVE Antibody Screen NEGATIVE 10/26/19 10/27/19 10/27/19 11:25 00:35 06:00 WBC RBC Hgb Hct MCV MCH MCHC RDW Plt Count Seg Neutrophils % Carbonic Acid 1.31 HCO3/H2CO3 Ratio 21:1 ABG pH 7.43 ABG pCO2 43.5 ABG pO2 74.6 L ABG HCO3 28.2 H ABG O2 Saturation 95.3 ABG Base Excess 3.5 FiO2 40% Sodium 134.8 L Potassium 4.4 Chloride 101 Carbon Dioxide 29 Anion Gap 5 BUN 38 H Creatinine 1.64 H Est GFR ( Amer) 39 L Glucose 241 H Calcium 7.1 L Phosphorus Magnesium 2.6 H D Blood Type Antibody Screen 10/27/19 10/27/19 06:00 06:00 WBC 34.7 H* RBC 2.85 L Hgb 8.3 L Hct 24.5 L MCV 86 MCH 29.2 MCHC 33.9 RDW 14.5 H Plt Count 160 Seg Neutrophils % Not Reportable Carbonic Acid HCO3/H2CO3 Ratio ABG pH ABG pCO2 ABG pO2 ABG HCO3 ABG O2 Saturation ABG Base Excess FiO2 Sodium 135.1 L Potassium 4.6 Chloride 103 Carbon Dioxide 29 Anion Gap 3 L BUN 40 H Creatinine 1.88 H Est GFR ( Amer) 33 L Glucose 158 H Calcium 7.3 L Phosphorus 3.1 Magnesium 2.5 H Blood Type Antibody Screen 10/18/19 00:24 Troponin I 0.012 Impressions: Abdomen/Pelvis CT 10/17/19 23:59 IMPRESSION: 1. 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 Urgent finding reported to Olu SILVEIRA at 10/18/2019 1:55 AM CDT This exam was performed according to our departmental dose-optimization program, which includes automated exposure control, adjustment of the mA and/or kV according to patient size and/or use of iterative reconstruction technique. Chest/Abdomen CTA 10/23/19 00:00 IMPRESSION: 1. Limited examination due to contrast bolus timing with no contrast present within pulmonary arteries. As such no evaluation for pulmonary embolus is possible. 2. Moderate right-sided pleural effusion with some loculation and small left- sided pleural effusion with some loculation. 3. Severe emphysematous changes. Venous Doppler Study 10/26/19 00:00 IMPRESSION: NO EVIDENCE DVT OR SVT IN THE RIGHT ARM. Assessment & Plan - Plan Summary Plan Summary: s/p sigmid colectomy and hartmans for perforated diverticulitis copd, sever pneumonia covid + plan, gi function returned no need for surgical intevention surgery will cont to follow vent management per financial report service sales agent.
[2019-10-27] MEDS ORDERED: DEXTROSE 5%-WATER 250 ML with PHENYLEPHRINE HCL 40 MG IV PRN ×2 (08:04)
[2019-10-27] MEDS ORDERED: PHENYLEPHRINE HCL INJ/PF 10 MG/1 ML SDV ONE (08:16)
--- NOTE | 2019-10-27 08:49 | RADIOLOGY REPORT (SQ) ---
EXAM DESCRIPTION: CHEST SINGLE VIEW IMAGES COMPLETED DATE/TIME: 10/27/2019 6:55 am REASON FOR STUDY: ETT tube COMPARISON: 10/26/2019 EXAM PARAMETERS: NUMBER OF VIEWS: One view. TECHNIQUE: Single frontal radiographic view of the chest acquired. RADIATION DOSE: NA LIMITATIONS: None. FINDINGS: LUNGS AND PLEURA: Interval development of mixed interstitial and airspace opacities involv ing the bilateral lung bases as well as the left apex. Small bilateral pleural effusions. No pneumo thorax. MEDIASTINUM AND HILAR STRUCTURES: No masses. Contour normal. HEART AND VASCULAR STRUCTURES: Heart normal in size. Normal vasculature. BONES: No acute findings. HARDWARE: Endotracheal tube terminates approximately 1 cm cranial to the kai. Enteric tube termin ates subdiaphragmatically out of the field of view. Right internal jugular vascular access catheter terminates in the region of the cavoatrial junction. OTHER: No other significant finding. IMPRESSION: 1. Interval development of mixed interstitial and airspace opacities as above. Finding s may represent early CHF exacerbation. Infectious etiology is not excluded. 2. Lines and tubes as above. TECHNICAL DOCUMENTATION: JOB ID: [id number] [employer]- All Rights Reserved Reading location - IP/workstation name: [email or web address]
[2019-10-27] MEDS: BUDESONIDE NEB 0.25 MG/2 ML AMPUL NEB SCH ×2 (08:53→21:23)
[2019-10-27 09:25] LABS: VENOUS BLOOD BASE EXCESS -0.5 mmol/L; VENOUS BLOOD HCO3 24.7 mmol/L (20-32); VENOUS BLOOD PCO2 42.9 mmHg (35-63); VENOUS BLOOD PH 7.38 (7.30-7.42)
[2019-10-27] MEDS ORDERED: PHOSPHORUS #1 250 MG TABLET NG ONE (10:00)
[2019-10-27] MEDS: ESCITALOPRAM OXALATE 10 MG TABLET NG SCH (10:34)
[2019-10-27] MEDS: FENTANYL CITRATE INJ/PF 100 MCG/2 ML AMPUL IV PRN ×2 (10:34→18:11)
[2019-10-27] MEDS: ENOXAPARIN SODIUM INJ 40 MG/0.4 ML DISP.SYRIN SUBCUT SCH (10:34)
[2019-10-27] MEDS: HYDROXYCHLOROQUINE SULFATE 200 MG TABLET NG SCH ×3 (10:35→17:39)
[2019-10-27] MEDS: ARIPIPRAZOLE 5 MG TABLET NG SCH (10:35)
[2019-10-27] MEDS: ASPIRIN 81 MG TABLET, CHEWABLE NG SCH (10:35)
--- NOTE | 2019-10-27 15:30 | PDOC CRITICAL CARE PROG REPORT ---
General Date:: 10/27/19 ICU Day:: 3 Hospital Day:: 3 Resuscitation Status: Full Code Medical Power of Hand Tufter: Daniel Cole Events in the past 12 to 24 Hours:: This is a 58-year-old female with acute respiratory failure due to COVID-19 pneumonia, identified on 10/24. She was admitted on 10/16 with abdominal pain, which was determined to be due to complicated (perforated) sigmoid diverticulitis. She underwent exploratory laparotomy with sigmoid resection and descending colon colostomy formation on 10/17. Surgery was complicated by feculent peritonitis and septic shock. She was treated with Zosyn and vasopressors. Her hospitalization has been complicated by the development of atrial fibrillation with rapid ventricular response, rate controlled with Cardizem. She actually was recovering well and transferred out of the ICU only to return on , requiring reintubation due to increased work of breathing 10/25: Remains intubated. On SIMV (PRVC) + PSV. FiO2 40%. Respiratory rate 20. Sedated with propofol. Off vasopressors. She has been started on Rocephin/azithromycin for empiric treatment of community-acquired pneumonia. On Plaquenil. DVT prophylaxis has been discontinued due to concerns about p otential bleeding from her colostomy. No bloody output is noted at this time. Nurse reports concerns about increased swelling in the right upper extremity. Patient demonstrates decreased pain sensation and some decrease in mobility of the right upper extremity. WBC 44.3, on steroids. 10/26: Remains intubated. On SIMV, f 12. Sedated with propofol. Nurse reports hypotension, somewhat responsive to IV fluid bolus; however, CVP 9. On Rocephin/azithromycin/Plaquenil. Ultrasound right upper extremity done yesterday was negative for DVT. She is moving the right upper extremity much more briskly today. WBC 44.3>34.7. Hemoglobin 5.1>9.7>8.3. No obvious blood loss. She is back on Lovenox for DVT prophylaxis. Review of systems relevant to events:: Gastrointestinal: Status post exploratory laparotomy for perforated sigmoid diverticulitis Pulmonary: Acute respiratory failure, COVID-19 pneumonia Reason for ICU Addmission:: Respiratory failure - Medications: Medications reviewed and adjusted accordingly: Yes Physical Exam Vital Signs: Temp Pulse Resp BP Pulse Ox 99.0 F 67 7 L 127/51 H 98 10/27/19 06:00 10/27/19 04:00 10/27/19 06:00 10/26/19 20:00 10/27/19 06:00 Intake & Output 10/26/19 10/27/19 10/28/19 06:59 06:59 06:59 Intake Total 3285 1595 357 Output Total 426 1265 Balance 2859 330 357 Weight 76.7 kg 70.4 kg Weight/Height Weight 70.4 kg Height 1.55 m General appearance: PRESENT: no acute distress, well-developed, well-nourished, other - Intubated, sedated Head exam: PRESENT: atraumatic, normocephalic Eye exam: PRESENT: conjunctiva pink, EOMI, PERRLA. ABSENT: scleral icterus Mouth exam: PRESENT: moist, tongue midline Neck exam: ABSENT: carotid bruit, JVD, lymphadenopathy, thyromegaly Respiratory exam: PRESENT: clear to auscultation christina. ABSENT: rales, rhonchi, wheezes Cardiovascular exam: PRESENT: irregular rhythm, RRR. ABSENT: diastolic murmur, rubs, systolic murmur GI/Abdominal exam: PRESENT: normal bowel sounds, soft. ABSENT: distended, guarding, mass, organolmegaly, rebound, tenderness Gentrourinary exam: PRESENT: indwelling catheter Extremities exam: PRESENT: full ROM, pedal edema. ABSENT: calf tenderness, clubbing Musculoskeletal exam: PRESENT: normal inspection. ABSENT: deformity Neurological exam: PRESENT: awake, CN II-XII grossly intact, other - Follows commands. ABSENT: motor sensory deficit Skin exam: PRESENT: dry, intact, warm. ABSENT: cyanosis, rash Tubes/Lines: PRESENT: Endotracheal Tube, Central Line - R IJ, Arterial Catheter - Right femoral (previously incorrectly documented as axillary) Laboratory/Radiographs Laboratory Results: 10/27/19 06:00 10/27/19 06:00 10/26/19 10/26/19 10/26/19 03:19 11:25 11:25 WBC 39.7 H* RBC 3.30 L Hgb 9.7 L D Hct 28.5 L MCV 86 MCH 29.4 MCHC 34.1 RDW 14.3 H Plt Count 184 Seg Neutrophils % Carbonic Acid HCO3/H2CO3 Ratio ABG pH ABG pCO2 ABG pO2 ABG HCO3 ABG O2 Saturation ABG Base Excess FiO2 Sodium 134.6 L Potassium 3.7 Chloride 102 Carbon Dioxide 29 Anion Gap 4 L BUN 34 H Creatinine 1.36 H Est GFR ( Amer) 48 L Glucose 188 H Calcium 7.0 L* Phosphorus Magnesium Blood Type O POSITIVE Antibody Screen NEGATIVE 10/26/19 10/27/19 10/27/19 11:25 00:35 06:00 WBC RBC Hgb Hct MCV MCH MCHC RDW Plt Count Seg Neutrophils % Carbonic Acid 1.31 HCO3/H2CO3 Ratio 21:1 ABG pH 7.43 ABG pCO2 43.5 ABG pO2 74.6 L ABG HCO3 28.2 H ABG O2 Saturation 95.3 ABG Base Excess 3.5 FiO2 40% Sodium 134.8 L Potassium 4.4 Chloride 101 Carbon Dioxide 29 Anion Gap 5 BUN 38 H Creatinine 1.64 H Est GFR ( Amer) 39 L Glucose 241 H Calcium 7.1 L Phosphorus Magnesium 2.6 H D Blood Type Antibody Screen 10/27/19 10/27/19 06:00 06:00 WBC 34.7 H* RBC 2.85 L Hgb 8.3 L Hct 24.5 L MCV 86 MCH 29.2 MCHC 33.9 RDW 14.5 H Plt Count 160 Seg Neutrophils % Not Reportable Carbonic Acid HCO3/H2CO3 Ratio ABG pH ABG pCO2 ABG pO2 ABG HCO3 ABG O2 Saturation ABG Base Excess FiO2 Sodium 135.1 L Potassium 4.6 Chloride 103 Carbon Dioxide 29 Anion Gap 3 L BUN 40 H Creatinine 1.88 H Est GFR ( Amer) 33 L Glucose 158 H Calcium 7.3 L Phosphorus 3.1 Magnesium 2.5 H Blood Type Antibody Screen 10/18/19 00:24 Troponin I 0.012 Impressions: Abdomen/Pelvis CT 10/17/19 23:59 IMPRESSION: 1. 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 Urgent finding reported to Olu SILVEIRA at 10/18/2019 1:55 AM CDT This exam was performed according to our departmental dose-optimization program, which includes automated exposure control, adjustment of the mA and/or kV according to patient size and/or use of iterative reconstruction technique. Chest/Abdomen CTA 10/23/19 00:00 IMPRESSION: 1. Limited examination due to contrast bolus timing with no contrast present within pulmonary arteries. As such no evaluation for pulmonary embolus is possible. 2. Moderate right-sided pleural effusion with some loculation and small left- sided pleural effusion with some loculation. 3. Severe emphysematous changes. Venous Doppler Study 10/26/19 00:00 IMPRESSION: NO EVIDENCE DVT OR SVT IN THE RIGHT ARM. All labs, radiographs, diagnostic studies and EKGs were personally reviewed: Yes In addition, reports of radiographic and diagnostic studies were read: Yes Assessment and Plan - Diagnosis (1) Hypotension Qualifiers: Hypotension type: unspecified hypotension type Qualified Code(s): I95.9 - Hypotension, unspecified Is this a current diagnosis for this admission?: Yes Plan: CVP 8-9. Check SvO2. Start phenylephrine. (2) Acute and chronic respiratory failure ([id number]) Qualifiers: Respiratory failure complication: hypoxia and hypercapnia Qualified Code(s): J96.21 - Acute and chronic respiratory failure with hypoxia; J96.22 - Acute and chronic respiratory failure with hypercapnia Is this a current diagnosis for this admission?: Yes Plan: Wean SIMV mode. Evaluate for possible liberation from mechanical ventilatory support. Titrate vent settings based on ABG results. Propofol for sedation. Titrate for RASS -1. (3) Pneumonia due to COVID-19 virus Is this a current diagnosis for this admission?: Yes Plan: Currently on hydroxychloroquine 200 mg NG 3 times daily (10-day course), azithromycin. (4) Atrial fibrillation with rapid ventricular response Is this a current diagnosis for this admission?: Yes Plan: Rate controlled with diltiazem 30 mg NG every 8 hours. (5) Hypokalemia Is this a current diagnosis for this admission?: Yes Plan: Resolved (6) Hypomagnesemia Is this a current diagnosis for this admission?: Yes Plan: Resolved. (7) Leukocytosis Qualifiers: Leukocytosis type: unspecified Qualified Code(s): D72.829 - Elevated white blood cell count, unspecified Is this a current diagnosis for this admission?: Yes (8) Peritonitis, acute generalized Is this a current diagnosis for this admission?: Yes (9) Chronic obstructive pulmonary disease Qualifiers: COPD type: chronic bronchitis Chronic bronchitis type: mixed simple and mucopurulent Qualified Code(s): J41.8 - Mixed simple and mucopurulent chronic bronchitis Is this a current diagnosis for this admission?: Yes Plan: Continue Duonebs. Add Pulmicort. (10) Swelling of right upper extremity Is this a current diagnosis for this admission?: Yes Plan: Ultrasound right upper extremity (10/25) was negative for DVT. Critical Time Critical Time (minutes): 90 Level of Care: ICU -: 1. The care of a critical patient is a dynamic process. This note is a technical support representative synopsis but static in nature. The timeframe for treatments given in order is not necessarily the actual time these treatments may have been done. 2. This patient requires critical care secondary to ongoing requirements for therapy not offered or safe outside the critical care environment. Transfer to a lower level of care will result in altered life or limb morbidity and mortality. 3. Multidisciplinary rounds completed. 4. ABCDE bundle addressed.
[2019-10-27] MEDS: CEFTRIAXONE 1 GM/D5W RTU 1 GM/50 ML RTUPB IV SCH (17:53)
[2019-10-27 19:01] LABS: HEMATOCRIT 24.4 % (36.0-47.0); HEMOGLOBIN 8.2 g/dL (12.0-15.5); MEAN CORPUSCULAR HEMOGLOBIN 29.3 pg (27.0-33.4); MEAN CORPUSCULAR HGB CONC 33.9 g/dL (32.0-36.0); MEAN CORPUSCULAR VOLUME 87 fl (80-97); PLATELET COUNT 198 10^3/uL (150-450); RED BLOOD COUNT 2.81 10^6/uL (3.72-5.28); RED CELL DISTRIBUTION WIDTH 14.6 % (11.5-14.0)
[2019-10-27 19:25] LABS: WHITE BLOOD COUNT 39.7 10^3/uL (4.0-10.5)
[2019-10-27] MEDS: AZITHROMYCIN 500 MG in DEXTROSE 5%-WATER 250 ML IV SCH (22:42)
[2019-10-28] MEDS: INSULIN REG, HUMAN 100 UNIT/ML 3 ML VIAL (PYX) SUBCUT SCH ×5 (00:34→23:37)
[2019-10-28] MEDS: IPRATROPIUM/ALBUTEROL 0.5-2.5 MG/3 ML AMPUL NEB SCH ×7 (00:57→23:43)
[2019-10-28 05:11] LABS: HEMATOCRIT 22.7 % (36.0-47.0); MEAN CORPUSCULAR HEMOGLOBIN 29.1 pg (27.0-33.4); MEAN CORPUSCULAR HGB CONC 33.2 g/dL (32.0-36.0); MEAN CORPUSCULAR VOLUME 88 fl (80-97); PLATELET COUNT 160 10^3/uL (150-450); RED BLOOD COUNT 2.59 10^6/uL (3.72-5.28); RED CELL DISTRIBUTION WIDTH 14.6 % (11.5-14.0)
[2019-10-28 05:15] LABS: HEMOGLOBIN 7.5 g/dL (12.0-15.5); WHITE BLOOD COUNT 35.3 10^3/uL (4.0-10.5)
[2019-10-28 05:19] LABS: BLOOD UREA NITROGEN 42 mg/dL (7-20); CALCIUM 7.5 mg/dL (8.4-10.2); CARBON DIOXIDE 30 mmol/L (22-30); CHLORIDE 104 mmol/L (98-107); GLUCOSE 166 mg/dL (75-110); POTASSIUM 4.8 mmol/L (3.6-5.0)
[2019-10-28 05:24] LABS: ANION GAP 3 (5-19)
[2019-10-28] MEDS ORDERED: PANTOPRAZOLE SODIUM 40 MG VIAL IV ONE ×2 (05:29→05:45)
[2019-10-28 05:42] LABS: ABSOLUTE LYMPHOCYTES# (MANUAL) 1.4 10^3/uL (0.5-4.7); ABSOLUTE MONOCYTES # (MANUAL) 0.4 10^3/uL (0.1-1.4); BASOPHILS % (MANUAL) 0 % (0-2); EOSINOPHILS % (MANUAL) 0 % (0-6); LYMPHOCYTES % (MANUAL) 4 % (13-45); MONOCYTES % (MANUAL) 1 % (3-13); SEGMENTED NEUTROPHILS % (MAN) 95 % (42-78); TOTAL CELLS COUNTED 100
[2019-10-28 05:43] LABS: ANISOCYTOSIS SLIGHT; OVALOCYTES SLIGHT; PLATELET COMMENT ADEQUATE; POIKILOCYTOSIS SLIGHT; POLYCHROMASIA SLIGHT; TOXIC GRANULATION SLIGHT
[2019-10-28] MEDS: METHYLPREDNISOLONE INJ 40 MG/1 ML SDV IV SCH ×2 (05:49→17:45)
[2019-10-28] MEDS: BUDESONIDE NEB 0.25 MG/2 ML AMPUL NEB SCH ×2 (08:34→19:42)
[2019-10-28] MEDS ORDERED: PHARMACY COMMUNICATION ORDER MC NR (09:00)
[2019-10-28] MEDS: ENOXAPARIN SODIUM INJ 40 MG/0.4 ML DISP.SYRIN SUBCUT SCH (09:11)
--- NOTE | 2019-10-28 09:45 | PDOC PROGRESS REPORT ---
Subjective Progress Note for:: 10/28/19 Reason For Visit: ACUTE HYPERCARBIC RESPIRATORY FAILURE,NEED FOR INT Physical Exam Vital Signs: Temp Pulse Resp BP Pulse Ox 98.2 F 67 17 140/58 H 100 10/28/19 08:00 10/28/19 08:00 10/28/19 08:00 10/28/19 08:00 10/28/19 08:00 Intake & Output 10/27/19 10/28/19 10/29/19 06:59 06:59 06:59 Intake Total 1595 583 Output Total 1265 1880 330 Balance 330 -1297 -330 Weight 70.4 kg 69 kg Results Laboratory Results: 10/28/19 04:50 10/28/19 04:50 10/27/19 10/28/19 10/28/19 18:55 04:50 04:50 WBC 39.7 H* 35.3 H* RBC 2.81 L 2.59 L Hgb 8.2 L 7.5 L Hct 24.4 L 22.7 L MCV 87 88 MCH 29.3 29.1 MCHC 33.9 33.2 RDW 14.6 H 14.6 H Plt Count 198 160 Seg Neutrophils % Not Reportable Sodium 136.8 L Potassium 4.8 Chloride 104 Carbon Dioxide 30 Anion Gap 3 L BUN 42 H Creatinine 2.11 H Est GFR ( Amer) 29 L Glucose 166 H Calcium 7.5 L Phosphorus 4.0 Magnesium 2.5 H 10/18/19 00:24 Troponin I 0.012 Impressions: Abdomen/Pelvis CT 10/17/19 23:59 IMPRESSION: 1. 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 Urgent finding reported to Olu SILVEIRA at 10/18/2019 1:55 AM CDT This exam was performed according to our departmental dose-optimization program, which includes automated exposure control, adjustment of the mA and/or kV according to patient size and/or use of iterative reconstruction technique. Chest/Abdomen CTA 10/23/19 00:00 IMPRESSION: 1. Limited examination due to contrast bolus timing with no contr ast present within pulmonary arteries. As such no evaluation for pulmonary embolus is possible. 2. Moderate right-sided pleural effusion with some loculation and small left- sided pleural effusion with some loculation. 3. Severe emphysematous changes. Venous Doppler Study 10/26/19 00:00 IMPRESSION: NO EVIDENCE DVT OR SVT IN THE RIGHT ARM. Chest X-Ray 10/27/19 05:00 IMPRESSION: 1. Interval development of mixed interstitial and airspace opacities as above. Findings may represent early CHF exacerbation. Infectious etiology is not excluded. 2. Lines and tubes as above. Assessment & Plan - Diagnosis (1) Free intraperitoneal air Is this a current diagnosis for this admission?: Yes (2) Acute abdomen Is this a current diagnosis for this admission?: Yes (3) Diverticulitis Is this a current diagnosis for this admission?: Yes - Plan Summary Plan Summary: 58-year-old female status post Delgado's procedure for perforated sigmoid diverticulitis. The patient's ostomy is pink and productive. She is now extubated. She remains critically ill due to her poor baseline pulmonary status and new infection with COVID-19. Critical care and respiratory management per the pipe layer helper service. Surgery will continue to follow the patient, in relation to her intra-abdominal process. Continue with current supportive measures at this time. OK to start feedings at any time.
[2019-10-28] MEDS: ESCITALOPRAM OXALATE 10 MG TABLET NG SCH (10:30)
[2019-10-28] MEDS: ASPIRIN 81 MG TABLET, CHEWABLE NG SCH (10:30)
[2019-10-28] MEDS: ARIPIPRAZOLE 5 MG TABLET NG SCH (10:30)
[2019-10-28] MEDS: HYDROXYCHLOROQUINE SULFATE 200 MG TABLET NG SCH ×3 (10:30→17:45)
--- NOTE | 2019-10-28 10:37 | PDOC CRITICAL CARE PROG REPORT ---
General Date:: 10/28/19 ICU Day:: 4 Hospital Day:: 11 Resuscitation Status: Full Code Medical Power of Office Machine Technician: Daniel Events in the past 12 to 24 Hours:: Patient extubated yesterday. Currently on high flow oxygen. Weaning down high flow oxygen. Review of systems relevant to events:: Patient denies any shortness of breath or difficulty breathing. States she is tolerating high flow oxygen. Reason for ICU Addmission:: Respiratory failure - Medications: Medications reviewed and adjusted accordingly: Yes Physical Exam Vital Signs: Temp Pulse Resp BP Pulse Ox 98.2 F 67 17 140/58 H 100 10/28/19 08:00 10/28/19 08:00 10/28/19 08:00 10/28/19 08:00 10/28/19 08:00 Intake & Output 10/27/19 10/28/19 10/29/19 06:59 06:59 06:59 Intake Total 1595 583 Output Total 1265 1880 330 Balance 330 -1297 -330 Weight 70.4 kg 69 kg Weight/Height Weight 69 kg Height 5 ft 1 in General appearance: PRESENT: no acute distress, cooperative Head exam: PRESENT: atraumatic, normocephalic Eye exam: PRESENT: conjunctiva pale Teeth exam: PRESENT: poor dentation Neck exam: PRESENT: full ROM. ABSENT: JVD, tracheal deviation Respiratory exam: PRESENT: clear to auscultation christina - upper lobes, decreased breath sounds - bilateral lower lobes, unlabored Cardiovascular exam: PRESENT: +S1, +S2 Pulses: PRESENT: normal radial pulses, normal dorsalis pedis pul GI/Abdominal exam: PRESENT: normal bowel sounds, soft, other - left side ostomy; midline surgical incision with sachin Torso Front/Back Image: 1 - Surgical incision with sachin Rectal exam: PRESENT: deferred Gentrourinary exam: PRESENT: indwelling catheter Extremities exam: PRESENT: +1 edema Musculoskeletal exam: PRESENT: full ROM Neurological exam: PRESENT: alert, altered, awake, oriented to person, oriented to place, oriented to time Psychiatric exam: PRESENT: flat affect Skin exam: PRESENT: skin tears - right forearm Tubes/Lines: PRESENT: Central Line - Right internal jugular, Arterial Catheter - Right femoral, Nasogastic Tube Laboratory/Radiographs Laboratory Results: 10/28/19 04:50 10/28/19 04:50 10/27/19 10/28/19 10/28/19 18:55 04:50 04:50 WBC 39.7 H* 35.3 H* RBC 2.81 L 2.59 L Hgb 8.2 L 7.5 L Hct 24.4 L 22.7 L MCV 87 88 MCH 29.3 29.1 MCHC 33.9 33.2 RDW 14.6 H 14.6 H Plt Count 198 160 Seg Neutrophils % Not Reportable Sodium 136.8 L Potassium 4.8 Chloride 104 Carbon Dioxide 30 Anion Gap 3 L BUN 42 H Creatinine 2.11 H Est GFR ( Amer) 29 L Glucose 166 H Calcium 7.5 L Phosphorus 4.0 Magnesium 2.5 H 10/25/19 21:45 Tracheal Aspirate Sputum Culture - Final C.albicans/C.dubliniensis Normal Jennifer 10/18/19 00:24 Troponin I 0.012 Impressions: Abdomen/Pelvis CT 10/17/19 23:59 IMPRESSION: 1. 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 Urgent finding reported to Olu SILVEIRA at 10/18/2019 1:55 AM CDT This exam was performed according to our departmental dose-optimization program, which includes automated exposure control, adjustment of the mA and/or kV according to patient size and/or use of iterative reconstruction technique. Chest/Abdomen CTA 10/23/19 00:00 IMPRESSION: 1. Limited examination due to contrast bolus timing with no contrast present within pulmonary arteries. As such no evaluation for pulmonary embolus is possible. 2. Moderate right-sided pleural effusion with some loculation and small left- sided pleural effusion with some loculation. 3. Severe emphysematous changes. Venous Doppler Study 10/26/19 00:00 IMPRESSION: NO EVIDENCE DVT OR SVT IN THE RIGHT ARM. Chest X-Ray 10/27/19 05:00 IMPRESSION: 1. Interval development of mixed interstitial and airspace opacities as above. Findings may represent early CHF exacerbation. Infectious etiology is not excluded. 2. Lines and tubes as above. All labs, radiographs, diagnostic studies and EKGs were personally reviewed: Yes In addition, reports of radiographic and diagnostic studies were read: Yes Assessment and Plan - Diagnosis (1) Acute and chronic respiratory failure ([id number]) Qualifiers: Respiratory failure complication: hypoxia and hypercapnia Qualified Code(s): J96.21 - Acute and chronic respiratory failure with hypoxia; J96.22 - A cute and chronic respiratory failure with hypercapnia Is this a current diagnosis for this admission?: Yes Plan: Extubated yesterday; wean off high flow oxygen. Currently on 40% FiO2. (2) COVID-19 virus detected Is this a current diagnosis for this admission?: Yes Plan: Continue azithromycin; Rocephin; and hydroxychloroquine. (3) Chronic obstructive pulmonary disease Qualifiers: COPD type: chronic bronchitis Chronic bronchitis type: mixed simple and mucopurulent Qualified Code(s): J41.8 - Mixed simple and mucopurulent chronic bronchitis Is this a current diagnosis for this admission?: Yes Plan: Currently on high flow oxygen; wean down as tolerated. (4) Perforation of sigmoid colon due to diverticulitis Is this a current diagnosis for this admission?: Yes Plan: Continue collaborating with surgical team. Start tube feedings. Vital 1.5 at 30 mls/hr. (5) Atrial fibrillation with rapid ventricular response Is this a current diagnosis for this admission?: Yes Plan: Continue Cardizem 30 mg every 8 hours. (6) Leukocytosis Qualifiers: Leukocytosis type: unspecified Qualified Code(s): D72.829 - Elevated white blood cell count, unspecified Is this a current diagnosis for this admission?: Yes Plan: Continue antibiotics. White blood cell count still elevated at 35,300 with a left shift, this is trending down. (7) Anemia Qualifiers: Anemia type: unspecified type Qualified Code(s): D64.9 - Anemia, unspecified Is this a current diagnosis for this admission?: Yes Plan: Hemoglobin 7.5 this morning. Will recheck labs in the morning. (8) Major depression Qualifiers: Major depression recurrence: recurrent Active/Remission status: currently active Major depression episode severity: severe Psychotic features: without psychotic features Qualified Code(s): F33.2 - Major depressive disorder, recurrent severe without psychotic features Is this a current diagnosis for this admission?: Yes Plan: Continue Abilify/Lexapro. Critical Time Critical Time (minutes): 40 Level of Care: ICU Anticipated discharge: Home -: 1. The care of a critical patient is a dynamic process. This note is a rep resentative synopsis but static in nature. The timeframe for treatments given in order is not necessarily the actual time these treatments may have been done. 2. This patient requires critical care secondary to ongoing requirements for therapy not offered or safe outside the critical care environment. Transfer to a lower level of care will result in altered life or limb morbidity and mortality. 3. Multidisciplinary rounds completed. 4. ABCDE bundle addressed.
--- NOTE | 2019-10-28 10:53 | RADIOLOGY REPORT (SQ) ---
EXAM DESCRIPTION: KUB/ABDOMEN (SINGLE VIEW) IMAGES COMPLETED DATE/TIME: 10/28/2019 10:05 am REASON FOR STUDY: Check Placement of NG Tube COMPARISON: Chest radiograph 10/27/2019 NUMBER OF VIEWS: One view. TECHNIQUE: Supine radiographic image of the abdomen acquired. LIMITATIONS: None. FINDINGS: BOWEL GAS PATTERN: Gas is seen within mildly prominent loops of bowel. There is no eviden ce of high-grade obstruction. CALCIFICATIONS: No suspicious calcifications. SOFT TISSUES: No gross mass or suggestion of organomegaly. HARDWARE: Enteric tube terminates subdiaphragmatically with the proximal port at the level of the gas troesophageal junction. BONES: No acute fracture. No worrisome bone lesions. OTHER: Midline skin sachin. Increased interstitial markings is seen of the lung bases, similar to t hat seen on comparison radiographs. IMPRESSION: Enteric tube terminates subdiaphragmatically with the proximal port at the level of the gastroesophageal junction. Consider advancing 5 to 6 cm. Gas within mildly prominent loops of bowel likely on the basis of ileus. No evidence of high-grade obstruction. Increased interstitial markin gs at the lung bases as seen on recent chest radiograph. TECHNICAL DOCUMENTATION: JOB ID: [id number] 2010 [employer] All Rights Reserved Reading location - IP/workstation name: [email or web address]
--- NOTE | 2019-10-28 11:20 | Progress Note ---
Provider Note Provider Note: Patient seen together with me this AM with Roseann Schaffer. I agree with her note. Criteria for transfer from ICU should be to be more awake and interactive and off the high flow or down more than 50%.
[2019-10-28] MEDS: FENTANYL CITRATE INJ/PF 100 MCG/2 ML AMPUL IV PRN ×2 (12:57→18:17)
[2019-10-28] MEDS: CEFTRIAXONE 1 GM/D5W RTU 1 GM/50 ML RTUPB IV SCH (17:33)
[2019-10-28] MEDS: LEVALBUTEROL HCL NEB 0.63 MG/3 ML AMPUL NEB PRN (18:41)
[2019-10-28] MEDS ORDERED: LORAZEPAM INJ 2 MG/1 ML VIAL IV ONE (20:26)
[2019-10-28] MEDS ORDERED: LORAZEPAM INJ 2 MG/1 ML VIAL ONE (20:27)
[2019-10-28] MEDS ORDERED: FLUMAZENIL INJ 0.5 MG/5 ML VIAL ONE (22:59)
[2019-10-28] MEDS ORDERED: RINGERS SOLUTION,LACTATED 500 ML IV ONE (23:00)
[2019-10-28] MEDS ORDERED: FLUMAZENIL INJ 0.5 MG/5 ML VIAL IV ONE (23:00)
[2019-10-28] MEDS: DEXTROSE 5%-WATER 250 ML with NOREPINEPHRINE BITARTRATE 4 MG IV PRN ×2 (23:06)
[2019-10-28 23:17] LABS: ARTERIAL BLOOD BASE EXCESS 0.2 mmol/L; ARTERIAL BLOOD H2CO3 1.67 mmol/L (1.05-1.35); ARTERIAL BLOOD HCO3 26.6 mmol/L (20-24); ARTERIAL BLOOD O2 SATURATION 89.1 % (94-98); ARTERIAL BLOOD PCO2 55.5 mmHg (35-45); ARTERIAL BLOOD PO2 62.4 mmHg (80-100); ARTERIAL BLOOD TOTAL CO2 28.3 mmol/L (21-25)
[2019-10-28 23:18] LABS: ARTERIAL BLOOD FIO2 35%
[2019-10-28] MEDS ORDERED: NORMAL SALINE 250 ML IV PRN ×2 (23:18)
[2019-10-28 23:32] LABS: ANION GAP 5 (5-19); BLOOD UREA NITROGEN 45 mg/dL (7-20); CALCIUM 7.1 mg/dL (8.4-10.2); CARBON DIOXIDE 26 mmol/L (22-30); CHLORIDE 106 mmol/L (98-107); GLUCOSE 192 mg/dL (75-110); POTASSIUM 4.8 mmol/L (3.6-5.0)
[2019-10-28 23:37] LABS: HEMATOCRIT 15.8 % (36.0-47.0); MEAN CORPUSCULAR HEMOGLOBIN 28.7 pg (27.0-33.4); MEAN CORPUSCULAR VOLUME 90 fl (80-97); RED BLOOD COUNT 1.76 10^6/uL (3.72-5.28); RED CELL DISTRIBUTION WIDTH 14.7 % (11.5-14.0)
[2019-10-29 00:02] LABS: ABSOLUTE LYMPHOCYTES# (MANUAL) 1.5 10^3/uL (0.5-4.7); ABSOLUTE MONOCYTES # (MANUAL) 1.5 10^3/uL (0.1-1.4); BASOPHILS % (MANUAL) 0 % (0-2); EOSINOPHILS % (MANUAL) 0 % (0-6); LYMPHOCYTES % (MANUAL) 3 % (13-45); MONOCYTES % (MANUAL) 3 % (3-13); SEGMENTED NEUTROPHILS % (MAN) 94 % (42-78); TOTAL CELLS COUNTED 100
[2019-10-29 00:05] LABS: ANISOCYTOSIS SLIGHT; OVALOCYTES SLIGHT; PLATELET COMMENT ADEQUATE
[2019-10-29 00:06] LABS: PLATELET CLUMPS PRESENT
[2019-10-29 00:08] LABS: TOXIC GRANULATION SLIGHT
[2019-10-29 00:10] LABS: WHITE BLOOD COUNT 50.3 10^3/uL (4.0-10.5)
[2019-10-29 00:13] LABS: HEMOGLOBIN 5.1 g/dL (12.0-15.5)
[2019-10-29 00:15] LABS: PLATELET COUNT 254 10^3/uL (150-450)
[2019-10-29] MEDS ORDERED: NOREPINEPHRINE BITARTRATE INJ/PF 4 MG/4 ML SDV IV ONE (01:17)
[2019-10-29] MEDS: DEXTROSE 5%-WATER 250 ML with NOREPINEPHRINE BITARTRATE 4 MG IV PRN ×2 (01:24)
[2019-10-29] MEDS ORDERED: NORMAL SALINE 250 ML IV PRN ×2 (01:30)
--- NOTE | 2019-10-29 01:43 | RADIOLOGY REPORT (SQ) ---
EXAM DESCRIPTION: XR CHEST 1 VIEW COMPLETED DATE/TME: 10/28/2019 00:00 CLINICAL HISTORY: 58 years, Female, r/o new infiltrate/alveolar hemorrhage COMPARISON: 10/27/2019 chest NUMBER OF VIEWS: 1 TECHNIQUE: Portable chest LIMITATIONS: None. FINDINGS: Heart size is normal. Interval extubation. Enteric tube and central venous catheter remain in place. Underlying COPD. Patchy bibasilar airspace opacities. Suspected small effusions bilaterally. No pneumothorax IMPRESSION: Interval extubation. Other findings are stable copyright 2011 [employer]- All Rights Reserved
[2019-10-29 01:45] LABS: ARTERIAL BLOOD BASE EXCESS 0.6 mmol/L; ARTERIAL BLOOD H2CO3 1.62 mmol/L (1.05-1.35); ARTERIAL BLOOD HCO3 27.1 mmol/L (20-24); ARTERIAL BLOOD O2 SATURATION 95.8 % (94-98); ARTERIAL BLOOD PCO2 53.8 mmHg (35-45); ARTERIAL BLOOD PH 7.32 (7.35-7.45); ARTERIAL BLOOD TOTAL CO2 28.7 mmol/L (21-25)
[2019-10-29 01:46] LABS: ARTERIAL BLOOD FIO2 45%
[2019-10-29] MEDS: IPRATROPIUM/ALBUTEROL 0.5-2.5 MG/3 ML AMPUL NEB SCH ×6 (04:45→23:51)
[2019-10-29] MEDS: METHYLPREDNISOLONE INJ 40 MG/1 ML SDV IV SCH ×2 (06:19→18:34)
[2019-10-29] MEDS: INSULIN REG, HUMAN 100 UNIT/ML 3 ML VIAL (PYX) SUBCUT SCH ×3 (06:19→18:35)
[2019-10-29 06:57] LABS: INTERNATIONAL RATION (INR) 1.09; PARTIAL THROMBOPLASTIN TIME 25.2 SEC (23.5-35.8); PROTHROMBIN TIME 14.1 SEC (11.4-15.4)
[2019-10-29 06:58] LABS: ARTERIAL BLOOD BASE EXCESS -2.5 mmol/L; ARTERIAL BLOOD FIO2 ROOM AIR; ARTERIAL BLOOD HCO3 24.3 mmol/L (20-24); ARTERIAL BLOOD O2 SATURATION 92.1 % (94-98); ARTERIAL BLOOD PCO2 49.9 mmHg (35-45); ARTERIAL BLOOD PH 7.31 (7.35-7.45); ARTERIAL BLOOD PO2 69.2 mmHg (80-100); ARTERIAL BLOOD TOTAL CO2 25.9 mmol/L (21-25); FIBRINOGEN 193 mg/dL (209-497)
[2019-10-29 07:07] LABS: D-DIMER 3.95 ug/mL (0.00-0.50)
[2019-10-29 07:13] LABS: ALBUMIN 2.2 g/dL (3.5-5.0); ALKALINE PHOSPHATASE 100 U/L (38-126); ASPARTATE AMINO TRANSFERASE 67 U/L (14-36); BILIRUBIN,DIRECT 0.3 mg/dL (0.0-0.4); BILIRUBIN,TOTAL 0.6 mg/dL (0.2-1.3); BLOOD UREA NITROGEN 48 mg/dL (7-20); CALCIUM 7.6 mg/dL (8.4-10.2); CARBON DIOXIDE 29 mmol/L (22-30); CHLORIDE 106 mmol/L (98-107); CREATINE KINASE 78 U/L (30-135); GLUCOSE 194 mg/dL (75-110); PHOSPHORUS 4.9 mg/dL (2.5-4.5); POTASSIUM 4.7 mmol/L (3.6-5.0); TOTAL PROTEIN 4.3 g/dL (6.3-8.2)
--- NOTE | 2019-10-29 07:18 | Progress Note ---
Provider Note Provider Note: Date/Time of initial encounter for ongoing critical care in the overnight hours: 10/28/2019 19:30 pm Patient well known to ICU service admitted for perforated diverticulitis s/p ex- lap, sigmoid resection, and colostomy now in ICU with acute hypoxic respiratory failure, COPD, COVID-19, and DANII whom has been complaining of shortness of breath since 19:30 pm on 10/28/2019. The RN informed me of this complaint for which I assessed her noting moderate labored breathing. The flow rate on heated high flow was increased to 45 L/min initially, but upon re-assessment, I increased her to 60 L/min as she was still SOB and labored. Following up again, Mrs Anderson's labored breathing still had not resolved and she was now hypotensive with a MAP of 51 as well as was now requiring noxious stimuli for responsiveness. A 500 mL LR bolus was administered with no increase in BP at this time. Therefore, I then made the decision to resume Norepinephrine. She quickly required escalation to 30 mcg/min in a very short amount of time, for which her MAP finally increased to 71 mm Hg temporizing the hypotension. To note, she was also experiencing bradycardia with a HR in 50's with frequent PAC's and occasional PVC's. A 12 lead EKG was obtained with no evidence of acute cardiac ischemia or infarction, sinus tachycardia per my read. Her ABG demonstrated mild hypercapnia for which she was placed on BiPAP which temporized her respiratory failure. An ABG, BMP, and CBC were sent. To note, when she experiences a drop in Hgb below 7 g/dL, Mrs Anderson tends to become short of breath as well as hypoxic. Her Hgb returned at 5.2 which was checked twice to ensure accuracy, though the lab cancelled the initial values since we sent re- draw lab work. She was transfused 3 PRBC's for which her mentation, respiratory status and hypotension improved, allowing us to wean her completely of Norepinephrine. Her BMP demonstrated a BUN/Cr that continued to slowly increase, which may be from anemia, though I suspected it could also be drug-induced DANII from Ceftriaxone or Azithromycin for which I discontinued these antibiotics. To note, her cultures are negative to date despite a significant leukocytosis, and she remains afebrile. She is also on steroids. The leukocytosis increased to 50k and after careful consideration, I believe it is certainly possible that this is from either bleeding or hemolysis, though she likely has some degree of leukocytosis from the Methylprednisolone. The leukocytosis seemed to worsen after initiation of antibiotics on 10/24 as well as the development of DANII. Though Mrs Anderson did at one point experience oozing of blood from her new colostomy, she is not currently experiencing overt hematochezia, melena, or hematemesis. It is quite possible she is experiencing hemolytic anemia, which may be drug-induced as well from the Plaquenil and the time line fits since her Hgb, though there was EBL from surgery, was relatively stable in immediately postop period. I am holding the Plaquenil for now, which is currently prescribed as emergent use authorization for COVID-19. I also placed the patient on Zinc for the treatment of COVID-19 when I discontinued the Azithromycin. The patient has no source of infection on recent cultures, a surprisingly high leukocytosis yet has not even been close to having a fever which one would expect if antibiotic coverage was inadequate. Further plan: -obtain hemolytic and DIC workup at 6am -if becomes febrile, panculture and resume empiric antibiotics selecting one that does not contribute to DANII or hemolysis -wean Methylprednisolone as able -repeat CBC at 6am which is following the completion of 3 PRBC's -may need Hematology consult later today -ABG 6am -wean IPAP on NIV, then try back on heated high flow nasal cannula later this morning if ventilation adequate & hypercapnia resolved -if BUN/Cr continue to increase, may need nephrology consultation later today or tomorrow Total cumulative critical care time spent overnight for the above re- assessments/interventions/lab & diagnostic interpretation: 140 minutes Billing code [id number]
[2019-10-29 07:24] LABS: ANION GAP 3 (5-19)
[2019-10-29 07:39] LABS: RED BLOOD COUNT 4.39 10^6/uL (3.72-5.28)
[2019-10-29 07:40] LABS: HEMATOCRIT 39.2 % (36.0-47.0); HEMOGLOBIN 13.2 g/dL (12.0-15.5)
[2019-10-29 07:41] LABS: ABSOLUTE RETICS # 0.083 10^6/uL (0.028-0.122); MEAN CORPUSCULAR HEMOGLOBIN 30.2 pg (27.0-33.4); MEAN CORPUSCULAR HGB CONC 33.8 g/dL (32.0-36.0); MEAN CORPUSCULAR VOLUME 89 fl (80-97); PLATELET COUNT 137 10^3/uL (150-450); RED CELL DISTRIBUTION WIDTH 13.8 % (11.5-14.0)
--- NOTE | 2019-10-29 07:47 | PDOC PROGRESS REPORT ---
Subjective Progress Note for:: 10/29/19 Reason For Visit: ACUTE HYPERCARBIC RESPIRATORY FAILURE,NEED FOR INT Physical Exam Vital Signs: Temp Pulse Resp BP Pulse Ox 97.9 F 61 20 135/62 H 97 10/29/19 06:00 10/29/19 04:45 10/29/19 06:00 10/29/19 03:27 10/29/19 06:00 Intake & Output 10/28/19 10/29/19 10/30/19 06:59 06:59 06:59 Intake Total 633 1569 Output Total 1880 1525 Balance -1247 44 Weight 69 kg 60 kg General appearance: PRESENT: mild distress Head exam: PRESENT: normocephalic Eye exam: PRESENT: EOMI Ear exam: PRESENT: TM's normal bilaterally Mouth exam: PRESENT: moist Neck exam: PRESENT: full ROM Respiratory exam: PRESENT: rhonchi Cardiovascular exam: PRESENT: RRR Pulses: PRESENT: normal radial pulses, normal femoral pulses Vascular exam: PRESENT: normal capillary refill Breast: PRESENT: Normal GI/Abdominal exam: PRESENT: soft, other - tolerating tube feeds Rectal exam: PRESENT: deferred Neurological exam: PRESENT: awake Psychiatric exam: PRESENT: appropriate affect Skin exam: PRESENT: dry Results Laboratory Results: 10/29/19 06:30 10/28/19 10/28/19 10/28/19 23:00 23:00 23:00 WBC Cancelled RBC Cancelled Hgb Cancelled Hct Cancelled MCV Cancelled MCH Cancelled MCHC Cancelled RDW Cancelled Plt Count Cancelled Seg Neutrophils % Cancelled Carbonic Acid 1.67 H HCO3/H2CO3 Ratio 15:1 ABG pH 7.30 L ABG pCO2 55.5 H ABG pO2 62.4 L ABG HCO3 26.6 H ABG O2 Saturation 89.1 L ABG Base Excess 0.2 FiO2 35% Sodium 136.8 L Potassium 4.8 Chloride 106 Carbon Dioxide 26 Anion Gap 5 BUN 45 H Creatinine 2.34 H Est GFR ( Amer) 26 L Glucose 192 H Calcium 7.1 L Ionized Calcium Dayna Phosphorus Magnesium Total Bilirubin AST Alkaline Phosphatase Total Protein Albumin Blood Type Antibody Screen 10/28/19 10/28/19 10/29/19 23:25 23:25 01:30 WBC 50.3 H* RBC 1.76 L Hgb 5.1 L D Hct 15.8 L MCV 90 MCH 28.7 MCHC 32.0 RDW 14.7 H Plt Count 254 Seg Neutrophils % Not Reportable Carbonic Acid 1.62 H HCO3/H2CO3 Ratio 16:1 ABG pH 7.32 L ABG pCO2 53.8 H ABG pO2 87.0 ABG HCO3 27.1 H ABG O2 Saturation 95.8 ABG Base Excess 0.6 FiO2 45% Sodium Potassium Chloride Carbon Dioxide Anion Gap BUN Creatinine Est GFR ( Amer) Glucose Calcium Ionized Calcium Dayna Phosphorus Magnesium Total Bilirubin AST Alkaline Phosphatase Total Protein Albumin Blood Type O POSITIVE Antibody Screen NEGATIVE 10/29/19 10/29/19 10/29/19 06:30 06:30 06:30 WBC Cancelled RBC Cancelled Hgb Cancelled Hct Cancelled MCV Cancelled MCH Cancelled MCHC Cancelled RDW Cancelled Plt Count Cancelled Seg Neutrophils % Cancelled Carbonic Acid 1.50 H HCO3/H2CO3 Ratio 16:1 ABG pH 7.31 L ABG pCO2 49.9 H ABG pO2 69.2 L ABG HCO3 24.3 H ABG O2 Saturation 92.1 L ABG Base Excess -2.5 FiO2 ROOM AIR Sodium 137.7 Potassium 4.7 Chloride 106 Carbon Dioxide 29 Anion Gap 3 L BUN 48 H Creatinine 2.08 H Est GFR ( Amer) 29 L Glucose 194 H Calcium 7.6 L Ionized Calcium Dayna 1.14 Phosphorus 4.9 H Magnesium 2.4 H Total Bilirubin 0.6 AST 67 H Alkaline Phosphatase 100 Total Protein 4.3 L Albumin 2.2 L Blood Type Antibody Screen 10/25/19 21:45 Tracheal Aspirate Gram Stain - Final 10/25/19 21:45 Tracheal Aspirate Sputum Culture - Final C.albicans/C.dubliniensis Normal Jennifer 10/18/19 10/29/19 00:24 06:30 Creatine Kinase 78 Troponin I 0.012 Impressions: Abdomen/Pelvis CT 10/17/19 23:59 IMPRESSION: 1. 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 Urgent finding reported to Olu SILVEIRA at 10/18/2019 1:55 AM CDT This exam was performed according to our departmental dose-optimization program, which includes automated exposure control, adjustment of the mA and/or kV according to patient size and/or use of iterative reconstruction technique. Chest/Abdomen CTA 10/23/19 00:00 IMPRESSION: 1. Limited examination due to contrast bolus timing with no contrast present within pulmonary arteries. As such no evaluation for pulmonary embolus is possible. 2. Moderate right-sided pleural effusion with some loculation and small left- sided pleural effusion with some loculation. 3. Severe emphysematous changes. Venous Doppler Study 10/26/19 00:00 IMPRESSION: NO EVIDENCE DVT OR SVT IN THE RIGHT ARM. Chest X-Ray 10/28/19 00:00 IMPRESSION: Interval extubation. Other findings are stable copyright 2011 [employer]- All Rights Reserved KUB X-Ray 10/28/19 08:57 IMPRESSION: Enteric tube terminates subdiaphragmatically with the proximal port at the level of the gastroesophageal junction. Consider advancing 5 to 6 cm. Gas within mildly prominent loops of bowel likely on the basis of ileus. No evidence of high-grade obstruction. Increased interstitial markings at the lung bases as seen on recent chest radiograph. Assessment & Plan - Plan Summary Plan Summary: 58-year-old female status post Delgado's procedure for perforated sigmoid diverticulitis. The patient's ostomy is pink and productive. She is now extubated. She remains critically ill due to her poor baseline pulmonary status and new infection with COVID-19. Critical care and respiratory management per the precision layout worker service. surgery will sign off at this time as she is tolerating tube feeds and stoma is productive please reconsult surgery as necessary.
[2019-10-29 07:54] LABS: ABSOLUTE LYMPHOCYTES# (MANUAL) 4.3 10^3/uL (0.5-4.7); ABSOLUTE MONOCYTES # (MANUAL) 2.2 10^3/uL (0.1-1.4); BASOPHILS % (MANUAL) 0 % (0-2); EOSINOPHILS % (MANUAL) 0 % (0-6); LYMPHOCYTES % (MANUAL) 10 % (13-45); MONOCYTES % (MANUAL) 5 % (3-13); OVALOCYTES SLIGHT; PLATELET COMMENT DECREASED; POLYCHROMASIA SLIGHT; SEGMENTED NEUTROPHILS % (MAN) 85 % (42-78); TOTAL CELLS COUNTED 100; TOXIC GRANULATION SLIGHT; TOXIC VACUOLATION PRESENT
[2019-10-29 07:58] LABS: WHITE BLOOD COUNT 43.3 10^3/uL (4.0-10.5)
[2019-10-29] MEDS: BUDESONIDE NEB 0.25 MG/2 ML AMPUL NEB SCH ×2 (08:28→20:59)
--- NOTE | 2019-10-29 09:12 | PDOC CRITICAL CARE PROG REPORT ---
General Date:: 10/29/19 ICU Day:: 4 Hospital Day:: 11 Resuscitation Status: Full Code Medical Power of Felt Cutter: , Daniel Events in the past 12 to 24 Hours:: More awake. Respiratory status still tenuous. Review of systems relevant to events:: Respiratory Reason for ICU Addmission:: Respiratory failure, briefly intubated now on bipap. Re-intubation risk. - Medications: Medications reviewed and adjusted accordingly: Yes Vasopressors:: None Sedation:: None Physical Exam Vital Signs: Temp Pulse Resp BP Pulse Ox 98.8 F 70 20 149/63 H 98 10/29/19 08:00 10/29/19 08:00 10/29/19 08:00 10/29/19 08:00 10/29/19 08:00 Intake & Output 10/28/19 10/29/19 10/30/19 06:59 06:59 06:59 Intake Total 633 1569 Output Total 1880 1525 40 Balance -1247 44 -40 Weight 69 kg 60 kg Weight/Height Weight 60 kg Height 5 ft 1 in General appearance: PRESENT: no acute distress, cooperative Head exam: PRESENT: atraumatic, normocephalic Eye exam: PRESENT: conjunctiva pink, EOMI, PERRLA. ABSENT: scleral icterus Ear exam: PRESENT: normal external ear exam Mouth exam: PRESENT: moist, tongue midline Respiratory exam: PRESENT: clear to auscultation christina, decreased breath sounds, other - Respirations somewhat shallow.. ABSENT: rales, rhonchi, wheezes Cardiovascular exam: PRESENT: RRR. ABSENT: diastolic murmur, rubs, systolic murmur GI/Abdominal exam: PRESENT: normal bowel sounds, soft, other - Ostomy pink. Tolerating TF.. ABSENT: distended, guarding, mass, organolmegaly, rebound, tenderness Rectal exam: PRESENT: deferred Gentrourinary exam: PRESENT: indwelling catheter Extremities exam: PRESENT: full ROM. ABSENT: calf tenderness, clubbing, pedal edema Musculoskeletal exam: PRESENT: normal inspection Neurological exam: PRESENT: alert, altered, awake, oriented to person, CN II-XII grossly intact, other - She does seem to be slow to respond but is otherwise apropriate. Skin exam: PRESENT: dry, intact, warm, other - Better with transfusion.. ABSENT: cyanosis, rash Tubes/Lines: PRESENT: Nasogastic Tube Laboratory/Radiographs Laboratory Results: 10/29/19 06:30 10/29/19 06:30 10/28/19 10/28/19 10/28/19 23:00 23:00 23:00 WBC Cancelled RBC Cancelled Hgb Cancelled Hct Cancelled MCV Cancelled MCH Cancelled MCHC Cancelled RDW Cancelled Plt Count Cancelled Seg Neutrophils % Cancelled Retic Count (auto) Carbonic Acid 1.67 H HCO3/H2CO3 Ratio 15:1 ABG pH 7.30 L ABG pCO2 55.5 H ABG pO2 62.4 L ABG HCO3 26.6 H ABG O2 Saturation 89.1 L ABG Base Excess 0.2 FiO2 35% Sodium 136.8 L Potassium 4.8 Chloride 106 Carbon Dioxide 26 Anion Gap 5 BUN 45 H Creatinine 2.34 H Est GFR ( Amer) 26 L Glucose 192 H Calcium 7.1 L Ionized Calcium Dayna Phosphorus Magnesium Total Bilirubin AST Alkaline Phosphatase Total Protein Albumin Blood Type Antibody Screen 10/28/19 10/28/19 10/29/19 23:25 23:25 01:30 WBC 50.3 H* RBC 1.76 L Hgb 5.1 L D Hct 15.8 L MCV 90 MCH 28.7 MCHC 32.0 RDW 14.7 H Plt Count 254 Seg Neutrophils % Not Reportable Retic Count (auto) Carbonic Acid 1.62 H HCO3/H2CO3 Ratio 16:1 ABG pH 7.32 L ABG pCO2 53.8 H ABG pO2 87.0 ABG HCO3 27.1 H ABG O2 Saturation 95.8 ABG Base Excess 0.6 FiO2 45% Sodium Potassium Chloride Carbon Dioxide Anion Gap BUN Creatinine Est GFR ( Amer) Glucose Calcium Ionized Calcium Dayna Phosphorus Magnesium Total Bilirubin AST Alkaline Phosphatase Total Protein Albumin Blood Type O POSITIVE Antibody Screen NEGATIVE 10/29/19 10/29/19 10/29/19 06:30 06:30 06:30 WBC 43.3 H* RBC 4.39 Hgb 13.2 D Hct 39.2 MCV 89 MCH 30.2 MCHC 33.8 RDW 13.8 Plt Count 137 L Seg Neutrophils % Not Reportable Retic Count (auto) 1.90 Carbonic Acid 1.50 H HCO3/H2CO3 Ratio 16:1 ABG pH 7.31 L ABG pCO2 49.9 H ABG pO2 69.2 L ABG HCO3 24.3 H ABG O2 Saturation 92.1 L ABG Base Excess -2.5 FiO2 ROOM AIR Sodium 137.7 Potassium 4.7 Chloride 106 Carbon Dioxide 29 Anion Gap 3 L BUN 48 H Creatinine 2.08 H Est GFR ( Amer) 29 L Glucose 194 H Calcium 7.6 L Ionized Calcium Dayna 1.14 Phosphorus 4.9 H Magnesium 2.4 H Total Bilirubin 0.6 AST 67 H Alkaline Phosphatase 100 Total Protein 4.3 L Albumin 2.2 L Blood Type Antibody Screen 10/29/19 06:30 WBC Cancelled RBC Cancelled Hgb Cancelled Hct Cancelled MCV Cancelled MCH Cancelled MCHC Cancelled RDW Cancelled Plt Count Cancelled Seg Neutrophils % Cancelled Retic Count (auto) Carbonic Acid HCO3/H2CO3 Ratio ABG pH ABG pCO2 ABG pO2 ABG HCO3 ABG O2 Saturation ABG Base Excess FiO2 Sodium Potassium Chloride Carbon Dioxide Anion Gap BUN Creatinine Est GFR ( Amer) Glucose Calcium Ionized Calcium Dayna Phosphorus Magnesium Total Bilirubin AST Alkaline Phosphatase Total Protein Albumin Blood Type Antibody Screen 10/25/19 21:45 Tracheal Aspirate Gram Stain - Final 10/25/19 21:45 Tracheal Aspirate Sputum Culture - Final C.albicans/C.dubliniensis Normal Jennifer 10/18/19 10/29/19 00:24 06:30 Creatine Kinase 78 Troponin I 0.012 Impressions: Abdomen/Pelvis CT 10/17/19 23:59 IMPRESSION: 1. 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 Urgent finding reported to Olu SILVEIRA at 10/18/2019 1:55 AM CDT This exam was performed according to our departmental dose-optimization program, which includes automated exposure control, adjustment of the mA and/or kV according to patient size and/or use of iterative reconstruction technique. Chest/Abdomen CTA 10/23/19 00:00 IMPRESSION: 1. Limited examination due to contrast bolus timing with no contrast present within pulmonary arteries. As such no evaluation for pulmonary embolus is possible. 2. Moderate right-sided pleural effusion with some loculation and small left- sided pleural effusion with some loculation. 3. Severe emphysematous changes. Venous Doppler Study 10/26/19 00:00 IMPRESSION: NO EVIDENCE DVT OR SVT IN THE RIGHT ARM. Chest X-Ray 10/28/19 00:00 IMPRESSION: Interval extubation. Other findings are stable copyright 2011 [employer]- All Rights Reserved KUB X-Ray 10/28/19 08:57 IMPRESSION: Enteric tube terminates subdiaphragmatically with the proximal port at the level of the gastroesophageal junction. Consider advancing 5 to 6 cm. Gas within mildly prominent loops of bowel likely on the basis of ileus. No evidence of high-grade obstruction. Increased interstitial markings at the lung bases as seen on recent chest radiograph. All labs, radiographs, diagnostic studies and EKGs were personally reviewed: Yes In addition, reports of radiographic and diagnostic studies were read: Yes Assessment and Plan - Diagnosis (1) COVID-19 virus detected Is this a current diagnosis for this admission?: Yes Plan: She is doing a bit better from a respiratory standpoint. Still slow to respond b ut appropriate. Not in an ARDS situation. (2) Perforation of sigmoid colon due to diverticulitis Is this a current diagnosis for this admission?: Yes Plan: Resolved with surgery. No complications. (3) Leukocytosis Qualifiers: Leukocytosis type: leukemoid reaction Qualified Code(s): D72.823 - Leukemoid reaction Is this a current diagnosis for this admission?: Yes Plan: Level is down to 43K. No signs of infection other than COVID. (4) DANII (acute kidney injury) Is this a current diagnosis for this admission?: Yes Plan: Cr about 2. A bit improved. Plan Summary: She is best served in the ICU given her mental status, need for bipap and events of last night. Possible hemolytic episode. Critical Time Critical Time (minutes): 35 Level of Care: ICU Anticipated discharge: SNF Within: Other -: 1. The care of a critical patient is a dynamic process. This note is a commercial pest control representative synopsis but static in nature. The timeframe for treatments given in order is not necessarily the actual time these treatments may have been done. 2. This patient requires critical care secondary to ongoing requirements for therapy not offered or safe outside the critical care environment. Transfer to a lower level of care will result in altered life or limb morbidity and morta lity. 3. Multidisciplinary rounds completed. 4. ABCDE bundle addressed.
[2019-10-29] MEDS: ESCITALOPRAM OXALATE 10 MG TABLET NG SCH (09:40)
[2019-10-29] MEDS: ASPIRIN 81 MG TABLET, CHEWABLE NG SCH (09:40)
[2019-10-29] MEDS: PANTOPRAZOLE SODIUM 40 MG VIAL IV SCH (09:40)
[2019-10-29] MEDS: ARIPIPRAZOLE 5 MG TABLET NG SCH (09:40)
[2019-10-29] MEDS: ZINC SULFATE 220 MG CAPSULE NG SCH (09:40)
[2019-10-29] MEDS: FENTANYL CITRATE INJ/PF 100 MCG/2 ML AMPUL IV PRN ×2 (09:44→18:35)
--- NOTE | 2019-10-29 19:18 | EKG REPORT ---
SEVERITY:- ABNORMAL ECG - PROBABLE SINUS RHYTHM APCs : Confirmed by: Moy Limon 29-Oct-2019 19:17:25
[2019-10-30] MEDS: INSULIN REG, HUMAN 100 UNIT/ML 3 ML VIAL (PYX) SUBCUT SCH ×4 (00:27→19:03)
[2019-10-30] MEDS: FENTANYL CITRATE INJ/PF 100 MCG/2 ML AMPUL IV PRN ×3 (00:28→20:41)
[2019-10-30] MEDS: IPRATROPIUM/ALBUTEROL 0.5-2.5 MG/3 ML AMPUL NEB SCH ×6 (03:51→23:58)
[2019-10-30] MEDS: METHYLPREDNISOLONE INJ 40 MG/1 ML SDV IV SCH ×2 (05:43→19:03)
[2019-10-30 07:14] LABS: HEMATOCRIT 31.3 % (36.0-47.0); MEAN CORPUSCULAR HGB CONC 34.5 g/dL (32.0-36.0); MEAN CORPUSCULAR VOLUME 90 fl (80-97); PLATELET COUNT 177 10^3/uL (150-450); RED BLOOD COUNT 3.48 10^6/uL (3.72-5.28); RED CELL DISTRIBUTION WIDTH 14.2 % (11.5-14.0)
[2019-10-30 07:17] LABS: BLOOD UREA NITROGEN 52 mg/dL (7-20); CALCIUM 7.4 mg/dL (8.4-10.2); GLUCOSE 244 mg/dL (75-110); POTASSIUM 4.7 mmol/L (3.6-5.0)
[2019-10-30 07:22] LABS: CARBON DIOXIDE 29 mmol/L (22-30); CHLORIDE 107 mmol/L (98-107)
[2019-10-30 07:30] LABS: ANION GAP 3 (5-19)
[2019-10-30 07:50] LABS: HEMOGLOBIN 10.8 g/dL (12.0-15.5)
[2019-10-30 07:51] LABS: ABSOLUTE LYMPHOCYTES# (MANUAL) 0.6 10^3/uL (0.5-4.7); ABSOLUTE MONOCYTES # (MANUAL) 0.3 10^3/uL (0.1-1.4); BASOPHILS % (MANUAL) 0 % (0-2); EOSINOPHILS % (MANUAL) 0 % (0-6); LYMPHOCYTES % (MANUAL) 2 % (13-45); MONOCYTES % (MANUAL) 1 % (3-13); SEGMENTED NEUTROPHILS % (MAN) 97 % (42-78); TOTAL CELLS COUNTED 100
[2019-10-30 07:55] LABS: ANISOCYTOSIS SLIGHT; PLATELET COMMENT ADEQUATE
[2019-10-30] MEDS: BUDESONIDE NEB 0.25 MG/2 ML AMPUL NEB SCH ×2 (08:57→20:42)
--- NOTE | 2019-10-30 09:31 | PDOC CRITICAL CARE PROG REPORT ---
General Date:: 10/30/19 ICU Day:: 5 Hospital Day:: 12 Resuscitation Status: Full Code Medical Power of Needle Molder: , Daniel Events in the past 12 to 24 Hours:: More awake, beginning slow titration of bipap. Review of systems relevant to events:: Pulmonary Reason for ICU Addmission:: Respiratory failure, briefly intubated now on bipap. Re-intubation risk. - Medications: Medications reviewed and adjusted accordingly: Yes Vasopressors:: None Sedation:: None Physical Exam Vital Signs: Temp Pulse Resp BP Pulse Ox 99.1 F 67 18 144/62 H 97 10/30/19 08:00 10/30/19 08:00 10/30/19 08:00 10/30/19 08:00 10/30/19 07:00 Intake & Output 10/29/19 10/30/19 10/31/19 06:59 06:59 06:59 Intake Total 1569 1130 Output Total 1525 873 445 Balance 44 257 -445 Weight 60 kg Weight/Height Weight 60 kg Height 5 ft 1 in General appearance: PRESENT: no acute distress, cooperative Head exam: PRESENT: atraumatic, normocephalic Eye exam: PRESENT: conjunctiva pink, EOMI, PERRLA. ABSENT: scleral icterus Ear exam: PRESENT: normal external ear exam Mouth exam: PRESENT: moist, tongue midline Respiratory exam: PRESENT: clear to auscultation christina, decreased breath sounds. ABSENT: rales, rhonchi, wheezes Cardiovascular exam: PRESENT: RRR. ABSENT: diastolic murmur, rubs, systolic murmur GI/Abdominal exam: PRESENT: normal bowel sounds, soft. ABSENT: distended, guar ding, mass, organolmegaly, rebound, tenderness Rectal exam: PRESENT: deferred Gentrourinary exam: PRESENT: indwelling catheter Extremities exam: PRESENT: tenderness. ABSENT: other - painful today in upper partmR ar Musculoskeletal exam: PRESENT: tenderness Neurological exam: PRESENT: alert, awake, oriented to person, oriented to place, other - Much imroved over last few days. Psychiatric exam: PRESENT: appropriate affect, normal mood. ABSENT: homicidal ideation, suicidal ideation Skin exam: ABSENT: other - swelling and bruising to R arm.Some Tubes/Lines: PRESENT: Nasogastic Tube Laboratory/Radiographs Laboratory Results: 10/30/19 06:00 10/30/19 06:00 10/30/19 10/30/19 06:00 06:00 WBC 31.0 H* RBC 3.48 L Hgb 10.8 L D Hct 31.3 L MCV 90 MCH 31.0 MCHC 34.5 RDW 14.2 H Plt Count 177 Seg Neutrophils % Not Reportable Sodium 139.3 Potassium 4.7 Chloride 107 Carbon Dioxide 29 Anion Gap 3 L BUN 52 H Creatinine 1.76 H Est GFR ( Amer) 36 L Glucose 244 H Calcium 7.4 L 10/25/19 21:45 Tracheal Aspirate Gram Stain - Final 10/25/19 21:45 Tracheal Aspirate Sputum Culture - Final C.albicans/C.dubliniensis Normal Jennifer 10/18/19 10/29/19 00:24 06:30 Creatine Kinase 78 Troponin I 0.012 Impressions: Abdomen/Pelvis CT 10/17/19 23:59 IMPRESSION: 1. 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 Urgent finding reported to Olu SILVEIRA at 10/18/2019 1:55 AM CDT This exam was performed according to our departmental dose-optimization program, which includes automated exposure control, adjustment of the mA and/or kV according to patient size and/or use of iterative reconstruction technique. Chest/Abdomen CTA 10/23/19 00:00 IMPRESSION: 1. Limited examination due to contrast bolus timing with no contrast present within pulmonary arteries. As such no evaluation for pulmonary embolus is possible. 2. Moderate right-sided pleural effusion with some loculation and small left-sided pleural effusion with some loculation. 3. Severe emphysematous changes. Venous Doppler Study 10/26/19 00:00 IMPRESSION: NO EVIDENCE DVT OR SVT IN THE RIGHT ARM. Chest X-Ray 10/28/19 00:00 IMPRESSION: Interval extubation. Other findings are stable copyright 2011 [employer]- All Rights Reserved KUB X-Ray 10/28/19 08:57 IMPRESSION: Enteric tube terminates subdiaphragmatically with the proximal port at the level of the gastroesophageal junction. Consider advancing 5 to 6 cm. Gas within mildly prominent loops of bowel likely on the basis of ileus. No evidence of high-grade obstruction. Increased interstitial markings at the lung bases as seen on recent chest radiograph. All labs, radiographs, diagnostic studies and EKGs were personally reviewed: Yes In addition, reports of radiographic and diagnostic studies were read: Yes Assessment and Plan - Diagnosis (1) COVID-19 virus detected Is this a current diagnosis for this admission?: Yes Plan: She is slowly improving. We have begun slow wean from bipap. I pressure from 18- 16. (2) Perforation of sigmoid colon due to diverticulitis Is this a current diagnosis for this admission?: Yes Plan: Ostomy pink and functional. (3) Leukocytosis Qualifiers: Leukocytosis type: leukemoid reaction Qualified Code(s): D72.823 - Garret kemoid reaction Is this a current diagnosis for this admission?: Yes Plan: WBC don to 31K. Big improvement. (4) DANII (acute kidney injury) Is this a current diagnosis for this admission?: Yes Plan: Cr 1.74. GFR 30. Better but not resolved. (5) COPD (chronic obstructive pulmonary disease) Qualifiers: COPD type: emphysema Emphysema type: centrilobular Qualified Code(s): J43.2 - Centrilobular emphysema Is this a current diagnosis for this admission?: Yes Plan: She is not wheezing but is on @L oxygen at home. She wont come off O2 but perhaps bipap soon. Plan Summary: She is more awake. When bipap is turned down or off will transfer out of ICU. Critical Time Critical Time (minutes): 35 Level of Care: ICU Anticipated discharge: SNF Within: Other -: 1. The care of a critical patient is a dynamic process. This note is a financial services representative synopsis but static in nature. The timeframe for treatments given in order is not necessarily the actual time these treatments may have been done. 2. This patient requires critical care secondary to ongoing requirements for therapy not offered or safe outside the critical care environment. Transfer to a lower level of care will result in altered life or limb morbidity and mortality. 3. Multidisciplinary rounds completed. 4. ABCDE bundle addressed.
[2019-10-30] MEDS: ZINC SULFATE 220 MG CAPSULE NG SCH (10:32)
[2019-10-30] MEDS: ESCITALOPRAM OXALATE 10 MG TABLET NG SCH (10:32)
[2019-10-30] MEDS: ARIPIPRAZOLE 5 MG TABLET NG SCH (10:32)
[2019-10-30] MEDS: PANTOPRAZOLE SODIUM 40 MG VIAL IV SCH (10:34)
[2019-10-30] MEDS: ASPIRIN 81 MG TABLET, CHEWABLE NG SCH (12:41)
[2019-10-30] MEDS: ENOXAPARIN SODIUM INJ 40 MG/0.4 ML DISP.SYRIN SUBCUT SCH (12:41)
[2019-10-30] MEDS ORDERED: INSULIN GLARGINE,HUM.REC.ANLOG 1,000 UNIT/10 ML VIAL (PYX) SUBCUT ONE (22:51)
[2019-10-30] MEDS: INSULIN GLARGINE,HUM.REC.ANLOG 1,000 UNIT/10 ML VIAL SUBCUT SCH (22:54)
[2019-10-31] MEDS: INSULIN REG, HUMAN 100 UNIT/ML 3 ML VIAL (PYX) SUBCUT SCH ×4 (01:03→17:21)
[2019-10-31] MEDS: IPRATROPIUM/ALBUTEROL 0.5-2.5 MG/3 ML AMPUL NEB SCH ×5 (04:23→21:27)
[2019-10-31 05:45] LABS: HEMATOCRIT 31.8 % (36.0-47.0); HEMOGLOBIN 10.8 g/dL (12.0-15.5); MEAN CORPUSCULAR HEMOGLOBIN 30.9 pg (27.0-33.4); MEAN CORPUSCULAR HGB CONC 33.9 g/dL (32.0-36.0); MEAN CORPUSCULAR VOLUME 91 fl (80-97); PLATELET COUNT 225 10^3/uL (150-450); RED BLOOD COUNT 3.49 10^6/uL (3.72-5.28); RED CELL DISTRIBUTION WIDTH 14.5 % (11.5-14.0); WHITE BLOOD COUNT 25.8 10^3/uL (4.0-10.5)
[2019-10-31] MEDS: METHYLPREDNISOLONE INJ 40 MG/1 ML SDV IV SCH ×2 (06:12→17:20)
[2019-10-31] MEDS: FENTANYL CITRATE INJ/PF 100 MCG/2 ML AMPUL IV PRN (06:12)
[2019-10-31 06:17] LABS: ABSOLUTE LYMPHOCYTES# (MANUAL) 0.5 10^3/uL (0.5-4.7); ABSOLUTE MONOCYTES # (MANUAL) 0.8 10^3/uL (0.1-1.4); ANISOCYTOSIS SLIGHT; BASOPHILS % (MANUAL) 0 % (0-2); EOSINOPHILS % (MANUAL) 0 % (0-6); LYMPHOCYTES % (MANUAL) 2 % (13-45); MONOCYTES % (MANUAL) 3 % (3-13); OVALOCYTES SLIGHT; PLATELET COMMENT ADEQUATE; SEGMENTED NEUTROPHILS % (MAN) 95 % (42-78); TOTAL CELLS COUNTED 100
[2019-10-31 06:20] LABS: BLOOD UREA NITROGEN 52 mg/dL (7-20); CALCIUM 7.6 mg/dL (8.4-10.2); CHLORIDE 108 mmol/L (98-107); GLUCOSE 213 mg/dL (75-110); POTASSIUM 4.8 mmol/L (3.6-5.0)
[2019-10-31 06:27] LABS: ANION GAP 1 (5-19); CARBON DIOXIDE 32 mmol/L (22-30)
[2019-10-31] MEDS: ZINC SULFATE 220 MG CAPSULE NG SCH (09:03)
[2019-10-31] MEDS: PANTOPRAZOLE SODIUM 40 MG VIAL IV SCH (09:03)
[2019-10-31] MEDS: ENOXAPARIN SODIUM INJ 40 MG/0.4 ML DISP.SYRIN SUBCUT SCH (09:03)
[2019-10-31] MEDS: ARIPIPRAZOLE 5 MG TABLET NG SCH (09:04)
[2019-10-31] MEDS: ASPIRIN 81 MG TABLET, CHEWABLE NG SCH (09:04)
[2019-10-31] MEDS: ESCITALOPRAM OXALATE 10 MG TABLET NG SCH (09:04)
--- NOTE | 2019-10-31 09:06 | PDOC CRITICAL CARE PROG REPORT ---
General Date:: 10/31/19 ICU Day:: 6 Hospital Day:: 13 Resuscitation Status: Full Code Medical Power of Marketing Sales Representative: Daniel Cole Events in the past 12 to 24 Hours:: Improved numbers for kidney function, respiratory function, but still feeling deconditioned. Review of systems relevant to events:: Pulmonary Reason for ICU Addmission:: Respiratory failure, briefly intubated now on bipap. Re-intubation risk. Improved - Medications: Medications reviewed and adjusted accordingly: Yes Vasopressors:: None Sedation:: None Physical Exam Vital Signs: Temp Pulse Resp BP Pulse Ox 98.4 F 64 14 168/65 H 97 10/31/19 08:00 10/31/19 08:00 10/31/19 08:00 10/31/19 08:00 10/31/19 08:00 Intake & Output 10/30/19 10/31/19 11/01/19 06:59 06:59 06:59 Intake Total 1130 110 Output Total 873 2045 Balance 257 -1935 Weight 79.3 kg 79.7 kg Weight/Height Weight 79.7 kg Height 5 ft 1 in General appearance: PRESENT: no acute distress, cooperative Head exam: PRESENT: atraumatic, normocephalic Eye exam: PRESENT: conjunctiva pink, EOMI, PERRLA. ABSENT: scleral icterus Ear exam: PRESENT: normal external ear exam Mouth exam: PRESENT: moist, tongue midline Respiratory exam: PRESENT: clear to auscultation christina, decreased breath sounds. ABSENT: rales, rhonchi, wheezes Cardiovascular exam: PRESENT: RRR. ABSENT: diastolic murmur, rubs, systolic murmur Pulses: PRESENT: normal dorsalis pedis pul GI/Abdominal exam: PRESENT: normal bowel sounds, soft. ABSENT: distended, guarding, mass, organolmegaly, rebound, tenderness Rectal exam: PRESENT: deferred Gentrourinary exam: PRESENT: indwelling catheter Extremities exam: PRESENT: full ROM. ABSENT: calf tenderness, clubbing, pedal edema Musculoskeletal exam: PRESENT: normal inspection Neurological exam: PRESENT: alert, awake, oriented to person, oriented to place, oriented to time, oriented to situation, CN II-XII grossly intact. ABSENT: motor sensory deficit Skin exam: PRESENT: dry, intact, warm. ABSENT: cyanosis, rash Laboratory/Radiographs Laboratory Results: 10/31/19 05:25 10/31/19 05:25 10/31/19 10/31/19 10/31/19 05:25 05:25 05:25 WBC 25.8 H RBC 3.49 L Hgb 10.8 L Hct 31.8 L MCV 91 MCH 30.9 MCHC 33.9 RDW 14.5 H Plt Count 225 Seg Neutrophils % Not Reportable Sodium 140.8 Potassium 4.8 Chloride 108 H Carbon Dioxide 32 H Anion Gap 1 L BUN 52 H Creatinine 1.58 H Est GFR ( Amer) 41 L Glucose 213 H Calcium 7.6 L Ionized Calcium Dayna 1.07 L 10/25/19 21:45 Blood Blood Culture - Final NO GROWTH IN 5 DAYS 10/25/19 21:08 Blood Blood Culture - Final NO GROWTH IN 5 DAYS 10/18/19 10/29/19 00:24 06:30 Creatine Kinase 78 Troponin I 0.012 Impressions: Abdomen/Pelvis CT 10/17/19 23:59 IMPRESSION: 1. 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 Urgent finding reported to Olu SILVEIRA at 10/18/2019 1:55 AM CDT This exam was performed according to our departmental dose-optimization program, which includes automated exposure control, adjustment of the mA and/or kV according to patient size and/or use of iterative reconstruction technique. Chest/Abdomen CTA 10/23/19 00:00 IMPRESSION: 1. Limited examination due to contrast bolus timing with no contrast present within pulmonary arteries. As such no evaluation for pulmonary embolus is possible. 2. Moderate right-sided pleural effusion with some loculation and small left- sided pleural effusion with some loculation. 3. Severe emphysematous changes. Venous Doppler Study 10/26/19 00:00 IMPRESSION: NO EVIDENCE DVT OR SVT IN THE RIGHT ARM. Chest X-Ray 10/28/19 00:00 IMPRESSION: Interval extubation. Other findings are stable copyright 2011 [employer]- All Rights Reserved KUB X-Ray 10/28/19 08:57 IMPRESSION: Enteric tube terminates subdiaphragmatically with the proximal port at the level of the gastroesophageal junction. Consider advancing 5 to 6 cm. Gas within mildly prominent loops of bowel likely on the basis of ileus. No evidence of high-grade obstruction. Increased interstitial markings at the lung bases as seen on recent chest radiograph. All labs, radiographs, diagnostic studies and EKGs were personally reviewed: Yes In addition, reports of radiographic and diagnostic studies were read: Yes Assessment and Plan - Diagnosis (1) COVID-19 virus detected Is this a current diagnosis for this admission?: Yes Plan: Still on bipap but volumes are better as is her oxygenation. Able to downgrade to IMC today. (2) Perforation of sigmoid colon due to diverticulitis Is this a current diagnosis for this admission?: Yes Plan: Resolved. Tolerating tube feeds. (3) Leukocytosis Qualifiers: Leukocytosis type: leukemoid reaction Qualified Code(s): D72.823 - Leukemoid reaction Is this a current diagnosis for this admission?: Yes Plan: Improving, down to 25K. (4) DANII (acute kidney injury) Is this a current diagnosis for this admission?: Yes Plan: Improving. Cr 1.6, GFR 30. (5) COPD (chronic obstructive pulmonary disease) Qualifiers: COPD type: emphysema Emphysema type: centrilobular Qualified Code(s): J43.2 - Centrilobular emphysema Is this a current diagnosis for this admission?: Yes Plan: Stable and inactive. Plan Summary: Stable enough to downgrade to IMC. Needs mobilization and PT. Critical Time Critical Time (minutes): 30 Level of Care: IMCU Anticipated discharge: SNF Within: Other -: 1. The care of a critical patient is a dynamic process. This note is a artist representative synopsis but static in nature. The timeframe for treatments given in order is not necessarily the actual time these treatments may have been done. 2. This patient requires critical care secondary to ongoing requirements for therapy not offered or safe outside the critical care environment. Transfer to a lower level of care will result in altered life or limb morbidity and mortality. 3. Multidisciplinary rounds completed. 4. ABCDE bundle addressed.
[2019-10-31] MEDS: BUDESONIDE NEB 0.25 MG/2 ML AMPUL NEB SCH ×2 (09:14→21:26)
[2019-10-31] MEDS: INSULIN GLARGINE,HUM.REC.ANLOG 1,000 UNIT/10 ML VIAL SUBCUT SCH ×2 (10:19→21:14)
[2019-10-31 10:38] LABS: G-6-PD QUANT U/10E12 RBC 489 (146-376)
[2019-10-31] MEDS: DILTIAZEM HCL 30 MG TABLET PO SCH ×2 (14:04→21:14)
[2019-10-31] MEDS: OXYCODONE HCL IR 5 MG TABLET NG PRN ×2 (14:04→21:12)
[2019-11-01] MEDS: IPRATROPIUM/ALBUTEROL 0.5-2.5 MG/3 ML AMPUL NEB SCH ×7 (00:49→23:48)
[2019-11-01] MEDS: INSULIN REG, HUMAN 100 UNIT/ML 3 ML VIAL (PYX) SUBCUT SCH ×4 (01:32→22:35)
[2019-11-01] MEDS: DILTIAZEM HCL 30 MG TABLET PO SCH ×3 (06:42→22:00)
[2019-11-01] MEDS: METHYLPREDNISOLONE INJ 40 MG/1 ML SDV IV SCH ×2 (06:43→17:51)
[2019-11-01] MEDS: OXYCODONE HCL IR 5 MG TABLET NG PRN (06:45)
[2019-11-01] MEDS: BUDESONIDE NEB 0.25 MG/2 ML AMPUL NEB SCH ×2 (08:18→20:36)
[2019-11-01] MEDS: ENOXAPARIN SODIUM INJ 40 MG/0.4 ML DISP.SYRIN SUBCUT SCH (09:33)
[2019-11-01] MEDS: ASPIRIN 81 MG TABLET, CHEWABLE NG SCH (09:33)
[2019-11-01] MEDS: ARIPIPRAZOLE 5 MG TABLET NG SCH (09:33)
[2019-11-01] MEDS: ZINC SULFATE 220 MG CAPSULE NG SCH (09:33)
[2019-11-01] MEDS: ESCITALOPRAM OXALATE 10 MG TABLET NG SCH (09:33)
[2019-11-01] MEDS: INSULIN GLARGINE,HUM.REC.ANLOG 1,000 UNIT/10 ML VIAL SUBCUT SCH ×2 (11:32→22:38)
--- NOTE | 2019-11-01 19:21 | PDOC PROGRESS REPORT ---
Subjective Progress Note for:: 11/01/19 Subjective:: Patient seems to be doing better today. Improving looks to be stabilized, her creatinine is lower, her white blood cell count is trending down. Tracheal culture grew Shannan which is likely normal tabitha. Blood cultures are negative. She had some questions today about why she is not on antibiotics and I answered these questions in great detail, noting that we do not have a specific antiviral medication that has been proven effective for COVID, however high-dose steroids have been shown in early studies to be beneficial and we will continue giving this to her and her . We also had a long discussion about watching for post viral bacterial pneumonia which I do not believe she has at this time. We will be watching for this to develop over the next several days as she recovers from the viral infection. Due to patient being COVID-19 Suspected/Positive, encounter was conducted using telephone and/or videochat and does not include a detailed in-person physical exam in order to preserve PPE and limit staff exposure to a dangerous pathogen. Reason For Visit: ACUTE HYPERCARBIC RESPIRATORY FAILURE,NEED FOR INT Physical Exam Vital Signs: Temp Pulse Resp BP Pulse Ox 97.9 F 56 L 20 132/57 H 97 11/01/19 04:00 11/01/19 16:53 11/01/19 16:53 11/01/19 04:00 11/01/19 16:53 Intake & Output 10/31/19 11/01/19 11/02/19 06:59 06:59 06:59 Intake Total 110 390 160 Output Total 2045 9665 679 Balance -0163 -2711 -304 Weight 79.7 kg General appearance: PRESENT: other - Due to patient being COVID-19 Suspected/Positive, encounter was conducted using telephone and/or videochat and does not include a detailed in-person physical exam in order to preserve PPE and limit staff exposure to a dangerous pathogen. Results Laboratory Results: 10/31/19 05:25 10/31/19 05:25 10/18/19 10/29/19 00:24 06:30 Creatine Kinase 78 Troponin I 0.012 Impressions: Abdomen/Pelvis CT 10/17/19 23:59 IMPRESSION: 1. 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 Urgent finding reported to Olu SILVEIRA at 10/18/2019 1:55 AM CDT This exam was performed according to our departmental dose-optimization program, which includes automated exposure control, adjustment of the mA and/or kV according to patient size and/or use of iterative reconstruction technique. Chest/Abdomen CTA 10/23/19 00:00 IMPRESSION: 1. Limited examination due to contrast bolus timing with no contrast present within pulmonary arteries. As such no evaluation for pulmonary embolus is possible. 2. Moderate right-sided pleural effusion with some loculation and small left- sided pleural effusion with some loculation. 3. Severe emphysematous changes. Venous Doppler Study 10/26/19 00:00 IMPRESSION: NO EVIDENCE DVT OR SVT IN THE RIGHT ARM. Chest X-Ray 10/28/19 00:00 IMPRESSION: Interval extubation. Other findings are stable copyright 2011 [employer]- All Rights Reserved KUB X-Ray 10/28/19 08:57 IMPRESSION: Enteric tube terminates subdiaphragmatically with the proximal port at the level of the gastroesophageal junction. Consider advancing 5 to 6 cm. Gas within mildly prominent loops of bowel likely on the basis of ileus. No evidence of high-grade obstruction. Increased interstitial markings at the lung bases as seen on recent chest radiograph. Assessment and Plan - Diagnosis (1) COVID-19 virus detected Is this a current diagnosis for this admission?: Yes Plan: Test positive here is also infected and is being treated in the same room as her in the hospital Solu-Medrol continued Vitamins/zinc continued Transitioned from BiPAP to HF NC, wean oxygen as able (2) DANII (acute kidney injury) Is this a current diagnosis for this admission?: Yes Plan: Likely due to sepsis and acute illness Improving, creatinine trending down Trend BMP (3) Acute and chronic respiratory failure ([id number]) Qualifiers: Respiratory failure complication: hypoxia and hypercapnia Qualified Code(s): J96.21 - Acute and chronic respiratory failure with hypoxia; J96.22 - Acute and chronic respiratory failure with hypercapnia Is this a current diagnosis for this admission?: Yes Plan: Extubated 10/29 Holding steady at HF NC on 40% FiO2. (4) Atrial fibrillation with rapid ventricular response Is this a current diagnosis for this admission?: Yes Plan: Continued Cardizem 30 mg every 8 hours, may transition to long-acting prior to discharge if heart rate remained stable (5) Diverticulitis Is this a current diagnosis for this admission?: Yes Plan: General surgery consulted: Status post Delgado's procedure Abdominal drain removed by surgery (6) Perforation of sigmoid colon due to diverticulitis Is this a current diagnosis for this admission?: Yes Plan: Resolved. Tolerating tube feeds. (7) Peritonitis, acute generalized Is this a current diagnosis for this admission?: Yes (8) Sepsis with acute respiratory failure and septic shock Qualifiers: Sepsis type: sepsis due to unspecified organism Is this a current diagnosis for this admission?: Yes Plan: Due to COVID-19 Blood cultures negative Bronchial culture grew Shannan, normal tabitha (9) Swelling of right upper extremity Is this a current diagnosis for this admission?: Yes Plan: Ultrasound right upper extremity (10/25) was negative for DVT. - Time Time Spent with patient: 25-34 minutes Medications reviewed and adjusted accordingly: Yes - Inpatient Certification Based on my medical assessment, after consideration of the patient's comorbidities, presenting symptoms, or acuity I expect that the services needed warrant INPATIENT care.: Yes I certify that my determination is in accordance with my understanding of Medicare's requirements for reasonable and necessary INPATIENT services [42 CFR 412.3e].: Yes Medical Necessity: Significant Comorbidiites Make Outpatient Treatment Too Risky, Need Close Monitoring Due to Risk of Patient Decompensation, Risk of Complication if Not Cared For in Hospital, Risk of Diagnosis Which Will Require Inpatient Eval/Care/Monitoring
[2019-11-02] MEDS: INSULIN REG, HUMAN 100 UNIT/ML 3 ML VIAL (PYX) SUBCUT SCH ×4 (00:37→23:38)
[2019-11-02] MEDS: IPRATROPIUM/ALBUTEROL 0.5-2.5 MG/3 ML AMPUL NEB SCH ×6 (03:58→23:41)
[2019-11-02] MEDS ORDERED: ACETAMINOPHEN SOLN 325 MG/10.15 ML UDCUP ONE (05:26)
[2019-11-02] MEDS: DILTIAZEM HCL 30 MG TABLET PO SCH ×3 (05:50→23:38)
[2019-11-02] MEDS: ACETAMINOPHEN SOLN 325 MG/10.15 ML UDCUP NG PRN (05:50)
[2019-11-02] MEDS: METHYLPREDNISOLONE INJ 40 MG/1 ML SDV IV SCH ×2 (05:51→17:28)
[2019-11-02] MEDS: BUDESONIDE NEB 0.25 MG/2 ML AMPUL NEB SCH ×2 (08:56→20:41)
[2019-11-02] MEDS: ZINC SULFATE 220 MG CAPSULE NG SCH (10:01)
[2019-11-02] MEDS: ARIPIPRAZOLE 5 MG TABLET NG SCH (10:01)
[2019-11-02] MEDS: ENOXAPARIN SODIUM INJ 40 MG/0.4 ML DISP.SYRIN SUBCUT SCH (10:01)
[2019-11-02] MEDS: ESCITALOPRAM OXALATE 10 MG TABLET NG SCH (10:01)
[2019-11-02] MEDS: ASPIRIN 81 MG TABLET, CHEWABLE NG SCH (10:01)
[2019-11-02] MEDS: INSULIN GLARGINE,HUM.REC.ANLOG 1,000 UNIT/10 ML VIAL SUBCUT SCH ×2 (10:02→23:39)
--- NOTE | 2019-11-02 18:47 | PDOC PROGRESS REPORT ---
Subjective Progress Note for:: 11/02/19 Subjective:: Patient seems to be doing better today. Improving looks to be stabilized, her creatinine is lower, her white blood cell count is trending down. Tracheal culture grew Shannan which is likely normal tabitha. Blood cultures are negative. She had some questions today about why she is not on antibiotics and I answered these questions in great detail, noting that we do not have a specific antiviral medication that has been proven effective for COVID, however high-dose steroids have been shown in early studies to be beneficial and we will continue giving this to her and her . We also had a long discussion about watching for post viral bacterial pneumonia which I do not believe she has at this time. We will be watching for this to develop over the next several days as she recovers from the viral infection. Due to patient being COVID-19 Suspected/Positive, encounter was conducted using telephone and/or videochat and does not include a detailed in-person physical exam in order to preserve PPE and limit staff exposure to a dangerous pathogen. 11/02/2019 Had video chat with patient again today, she states she is feeling okay. She does endorse some mild shortness of breath and cough but this is not worse from yesterday. She is being well maintained on high flow nasal cannula and we are attempting to wean this gradually. We will check some labs on her in the morning. Answered all the patient's questions to her satisfaction. She has no new complaints today otherwise. Reason For Visit: ACUTE HYPERCARBIC RESPIRATORY FAILURE,NEED FOR INT Physical Exam Vital Signs: Temp Pulse Resp BP Pulse Ox 97.9 F 68 20 132/57 H 94 11/01/19 04:00 11/02/19 15:58 11/02/19 15:58 11/01/19 04:00 11/02/19 15:58 Intake & Output 11/01/19 11/02/19 11/03/19 06:59 06:59 06:59 Intake Total 390 200 40 Output Total 2875 1425 Balance -2485 -1225 40 Weight 80.1 kg 80.1 kg General appearance: PRESENT: no acute distress, other - Due to patient being COVID-19 Suspected/Positive, encounter was conducted using telephone and/or videochat and does not include a detailed in-person physical exam in order to p reserve PPE and limit staff exposure to a dangerous pathogen. Results Laboratory Results: 10/31/19 05:25 10/31/19 05:25 10/18/19 10/29/19 00:24 06:30 Creatine Kinase 78 Troponin I 0.012 Impressions: Abdomen/Pelvis CT 10/17/19 23:59 IMPRESSION: 1. 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 Urgent finding reported to Olu SILVEIRA at 10/18/2019 1:55 AM CDT This exam was performed according to our departmental dose-optimization program, which includes automated exposure control, adjustment of the mA and/or kV according to patient size and/or use of iterative reconstruction technique. Chest/Abdomen CTA 10/23/19 00:00 IMPRESSION: 1. Limited examination due to contrast bolus timing with no contrast present within pulmonary arteries. As such no evaluation for pulmonary embolus is possible. 2. Moderate right-sided pleural effusion with some loculation and small left- sided pleural effusion with some loculation. 3. Severe emphysematous changes. Venous Doppler Study 10/26/19 00:00 IMPRESSION: NO EVIDENCE DVT OR SVT IN THE RIGHT ARM. Chest X-Ray 10/28/19 00:00 IMPRESSION: Interval extubation. Other findings are stable copyright 2011 [employer]- All Rights Reserved KUB X-Ray 10/28/19 08:57 IMPRESSION: Enteric tube terminates subdiaphragmatically with the proximal port at the level of the gastroesophageal junction. Consider advancing 5 to 6 cm. Gas within mildly prominent loops of bowel likely on the basis of ileus. No evidence of high-grade obstruction. Increased interstitial markings at the lung bases as seen on recent chest radiograph. Assessment and Plan - Diagnosis (1) COVID-19 virus detected Is this a current diagnosis for this admission?: Yes Plan: Test positive here is also infected and is being treated in the same room as her in the hospital Solu-Medrol continued Vitamins/zinc continued Transitioned from BiPAP to HFNC, wean oxygen as able (2) DANII (acute kidney injury) Is this a current diagnosis for this admission?: Yes Plan: Likely due to sepsis and acute illness Improving, creatinine trending down Trend BMP Can consider consulting nephrology if renal function worsens (3) Acute and chronic respiratory failure ([id number]) Qualifiers: Respiratory failure complication: hypoxia and hypercapnia Qualified Code(s): J96.21 - Acute and chronic respiratory failure with hypoxia; J96.22 - Acute and chronic respiratory failure with hypercapnia Is this a current diagnosis for this admission?: Yes (4) Atrial fibrillation with rapid ventricular response Is this a current diagnosis for this admission?: Yes (5) Diverticulitis Is this a current diagnosis for this admission?: Yes (6) Perforation of sigmoid colon due to diverticulitis Is this a current diagnosis for this admission?: Yes (7) Peritonitis, acute generalized Is this a current diagnosis for this admission?: Yes (8) Sepsis with acute respiratory failure and septic shock Qualifiers: Sepsis type: sepsis due to unspecified organism Is this a current diagnosis for this admission?: Yes (9) Swelling of right upper extremity Is this a current diagnosis for this admission?: Yes - Time Time Spent with patient: 25-34 minutes Medications reviewed and adjusted accordingly: Yes - Inpatient Certification Based on my medical assessment, after consideration of the patient's comorbi dities, presenting symptoms, or acuity I expect that the services needed warrant INPATIENT care.: Yes I certify that my determination is in accordance with my understanding of Medicare's requirements for reasonable and necessary INPATIENT services [42 CFR 412.3e].: Yes Medical Necessity: Significant Comorbidiites Make Outpatient Treatment Too Risky, Need Close Monitoring Due to Risk of Patient Decompensation, Risk of Complication if Not Cared For in Hospital, Risk of Diagnosis Which Will Require Inpatient Eval/Care/Monitoring
[2019-11-02] MEDS: OXYCODONE HCL IR 5 MG TABLET NG PRN (22:00)
[2019-11-03] MEDS: IPRATROPIUM/ALBUTEROL 0.5-2.5 MG/3 ML AMPUL NEB SCH ×5 (04:23→20:57)
[2019-11-03] MEDS: INSULIN REG, HUMAN 100 UNIT/ML 3 ML VIAL (PYX) SUBCUT SCH ×4 (06:33→18:42)
[2019-11-03] MEDS: METHYLPREDNISOLONE INJ 40 MG/1 ML SDV IV SCH ×2 (06:34→18:42)
[2019-11-03] MEDS: DILTIAZEM HCL 30 MG TABLET PO SCH ×3 (06:34→22:38)
[2019-11-03] MEDS: OXYCODONE HCL IR 5 MG TABLET NG PRN ×2 (06:37→22:36)
[2019-11-03 06:39] LABS: HEMATOCRIT 32.7 % (36.0-47.0); HEMOGLOBIN 10.9 g/dL (12.0-15.5); MEAN CORPUSCULAR HEMOGLOBIN 31.3 pg (27.0-33.4); MEAN CORPUSCULAR HGB CONC 33.4 g/dL (32.0-36.0); MEAN CORPUSCULAR VOLUME 94 fl (80-97); RED BLOOD COUNT 3.49 10^6/uL (3.72-5.28); RED CELL DISTRIBUTION WIDTH 15.1 % (11.5-14.0); WHITE BLOOD COUNT 18.3 10^3/uL (4.0-10.5)
[2019-11-03 06:58] LABS: BLOOD UREA NITROGEN 57 mg/dL (7-20); CALCIUM 8.3 mg/dL (8.4-10.2); GLUCOSE 194 mg/dL (75-110)
[2019-11-03 07:07] LABS: POTASSIUM 4.5 mmol/L (3.6-5.0)
[2019-11-03 07:08] LABS: ABSOLUTE LYMPHOCYTES# (MANUAL) 0.2 10^3/uL (0.5-4.7); ABSOLUTE MONOCYTES # (MANUAL) 0.7 10^3/uL (0.1-1.4); BASOPHILS % (MANUAL) 0 % (0-2); EOSINOPHILS % (MANUAL) 0 % (0-6); LYMPHOCYTES % (MANUAL) 1 % (13-45); MONOCYTES % (MANUAL) 4 % (3-13); SEGMENTED NEUTROPHILS % (MAN) 95 % (42-78); TOTAL CELLS COUNTED 100
[2019-11-03 07:09] LABS: ANISOCYTOSIS SLIGHT; TOXIC GRANULATION SLIGHT; TOXIC VACUOLATION PRESENT
[2019-11-03 07:12] LABS: OVALOCYTES SLIGHT; PLATELET CLUMPS PRESENT; PLATELET COMMENT ADEQUATE
[2019-11-03 07:13] LABS: CARBON DIOXIDE 35 mmol/L (22-30); CHLORIDE 105 mmol/L (98-107); PLATELET COUNT 382 10^3/uL (150-450)
[2019-11-03 07:14] LABS: ANION GAP 1 (5-19)
[2019-11-03] MEDS: BUDESONIDE NEB 0.25 MG/2 ML AMPUL NEB SCH ×2 (08:51→20:57)
[2019-11-03] MEDS: INSULIN GLARGINE,HUM.REC.ANLOG 1,000 UNIT/10 ML VIAL SUBCUT SCH ×2 (10:54→22:39)
[2019-11-03] MEDS: ASPIRIN 81 MG TABLET, CHEWABLE NG SCH (10:54)
[2019-11-03] MEDS: ARIPIPRAZOLE 5 MG TABLET NG SCH (10:54)
[2019-11-03] MEDS: ESCITALOPRAM OXALATE 10 MG TABLET NG SCH (10:55)
[2019-11-03] MEDS: ENOXAPARIN SODIUM INJ 40 MG/0.4 ML DISP.SYRIN SUBCUT SCH (10:55)
[2019-11-03] MEDS: ZINC SULFATE 220 MG CAPSULE NG SCH (10:55)
--- NOTE | 2019-11-03 19:07 | PDOC PROGRESS REPORT ---
Subjective Progress Note for:: 11/03/19 Subjective:: Due to patient being COVID-19 Suspected/Positive, encounter was conducted using telephone and/or videochat and does not include a detailed in-person physical exam in order to preserve PPE and limit staff exposure to a dangerous pathogen. 11/01/2019 Patient seems to be doing better today. Improving looks to be stabilized, her creatinine is lower, her white blood cell count is trending down. Tracheal culture grew Shannan which is likely normal tabitha. Blood cultures are negative. She had some questions today about why she is not on antibiotics and I answered these questions in great detail, noting that we do not have a specific antiviral medication that has been proven effective for COVID, however high-dose steroids have been shown in early studies to be beneficial and we will continue giving this to her and her . We also had a long discussion about watching for post viral bacterial pneumonia which I do not believe she has at this time. We will be watching for this to develop over the next several days as she recovers from the viral infection. 11/02/2019 Had video chat with patient again today, she states she is feeling okay. She does endorse some mild shortness of breath and cough but this is not worse from yesterday. She is being well maintained on high flow nasal cannula and we are attempting to wean this gradually. We will check some labs on her in the morning. Answered all the patient's questions to her satisfaction. She has no new complaints today otherwise. 11/03/2019 Spoke with the patient and her on the phone today for our encounter. Also spoke at great length with the nurse and the speech therapist. Speech therapist would like to perform a swallow study if the patient's respiratory status improves. I asked that she check back with patient every 2 to 3 days to see how much she is improved. Currently, I doubt she can tolerate a swallow study as this would potentially cause an aspiration event. Probably within the next week we can try this. Patient already has a feeding tube in place that is giving her adequate nourishment though I know the patient would prefer to at least have something to drink by mouth. Patient is gradually improving as respiratory therapist and nursing attempts to titrate down her high flow oxygen needs. Patient still has a long way to go. She still has complaints of mild cough and shortness of breath, otherwise no new complaints. Her labs are improving. Reason For Visit: ACUTE HYPERCARBIC RESPIRATORY FAILURE,NEED FOR INT Physical Exam Vital Signs: Temp Pulse Resp BP Pulse Ox 98.1 F 63 20 114/64 95 11/03/19 08:13 11/03/19 16:25 11/03/19 16:25 11/03/19 08:13 11/03/19 16:25 Intake & Output 11/02/19 11/03/19 11/04/19 06:59 06:59 06:59 Intake Total 200 50 Output Total 1425 1750 Balance -1225 -1700 Weight 80.1 kg 78.8 kg General appearance: PRESENT: other - Due to patient being COVID-19 Susp ected/Positive, encounter was conducted using telephone and/or videochat and does not include a detailed in-person physical exam in order to preserve PPE and limit staff exposure to a dangerous pathogen. Results Laboratory Results: 11/03/19 06:00 11/03/19 06:00 11/03/19 11/03/19 06:00 06:00 WBC 18.3 H RBC 3.49 L Hgb 10.9 L Hct 32.7 L MCV 94 MCH 31.3 MCHC 33.4 RDW 15.1 H Plt Count 382 Seg Neutrophils % Not Reportable Sodium 141.0 Potassium 4.5 Chloride 105 Carbon Dioxide 35 H Anion Gap 1 L BUN 57 H Creatinine 1.29 H Est GFR ( Amer) 51 L Glucose 194 H Calcium 8.3 L 10/18/19 10/29/19 00:24 06:30 Creatine Kinase 78 Troponin I 0.012 Impressions: Abdomen/Pelvis CT 10/17/19 23:59 IMPRESSION: 1. 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 Urgent finding reported to Olu SILVEIRA at 10/18/2019 1:55 AM CDT This exam was performed according to our departmental dose-optimization program, which includes automated exposure control, adjustment of the mA and/or kV according to patient size and/or use of iterative reconstruction technique. Chest/Abdomen CTA 10/23/19 00:00 IMPRESSION: 1. Limited examination due to contrast bolus timing with no contrast present within pulmonary arteries. As such no evaluation for pulmonary embolus is possible. 2. Moderate right-sided pleural effusion with some loculation and small left- sided pleural effusion with some loculation. 3. Severe emphysematous changes. Venous Doppler Study 10/26/19 00:00 IMPRESSION: NO EVIDENCE DVT OR SVT IN THE RIGHT ARM. Chest X-Ray 10/28/19 00:00 IMPRESSION: Interval extubation. Other findings are stable copyright 2011 [facility]- All Rights Reserved KUB X-Ray 10/28/19 08:57 IMPRESSION: Enteric tube terminates subdiaphragmatically with the proximal port at the level of the gastroesophageal junction. Consider advancing 5 to 6 cm. Gas within mildly prominent loops of bowel likely on the basis of ileus. No evidence of high-grade obstruction. Increased interstitial markings at the lung bases as seen on recent chest radiograph. Assessment and Plan - Diagnosis (1) COVID-19 virus detected Is this a current diagnosis for this admission?: Yes Plan: Test positive here is also infected and is being treated in the same room as her in the hospital Solu-Medrol continued Vitamins/zinc continued Transitioned from BiPAP to HFNC, wean oxygen as able 11/03/2019 Very slow to recover although we are trying to wean high flow nasal cannula gradually. She will need a swallow study eventually although her respiratory status is too tenuous right now to perform such a test without risking aspiration (2) DANII (acute kidney injury) Is this a current diagnosis for this admission?: Yes Plan: Likely due to sepsis and acute illness Improving, creatinine trending down Trend BMP Can consider consulting nephrology if renal function worsens 11/03/2019 Nearly resolved, trending BMP, creatinine continues to improve (3) Acute and chronic respiratory failure ([id number]) Qualifiers: Respiratory failure complication: hypoxia and hypercapnia Qualified Code(s): J96.21 - Acute and chronic respiratory failure with hypoxia; J96.22 - Acute and chronic respiratory failure with hypercapnia Is this a current diagnosis for this admission?: Yes (4) Atrial fibrillation with rapid ventricular response Is this a current diagnosis for this admission?: Yes (5) Diverticulitis Is this a current diagnosis for this admission?: Yes (6) Perforation of sigmoid colon due to diverticulitis Is this a current diagnosis for this admission?: Yes (7) Peritonitis, acute generalized Is this a current diagnosis for this admission?: Yes (8) Sepsis with acute respiratory failure and septic shock Qualifiers: Sepsis type: sepsis due to unspecified organism Is this a current diagnosis for this admission?: Yes (9) Swelling of right upper extremity Is this a current diagnosis for this admission?: Yes - Time Time Spent with patient: 25-34 minutes Medications reviewed and adjusted accordingly: Yes - Inpatient Certification Based on my medical assessment, after consideration of the patient's comorbidities, presenting symptoms, or acuity I expect that the services needed warrant INPATIENT care.: Yes I certify that my determination is in accordance with my understanding of [facility]'s requirements for reasonable and necessary INPATIENT services [42 CFR 412.3e].: Yes Medical Necessity: Significant Comorbidiites Make Outpatient Treatment Too Risky, Need Close Monitoring Due to Risk of Patient Decompensation, Risk of Complication if Not Cared For in Hospital, Risk of Diagnosis Which Will Require Inpatient Eval/Care/Monitoring
[2019-11-04] MEDS: IPRATROPIUM/ALBUTEROL 0.5-2.5 MG/3 ML AMPUL NEB SCH ×6 (00:02→20:45)
[2019-11-04] MEDS: INSULIN REG, HUMAN 100 UNIT/ML 3 ML VIAL (PYX) SUBCUT SCH ×4 (00:57→18:07)
[2019-11-04] MEDS: OXYCODONE HCL IR 5 MG TABLET NG PRN ×2 (05:48→17:35)
[2019-11-04] MEDS: METHYLPREDNISOLONE INJ 40 MG/1 ML SDV IV SCH ×2 (05:48→17:34)
[2019-11-04] MEDS: DILTIAZEM HCL 30 MG TABLET PO SCH ×3 (05:48→23:21)
[2019-11-04 07:07] LABS: HEMATOCRIT 35.2 % (36.0-47.0); HEMOGLOBIN 11.5 g/dL (12.0-15.5); MEAN CORPUSCULAR HEMOGLOBIN 30.1 pg (27.0-33.4); MEAN CORPUSCULAR HGB CONC 32.6 g/dL (32.0-36.0); MEAN CORPUSCULAR VOLUME 93 fl (80-97); PLATELET COUNT 446 10^3/uL (150-450); WHITE BLOOD COUNT 21.8 10^3/uL (4.0-10.5)
[2019-11-04 07:29] LABS: BLOOD UREA NITROGEN 55 mg/dL (7-20); CALCIUM 8.5 mg/dL (8.4-10.2); CHLORIDE 104 mmol/L (98-107); GLUCOSE 78 mg/dL (75-110); POTASSIUM 4.4 mmol/L (3.6-5.0)
[2019-11-04 07:35] LABS: CARBON DIOXIDE 36 mmol/L (22-30)
[2019-11-04 07:36] LABS: ANION GAP 1 (5-19)
[2019-11-04] MEDS: BUDESONIDE NEB 0.25 MG/2 ML AMPUL NEB SCH ×2 (08:09→20:45)
[2019-11-04 08:23] LABS: ABSOLUTE LYMPHOCYTES# (MANUAL) 0.2 10^3/uL (0.5-4.7); ABSOLUTE MONOCYTES # (MANUAL) 1.5 10^3/uL (0.1-1.4); BASOPHILS % (MANUAL) 0 % (0-2); EOSINOPHILS % (MANUAL) 0 % (0-6); LYMPHOCYTES % (MANUAL) 1 % (13-45); MONOCYTES % (MANUAL) 7 % (3-13); SEGMENTED NEUTROPHILS % (MAN) 92 % (42-78); TOTAL CELLS COUNTED 100; TOXIC VACUOLATION PRESENT
[2019-11-04 08:24] LABS: ANISOCYTOSIS SLIGHT; PLATELET COMMENT ADEQUATE
[2019-11-04] MEDS: ARIPIPRAZOLE 5 MG TABLET NG SCH (10:25)
[2019-11-04] MEDS: INSULIN GLARGINE,HUM.REC.ANLOG 1,000 UNIT/10 ML VIAL SUBCUT SCH ×2 (10:25→23:22)
[2019-11-04] MEDS: ENOXAPARIN SODIUM INJ 40 MG/0.4 ML DISP.SYRIN SUBCUT SCH (10:25)
[2019-11-04] MEDS: ASPIRIN 81 MG TABLET, CHEWABLE NG SCH (10:25)
[2019-11-04] MEDS: ESCITALOPRAM OXALATE 10 MG TABLET NG SCH (10:25)
[2019-11-04] MEDS: ZINC SULFATE 220 MG CAPSULE NG SCH (10:25)
--- NOTE | 2019-11-04 18:55 | PDOC PROGRESS REPORT ---
Subjective Progress Note for:: 11/04/19 Subjective:: Due to patient being COVID-19 Suspected/Positive, encounter was conducted using telephone and/or videochat and does not include a detailed in-person physical exam in order to preserve PPE and limit staff exposure to a dangerous pathogen. 11/01/2019 Patient seems to be doing better today. Improving looks to be stabilized, her creatinine is lower, her white blood cell count is trending down. Tracheal culture grew Shannan which is likely normal tabitha. Blood cultures are negative. She had some questions today about why she is not on antibiotics and I answered these questions in great detail, noting that we do not have a specific antiviral medication that has been proven effective for COVID, however high-dose steroids have been shown in early studies to be beneficial and we will continue giving this to her and her . We also had a long discussion about watching for post viral bacterial pneumonia which I do not believe she has at this time. We will be watching for this to develop over the next several days as she recovers from the viral infection. 11/02/2019 Had video chat with patient again today, she states she is feeling okay. She does endorse some mild shortness of breath and cough but this is not worse from yesterday. She is being well maintained on high flow nasal cannula and we are attempting to wean this gradually. We will check some labs on her in the morning. Answered all the patient's questions to her satisfaction. She has no new complaints today otherwise. 11/03/2019 Spoke with the patient and her on the phone today for our encounter. Also spoke at great length with the nurse and the speech therapist. Speech therapist would like to perform a swallow study if the patient's respiratory status improves. I asked that she check back with patient every 2 to 3 days to see how much she is improved. Currently, I doubt she can tolerate a swallow study as this would potentially cause an aspiration event. Probably within the next week we can try this. Patient already has a feeding tube in place that is giving her adequate nourishment though I know the patient would prefer to at least have something to drink by mouth. Patient is gradually improving as respiratory therapist and nursing attempts to titrate down her high flow oxygen needs. Patient still has a long way to go. She still has complaints of mild cough and shortness of breath, otherwise no new complaints. Her labs are improving. 11/05/2019 Patient is doing approximately the same as yesterday. She does not seem to be much better but neither does she seem to be any worse. Her oxygen requirements and pressure requirements are approximately the same as yesterday. Creatinine is essentially the same as yesterday. WBC a bit higher than yesterday and his lymphocytes remain quite low. I discussed all the patient's results and her cu rrent progress with her in detail today over video chat. Also discussed the prospect of looking into using 1 of the experimental treatments currently being used in other facilities for COVID-19 severe disease. This would include Tocilizumab, Remdesivir, and ivermectin. I called risk-management to discuss the process for using off label drugs for COVID-19 treatment in patients that are doing poorly, unfortunately I was unable to contact anyone with which I can discuss this. I spoke with the pharmacist about it and she referred me to Gus who is the pharmacy dining room supervisor. I was unable to get him on the phone either. The patient and her are both very interested in trying 1 of these experimental treatments if we would be able to get them here. I think it would be reasonable to try at this point given Ms. Bolden does not improving at this time and her is actually declining significantly. Patient has no new complaints otherwise. Reason For Visit: ACUTE HYPERCARBIC RESPIRATORY FAILURE,NEED FOR INT Physical Exam Vital Signs: Temp Pulse Resp BP Pulse Ox 98.3 F 74 18 118/76 100 11/04/19 16:00 11/04/19 16:00 11/04/19 16:00 11/04/19 16:00 11/04/19 16:00 Intake & Output 11/03/19 11/04/19 11/05/19 06:59 06:59 06:59 Intake Total 50 554 490 Output Total 1750 1700 Balance -1700 -1146 490 Weight 78.8 kg 76 kg 76 kg General appearance: PRESENT: no acute distress, cooperative, other - Due to patient being COVID-19 Suspected/Positive, encounter was conducted using telephone and/or videochat and does not include a detailed in-person physical exam in order to preserve PPE and limit staff exposure to a dangerous pathogen. Results Laboratory Results: 11/04/19 06:45 11/04/19 06:45 11/04/19 11/04/19 06:45 06:45 WBC 21.8 H RBC 3.80 Hgb 11.5 L Hct 35.2 L MCV 93 MCH 30.1 MCHC 32.6 RDW 15.0 H Plt Count 446 Seg Neutrophils % Not Reportable Sodium 140.9 Potassium 4.4 Chloride 104 Carbon Dioxide 36 H Anion Gap 1 L BUN 55 H Creatinine 1.28 H Est GFR ( Amer) 52 L Glucose 78 Calcium 8.5 10/18/19 10/29/19 00:24 06:30 Creatine Kinase 78 Troponin I 0.012 Impressions: Abdomen/Pelvis CT 10/17/19 23:59 IMPRESSION: 1. 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 Urgent finding reported to Olu SILVEIRA at 10/18/2019 1:55 AM CDT This exam was performed according to our departmental dose-optimization program, which includes automated exposure control, adjustment of the mA and/or kV according to patient size and/or use of iterative reconstruction technique. Chest/Abdomen CTA 10/23/19 00:00 IMPRESSION: 1. Limited examination due to contrast bolus timing with no contrast present within pulmonary arteries. As such no evaluation for pulmonary embolus is possible. 2. Moderate right-sided pleural effusion with some loculation and small left- sided pleural effusion with some loculation. 3. Severe emphysematous changes. Venous Doppler Study 10/26/19 00:00 IMPRESSION: NO EVIDENCE DVT OR SVT IN THE RIGHT ARM. Chest X-Ray 10/28/19 00:00 IMPRESSION: Interval extubation. Other findings are stable copyright 2011 [employer]- All Rights Reserved KUB X-Ray 10/28/19 08:57 IMPRESSION: Enteric tube terminates subdiaphragmatically with the proximal port at the level of the gastroesophageal junction. Consider advancing 5 to 6 cm. Gas within mildly prominent loops of bowel likely on the basis of ileus. No evidence of high-grade obstruction. Increased interstitial markings at the lung bases as seen on recent chest radiograph. Assessment and Plan - Diagnosis (1) COVID-19 virus detected Is this a current diagnosis for this admission?: Yes Plan: Test positive here is also infected and is being treated in the same room as her in the hospital Solu-Medrol continued Vitamins/zinc continued Transitioned from BiPAP to HFNC, wean oxygen as able 11/03/2019 Very slow to recover although we are trying to wean high flow nasal cannula gradually. She will need a swallow study eventually although her respiratory status is too tenuous right now to perform such a test without risking aspiration 11/04/2019 She is essentially the same today as yesterday clinically and her with regards to her oxygen/pressure requirements Lymphocytes are still quite low and do not seem to be recovering yet I discussed using current off label/experimental COVID-19 treatments and the patient and her are very interested in trying this and stated they would consent to a trial of these drugs if they were offered. We will need to find out from administration how we can obtain 1 of these drugs (Tocilizumab, remdesivir, ivermectin) (2) DANII (acute kidney injury) Is this a current diagnosis for this admission?: Yes (3) Acute and chronic respiratory failure ([id number]) Qualifiers: Respiratory failure complication: hypoxia and hypercapnia Qualified Code(s): J96.21 - Acute and chronic respiratory failure with hypoxia; J96.22 - Acute and chronic respiratory failure with hypercapnia Is this a current diagnosis for this admission?: Yes (4) Atrial fibrillation with rapid ventricular response Is this a current diagnosis for this admission?: Yes (5) Diverticulitis Is this a current diagnosis for this admission?: Yes (6) Perforation of sigmoid colon due to diverticulitis Is this a current diagnosis for this admission?: Yes (7) Peritonitis, acute generalized Is this a current diagnosis for this admission?: Yes (8) Sepsis with acute respiratory failure and septic shock Qualifiers: Sepsis type: sepsis due to unspecified organism Is this a current diagnosis for this admission?: Yes (9) Swelling of right upper extremity Is this a current diagnosis for this admission?: Yes - Time Time Spent with patient: 25-34 minutes Medications reviewed and adjusted accordingly: Yes - Inpatient Certification Based on my medical assessment, after consideration of the patient's comorbidities, presenting symptoms, or acuity I expect that the services needed warrant INPATIENT care.: Yes I certify that my determination is in accordance with my understanding of Medicare's requirements for reasonable and necessary INPATIENT services [42 CFR 412.3e].: Yes Medical Necessity: Significant Comorbidiites Make Outpatient Treatment Too Risky, Need Close Monitoring Due to Risk of Patient Decompensation, Risk of Complication if Not Cared For in Hospital, Risk of Diagnosis Which Will Require Inpatient Eval/Care/Monitoring
[2019-11-05] MEDS: OXYCODONE HCL IR 5 MG TABLET NG PRN ×3 (00:18→23:04)
[2019-11-05] MEDS: INSULIN REG, HUMAN 100 UNIT/ML 3 ML VIAL (PYX) SUBCUT SCH ×4 (00:28→18:22)
[2019-11-05] MEDS: IPRATROPIUM/ALBUTEROL 0.5-2.5 MG/3 ML AMPUL NEB SCH ×6 (00:35→19:53)
[2019-11-05] MEDS: DILTIAZEM HCL 30 MG TABLET PO SCH ×3 (06:09→22:26)
[2019-11-05] MEDS: METHYLPREDNISOLONE INJ 40 MG/1 ML SDV IV SCH (06:11)
[2019-11-05] MEDS: BUDESONIDE NEB 0.25 MG/2 ML AMPUL NEB SCH ×2 (07:57→19:52)
[2019-11-05] MEDS: ARIPIPRAZOLE 5 MG TABLET NG SCH (11:00)
[2019-11-05] MEDS: ASCORBIC ACID 500 MG TABLET PO SCH ×2 (11:00→18:21)
[2019-11-05] MEDS: ZINC SULFATE 220 MG CAPSULE NG SCH (11:00)
[2019-11-05] MEDS: ASPIRIN 81 MG TABLET, CHEWABLE NG SCH (11:01)
[2019-11-05] MEDS: DEXAMETHASONE SOD PHOS INJ 10 MG/1 ML VIAL IV SCH ×2 (11:01→22:26)
[2019-11-05] MEDS: ENOXAPARIN SODIUM INJ 80 MG/0.8 ML DISP.SYRIN SUBCUT SCH ×2 (11:01→22:30)
[2019-11-05] MEDS: CHOLECALCIFEROL (D3) 400 UNIT TABLET PO SCH (11:01)
[2019-11-05] MEDS: ESCITALOPRAM OXALATE 10 MG TABLET NG SCH (11:01)
[2019-11-05] MEDS: INSULIN GLARGINE,HUM.REC.ANLOG 1,000 UNIT/10 ML VIAL SUBCUT SCH ×2 (11:14→22:31)
[2019-11-05] MEDS: AZITHROMYCIN 500 MG in DEXTROSE 5%-WATER 250 ML IV SCH (11:15)
[2019-11-05 11:23] LABS: ARTERIAL BLOOD BASE EXCESS 6.9 mmol/L; ARTERIAL BLOOD H2CO3 1.25 mmol/L (1.05-1.35); ARTERIAL BLOOD HCO3 30.9 mmol/L (20-24); ARTERIAL BLOOD O2 SATURATION 92.3 % (94-98); ARTERIAL BLOOD PCO2 41.6 mmHg (35-45); ARTERIAL BLOOD PH 7.49 (7.35-7.45); ARTERIAL BLOOD PO2 58.7 mmHg (80-100); ARTERIAL BLOOD TOTAL CO2 32.2 mmol/L (21-25)
[2019-11-05 11:24] LABS: ARTERIAL BLOOD FIO2 40%
[2019-11-05 15:30] LABS: HEMOGLOBIN 10.7 g/dL (12.0-15.5); MEAN CORPUSCULAR HEMOGLOBIN 30.4 pg (27.0-33.4); MEAN CORPUSCULAR HGB CONC 32.4 g/dL (32.0-36.0); MEAN CORPUSCULAR VOLUME 94 fl (80-97); PLATELET COUNT 432 10^3/uL (150-450); RED BLOOD COUNT 3.51 10^6/uL (3.72-5.28); WHITE BLOOD COUNT 20.3 10^3/uL (4.0-10.5)
[2019-11-05 15:40] LABS: ALBUMIN 2.3 g/dL (3.5-5.0); BLOOD UREA NITROGEN 57 mg/dL (7-20); CALCIUM 8.1 mg/dL (8.4-10.2); GLUCOSE 335 mg/dL (75-110); POTASSIUM 4.8 mmol/L (3.6-5.0)
[2019-11-05 15:45] LABS: CARBON DIOXIDE 34 mmol/L (22-30); CHLORIDE 101 mmol/L (98-107)
[2019-11-05 15:47] LABS: ANION GAP 2 (5-19)
[2019-11-05] MEDS ORDERED: NORMAL SALINE 1000 ML 1,000 ML IV PRN (15:49)
[2019-11-05 15:58] LABS: ABSOLUTE MONOCYTES # (MANUAL) 0.2 10^3/uL (0.1-1.4); BASOPHILS % (MANUAL) 0 % (0-2); EOSINOPHILS % (MANUAL) 0 % (0-6); LYMPHOCYTES % (MANUAL) 0 % (13-45); MONOCYTES % (MANUAL) 1 % (3-13); SEGMENTED NEUTROPHILS % (MAN) 99 % (42-78); TOTAL CELLS COUNTED 100
[2019-11-05 15:59] LABS: ANISOCYTOSIS SLIGHT; PLATELET COMMENT ADEQUATE
[2019-11-05 16:00] LABS: TOXIC VACUOLATION PRESENT
--- NOTE | 2019-11-05 18:17 | PDOC PROGRESS REPORT ---
Subjective Progress Note for:: 11/05/19 Subjective:: Overview of clinical course thus far: The patient is a 58-year-old female with a past medical history of oxygen dependent COPD (3lpm and BiPAP at baseline), VALARIE, hypertension, hypothyroidism, and depression who was admitted 10/18/19 with perforated sigmoid diverticulitis with feculent peritonitis who underwent exploratory laparotomy with sigmoid colon resection with colostomy by Dr. Hawkins on 10/18/2019. She did initially require vasopressor therapy; she developed atrial fibrillation with RVR and so was briefly placed on a diltiazem drip. Notably, she is prescribed Cardizem CD at home. She is successfully extubated the following day, 10/19/2019. She is downgraded to the medical floor on 10/21/2019 with care resumed by her PCP, Dr. Gutierrez. Per his note, patient has end-stage COPD and had recently been referred to the lung transplant center at [facility]. Following downgrade to floor, patient had difficulty with her underlying COPD and required near continuous BiPAP. Pulmonology was consulted; per Dr. Dickey's note, she will benefit from AVAPS upon discharge. She did have continued episodes of proximal A. fib; cardiology was consulted. On 10/25/19, the patient tested positive for COVID ( reportedly tested positive at PCPs office which prompted her screening). She returned to the ICU on 10/25/19 and was promptly re-intubated. Notably, patient was placed on Hydroxychloroquine 10/24 - 10/31. She was also placed on IV Azithromycin and Rocephin at this time. Only received 3 days of therapy. She, again, required vasopressor support. Successfully extubated to HFNC on 10/27/19. However, oxygen needs were variable and patient was shortly placed back to BiPAP. Surgery has signed off; tolerating tube feeds with good stool output through o stomy. She was downgraded to IMCU on 11/01/19 with service transferred to the hospitalist team. ----- WBC 10-> 50-> 20.3k Lymphocytes 2-> 10-> 0 D-dimer 10.35-> 3.95-4.24 Cr 0.55-> 2.34-> 1.30 Ferritin 1280-> 222 LDH 630-> 439 CRP 145.4 (non previously obtained) ----- The patient was seen multiple times over the course of the day. She is currently requiring BiPAP 16/12, FiO2 50% to maintain oxygen saturations of 90- 94% with respiratory rate in the mid 20s. Patient is noted to have shallow breathing with accessory muscle use and is quite fatigued. ABG today showed worsened PaO2; BiPAP adjustments subsequently made. Follow-up ABG planned for tomorrow. Remaining notable labs as above. Discussed with patient her laboratory evaluation and minor adjustments to her plan. Advised that we would be starting gentle IV fluids, resuming azithromycin as she only received 3 doses previously, changed to Decadron with slight increase in dosing, addition of full dose Lovenox, with vitamin regimen (Vitamin C, D, melatonin, and zinc). The patient again expressed interest in a novel coronavirus treatments under research (Tocilizumab, Remdesivir, and ivermectin). She was informed that the previous provider had started the process to inquire into these medications but we had not yet heard back. Primary complaint is profound fatigue. She does admit to dyspnea. She complains of some numbness and discomfort to her right upper extremity, though states this is improved. She asks me to update her son. I did speak with Jacky Anderson by phone this afternoon and provided an update on both the patient and his father (her also admitted to our service). Discussed plan of care with nursing. Reason For Visit: ACUTE HYPERCARBIC RESPIRATORY FAILURE,NEED FOR INT Physical Exam Vital Signs: Temp Pulse Resp BP Pulse Ox 98.1 F 65 19 125/56 L 90 L 11/05/19 13:01 11/05/19 14:00 11/05/19 13:01 11/05/19 13:01 11/05/19 13:01 Intake & Output 11/04/19 11/05/19 11/06/19 06:59 06:59 06:59 Intake Total 554 823 250 Output Total 1700 1700 Balance -1602 -209 250 Weight 76 kg 76.4 kg General appearance: PRESENT: cooperative, mild distress, well-developed, well- nourished Head exam: PRESENT: atraumatic, normocephalic Eye exam: PRESENT: conjunctiva pink, EOMI, PERRLA. ABSENT: scleral icterus Mouth exam: PRESENT: dry mucosa, tongue midline Respiratory exam: PRESENT: accessory muscle use, clear to auscultation christina, decreased breath sounds - throughout, symmetrical, tachypnea - shallow, other - Bipap. ABSENT: rales, rhonchi, wheezes Cardiovascular exam: PRESENT: RRR. ABSENT: diastolic murmur, rubs, systolic murmur Pulses: PRESENT: normal dorsalis pedis pul Vascular exam: PRESENT: normal capillary refill GI/Abdominal exam: PRESENT: normal bowel sounds, soft, tenderness. ABSENT: distended, guarding, mass, organolmegaly, rebound Rectal exam: PRESENT: deferred Extremities exam: PRESENT: full ROM, +1 edema - RUE. ABSENT: calf tenderness, clubbing, pedal edema Neurological exam: PRESENT: alert, awake, oriented to person, oriented to place, oriented to time, oriented to situation, CN II-XII grossly intact, other - Fatigued. ABSENT: motor sensory deficit Psychiatric exam: PRESENT: appropriate affect, normal mood. ABSENT: homicidal ideation, suicidal ideation Skin exam: PRESENT: dry, warm. ABSENT: cyanosis, rash Results Laboratory Results: 11/05/19 11:30 11/05/19 14:30 11/05/19 11/05/19 11/05/19 11:00 11:30 11:30 WBC 20.3 H RBC 3.51 L Hgb 10.7 L Hct 33.0 L MCV 94 MCH 30.4 MCHC 32.4 RDW 15.0 H Plt Count 432 Seg Neutrophils % Not Reportable Carbonic Acid 1.25 HCO3/H2CO3 Ratio 24:1 ABG pH 7.49 H ABG pCO2 41.6 ABG pO2 58.7 L ABG HCO3 30.9 H ABG O2 Saturation 92.3 L ABG Base Excess 6.9 FiO2 40% Sodium Potassium Chloride Carbon Dioxide Anion Gap BUN Creatinine Est GFR ( Amer) Glucose Calcium Ferritin C-Reactive Protein 145.4 H Albumin 11/05/19 14:30 WBC RBC Hgb Hct MCV MCH MCHC RDW Plt Count Seg Neutrophils % Carbonic Acid HCO3/H2CO3 Ratio ABG pH ABG pCO2 ABG pO2 ABG HCO3 ABG O2 Saturation ABG Base Excess FiO2 Sodium 137.1 Potassium 4.8 Chloride 101 Carbon Dioxide 34 H Anion Gap 2 L BUN 57 H Creatinine 1.30 H Est GFR ( Amer) 51 L Glucose 335 H Calcium 8.1 L Ferritin 222.00 C-Reactive Protein Albumin 2.3 L 10/18/19 10/29/19 00:24 06:30 Creatine Kinase 78 Troponin I 0.012 Impressions: Abdomen/Pelvis CT 10/17/19 23:59 IMPRESSION: 1. 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 Urgent finding reported to Olu SILVEIRA at 10/18/2019 1:55 AM CDT This exam was performed according to our departmental dose-optimization program, which includes automated exposure control, adjustment of the mA and/or kV according to patient size and/or use of iterative reconstruction technique. Chest/Abdomen CTA 10/23/19 00:00 IMPRESSION: 1. Limited examination due to contrast bolus timing with no contrast present within pulmonary arteries. As such no evaluation for pulmonary embolus is possible. 2. Moderate right-sided pleural effusion with some loculation and small left- sided pleural effusion with some loculation. 3. Severe emphysematous changes. Venous Doppler Study 10/26/19 00:00 IMPRESSION: NO EVIDENCE DVT OR SVT IN THE RIGHT ARM. Chest X-Ray 10/28/19 00:00 IMPRESSION: Interval extubation. Other findings are stable copyright 2011 [employer]- All Rights Reserved KUB X-Ray 10/28/19 08:57 IMPRESSION: Enteric tube terminates subdiaphragmatically with the proximal port at the level of the gastroesophageal junction. Consider advancing 5 to 6 cm. Gas within mildly prominent loops of bowel likely on the basis of ileus. No evidence of high-grade obstruction. Increased interstitial markings at the lung bases as seen on recent chest radiograph. Assessment and Plan - Diagnosis (1) Pneumonia due to COVID-19 virus Is this a current diagnosis for this admission?: Yes Plan: Patient is admitted to [facility] on continuous cardiac telemetry. She is provided supplemental oxygen as needed to maintain saturations greater than 89%. Transitioning between HFNC and BiPAP as indicated by clinical status. She spent the last 24 hours on high flow nasal cannula and today is quite exhausted with decreased oxygenation by ABG. She is transition to BiPAP; current settings 16/12 FiO2 50%. Continue scheduled and as needed nebulizer treatments. D-dimer is increased from previous; resume full dose Lovenox. Resume IV azithromycin; previously only received 3 doses. Change to IV Decadron 4 mg twice daily Start vitamin C, vitamin D, zinc, melatonin supplementation. Encouraged position changing; patient declines prone position but is agreeable to for right and left tilts. Follow-up CBC, ABG, and chest x-ray in the morning. (2) Acute and chronic respiratory failure ([id number]) Qualifiers: Respiratory failure complication: hypoxia and hypercapnia Qualified Code(s): J96.21 - Acute and chronic respiratory failure with hypoxia; J96.22 - Acute and chronic respiratory failure with hypercapnia Is this a current diagnosis for this admission?: Yes Plan: Secondary to #1 in the setting of COPD. Management as above. (3) DANII (acute kidney injury) Is this a current diagnosis for this admission?: Yes Plan: Improving slowly. Likely due to sepsis and acute illness Avoid nephrotoxic medications as able. Start gentle IVF. Follow-up chemistry (4) COPD (chronic obstructive pulmonary disease) Qualifiers: COPD type: emphysema Emphysema type: centrilobular Qualified Code(s): J43.2 - Centrilobular emphysema Is this a current diagnosis for this admission?: Yes Plan: Stable and inactive. Patient is home O2 dependent at 3 L/min. Utilizes BiPAP nightly. Not a current tobacco user. Management of acute on chronic respiratory failure as above. (5) Lymphocytosis Is this a current diagnosis for this admission?: Yes Plan: Secondary to prolonged acute illness; specifically SARS-CoV2. Management as above. (6) Atrial fibrillation with rapid ventricular response Is this a current diagnosis for this admission?: Yes Plan: Resolved. Off diltiazem gtt. Continue Cardizem 30 mg every 8 hours May transition to long-acting prior to discharge if heart rate remained stable Monitor on telemetry. (7) Swelling of right upper extremity Is this a current diagnosis for this admission?: Yes Plan: Ultrasound right upper extremity (10/25) was negative for DVT. Likely related to peripheral IV filtration with aggressive IV fluids through that extremity. Dry dressing. Extremity elevated. 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 (9) Perforation of sigmoid colon due to diverticulitis Is this a current diagnosis for this admission?: Yes Plan: Resolved. s/p Pina procedure Tolerating tube feeds. Adequate output through colostomy. Surgery signed off. (10) Peritonitis, acute generalized Is this a current diagnosis for this admission?: Yes Plan: Resolved. Secondary to perforated diverticulum with feculent peritonitis. Proceed full course of antibiotic therapy. (11) Diverticulitis Is this a current diagnosis for this admission?: Yes Plan: General surgery consulted: Status post Delgado's procedure Abdominal drain removed by surgery Tolerating tube feeds with adequate stool output through ostomy. Surgery has signed off. (12) Sepsis with acute respiratory failure and septic shock Qualifiers: Sepsis type: sepsis due to unspecified organism Is this a current diagnosis for this admission?: Yes Plan: Resolved. Due to COVID-19 Blood cultures negative Bronchial culture grew Shannan, normal tabitha
[2019-11-05 20:01] LABS: ARTERIAL BLOOD BASE EXCESS 5.9 mmol/L; ARTERIAL BLOOD H2CO3 1.47 mmol/L (1.05-1.35); ARTERIAL BLOOD HCO3 31.2 mmol/L (20-24); ARTERIAL BLOOD O2 SATURATION 96.3 % (94-98); ARTERIAL BLOOD PCO2 48.8 mmHg (35-45); ARTERIAL BLOOD PH 7.42 (7.35-7.45); ARTERIAL BLOOD PO2 83.5 mmHg (80-100); ARTERIAL BLOOD TOTAL CO2 32.7 mmol/L (21-25)
[2019-11-05 20:02] LABS: ARTERIAL BLOOD FIO2 50%
[2019-11-05] MEDS: MELATONIN 3 MG TABLET PO SCH (22:29)
[2019-11-06] MEDS: IPRATROPIUM/ALBUTEROL 0.5-2.5 MG/3 ML AMPUL NEB SCH ×7 (00:20→23:59)
[2019-11-06] MEDS: INSULIN REG, HUMAN 100 UNIT/ML 3 ML VIAL (PYX) SUBCUT SCH ×5 (00:48→18:16)
[2019-11-06] MEDS: LEVOTHYROXINE SODIUM 0.1 MG TABLET PO SCH (05:27)
[2019-11-06] MEDS: DILTIAZEM HCL 30 MG TABLET PO SCH ×3 (05:27→22:13)
[2019-11-06 06:07] LABS: BLOOD UREA NITROGEN 55 mg/dL (7-20); CALCIUM 7.8 mg/dL (8.4-10.2); CARBON DIOXIDE 35 mmol/L (22-30); GLUCOSE 233 mg/dL (75-110); POTASSIUM 4.7 mmol/L (3.6-5.0)
[2019-11-06 06:12] LABS: CHLORIDE 102 mmol/L (98-107)
[2019-11-06 06:16] LABS: ANION GAP 2 (5-19)
[2019-11-06 06:19] LABS: HEMATOCRIT 29.8 % (36.0-47.0); HEMOGLOBIN 9.9 g/dL (12.0-15.5); MEAN CORPUSCULAR HEMOGLOBIN 30.8 pg (27.0-33.4); MEAN CORPUSCULAR HGB CONC 33.3 g/dL (32.0-36.0); MEAN CORPUSCULAR VOLUME 93 fl (80-97); PLATELET COUNT 365 10^3/uL (150-450); RED BLOOD COUNT 3.22 10^6/uL (3.72-5.28); RED CELL DISTRIBUTION WIDTH 14.7 % (11.5-14.0); WHITE BLOOD COUNT 21.2 10^3/uL (4.0-10.5)
[2019-11-06 06:54] LABS: ABSOLUTE LYMPHOCYTES# (MANUAL) 0.2 10^3/uL (0.5-4.7); ABSOLUTE MONOCYTES # (MANUAL) 0.8 10^3/uL (0.1-1.4); BAND NEUTROPHILS % (MANUAL) 7 % (3-5); BASOPHILS % (MANUAL) 0 % (0-2); EOSINOPHILS % (MANUAL) 0 % (0-6); LYMPHOCYTES % (MANUAL) 1 % (13-45); MONOCYTES % (MANUAL) 4 % (3-13); PLATELET COMMENT ADEQUATE; RBC MORPHOLOGY COMMENT NORMO-CYTIC/CHROMIC; SEGMENTED NEUTROPHILS % (MAN) 88 % (42-78); TOTAL CELLS COUNTED 100
[2019-11-06 06:57] LABS: ARTERIAL BLOOD BASE EXCESS 7.6 mmol/L; ARTERIAL BLOOD H2CO3 1.56 mmol/L (1.05-1.35); ARTERIAL BLOOD HCO3 33.6 mmol/L (20-24); ARTERIAL BLOOD O2 SATURATION 94.1 % (94-98); ARTERIAL BLOOD PCO2 51.9 mmHg (35-45); ARTERIAL BLOOD PH 7.43 (7.35-7.45); ARTERIAL BLOOD PO2 69.2 mmHg (80-100); ARTERIAL BLOOD TOTAL CO2 35.2 mmol/L (21-25)
[2019-11-06 07:00] LABS: ARTERIAL BLOOD FIO2 50%
[2019-11-06 07:33] LABS: ALBUMIN 2.1 g/dL (3.5-5.0); ALKALINE PHOSPHATASE 69 U/L (38-126); ASPARTATE AMINO TRANSFERASE 16 U/L (14-36); BILIRUBIN,TOTAL 0.7 mg/dL (0.2-1.3); TOTAL PROTEIN 4.3 g/dL (6.3-8.2)
--- NOTE | 2019-11-06 08:10 | RADIOLOGY REPORT (SQ) ---
EXAM DESCRIPTION: CHEST SINGLE VIEW IMAGES COMPLETED DATE/TIME: 11/06/2019 7:49 am REASON FOR STUDY: dyspnea, increased hypoxia COMPARISON: Chest films 10/29/2019, 10/27/2019, 10/25/2019 CT chest 10/23/2019 EXAM PARAMETERS: NUMBER OF VIEWS: One view. TECHNIQUE: Single frontal radiographic view of the chest acquired. RADIATION DOSE: NA LIMITATIONS: None. FINDINGS: LUNGS AND PLEURA: Upper lobes are hyperlucent from obstructive lung disease. Mid and lowe r lungs demonstrate mild increased interstitial markings, stable. No gross pleural effusion. No pneumothorax. MEDIASTINUM AND HILAR STRUCTURES: No masses. Contour normal. HEART AND VASCULAR STRUCTURES: Heart normal in size. Normal vasculature. BONES: No acute findings. HARDWARE: Right jugular central line tip superior vena cava. Nasogastric tube tip and side port in t he stomach. OTHER: No other significant finding. IMPRESSION: Persistent increased interstitial markings at both lung bases, stable. Nasogastric tube, triple-lumen central line good positioning TECHNICAL DOCUMENTATION: JOB ID: [id number] 2010 [employer]- All Rights Reserved Reading location - IP/workstation name: [email or web address]
[2019-11-06] MEDS: NORMAL SALINE 1000 ML 1,000 ML IV PRN (08:25)
[2019-11-06] MEDS: BUDESONIDE NEB 0.25 MG/2 ML AMPUL NEB SCH ×2 (08:46→20:23)
[2019-11-06] MEDS: DEXAMETHASONE SOD PHOS INJ 10 MG/1 ML VIAL IV SCH ×2 (09:36→22:14)
[2019-11-06] MEDS: ASCORBIC ACID 500 MG TABLET PO SCH ×2 (09:37→17:15)
[2019-11-06] MEDS: CHOLECALCIFEROL (D3) 400 UNIT TABLET PO SCH (09:37)
[2019-11-06] MEDS: ESCITALOPRAM OXALATE 10 MG TABLET NG SCH (09:37)
[2019-11-06] MEDS: ARIPIPRAZOLE 5 MG TABLET NG SCH (09:37)
[2019-11-06] MEDS: ASPIRIN 81 MG TABLET, CHEWABLE NG SCH (09:38)
[2019-11-06] MEDS: ENOXAPARIN SODIUM INJ 80 MG/0.8 ML DISP.SYRIN SUBCUT SCH ×2 (09:38→22:14)
[2019-11-06] MEDS: ZINC SULFATE 220 MG CAPSULE NG SCH (09:38)
[2019-11-06] MEDS: INSULIN GLARGINE,HUM.REC.ANLOG 1,000 UNIT/10 ML VIAL SUBCUT SCH ×2 (09:39→22:17)
[2019-11-06] MEDS: AZITHROMYCIN 500 MG in DEXTROSE 5%-WATER 250 ML IV SCH (09:44)
[2019-11-06] MEDS: ALBUMIN HUMAN 12.5 GM/50 ML RTUINJ IV SCH ×4 (14:05→17:16)
[2019-11-06] MEDS ORDERED: FUROSEMIDE INJ/PF 20 MG/2 ML SDV IV ONE (17:00)
--- NOTE | 2019-11-06 17:13 | PDOC PROGRESS REPORT ---
Subjective Progress Note for:: 11/06/19 Subjective:: Overview of clinical course thus far: The patient is a 58-year-old female with a past medical history of oxygen dependent COPD (3lpm and BiPAP at baseline), VALARIE, hypertension, hypothyroidism, and depression who was admitted 10/18/19 with perforated sigmoid diverticulitis with feculent peritonitis who underwent exploratory laparotomy with sigmoid colon resection with colostomy by Dr. Hawkins on 10/18/2019. She did initially require vasopressor therapy; she developed atrial fibrillation with RVR and so was briefly placed on a diltiazem drip. Notably, she is prescribed Cardizem CD at home. She is successfully extubated the following day, 10/19/2019. She is downgraded to the medical floor on 10/21/2019 with care resumed by her PCP, Dr. Gutierrez. Per his note, patient has end-stage COPD and had recently been referred to the lung transplant center at [facility]. Following downgrade to floor, patient had difficulty with her underlying COPD and required near continuous BiPAP. Pulmonology was consulted; per Dr. Dickey's note, she will benefit from AVAPS upon discharge. She did have continued episodes of proximal A. fib; cardiology was consulted. On 10/25/19, the patient tested positive for COVID ( reportedly tested positive at PCPs office which prompted her screening). She returned to the ICU on 10/25/19 and was promptly re-intubated. Notably, patient was placed on Hydroxychloroquine 10/24 - 10/31. She was also placed on IV Azithromycin and Rocephin at this time. Only received 3 days of therapy. She, again, required vasopressor support. Successfully extubated to HFNC on 10/27/19. However, oxygen needs were variable and patient was shortly placed back to BiPAP. Surgery has signed off; tolerating tube feeds with good stool output through o stomy. She was downgraded to IMCU on 11/01/19 with service transferred to the hospitalist team. ---- The patient was seen on morning rounds and again briefly early afternoon. Her appearance is slightly improved today. She is currently requiring BiPAP 14/8 FiO2 50% to maintain oxygen saturations of 94-97%. She again complains of fatigue, but denies all other complaints. She tells me she "feels the same as yesterday." She denies fever/chills, chest pain, palpitations, abdominal pain, and nausea. Unfortunately, the patient witnessed the respiratory arrest/ of her this morning (r/t COVID). She is tearful, but with an otherwise flat affect. Discussed plan of care with nursing. Reason For Visit: ACUTE HYPERCARBIC RESPIRATORY FAILURE,NEED FOR INT Physical Exam Vital Signs: Temp Pulse Resp BP Pulse Ox 98.2 F 57 L 16 103/49 L 97 11/06/19 16:00 11/06/19 16:00 11/06/19 16:00 11/06/19 16:00 11/06/19 16:00 Intake & Output 11/05/19 11/06/19 11/07/19 06:59 06:59 06:59 Intake Total 823 1099 470 Output Total 1700 1730 600 Balance -877 -631 -130 Weight 76.4 kg 76.4 kg General appearance: PRESENT: no acute distress, cooperative, mild distress, well-developed, other - generalized edema; +2 pitting edema to flank, perineum, and BLE Head exam: PRESENT: atraumatic, normocephalic Eye exam: PRESENT: conjunctiva pink, EOMI, PERRLA. ABSENT: scleral icterus Mouth exam: PRESENT: moist, tongue midline Respiratory exam: PRESENT: decreased breath sounds, prolonged expiratory phas, symmetrical, unlabored, other - BiPAP. ABSENT: rales, rhonchi, wheezes Cardiovascular exam: PRESENT: RRR. ABSENT: diastolic murmur, rubs, systolic murmur Pulses: PRESENT: normal dorsalis pedis pul Vascular exam: PRESENT: normal capillary refill GI/Abdominal exam: PRESENT: normal bowel sounds, soft, other - ostomy. ABSENT: distended, guarding, mass, organolmegaly, rebound, tenderness Rectal exam: PRESENT: deferred Extremities exam: PRESENT: full ROM, +2 edema - BLE. ABSENT: calf tenderness, clubbing, pedal edema Neurological exam: PRESENT: alert, awake, oriented to person, oriented to place, oriented to time, oriented to situation, CN II-XII grossly intact, other - fatigue. ABSENT: motor sensory deficit Psychiatric exam: PRESENT: flat affect, normal mood. ABSENT: homicidal ideation, suicidal ideation Skin exam: PRESENT: dry, intact, warm. ABSENT: cyanosis, rash Results Laboratory Results: 11/06/19 05:30 11/06/19 05:30 11/05/19 11/06/19 11/06/19 18:30 05:30 05:30 WBC 21.2 H RBC 3.22 L Hgb 9.9 L Hct 29.8 L MCV 93 MCH 30.8 MCHC 33.3 RDW 14.7 H Plt Count 365 Seg Neutrophils % Not Reportable Carbonic Acid 1.47 H HCO3/H2CO3 Ratio 21:1 ABG pH 7.42 ABG pCO2 48.8 H ABG pO2 83.5 ABG HCO3 31.2 H ABG O2 Saturation 96.3 ABG Base Excess 5.9 FiO2 50% Sodium 139.2 Potassium 4.7 Chloride 102 Carbon Dioxide 35 H Anion Gap 2 L BUN 55 H Creatinine 1.17 Est GFR ( Amer) 57 L Glucose 233 H Calcium 7.8 L Total Bilirubin AST Alkaline Phosphatase Total Protein Albumin 11/06/19 11/06/19 05:30 06:05 WBC RBC Hgb Hct MCV MCH MCHC RDW Plt Count Seg Neutrophils % Carbonic Acid 1.56 H HCO3/H2CO3 Ratio 21:1 ABG pH 7.43 ABG pCO2 51.9 H ABG pO2 69.2 L ABG HCO3 33.6 H ABG O2 Saturation 94.1 ABG Base Excess 7.6 FiO2 50% Sodium Potassium Chloride Carbon Dioxide Anion Gap BUN Creatinine Est GFR ( Amer) Glucose Calcium Total Bilirubin 0.7 AST 16 Alkaline Phosphatase 69 Total Protein 4.3 L Albumin 2.1 L 10/18/19 10/29/19 00:24 06:30 Creatine Kinase 78 Troponin I 0.012 Impressions: Abdomen/Pelvis CT 10/17/19 23:59 IMPRESSION: 1. 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 Urgent finding reported to Olu SILVEIRA at 10/18/2019 1:55 AM CDT This exam was performed according to our departmental dose-optimization program, which includes automated exposure control, adjustment of the mA and/or kV according to patient size and/or use of iterative reconstruction technique. Chest/Abdomen CTA 10/23/19 00:00 IMPRESSION: 1. Limited examination due to contrast bolus timing with no contrast present within pulmonary arteries. As such no evaluation for pulmonary embolus is possible. 2. Moderate right-sided pleural effusion with some loculation and small left- sided pleural effusion with some loculation. 3. Severe emphysematous changes. Venous Doppler Study 10/26/19 00:00 IMPRESSION: NO EVIDENCE DVT OR SVT IN THE RIGHT ARM. KUB X-Ray 10/28/19 08:57 IMPRESSION: Enteric tube terminates subdiaphragmatically with the proximal port at the level of the gastroesophageal junction. Consider advancing 5 to 6 cm. Gas within mildly prominent loops of bowel likely on the basis of ileus. No evidence of high-grade obstruction. Increased interstitial markings at the lung bases as seen on recent chest radiograph. Chest X-Ray 11/06/19 07:00 IMPRESSION: Persistent increased interstitial markings at both lung bases, stable. Nasogastric tube, triple-lumen central line good positioning Assessment and Plan - Diagnosis (1) Pneumonia due to COVID-19 virus Is this a current diagnosis for this admission?: Yes Plan: Patient is admitted to [facility] on continuous cardiac telemetry. She is provided supplemental oxygen as needed to maintain saturations greater than 89%. Transitioning between HFNC and BiPAP as indicated by clinical status. Continue scheduled and as needed nebulizer treatments. D-dimer is increased from previous; resume full dose Lovenox. Resume IV azithromycin; previously only received 3 doses. Continue IV Decadron 4 mg twice daily Continue vitamin C, vitamin D, zinc, melatonin supplementation. Encouraged position changing; full right/left lateral positions. (2) Acute and chronic respiratory failure ([id number]) Qualifiers: Respiratory failure complication: hypoxia and hypercapnia Qualified Code(s): J96.21 - Acute and chronic respiratory failure with hypoxia; J96.22 - Acute and chronic respiratory failure with hypercapnia Is this a current diagnosis for this admission?: Yes Plan: Secondary to #1 in the setting of COPD. Management as above. (3) DANII (acute kidney injury) Is this a current diagnosis for this admission?: Yes Plan: Resolved. Likely due to sepsis and acute illness Avoid nephrotoxic medications as able. Start gentle IVF. Follow-up chemistry (4) COPD (chronic obstructive pulmonary disease) Qualifiers: COPD type: emphysema Emphysema type: centrilobular Qualified Code(s): J43.2 - Centrilobular emphysema Is this a current diagnosis for this admission?: Yes Plan: Stable and inactive. Patient is home O2 dependent at 3 L/min. Utilizes BiPAP nightly. Not a current tobacco user. Management of acute on chronic respiratory failure as above. (5) Lymphocytosis Is this a current diagnosis for this admission?: Yes Plan: Secondary to prolonged acute illness; specifically SARS-CoV2. Management as above. (6) Atrial fibrillation with rapid ventricular response Is this a current diagnosis for this admission?: Yes Plan: Resolved. Off diltiazem gtt. Continue Cardizem 30 mg every 8 hours May transition to long-acting prior to discharge if heart rate remained stable Monitor on telemetry. (7) Swelling of right upper extremity Is this a current diagnosis for this admission?: Yes Plan: Ultrasound right upper extremity (10/25) was negative for DVT. Likely related to peripheral IV infiltration with aggressive IV fluids through that extremity. Dry dressing. Extremity elevated. 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 (9) Hypoalbuminemia Is this a current diagnosis for this admission?: Yes Plan: Continue tube feedings. Albumin 50 gm today. (10) Hyperglycemia Is this a current diagnosis for this admission?: Yes Plan: Patient does not have a prior history of diabetes. Blood sugars have been persistently elevated. Have changed tube feeds from Jevity 1.5 to Glucerna 1.5 for reduced total carbohydrate. Continue sliding scale insulin. (11) Anasarca Is this a current diagnosis for this admission?: Yes Plan: Secondary to hypoalbuminemia. Secondary to prolonged critical illness and poor nutrition. Continue tube feeds. We will provide albumin 50 g IV today followed by furosemide 10 mg IV to help mobilize fluid. Continue daily weights, strict I&O's. (12) Sepsis with acute respiratory failure and septic shock Qualifiers: Sepsis type: sepsis due to unspecified organism Is this a current diagnosis for this admission?: Yes Plan: Resolved. Due to COVID-19 Blood cultures negative Bronchial culture grew Shannan, normal tabitha (13) Diverticulitis Is this a current diagnosis for this admission?: Yes Plan: General surgery consulted: Status post Delgado's procedure Abdominal drain removed by surgery Tolerating tube feeds with adequate stool output through ostomy. Surgery has signed off. (14) Peritonitis, acute generalized Is this a current diagnosis for this admission?: Yes Plan: Resolved. Secondary to perforated diverticulum with feculent peritonitis. Proceed full course of antibiotic therapy. (15) Perforation of sigmoid colon due to diverticulitis Is this a current diagnosis for this admission?: Yes Plan: Resolved. s/p Pina procedure Tolerating tube feeds. Adequate output through colostomy. Surgery signed off. - Time Time Spent with patient: 25-34 minutes Medications reviewed and adjusted accordingly: Yes
[2019-11-06] MEDS ORDERED: LORAZEPAM INJ 2 MG/1 ML VIAL IV ONE (21:45)
[2019-11-06] MEDS: OXYCODONE HCL IR 5 MG TABLET NG PRN (22:13)
[2019-11-06] MEDS: MELATONIN 3 MG TABLET PO SCH (22:13)
[2019-11-07] MEDS: INSULIN REG, HUMAN 100 UNIT/ML 3 ML VIAL (PYX) SUBCUT SCH ×4 (00:18→17:58)
[2019-11-07] MEDS: IPRATROPIUM/ALBUTEROL 0.5-2.5 MG/3 ML AMPUL NEB SCH ×5 (04:17→20:25)
[2019-11-07] MEDS: DILTIAZEM HCL 30 MG TABLET PO SCH ×3 (05:16→21:55)
[2019-11-07] MEDS: LEVOTHYROXINE SODIUM 0.1 MG TABLET PO SCH (05:16)
[2019-11-07] MEDS: OXYCODONE HCL IR 5 MG TABLET NG PRN ×2 (05:16→10:10)
[2019-11-07] MEDS: NORMAL SALINE 1000 ML 1,000 ML IV PRN (05:25)
[2019-11-07 06:28] LABS: HEMATOCRIT 27.7 % (36.0-47.0); HEMOGLOBIN 9.3 g/dL (12.0-15.5); MEAN CORPUSCULAR HEMOGLOBIN 31.1 pg (27.0-33.4); MEAN CORPUSCULAR HGB CONC 33.6 g/dL (32.0-36.0); MEAN CORPUSCULAR VOLUME 93 fl (80-97); PLATELET COUNT 344 10^3/uL (150-450); RED BLOOD COUNT 2.99 10^6/uL (3.72-5.28); RED CELL DISTRIBUTION WIDTH 14.9 % (11.5-14.0); WHITE BLOOD COUNT 18.7 10^3/uL (4.0-10.5)
[2019-11-07 06:51] LABS: ABSOLUTE LYMPHOCYTES# (MANUAL) 0.2 10^3/uL (0.5-4.7); ABSOLUTE MONOCYTES # (MANUAL) 0.2 10^3/uL (0.1-1.4); BASOPHILS % (MANUAL) 0 % (0-2); EOSINOPHILS % (MANUAL) 0 % (0-6); LYMPHOCYTES % (MANUAL) 1 % (13-45); MONOCYTES % (MANUAL) 1 % (3-13); SEGMENTED NEUTROPHILS % (MAN) 98 % (42-78); TOTAL CELLS COUNTED 100
[2019-11-07 06:53] LABS: HYPERSEGMENTED NEUTROPHILS PRESENT
[2019-11-07 06:54] LABS: PLATELET COMMENT ADEQUATE; RBC MORPHOLOGY COMMENT NORMO-CYTIC/CHROMIC
[2019-11-07 06:55] LABS: BLOOD UREA NITROGEN 53 mg/dL (7-20); C-REACTIVE PROTEIN 37.7 mg/L (<10.0); CALCIUM 8.1 mg/dL (8.4-10.2); CHOLESTEROL 132.73 mg/dL (0-200); GLUCOSE 210 mg/dL (75-110); POTASSIUM 5.1 mmol/L (3.6-5.0); TRIGLYCERIDES 165 mg/dL (<150)
[2019-11-07 06:58] LABS: CARBON DIOXIDE 36 mmol/L (22-30); CHLORIDE 100 mmol/L (98-107)
[2019-11-07 07:10] LABS: DIRECT LDL 69 mg/dL (<100)
[2019-11-07 07:11] LABS: ANION GAP 1 (5-19)
[2019-11-07] MEDS: BUDESONIDE NEB 0.25 MG/2 ML AMPUL NEB SCH ×2 (08:49→20:25)
[2019-11-07] MEDS: CHOLECALCIFEROL (D3) 400 UNIT TABLET PO SCH (09:08)
[2019-11-07] MEDS: ESCITALOPRAM OXALATE 10 MG TABLET NG SCH (09:09)
[2019-11-07] MEDS: THIAMINE HCL 100 MG TABLET PO SCH (09:09)
[2019-11-07] MEDS: ASCORBIC ACID 500 MG TABLET PO SCH ×2 (09:09→17:58)
[2019-11-07] MEDS: ARIPIPRAZOLE 5 MG TABLET NG SCH (09:09)
[2019-11-07] MEDS: DEXAMETHASONE SOD PHOS INJ 10 MG/1 ML VIAL IV SCH ×2 (09:09→22:15)
[2019-11-07] MEDS: ASPIRIN 81 MG TABLET, CHEWABLE NG SCH (09:09)
[2019-11-07] MEDS: ZINC SULFATE 220 MG CAPSULE NG SCH (09:09)
[2019-11-07] MEDS: ENOXAPARIN SODIUM INJ 80 MG/0.8 ML DISP.SYRIN SUBCUT SCH ×2 (09:10→21:56)
[2019-11-07] MEDS: INSULIN GLARGINE,HUM.REC.ANLOG 1,000 UNIT/10 ML VIAL SUBCUT SCH ×2 (09:12→21:56)
[2019-11-07] MEDS: AZITHROMYCIN 500 MG in DEXTROSE 5%-WATER 250 ML IV SCH (09:26)
[2019-11-07] MEDS ORDERED: PATIROMER 8.4 GM SUSP PACKET NG SCH (09:45)
[2019-11-07] MEDS ORDERED: FUROSEMIDE INJ/PF 20 MG/2 ML SDV IV PRN (09:47)
[2019-11-07] MEDS: ALBUMIN HUMAN 12.5 GM/50 ML RTUINJ IV SCH ×4 (10:12→13:56)
[2019-11-07] MEDS ORDERED: PATIROMER 8.4 GM SUSP PACKET NG ONE (11:15)
--- NOTE | 2019-11-07 13:18 | PDOC PROGRESS REPORT ---
Subjective Progress Note for:: 11/07/19 Reason For Visit: ACUTE HYPERCARBIC RESPIRATORY FAILURE,NEED FOR INT Physical Exam Vital Signs: Temp Pulse Resp BP Pulse Ox 97.4 F 54 L 17 125/64 99 11/07/19 12:00 11/07/19 12:00 11/07/19 12:00 11/07/19 12:00 11/07/19 12:00 Intake & Output 11/06/19 11/07/19 11/08/19 06:59 06:59 06:59 Intake Total 1099 2937 730 Output Total 1730 2700 600 Balance -631 237 130 Weight 76.4 kg 76.4 kg General appearance: PRESENT: no acute distress, cooperative, well-developed, well-nourished, other - generalized edema; +2 pitting edema to flank, perineum, and BLE. ABSENT: mild distress Head exam: PRESENT: atraumatic, normocephalic Eye exam: PRESENT: conjunctiva pink, EOMI, PERRLA. ABSENT: scleral icterus Mouth exam: PRESENT: moist, tongue midline Respiratory exam: PRESENT: clear to auscultation christina, decreased breath sounds - Throughout, prolonged expiratory phas, symmetrical, unlabored, other - Supplemental oxygen via nasal cannula. ABSENT: rales, rhonchi, wheezes Cardiovascular exam: PRESENT: RRR. ABSENT: diastolic murmur, rubs, systolic murmur Pulses: PRESENT: normal dorsalis pedis pul Vascular exam: PRESENT: normal capillary refill GI/Abdominal exam: PRESENT: normal bowel sounds, soft, tenderness, other - ostomy.. ABSENT: distended, guarding, mass, organolmegaly, rebound Rectal exam: PRESENT: deferred Extremities exam: PRESENT: full ROM. ABSENT: calf tenderness, clubbing, pedal edema Neurological exam: PRESENT: alert, awake, oriented to person, oriented to place, oriented to time, oriented to situation, CN II-XII grossly intact. ABSENT: motor sensory deficit Psychiatric exam: PRESENT: appropriate affect, normal mood. ABSENT: homicidal ideation, suicidal ideation Skin exam: PRESENT: dry, intact, warm, other - large ecchymosis to right flank, breast, lateral abdomen. ABSENT: cyanosis, rash Results Laboratory Results: 11/07/19 05:30 11/07/19 05:30 11/07/19 11/07/19 05:30 05:30 WBC 18.7 H RBC 2.99 L Hgb 9.3 L Hct 27.7 L MCV 93 MCH 31.1 MCHC 33.6 RDW 14.9 H Plt Count 344 Seg Neutrophils % Not Reportable Sodium 137.2 Potassium 5.1 H Chloride 100 Carbon Dioxide 36 H Anion Gap 1 L BUN 53 H Creatinine 1.16 Est GFR ( Amer) 58 L Glucose 210 H Calcium 8.1 L Ferritin 158.00 C-Reactive Protein 37.7 H Triglycerides 165 H Cholesterol 132.73 LDL Cholesterol Direct 69 VLDL Cholesterol 33.0 H HDL Cholesterol 46 10/18/19 10/29/19 00:24 06:30 Creatine Kinase 78 Troponin I 0.012 Impressions: Abdomen/Pelvis CT 10/17/19 23:59 IMPRESSION: 1. 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 Urgent finding reported to Olu SILVEIRA at 10/18/2019 1:55 AM CDT This exam was performed according to our departmental dose-optimization program, which includes automated exposure control, adjustment of the mA and/or kV according to patient size and/or use of iterative reconstruction technique. Chest/Abdomen CTA 10/23/19 00:00 IMPRESSION: 1. Limited examination due to contrast bolus timing with no contrast present within pulmonary arteries. As such no evaluation for pulmonary embolus is possible. 2. Moderate right-sided pleural effusion with some loculation and small left- sided pleural effusion with some loculation. 3. Severe emphysematous changes. Venous Doppler Study 10/26/19 00:00 IMPRESSION: NO EVIDENCE DVT OR SVT IN THE RIGHT ARM. KUB X-Ray 10/28/19 08:57 IMPRESSION: Enteric tube terminates subdiaphragmatically with the proximal port at the level of the gastroesophageal junction. Consider advancing 5 to 6 cm. Gas within mildly prominent loops of bowel likely on the basis of ileus. No evidence of high-grade obstruction. Increased interstitial markings at the lung bases as seen on recent chest radiograph. Chest X-Ray 11/06/19 07:00 IMPRESSION: Persistent increased interstitial markings at both lung bases, stable. Nasogastric tube, triple-lumen central line good positioning Assessment and Plan - Diagnosis (1) Pneumonia due to COVID-19 virus Is this a current diagnosis for this admission?: Yes Plan: Improved today; now tolerating supplemental oxygen via NC at 6lpm Patient is admitted to [facility] on continuous cardiac telemetry. She is provided supplemental oxygen as needed to maintain saturations greater than 89%. Transitioning between HFNC and BiPAP as indicated by clinical status. Continue scheduled and as needed nebulizer treatments. Have resumed full dose Lovenox. Resume IV azithromycin; previously only received 3 doses. Continue IV Decadron 4 mg twice daily Continue vitamin C, vitamin D, zinc, melatonin supplementation. Encouraged position changing; full right/left lateral positions. (2) Acute and chronic respiratory failure ([id number]) Qualifiers: Respiratory failure complication: hypoxia and hypercapnia Qualified Code (s): J96.21 - Acute and chronic respiratory failure with hypoxia; J96.22 - Acute and chronic respiratory failure with hypercapnia Is this a current diagnosis for this admission?: Yes Plan: Secondary to #1 in the setting of COPD. Management as above. (3) Grief Is this a current diagnosis for this admission?: Yes Plan: The patient's 11/06/19 of COVID19 respiratory failure. Patient witnessed ACLS attempts. Encouraged to talk with family/staff as needed. Have arranged for 1 family member to visit 1 time; they have not yet done so. Supportive care. (4) DANII (acute kidney injury) Is this a current diagnosis for this admission?: Yes Plan: Resolved. Likely due to sepsis and acute illness Avoid nephrotoxic medications as able. Monitor strict I&Os Follow-up chemistry (5) COPD (chronic obstructive pulmonary disease) Qualifiers: COPD type: emphysema Emphysema type: centrilobular Qualified Code(s): J43.2 - Centrilobular emphysema Is this a current diagnosis for this admission?: Yes Plan: Stable and inactive. Patient is home O2 dependent at 3 L/min. Utilizes BiPAP nightly. Not a current tobacco user. Management of acute on chronic respiratory failure as above. (6) Lymphocytosis Is this a current diagnosis for this admission?: Yes Plan: Secondary to prolonged acute illness; specifically SARS-CoV2. Management as above. (7) Atrial fibrillation with rapid ventricular response Is this a current diagnosis for this admission?: Yes Plan: Resolved. Off diltiazem gtt. Continue Cardizem 30 mg every 8 hours May transition to long-acting prior to discharge if heart rate remained stable Monitor on telemetry. (8) Swelling of right upper extremity Is this a current diagnosis for this admission?: Yes Plan: Ultrasound right upper extremity (10/25) was negative for DVT. Likely related to peripheral IV infiltration with aggressive IV fluids through that extremity. Dry dressing. Extremity elevated. 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 (10) Hypoalbuminemia Is this a current diagnosis for this admission?: Yes Plan: Continue tube feedings. Repeat Albumin 50 gm followed by furosemide. Excellent urine output yesterday. 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 (11) Hyperglycemia Is this a current diagnosis for this admission?: Yes Plan: A1C 5.3% Patient does not have a prior history of diabetes. Blood sugars have been persistently elevated. Have changed tube feeds from Jevity 1.5 to Glucerna 1.5 for reduced total carbohydrate; improved glucose control Continue sliding scale insulin. (12) Anasarca Is this a current diagnosis for this admission?: Yes Plan: Secondary to hypoalbuminemia. Secondary to prolonged critical illness and poor nutrition. Continue tube feeds. Repeat albumin 50 g IV today followed by furosemide 20 mg IV to help mobilize fluid. Improved urine output yesterday following the same; ~2.7 L Continue daily weights, strict I&O's. (13) Sepsis with acute respiratory failure and septic shock Qualifiers: Sepsis type: sepsis due to unspecified organism Is this a current diagnosis for this admission?: Yes Plan: Resolved. Due to COVID-19 Blood cultures negative Bronchial culture grew Shannan, normal tabitha (14) Diverticulitis Is this a current diagnosis for this admission?: Yes Plan: General surgery consulted: Status post Delgado's procedure Abdominal drain removed by surgery Tolerating tube feeds with adequate stool output through ostomy. Surgery has signed off. (15) Peritonitis, acute generalized Is this a current diagnosis for this admission?: Yes Plan: Resolved. Secondary to perforated diverticulum with feculent peritonitis. Proceed full course of antibiotic therapy. (16) Perforation of sigmoid colon due to diverticulitis Is this a current diagnosis for this admission?: Yes Plan: Resolved. s/p Pina procedure Tolerating tube feeds. Adequate output through colostomy. Surgery signed off. - Plan Summary Summary: Guarded optimism today; improved vital signs, labs, and oxygen needs. PT/OT/ST consultations are placed. - Time Time Spent with patient: 35 or more minutes Medications reviewed and adjusted accordingly: Yes
[2019-11-07] MEDS: ATORVASTATIN CALCIUM 10 MG TABLET PO SCH (21:55)
[2019-11-07] MEDS: MELATONIN 3 MG TABLET PO SCH (21:55)
[2019-11-08] MEDS: IPRATROPIUM/ALBUTEROL 0.5-2.5 MG/3 ML AMPUL NEB SCH ×6 (00:14→20:23)
[2019-11-08] MEDS: INSULIN REG, HUMAN 100 UNIT/ML 3 ML VIAL (PYX) SUBCUT SCH ×4 (00:55→18:18)
[2019-11-08] MEDS: DILTIAZEM HCL 30 MG TABLET PO SCH ×2 (05:27→13:49)
[2019-11-08] MEDS: LEVOTHYROXINE SODIUM 0.1 MG TABLET PO SCH (05:27)
[2019-11-08 06:35] LABS: HEMATOCRIT 28.2 % (36.0-47.0); HEMOGLOBIN 9.3 g/dL (12.0-15.5); MEAN CORPUSCULAR HEMOGLOBIN 30.1 pg (27.0-33.4); MEAN CORPUSCULAR HGB CONC 32.8 g/dL (32.0-36.0); MEAN CORPUSCULAR VOLUME 92 fl (80-97); PLATELET COUNT 336 10^3/uL (150-450); RED BLOOD COUNT 3.07 10^6/uL (3.72-5.28); RED CELL DISTRIBUTION WIDTH 14.5 % (11.5-14.0); WHITE BLOOD COUNT 20.8 10^3/uL (4.0-10.5)
[2019-11-08 06:57] LABS: ALBUMIN 2.9 g/dL (3.5-5.0); ALKALINE PHOSPHATASE 65 U/L (38-126); ASPARTATE AMINO TRANSFERASE 18 U/L (14-36); BILIRUBIN,DIRECT 0.1 mg/dL (0.0-0.4); BILIRUBIN,TOTAL 1.2 mg/dL (0.2-1.3); BLOOD UREA NITROGEN 57 mg/dL (7-20); CALCIUM 8.7 mg/dL (8.4-10.2); CHLORIDE 95 mmol/L (98-107); GLUCOSE 138 mg/dL (75-110); TOTAL PROTEIN 4.9 g/dL (6.3-8.2)
[2019-11-08 07:02] LABS: CARBON DIOXIDE 39 mmol/L (22-30)
[2019-11-08 07:04] LABS: ANION GAP 2 (5-19)
[2019-11-08 07:06] LABS: APPEARANCE,URINE CLOUDY; BILIRUBIN,URINE NEGATIVE (NEGATIVE); COLOR,URINE YELLOW; GLUCOSE, URINE NEGATIVE (NEGATIVE); KETONES,URINE NEGATIVE (NEGATIVE); LEUKOCYTE ESTERASE,URINE SMALL (NEGATIVE); NITRITE,URINE NEGATIVE (NEGATIVE); PROTEIN,URINE NEGATIVE (NEGATIVE); URINE SPECIFIC GRAVITY 1.012; UROBILINOGEN,URINE NEGATIVE mg/dL (<2.0)
[2019-11-08] MEDS: BUDESONIDE NEB 0.25 MG/2 ML AMPUL NEB SCH ×2 (08:13→20:23)
[2019-11-08] MEDS: ENOXAPARIN SODIUM INJ 80 MG/0.8 ML DISP.SYRIN SUBCUT SCH (10:35)
[2019-11-08] MEDS: THIAMINE HCL 100 MG TABLET PO SCH (10:36)
[2019-11-08] MEDS: ZINC SULFATE 220 MG CAPSULE NG SCH (10:36)
[2019-11-08] MEDS: ASCORBIC ACID 500 MG TABLET PO SCH ×2 (10:37→17:06)
[2019-11-08] MEDS: INSULIN GLARGINE,HUM.REC.ANLOG 1,000 UNIT/10 ML VIAL SUBCUT SCH (10:37)
[2019-11-08] MEDS: AZITHROMYCIN 500 MG in DEXTROSE 5%-WATER 250 ML IV SCH (10:37)
[2019-11-08] MEDS: ESCITALOPRAM OXALATE 10 MG TABLET NG SCH (10:37)
[2019-11-08] MEDS: ASPIRIN 81 MG TABLET, CHEWABLE NG SCH (10:37)
[2019-11-08] MEDS: ARIPIPRAZOLE 5 MG TABLET NG SCH (10:38)
[2019-11-08] MEDS: CHOLECALCIFEROL (D3) 400 UNIT TABLET PO SCH (10:38)
[2019-11-08] MEDS: DEXAMETHASONE SOD PHOS INJ 10 MG/1 ML VIAL IV SCH ×2 (10:38→22:00)
[2019-11-08] MEDS ORDERED: FUROSEMIDE INJ/PF 20 MG/2 ML SDV IV PRN (12:45)
--- NOTE | 2019-11-08 12:49 | PDOC PROGRESS REPORT ---
Subjective Progress Note for:: 11/08/19 Subjective:: Overview of clinical course thus far: The patient is a 58-year-old female with a past medical history of oxygen dependent COPD (3lpm and BiPAP at baseline), VALARIE, hypertension, hypothyroidism, and depression who was admitted 10/18/19 with perforated sigmoid diverticulitis with feculent peritonitis who underwent exploratory laparotomy with sigmoid colon resection with colostomy by Dr. Hawkins on 10/18/2019. She did initially require vasopressor therapy; she developed atrial fibrillation with RVR and so was briefly placed on a diltiazem drip. Notably, she is prescribed Cardizem CD at home. She is successfully extubated the following day, 10/19/2019. She is downgraded to the medical floor on 10/21/2019 with care resumed by her PCP, Dr. Gutierrez. Per his note, patient has end-stage COPD and had recently been referred to the lung transplant center at [facility]. Following downgrade to floor, patient had difficulty with her underlying COPD and required near continuous BiPAP. Pulmonology was consulted; per Dr. Dickey's note, she will benefit from AVAPS upon discharge. She did have continued episodes of proximal A. fib; cardiology was consulted. On 10/25/19, the patient tested positive for COVID ( reportedly tested positive at PCPs office which prompted her screening). She returned to the ICU on 10/25/19 and was promptly re-intubated. Notably, patient was placed on Hydroxychloroquine 10/24 - 10/31. She was also placed on IV Azithromycin and Rocephin at this time. Only received 3 days of therapy. She, again, required vasopressor support. Successfully extubated to HFNC on 10/27/19. However, oxygen needs were variable and patient was shortly placed back to BiPAP. Surgery has signed off; tolerating tube feeds with good stool output through o stomy. She was downgraded to IMCU on 11/01/19 with service transferred to the hospitalist team. ---- The patient was seen on morning rounds. She is currently on supplemental oxygen by nasal cannula at 6 L/min maintaining saturations of 97%. She reports fatigue, but denies all other complaints. She is somewhat withdrawn today. Worked w/ ST this morning; cleared for small sips of water, ice chips, and apple sauce or pudding. She denies fever/chills, chest pain, palpitations, abdominal pain, and nausea. She has no other questions or concerns at this time. Discussed plan of care with nursing. Reason For Visit: ACUTE HYPERCARBIC RESPIRATORY FAILURE,NEED FOR INT Physical Exam Vital Signs: Temp Pulse Resp BP Pulse Ox 97.8 F 54 L 16 113/53 L 95 11/08/19 09:00 11/08/19 09:00 11/08/19 09:00 11/08/19 09:00 11/08/19 09:00 Intake & Output 11/07/19 11/08/19 11/09/19 06:59 06:59 06:59 Intake Total 2937 1590 Output Total 2700 4050 Balance 237 -2460 Weight 76.4 kg 76.3 kg General appearance: PRESENT: no acute distress, cooperative, well-developed, well-nourished, other - generalized edema; +2 pitting edema to flank, perineum, and BLE. Head exam: PRESENT: atraumatic, normocephalic Eye exam: PRESENT: conjunctiva pink, EOMI, PERRLA. ABSENT: scleral icterus Ear exam: PRESENT: normal external ear exam Mouth exam: PRESENT: moist, tongue midline Neck exam: ABSENT: carotid bruit, JVD, lymphadenopathy, thyromegaly Respiratory exam: PRESENT: clear to auscultation christina, decreased breath sounds, symmetrical, unlabored, other - Supplemental oxygen by nasal cannula. ABSENT: rales, rhonchi, wheezes Cardiovascular exam: PRESENT: RRR. ABSENT: diastolic murmur, rubs, systolic murmur Pulses: PRESENT: normal dorsalis pedis pul Vascular exam: PRESENT: normal capillary refill GI/Abdominal exam: PRESENT: normal bowel sounds, soft, tenderness. ABSENT: distended, guarding, mass, organolmegaly, rebound Rectal exam: PRESENT: deferred Extremities exam: PRESENT: full ROM. ABSENT: calf tenderness, clubbing, pedal edema Neurological exam: PRESENT: alert, awake, oriented to person, oriented to place, oriented to time, oriented to situation, CN II-XII grossly intact. ABSENT: motor sensory deficit Psychiatric exam: PRESENT: flat affect, normal mood. ABSENT: homicidal ideation, suicidal ideation Skin exam: PRESENT: dry, warm, other - large ecchymosis to right flank, breast, lateral abdomen; decreased today. ABSENT: cyanosis, rash Results Laboratory Results: 11/08/19 05:45 11/08/19 05:45 11/08/19 11/08/19 11/08/19 05:45 05:45 05:45 WBC 20.8 H RBC 3.07 L Hgb 9.3 L Hct 28.2 L MCV 92 MCH 30.1 MCHC 32.8 RDW 14.5 H Plt Count 336 Sodium 135.5 L Potassium 5.0 Chloride 95 L Carbon Dioxide 39 H Anion Gap 2 L BUN 57 H Creatinine 1.21 Est GFR ( Amer) 55 L Glucose 138 H Calcium 8.7 Total Bilirubin 1.2 AST 18 Alkaline Phosphatase 65 Total Protein 4.9 L Albumin 2.9 L Urine Color YELLOW Urine Appearance CLOUDY Urine pH 7.0 Ur Specific [place] 1.012 Urine Protein NEGATIVE Urine Glucose (UA) NEGATIVE Urine Ketones NEGATIVE Urine Blood SMALL H Urine Nitrite NEGATIVE Ur Leukocyte Esterase SMALL H Urine WBC (Auto) 10 10/18/19 10/29/19 00:24 06:30 Creatine Kinase 78 Troponin I 0.012 Impressions: Abdomen/Pelvis CT 10/17/19 23:59 IMPRESSION: 1. 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 Urgent finding reported to Olu SILVEIRA at 10/18/2019 1:55 AM CDT This exam was performed according to our departmental dose-optimization program, which includes automated exposure control, adjustment of the mA and/or kV according to patient size and/or use of iterative reconstruction technique. Chest/Abdomen CTA 10/23/19 00:00 IMPRESSION: 1. Limited examination due to contrast bolus timing with no contrast present within pulmonary arteries. As such no evaluation for pulmonary embolus is possible. 2. Moderate right-sided pleural effusion with some loculation and small left- sided pleural effusion with some loculation. 3. Severe emphysematous changes. Venous Doppler Study 10/26/19 00:00 IMPRESSION: NO EVIDENCE DVT OR SVT IN THE RIGHT ARM. KUB X-Ray 10/28/19 08:57 IMPRESSION: Enteric tube terminates subdiaphragmatically with the proximal port at the level of the gastroesophageal junction. Consider advancing 5 to 6 cm. Gas within mildly prominent loops of bowel likely on the basis of ileus. No evidence of high-grade obstruction. Increased interstitial markings at the lung bases as seen on recent chest radiograph. Chest X-Ray 11/06/19 07:00 IMPRESSION: Persistent increased interstitial markings at both lung bases, stable. Nasogastric tube, triple-lumen central line good positioning Assessment and Plan - Diagnosis (1) Pneumonia due to COVID-19 virus Is this a current diagnosis for this admission?: Yes Plan: Improved today; now tolerating supplemental oxygen via NC at 6lpm Patient is admitted to [facility] on continuous cardiac telemetry. She is provided supplemental oxygen as needed to maintain saturations greater than 89%. Transitioning between HFNC and BiPAP as indicated by clinical status. Continue scheduled and as needed nebulizer treatments. Have resumed full dose Lovenox. Resume IV azithromycin x5 days; previously only received 3 doses early in course. Previously received course of hydroxychloroquine. Continue IV Decadron 4 mg twice daily Continue vitamin C, vitamin D, zinc, melatonin supplementation. Encouraged position changing; full right/left lateral positions. (2) Acute and chronic respiratory failure ([id number]) Qualifiers: Respiratory failure complication: hypoxia and hypercapnia Qualified Code(s): J96.21 - Acute and chronic respiratory failure with hypoxia; J96.22 - Acute and chronic respiratory failure with hypercapnia Is this a current diagnosis for this admission?: Yes Plan: Secondary to #1 in the setting of COPD. Management as above. (3) Grief Is this a current diagnosis for this admission?: Yes Plan: The patient's 11/06/19 of COVID19 respiratory failure. Patient witnessed ACLS attempts. Encouraged to talk with family/staff as needed. Have arranged for 1 family member to visit. Supportive care. (4) DANII (acute kidney injury) Is this a current diagnosis for this admission?: Yes Plan: Resolved. Likely due to sepsis and acute illness Avoid nephrotoxic medications as able. Monitor strict I&Os Follow-up chemistry (5) COPD (chronic obstructive pulmonary disease) Qualifiers: COPD type: emphysema Emphysema type: centrilobular Qualified Code(s): J43.2 - Centrilobular emphysema Is this a current diagnosis for this admission?: Yes Plan: Stable and inactive. Patient is home O2 dependent at 3 L/min. Utilizes BiPAP nightly. Not a current tobacco user. Management of acute on chronic respiratory failure as above. (6) Lymphocytosis Is this a current diagnosis for this admission?: Yes Plan: Secondary to prolonged acute illness; specifically SARS-CoV2. Management as above. (7) Atrial fibrillation with rapid ventricular response Is this a current diagnosis for this admission?: Yes Plan: Resolved. Off diltiazem gtt. Continue Cardizem 30 mg every 8 hours May transition to long-acting prior to discharge if heart rate remained stable Monitor on telemetry. (8) Swelling of right upper extremity Is this a current diagnosis for this admission?: Yes Plan: Ultrasound right upper extremity (10/25) was negative for DVT. Likely related to peripheral IV infiltration with aggressive IV fluids through that extremity. Dry dressing. Extremity elevated. 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 (10) Hypoalbuminemia Is this a current diagnosis for this admission?: Yes Plan: Continue tube feedings. Repeat Albumin 50 gm followed by furosemide. This will be the 3rd round. Excellent urine output yesterday; 4L (finally a negative balance) solution developer is consulted; appreciate recommendations. (11) Hyperglycemia Is this a current diagnosis for this admission?: Yes Plan: A1C 5.3% Patient does not have a prior history of diabetes. Blood sugars have been persistently elevated. Have changed tube feeds from Jevity 1.5 to Glucerna 1.5 for reduced total carbohydrate; improved glucose control Continue sliding scale insulin. (12) Anasarca Is this a current diagnosis for this admission?: Yes Plan: Secondary to hypoalbuminemia. Secondary to prolonged critical illness and poor nutrition. Continue tube feeds. Third round of albumin 50 g IV today followed by furosemide 20 mg IV to help mobilize fluid. Improved urine output yesterday following the same; ~4 L Continue daily weights, strict I&O's. (13) Sepsis with acute respiratory failure and septic shock Qualifiers: Sepsis type: sepsis due to unspecified organism Is this a current diagnosis for this admission?: Yes Plan: Resolved. Due to COVID-19 Blood cultures negative Bronchial culture grew Shannan, normal tabitha (14) Diverticulitis Is this a current diagnosis for this admission?: Yes Plan: General surgery consulted: Status post Delgado's procedure Abdominal drain removed by surgery Tolerating tube feeds with adequate stool output through ostomy. Surgery has signed off. (15) Peritonitis, acute generalized Is this a current diagnosis for this admission?: Yes Plan: Resolved. Secondary to perforated diverticulum with feculent peritonitis. Proceed full course of antibiotic therapy. (16) Perforation of sigmoid colon due to diverticulitis Is this a current diagnosis for this admission?: Yes Plan: Resolved. s/p Pina procedure Tolerating tube feeds. Adequate output through colostomy. Surgery signed off. - Plan Summary Summary: Cautious optimism today; improved vital signs, labs, and oxygen needs. PT/OT/ST consultations are placed. - Time Time Spent with patient: 35 or more minutes Medications reviewed and adjusted accordingly: Yes
[2019-11-08] MEDS: ALBUMIN HUMAN 12.5 GM/50 ML RTUINJ IV SCH ×4 (13:53→17:06)
[2019-11-08] MEDS ORDERED: ONDANSETRON HCL INJ/PF 4 MG/2 ML SDV ONE (16:37)
[2019-11-08] MEDS ORDERED: ONDANSETRON HCL INJ/PF 4 MG/2 ML SDV IV PRN (17:02)
[2019-11-08] MEDS ORDERED: ONDANSETRON HCL INJ/PF 4 MG/2 ML SDV IV ONE (17:02)
[2019-11-08] MEDS ORDERED: GLUCAGON,HUMAN RECOMB 1 MG INJ SUBCUT PRN (19:08)
--- NOTE | 2019-11-08 19:35 | PDOC CONSULTATION ---
Consultation Consult Date: 11/08/19 Attending physician:: SOPHIA DENNIS Provider Consulted: FITZ BURNETT Consult reason:: Sanguinous drainage from midline wound History of Present Illness Admission Date/PCP: 10/18/19 04:32 NO LOCALMD History of Present Illness: DEBI ANDERSON is a 58 year old female Well-known to the surgical service, nearly 1 month status post exploratory laparotomy, sigmoid colectomy, colostomy for complicated diverticulitis, hinchey classification 4, postoperative course complicated by prolonged respiratory failure requiring ventilatory support and ICU stay, pneumonia treatment. She recovered approximately 2 and half weeks ago, was on the floor, had a GI bleed hypotension and was taken back to the intensive care unit for intubation and prolonged ventilatory support. At that time she tested positive for COVID based on her testing positive for COVID. In the last 2 weeks her was hospitalized for complicated pulmonary infection due to COVID and this past weekend. The patient was successfully extubated last week for the second time he has been recovering on the floor. Her pulmonary status remains poor as she is a known chronic COPD, advanced pulmonary disease superimposed on malnutrition, chronic steroid therapy and muscle wasting. Several hours ago I received a phone call from Sophia SILVEIRA, who stated that patient experience significant serosanguineous drainage from the midline incision. I instructed her to remove 2 sachin from the inferior aspect of the wound. This revealed prolapsing soft tissue concerning for possible dehiscence based on edges she sent me electronically. In addition patient's colostomy, which has been functioning, has effectively from her surrounding skin with a superficial layer of nonviable mucosa. Because patient is on the third floor on the COVID law, ended by multiple COVID patients, this consulting surgeon opted to conduct an interview via telehealth. Past Medical History Cardiac Medical History: Reports: Atrial Fibrillation, Hypertension Pulmonary Medical History: Reports: Chronic Obstructive Pulmonary Disease (COPD), Respiratory Failure, Sleep Apnea Endocrine Medical History: Reports: Hypothyroidism Renal/ Medical History: Denies: Chronic Kidney Disease, End Stage Renal Disease Malignancy Medical History: Reports: None GI Medical History: Denies: Crohn's Disease, Ulcerative Colitis Musculoskeltal Medical History: Denies: Gout Skin Medical History: Denies: Eczema, Psoriasis Psychiatric Medical History: Reports: Depression Traumatic Medical History: Denies: Gunshot Wound, Pneumothorax Hematology: Denies: Sickle Cell Disease Infectious Medical History: Denies: HIV Past Surgical History Past Surgical History: Reports: Appendectomy, Other - Pina procedure Social History Smoking Status: Former Smoker Cigarettes Packs Per Day: 2 Electronic Cigarette use?: No Number of Years Smokin Frequency of Alcohol Use: None Hx Recreational Drug Use: No Hx Prescription Drug Abuse: No - Advance Directive Resuscitation Status: Full Code Family History Family History: COPD, Hypertension Parental Family History Reviewed: No Children Family History Reviewed: No Sibling(s) Family History Reviewed.: No Medication/Allergy Home Medications: Aripiprazole [Abilify] 5 mg PO DAILY 07/13/18 Prednisone [Deltasone 10 mg Tablet] 10 mg PO ASDIR PRN #21 tablet 05/03/19 Budesonide [Pulmicort Neb 0.5 mg/2 ml Ampul] 0.5 mg NEB RTBID 10/18/19 Diltiazem HCl [Cardizem 30 mg Tablet] 1 tab PO DAILY 10/18/19 Escitalopram Oxalate [Lexapro 10 mg Tablet] 20 mg PO DAILY 10/18/19 Ipratropium [place] [Atrovent 0.02% Neb 0.5 mg/2.5 ml Ampul] 0.5 mg NEB RTQID 10/18/19 Levalbuterol HCl [Xopenex Neb 1.25 mg/3 ml Ampul] 1.25 mg NEB [id number] PRN 10/18/19 Levothyroxine Sodium [Synthroid 0.1 mg Tablet] 0.1 mg PO QAM 10/18/19 Allergies/Adverse Reactions: No Known Allergies Allergy (Verified 10/19/19 07:35) Physical Exam Vital Signs: Temp Pulse Resp BP Pulse Ox 97.8 F 65 15 117/47 L 98 11/08/19 18:00 11/08/19 18:00 11/08/19 18:00 11/08/19 18:00 11/08/19 18:00 Intake & Output 11/07/19 11/08/19 11/09/19 06:59 06:59 06:59 Intake Total 2937 1590 432 Output Total 2700 4050 1625 Balance 652 -1530 -1105 Weight 76.4 kg 76.3 kg Results Laboratory Results: 11/08/19 05:45 11/08/19 05:45 0711/08/19 11/08/19 05:45 05:45 05:45 WBC 20.8 H RBC 3.07 L Hgb 9.3 L Hct 28.2 L MCV 92 MCH 30.1 MCHC 32.8 RDW 14.5 H Plt Count 336 Sodium 135.5 L Potassium 5.0 Chloride 95 L Carbon Dioxide 39 H Anion Gap 2 L BUN 57 H Creatinine 1.21 Est GFR ( Amer) 55 L Glucose 138 H Calcium 8.7 Total Bilirubin 1.2 AST 18 Alkaline Phosphatase 65 Total Protein 4.9 L Albumin 2.9 L Urine Color YELLOW Urine Appearance CLOUDY Urine pH 7.0 Ur Specific [place] 1.012 Urine Protein NEGATIVE Urine Glucose (UA) NEGATIVE Urine Ketones NEGATIVE Urine Blood SMALL H Urine Nitrite NEGATIVE Ur Leukocyte Esterase SMALL H Urine WBC (Auto) 10 10/18/19 10/29/19 00:24 06:30 Creatine Kinase 78 Troponin I 0.012 Impressions: Abdomen/Pelvis CT 10/17/19 23:59 IMPRESSION: 1. 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 Urgent finding reported to Olu SILVEIRA at 10/18/2019 1:55 AM CDT This exam was performed according to our departmental dose-optimization program, which includes automated exposure control, adjustment of the mA and/or kV according to patient size and/or use of iterative reconstruction technique. Chest/Abdomen CTA 10/23/19 00:00 IMPRESSION: 1. Limited examination due to contrast bolus timing with no contrast present within pulmonary arteries. As such no evaluation for pulmonary embolus is possible. 2. Moderate right-sided pleural effusion with some loculation and small left- sided pleural effusion with some loculation. 3. Severe emphysematous changes. Venous Doppler Study 10/26/19 00:00 IMPRESSION: NO EVIDENCE DVT OR SVT IN THE RIGHT ARM. KUB X-Ray 10/28/19 08:57 IMPRESSION: Enteric tube terminates subdiaphragmatically with the proximal port at the level of the gastroesophageal junction. Consider advancing 5 to 6 cm. Gas within mildly prominent loops of bowel likely on the basis of ileus. No evidence of high-grade obstruction. Increased interstitial markings at the lung bases as seen on recent chest radiograph. Chest X-Ray 11/06/19 07:00 IMPRESSION: Persistent increased interstitial markings at both lung bases, stable. Nasogastric tube, triple-lumen central line good positioning Assessment & Plan - Diagnosis (1) Complication of ostomy Is this a current diagnosis for this admission?: Yes Plan: Impression: Status post colostomy, sigmoid colectomy and exploratory laparotomy 3 and half weeks ago with unstable colostomy, mucosal-skin dehiscence, and nonviable mucosa; However still functional; (2) Wound dehiscence Is this a current diagnosis for this admission?: Yes Plan: Impression: Based on acute release of copious amounts of watery serous and sanguinous fluid on 2 occasions this afternoon and evening, and appearance on photos of the inferior aspect of the midline incision, I believe the patient has a fascial dehiscence. (3) Acute and chronic respiratory failure ([id number]) Qualifiers: Respiratory failure complication: hypoxia and hypercapnia Qualified Code(s): J96.21 - Acute and chronic respiratory failure with hypoxia; J96.22 - Acute and chronic respiratory failure with hypercapnia Is this a current diagnosis for this admission?: Yes - Plan Summary Plan Summary: Discussion and recommendations: 1. This is a very unfortunate 58-year-old white female with multiple chronic medical problems superimposed on a prolonged hospitalization resulting now in a chronically debilitated state, malnutrition, steroid dependency, wound dehiscence and colostomy deterioration though the latter still functioning. She remains a full code. 2. Her situation is complicated by her having a COVID, and experiencing the loss of her just this weekend due to complications of COVID infection. 3. Because of her geographic location of the hospital, embedded with multiple COVID patients on the third floor I opted to speak with Ms. Anderson by iPad. I explained to her that she has an unstable midline wound, and threatened colostomy. Under somewhat better conditions, we would offer take back to the operating room, colostomy revision, and abdominal wall closure with temporary mesh or other temporary device. However in this patient's case, with all of her comorbidities and high risk for not surviving another general anesthetic and prolonged ICU stay, I recommended not going back to the operating room tonight and adopting a conservative approach for now. I suggested we regroup in the next 12 to 24 hours. I believe she understands the magnitude of the situation now at hand, and the potential futility of more surgery. My recommendation is to direct this patient away from therapeutic care and towards a palliative care plan 4. I discussed the above with RAOUL Gomez who will convey my opinion to the hospitalist service.
[2019-11-08] MEDS: PROMETHAZINE HCL INJ 25 MG/1 ML VIAL IV PRN (22:00)
[2019-11-08] MEDS ORDERED: MORPHINE SULFATE 10 MG/ML INJ ONE (23:09)
[2019-11-08] MEDS: MORPHINE SULFATE 10 MG/ML INJ IV PRN (23:10)
[2019-11-09] MEDS: IPRATROPIUM/ALBUTEROL 0.5-2.5 MG/3 ML AMPUL NEB SCH ×6 (00:09→20:51)
[2019-11-09] MEDS: DILTIAZEM HCL 30 MG TABLET PO SCH ×4 (00:35→22:46)
[2019-11-09] MEDS: ATORVASTATIN CALCIUM 10 MG TABLET PO SCH ×2 (00:37→22:48)
[2019-11-09] MEDS: MELATONIN 3 MG TABLET PO SCH ×2 (00:37→22:48)
[2019-11-09] MEDS: INSULIN GLARGINE,HUM.REC.ANLOG 1,000 UNIT/10 ML VIAL SUBCUT SCH ×3 (00:37→22:48)
[2019-11-09] MEDS: INSULIN REG, HUMAN 100 UNIT/ML 3 ML VIAL (PYX) SUBCUT SCH ×4 (00:39→17:13)
[2019-11-09] MEDS ORDERED: RINGERS SOLUTION,LACTATED 1,000 ML IV ONE ×2 (05:00→06:30)
[2019-11-09 05:26] LABS: HEMATOCRIT 22.9 % (36.0-47.0); MEAN CORPUSCULAR HEMOGLOBIN 30.8 pg (27.0-33.4); MEAN CORPUSCULAR HGB CONC 33.4 g/dL (32.0-36.0); MEAN CORPUSCULAR VOLUME 92 fl (80-97); PLATELET COUNT 264 10^3/uL (150-450); RED BLOOD COUNT 2.49 10^6/uL (3.72-5.28); RED CELL DISTRIBUTION WIDTH 14.7 % (11.5-14.0); WHITE BLOOD COUNT 16.5 10^3/uL (4.0-10.5)
[2019-11-09 05:31] LABS: HEMOGLOBIN 7.7 g/dL (12.0-15.5)
[2019-11-09 05:41] LABS: BLOOD UREA NITROGEN 62 mg/dL (7-20); CALCIUM 8.2 mg/dL (8.4-10.2); GLUCOSE 84 mg/dL (75-110); POTASSIUM 4.7 mmol/L (3.6-5.0)
[2019-11-09 05:47] LABS: ABSOLUTE LYMPHOCYTES# (MANUAL) 0.7 10^3/uL (0.5-4.7); BASOPHILS % (MANUAL) 0 % (0-2); CHLORIDE 94 mmol/L (98-107); EOSINOPHILS % (MANUAL) 0 % (0-6); LYMPHOCYTES % (MANUAL) 4 % (13-45); MONOCYTES % (MANUAL) 0 % (3-13); SEGMENTED NEUTROPHILS % (MAN) 96 % (42-78); TOTAL CELLS COUNTED 100
[2019-11-09 05:48] LABS: TOXIC GRANULATION 1+
[2019-11-09 05:50] LABS: ANISOCYTOSIS SLIGHT; OVALOCYTES SLIGHT; PLATELET COMMENT ADEQUATE; POIKILOCYTOSIS SLIGHT; TEAR DROP CELLS SLIGHT
[2019-11-09 06:06] LABS: ANION GAP 0 (5-19)
[2019-11-09 06:08] LABS: CARBON DIOXIDE 40 mmol/L (22-30)
[2019-11-09] MEDS: LEVOTHYROXINE SODIUM 0.1 MG TABLET PO SCH (07:32)
[2019-11-09] MEDS: BUDESONIDE NEB 0.25 MG/2 ML AMPUL NEB SCH ×2 (07:44→20:50)
[2019-11-09] MEDS: MORPHINE SULFATE 10 MG/ML INJ IV PRN ×2 (09:34→22:49)
[2019-11-09] MEDS: PROMETHAZINE HCL INJ 25 MG/1 ML VIAL IV PRN (09:34)
--- NOTE | 2019-11-09 09:36 | PDOC PROGRESS REPORT ---
Subjective Progress Note for:: 11/09/19 Reason For Visit: ACUTE HYPERCARBIC RESPIRATORY FAILURE,NEED FOR INT Patient remains on third floor, COVID unit, receiving BiPAP and nasal oxygen support. Stamina deteriorating. Physical Exam Vital Signs: Temp Pulse Resp BP Pulse Ox 98.6 F 59 L 12 118/71 100 11/08/19 19:58 11/09/19 07:47 11/09/19 07:47 11/09/19 07:00 11/09/19 07:47 Intake & Output 11/08/19 11/09/19 11/10/19 06:59 06:59 06:59 Intake Total 2372 705 2487 Output Total 4050 3645 Balance -5769 -5357 1999 Weight 76.3 kg 76.3 kg Results Laboratory Results: 11/09/19 05:16 11/09/19 05:16 11/09/19 11/09/19 11/09/19 05:16 05:16 06:13 WBC 16.5 H RBC 2.49 L Hgb 7.7 L Hct 22.9 L MCV 92 MCH 30.8 MCHC 33.4 RDW 14.7 H Plt Count 264 Seg Neutrophils % Not Reportable Sodium 134.4 L Potassium 4.7 Chloride 94 L Carbon Dioxide 40 H* Anion Gap 0 L BUN 62 H Creatinine 0.94 Est GFR ( Amer) > 60 Glucose 84 Calcium 8.2 L Blood Type O POSITIVE Antibody Screen NEGATIVE 10/18/19 10/29/19 00:24 06:30 Creatine Kinase 78 Troponin I 0.012 Impressions: Abdomen/Pelvis CT 10/17/19 23:59 IMPRESSION: 1. 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 Urgent finding reported to Olu SILVEIRA at 10/18/2019 1:55 AM CDT This exam was performed according to our departmental dose-optimization program, which includes automated exposure control, adjustment of the mA and/or kV according to patient size and/or use of iterative reconstruction technique. Chest/Abdomen CTA 10/23/19 00:00 IMPRESSION: 1. Limited examination due to contrast bolus timing with no contrast present within pulmonary arteries. As such no evaluation for pulmonary embolus is possible. 2. Moderate right-sided pleural effusion with some loculation and small left- sided pleural effusion with some loculation. 3. Severe emphysematous changes. Venous Doppler Study 10/26/19 00:00 IMPRESSION: NO EVIDENCE DVT OR SVT IN THE RIGHT ARM. KUB X-Ray 10/28/19 08:57 IMPRESSION: Enteric tube terminates subdiaphragmatically with the proximal port at the level of the gastroesophageal junction. Consider advancing 5 to 6 cm. Gas within mildly prominent loops of bowel likely on the basis of ileus. No evidence of high-grade obstruction. Increased interstitial markings at the lung bases as seen on recent chest radiograph. Chest X-Ray 11/06/19 07:00 IMPRESSION: Persistent increased interstitial markings at both lung bases, stable. Nasogastric tube, triple-lumen central line good positioning Assessment & Plan - Diagnosis (1) Complication of ostomy Is this a current diagnosis for this admission?: Yes Plan: Discussion: I spoke with Dr. cedeno this morning. Agree that patient should be moved towards palliative care. Dr. Garcia spoke with patient this morning, and she expressed that she did not want to have anymore surgery. I think this is completely reasonable. Plan: 1. Surgery will sign off again. Reconsult if clinically indicated. (2) Wound dehiscence Is this a current diagnosis for this admission?: Yes (3) Acute and chronic respiratory failure ([id number]) Qualifiers: Respiratory failure complication: hypoxia and hypercapnia Qualified Code(s): J96.21 - Acute and chronic respiratory failure with hypoxia; J96.22 - Acute and chronic respiratory failure with hypercapnia Is this a current diagnosis for this admission?: Yes
[2019-11-09] MEDS: DEXAMETHASONE SOD PHOS INJ 10 MG/1 ML VIAL IV SCH ×2 (10:03→22:47)
[2019-11-09] MEDS: ASPIRIN 81 MG TABLET, CHEWABLE NG SCH (10:03)
[2019-11-09] MEDS: ARIPIPRAZOLE 5 MG TABLET NG SCH (10:03)
[2019-11-09] MEDS: AZITHROMYCIN 500 MG in DEXTROSE 5%-WATER 250 ML IV SCH (10:06)
[2019-11-09] MEDS: CHOLECALCIFEROL (D3) 400 UNIT TABLET PO SCH (10:06)
[2019-11-09] MEDS: THIAMINE HCL 100 MG TABLET PO SCH (10:06)
[2019-11-09] MEDS: ZINC SULFATE 220 MG CAPSULE NG SCH (10:06)
[2019-11-09] MEDS: ESCITALOPRAM OXALATE 10 MG TABLET NG SCH (10:06)
[2019-11-09] MEDS: ASCORBIC ACID 500 MG TABLET PO SCH ×2 (10:06→17:13)
--- NOTE | 2019-11-09 17:40 | PDOC PROGRESS REPORT ---
Subjective Progress Note for:: 11/09/19 Subjective:: The patient is a 58-year-old female with a past medical history of oxygen dependent COPD (3lpm and BiPAP at baseline), VALARIE, hypertension, hypothyroidism, and depression who was admitted 10/18/19 with perforated sigmoid diverticulitis with feculent peritonitis who underwent exploratory laparotomy with sigmoid colon resection with colostomy by Dr. Hawkins on 10/18/2019. She did initially require vasopressor therapy; she developed atrial fibrillation with RVR and so was briefly placed on a diltiazem drip. Notably, she is prescribed Cardizem CD at home. She is successfully extubated the following day, 10/19/2019. She is downgraded to the medical floor on 10/21/2019 with care resumed by her PCP, Dr. Gutierrez. Per his note, patient has end-stage COPD and had recently been referred to the lung transplant center at [facility]. 11/09/2019. Unfortunately overnight patient noted to have low BPs, hemoglobin dropping, still on BiPAP with FiO2 of 50% however patient still remains awake and alert and oriented x3, I had an extensive conversation with patient and up dated her about her prognosis, patient does not want to have anymore surgery regarding her colostomy, but she wants to remain full code. Also had a conversation with Dr. Barney surgeon about her colostomy is complication and he thinks having another surgery will be futile and she is not a good candidate for further surgeries. I updated her [id number] who is a nurse she stopped by with her Ms. Anderson's son to visit patient. They understand that patient is deteriorating and her prognosis is very poor however day want to honor her wishes. Reason For Visit: ACUTE HYPERCARBIC RESPIRATORY FAILURE,NEED FOR INT Physical Exam Vital Signs: Temp Pulse Resp BP Pulse Ox 98.6 F 55 L 12 118/71 99 11/08/19 19:58 11/09/19 16:58 11/09/19 16:58 11/09/19 07:00 11/09/19 16:58 Intake & Output 11/08/19 11/09/19 11/10/19 06:59 06:59 06:59 Intake Total 3874 909 4159 Output Total 9910 1413 Balance -5954 -3499 1999 Weight 76.3 kg 76.3 kg General appearance: PRESENT: mild distress, obese, other - Wearing BiPAP. Head exam: PRESENT: atraumatic, normocephalic Eye exam: PRESENT: EOMI, PERRLA - Anisocoria, left pupil mildly dilated, both pupils are reactive to light. Respiratory exam: PRESENT: accessory muscle use, decreased breath sounds, tachypnea. ABSENT: rales, rhonchi, wheezes Cardiovascular exam: PRESENT: RRR. ABSENT: diastolic murmur, rubs, systolic murmur GI/Abdominal exam: PRESENT: normal bowel sounds, soft, other - Colostomy filled with serosanguineous fluid.. ABSENT: distended, guarding, mass, organolmegaly, rebound, tenderness Neurological exam: PRESENT: alert, awake, oriented to person, oriented to place, oriented to time, oriented to situation, CN II-XII grossly intact Results Laboratory Results: 11/09/19 05:16 11/09/19 05:16 11/09/19 11/09/19 11/09/19 05:16 05:16 06:13 WBC 16.5 H RBC 2.49 L Hgb 7.7 L Hct 22.9 L MCV 92 MCH 30.8 MCHC 33.4 RDW 14.7 H Plt Count 264 Seg Neutrophils % Not Reportable Sodium 134.4 L Potassium 4.7 Chloride 94 L Carbon Dioxide 40 H* Anion Gap 0 L BUN 62 H Creatinine 0.94 Est GFR ( Amer) > 60 Glucose 84 Calcium 8.2 L Blood Type O POSITIVE Antibody Screen NEGATIVE 10/18/19 10/29/19 00:24 06:30 Creatine Kinase 78 Troponin I 0.012 Impressions: Abdomen/Pelvis CT 10/17/19 23:59 IMPRESSION: 1. 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 Urgent finding reported to Olu SILVEIRA at 10/18/2019 1:55 AM CDT This exam was performed according to our departmental dose-optimization program, which includes automated exposure control, adjustment of the mA and/or kV according to patient size and/or use of iterative reconstruction technique. Chest/Abdomen CTA 10/23/19 00:00 IMPRESSION: 1. Limited examination due to contrast bolus timing with no contrast present within pulmonary arteries. As such no evaluation for pulmonary embolus is possible. 2. Moderate right-sided pleural effusion with some loculation and small left- sided pleural effusion with some loculation. 3. Severe emphysematous changes. Venous Doppler Study 10/26/19 00:00 IMPRESSION: NO EVIDENCE DVT OR SVT IN THE RIGHT ARM. KUB X-Ray 10/28/19 08:57 IMPRESSION: Enteric tube terminates subdiaphragmatically with the proximal port at the level of the gastroesophageal junction. Consider advancing 5 to 6 cm. Gas within mildly prominent loops of bowel likely on the basis of ileus. No evidence of high-grade obstruction. Increased interstitial markings at the lung bases as seen on recent chest radiograph. Chest X-Ray 11/06/19 07:00 IMPRESSION: Persistent increased interstitial markings at both lung bases, stable. Nasogastric tube, triple-lumen central line good positioning Assessment and Plan - Diagnosis (1) Pneumonia due to COVID-19 virus Is this a current diagnosis for this admission?: Yes Plan: BiPAP dependent. SPO2 WNL on FiO2 of 50%. Patient is admitted to [facility] on continuous cardiac telemetry. She is provided supplemental oxygen as needed to maintain saturations greater than 89%. Transitioning between HFNC and BiPAP as indicated by clinical status. Continue scheduled and as needed nebulizer treatments. Have resumed full dose Lovenox. Resume IV azithromycin x5 days; previously only received 3 doses early in course. Previously received course of hydroxychloroquine. Continue IV Decadron 4 mg twice daily Continue vitamin C, vitamin D, zinc, melatonin supplementation. Encouraged position changing; full right/left lateral positions. (2) Acute and chronic respiratory failure ([id number]) Qualifiers: Respiratory failure complication: hypoxia and hypercapnia Qualified Code(s): J96.21 - Acute and chronic respiratory failure with hypoxia; J96.22 - Acute and chronic respiratory failure with hypercapnia Is this a current diagnosis for this admission?: Yes Plan: Secondary to #1 in the setting of COPD. Management as above. (3) Perforation of sigmoid colon due to diverticulitis Is this a current diagnosis for this admission?: Yes Plan: s/p Pina procedure unfortunately complicated with wound dehiscence however ostomy is still patent. Tube feeds are on hold. Surgery consulted, due to multiple comorbidities patient not a candidate for more interventions. Patient is in agreement. Continued ostomy care is recommended. (4) Diverticulitis Is this a current diagnosis for this admission?: Yes Plan: General surgery consulted: Status post Delgado's procedure Abdominal drain removed by surgery Tolerating tube feeds with adequate stool output through ostomy. Surgery has signed off. (5) DANII (acute kidney injury) Is this a current diagnosis for this admission?: Yes Plan: Resolved. Likely due to sepsis and acute illness Avoid nephrotoxic medications as able. Monitor strict I&Os Follow-up chemistry (6) Anasarca Is this a current diagnosis for this admission?: Yes Plan: Secondary to hypoalbuminemia. Secondary to prolonged critical illness and poor nutrition. Continue tube feeds. Third round of albumin 50 g IV today followed by furosemide 20 mg IV to help mobilize fluid. Improved urine output yesterday following the same; ~4 L Continue daily weights, strict I&O's. (7) Atrial fibrillation with rapid ventricular response Is this a current diagnosis for this admission?: Yes Plan: Resolved. Off diltiazem gtt. Continue Cardizem 30 mg every 8 hours May transition to long-acting prior to discharge if heart rate remained stable Monitor on telemetry. (8) COPD (chronic obstructive pulmonary disease) Qualifiers: COPD type: emphysema Emphysema type: centrilobular Qualified Code(s): J43.2 - Centrilobular emphysema Is this a current diagnosis for this admission?: Yes Plan: No wheezing on physical examination however still BiPAP dependent. Patient is home O2 dependent at 3 L/min. Utilizes BiPAP nightly. Not a current tobacco user. Management of acute on chronic respiratory failure as above. (9) Grief Is this a current diagnosis for this admission?: Yes Plan: The patient's 11/06/19 of COVID19 respiratory failure. Patient witnessed ACLS attempts. Encouraged to talk with family/staff as needed. Have arranged for 1 family member to visit. Supportive care. 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 (11) Lymphocytosis Is this a current diagnosis for this admission?: Yes Plan: Secondary to prolonged acute illness; specifically SARS-CoV2. Management as above. (12) Peritonitis, acute generalized Is this a current diagnosis for this admission?: Yes Plan: Resolved. Secondary to perforated diverticulum with feculent peritonitis. Proceed full course of antibiotic therapy. (13) Sepsis with acute respiratory failure and septic shock Qualifiers: Sepsis type: sepsis due to unspecified organism Is this a current diagnosis for this admission?: Yes Plan: Resolved. Due to COVID-19 Blood cultures negative Bronchial culture grew Shannan, normal tabitha (14) Swelling of right upper extremity Is this a current diagnosis for this admission?: Yes Plan: Ultrasound right upper extremity (10/25) was negative for DVT. Likely related to peripheral IV infiltration with aggressive IV fluids through that extremity. Dry dressing. Extremity elevated. - Plan Summary Summary: Cautious optimism today; improved vital signs, labs, and oxygen needs. PT/OT/ST consultations are placed.
[2019-11-10] MEDS: IPRATROPIUM/ALBUTEROL 0.5-2.5 MG/3 ML AMPUL NEB SCH ×5 (00:40→17:49)
[2019-11-10] MEDS: INSULIN REG, HUMAN 100 UNIT/ML 3 ML VIAL (PYX) SUBCUT SCH ×4 (01:17→17:19)
[2019-11-10] MEDS: MORPHINE SULFATE 10 MG/ML INJ IV PRN ×2 (01:18→05:36)
[2019-11-10] MEDS: DILTIAZEM HCL 30 MG TABLET PO SCH ×2 (05:43→16:18)
[2019-11-10 07:19] LABS: HEMATOCRIT 35.1 % (36.0-47.0); MEAN CORPUSCULAR HGB CONC 33.4 g/dL (32.0-36.0); MEAN CORPUSCULAR VOLUME 93 fl (80-97); PLATELET COUNT 321 10^3/uL (150-450); RED BLOOD COUNT 3.78 10^6/uL (3.72-5.28); RED CELL DISTRIBUTION WIDTH 14.9 % (11.5-14.0); WHITE BLOOD COUNT 21.3 10^3/uL (4.0-10.5)
[2019-11-10 07:32] LABS: ALBUMIN 2.6 g/dL (3.5-5.0); ALKALINE PHOSPHATASE 47 U/L (38-126); ASPARTATE AMINO TRANSFERASE 22 U/L (14-36); BILIRUBIN,DIRECT 0.1 mg/dL (0.0-0.4); BILIRUBIN,TOTAL 1.2 mg/dL (0.2-1.3); BLOOD UREA NITROGEN 56 mg/dL (7-20); CALCIUM 8.3 mg/dL (8.4-10.2); CHLORIDE 95 mmol/L (98-107); POTASSIUM 4.5 mmol/L (3.6-5.0); TOTAL PROTEIN 4.5 g/dL (6.3-8.2)
[2019-11-10] MEDS: LEVOTHYROXINE SODIUM 0.1 MG TABLET PO SCH (07:32)
[2019-11-10 07:37] LABS: GLUCOSE 57 mg/dL (75-110)
[2019-11-10 07:38] LABS: ANION GAP 1 (5-19); CARBON DIOXIDE 40 mmol/L (22-30)
[2019-11-10] MEDS: BUDESONIDE NEB 0.25 MG/2 ML AMPUL NEB SCH (07:40)
[2019-11-10 07:51] LABS: HEMOGLOBIN 11.7 g/dL (12.0-15.5)
[2019-11-10 07:56] LABS: ABSOLUTE LYMPHOCYTES# (MANUAL) 0.4 10^3/uL (0.5-4.7); ABSOLUTE MONOCYTES # (MANUAL) 1.1 10^3/uL (0.1-1.4); BAND NEUTROPHILS % (MANUAL) 1 % (3-5); BASOPHILS % (MANUAL) 0 % (0-2); EOSINOPHILS % (MANUAL) 0 % (0-6); LYMPHOCYTES % (MANUAL) 2 % (13-45); MONOCYTES % (MANUAL) 5 % (3-13); SEGMENTED NEUTROPHILS % (MAN) 92 % (42-78); TOTAL CELLS COUNTED 100
[2019-11-10 07:59] LABS: ANISOCYTOSIS SLIGHT
[2019-11-10 08:00] LABS: PLATELET COMMENT ADEQUATE; PLATELET LARGE PRESENT
[2019-11-10 08:01] LABS: OVALOCYTES SLIGHT; POIKILOCYTOSIS SLIGHT; TEAR DROP CELLS SLIGHT
[2019-11-10] MEDS: ARIPIPRAZOLE 5 MG TABLET NG SCH (09:17)
[2019-11-10] MEDS: INSULIN GLARGINE,HUM.REC.ANLOG 1,000 UNIT/10 ML VIAL SUBCUT SCH (09:17)
[2019-11-10] MEDS: DEXAMETHASONE SOD PHOS INJ 10 MG/1 ML VIAL IV SCH (09:17)
[2019-11-10] MEDS: ASPIRIN 81 MG TABLET, CHEWABLE NG SCH (09:17)
[2019-11-10] MEDS: CHOLECALCIFEROL (D3) 400 UNIT TABLET PO SCH (09:18)
[2019-11-10] MEDS: THIAMINE HCL 100 MG TABLET PO SCH (09:18)
[2019-11-10] MEDS: ZINC SULFATE 220 MG CAPSULE NG SCH (09:18)
[2019-11-10] MEDS: ASCORBIC ACID 500 MG TABLET PO SCH ×2 (09:18→17:20)
[2019-11-10] MEDS: ESCITALOPRAM OXALATE 10 MG TABLET NG SCH (09:18)
[2019-11-10] MEDS ORDERED: VANCOMYCIN HCL 0 MG in DEXTROSE 5%-WATER 250 ML IV NR (11:15)
--- NOTE | 2019-11-10 11:35 | RADIOLOGY REPORT (SQ) ---
EXAM DESCRIPTION: CHEST SINGLE VIEW IMAGES COMPLETED DATE/TIME: 11/10/2019 11:15 am REASON FOR STUDY: hypoxia COMPARISON: 11/06/2019 EXAM PARAMETERS: NUMBER OF VIEWS: One view. TECHNIQUE: Single frontal radiographic view of the chest acquired. RADIATION DOSE: NA LIMITATIONS: None. FINDINGS: LUNGS AND PLEURA: Patchy bibasilar opacities with obscuration of the hemidiaphragms. Smal l bilateral effusions, right greater than left. No pneumothorax. MEDIASTINUM AND HILAR STRUCTURES: No masses. Contour normal. HEART AND VASCULAR STRUCTURES: Stable. Vascular calcifications. BONES: No acute findings. HARDWARE: Right internal jugular central venous catheter tip at cavoatrial junction. Enteric tube si de port at GE junction. OTHER: No other significant finding. IMPRESSION: 1. Patchy bibasilar opacities and small bilateral effusions, right greater than left, m ildly increased from prior. 2. Nasoenteric side port at GE junction. Consider advancing 5 to 10 cm. TECHNICAL DOCUMENTATION: JOB ID: [id number] 2010 [employer]- All Rights Reserved Reading location - IP/workstation name: [email or web address]
[2019-11-10] MEDS ORDERED: CEFEPIME 1 GM/D5W RTU 1 GM/50 ML RTUPB IV SCH (12:00)
[2019-11-10 13:57] LABS: ARTERIAL BLOOD BASE EXCESS 3.4 mmol/L; ARTERIAL BLOOD H2CO3 1.86 mmol/L (1.05-1.35); ARTERIAL BLOOD HCO3 31.1 mmol/L (20-24); ARTERIAL BLOOD O2 SATURATION 93.8 % (94-98); ARTERIAL BLOOD PCO2 61.8 mmHg (35-45); ARTERIAL BLOOD PH 7.32 (7.35-7.45); ARTERIAL BLOOD PO2 76.1 mmHg (80-100)
[2019-11-10 13:58] LABS: ARTERIAL BLOOD FIO2 5L
[2019-11-10] MEDS ORDERED: VANCOMYCIN HCL 1,250 MG in DEXTROSE 5%-WATER 250 ML IV SCH (14:00)
--- NOTE | 2019-11-10 17:17 | PDOC PROGRESS REPORT ---
Subjective Progress Note for:: 11/10/19 Subjective:: The patient is a 58-year-old female with a past medical history of oxygen dependent COPD (3lpm and BiPAP at baseline), VALARIE, hypertension, hypothyroidism, and depression who was admitted 10/18/19 with perforated sigmoid diverticulitis with feculent peritonitis who underwent exploratory laparotomy with sigmoid colon resection with colostomy by Dr. Hawkins on 10/18/2019. She did initially require vasopressor therapy; she developed atrial fibrillation with RVR and so was briefly placed on a diltiazem drip. Notably, she is prescribed Cardizem CD at home. She is successfully extubated the following day, 10/19/2019. She is downgraded to the medical floor on 10/21/2019 with care resumed by her PCP, Dr. Gutierrez. Per his note, patient has end-stage COPD and had recently been referred to the lung transplant center at [facility]. 11/09/2019. Unfortunately overnight patient noted to have low BPs, hemoglobin dropping, still on BiPAP with FiO2 of 50% however patient still remains awake and alert and oriented x3, I had an extensive conversation with patient and up dated her about her prognosis, patient does not want to have anymore surgery regarding her colostomy, but she wants to remain full code. Also had a conversation with Dr. Barney surgeon about her colostomy is complication and he thinks having another surgery will be futile and she is not a good candidate for further surgeries. I updated her [id number] who is a nurse she stopped by with her Ms. Anderson's son to visit patient. They understand that patient is deteriorating and her prognosis is very poor however day want to honor her wishes. 11/10/2019. Patient and family have decided to transition care to INSTRUCTIONAL MATERIAL DIRECTOR. This morning patient was more alert and awake and updated her about her medical issues, patient was stating that she is hungry and wants to eat, but has a previous patient was becoming more confused and would not remember her previous conversation. Had extensive conversation with patient's son [id number] and he would like to transition patient's care to INSTRUCTIONAL MATERIAL DIRECTOR. Reason For Visit: ACUTE HYPERCARBIC RESPIRATORY FAILURE,NEED FOR INT Physical Exam Vital Signs: Temp Pulse Resp BP Pulse Ox 97.2 F 71 13 104/54 L 97 11/10/19 15:28 11/10/19 15:28 11/10/19 15:28 11/10/19 15:28 11/10/19 15:28 Intake & Output 11/09/19 11/10/19 11/11/19 06:59 06:59 06:59 Intake Total 432 2300 Output Total 2575 1745 Balance -2143 555 Weight 76.3 kg 67.2 kg 67.2 kg General appearance: PRESENT: mild distress Head exam: PRESENT: atraumatic, normocephalic Respiratory exam: PRESENT: decreased breath sounds, prolonged expiratory phas, rhonchi. ABSENT: rales, wheezes Cardiovascular exam: PRESENT: RRR. ABSENT: diastolic murmur, rubs, systolic mu rmur Neurological exam: PRESENT: alert, awake, oriented to person, oriented to place, CN II-XII grossly intact. ABSENT: motor sensory deficit Results Laboratory Results: 11/10/19 05:51 11/10/19 05:51 11/10/19 11/10/19 11/10/19 05:51 05:51 13:27 WBC 21.3 H RBC 3.78 Hgb 11.7 L D Hct 35.1 L MCV 93 MCH 31.0 MCHC 33.4 RDW 14.9 H Plt Count 321 Seg Neutrophils % Not Reportable Carbonic Acid 1.86 H HCO3/H2CO3 Ratio 16:1 ABG pH 7.32 L ABG pCO2 61.8 H ABG pO2 76.1 L ABG HCO3 31.1 H ABG O2 Saturation 93.8 L ABG Base Excess 3.4 FiO2 5L Sodium 136.4 L Potassium 4.5 Chloride 95 L Carbon Dioxide 40 H* Anion Gap 1 L BUN 56 H Creatinine 1.25 Est GFR ( Amer) 53 L Glucose 57 L Calcium 8.3 L Magnesium 1.9 Total Bilirubin 1.2 AST 22 Alkaline Phosphatase 47 Total Protein 4.5 L Albumin 2.6 L 10/18/19 10/29/19 00:24 06:30 Creatine Kinase 78 Troponin I 0.012 Impressions: Abdomen/Pelvis CT 10/17/19 23:59 IMPRESSION: 1. 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 Urgent finding reported to Olu SILVEIRA at 10/18/2019 1:55 AM CDT This exam was performed according to our departmental dose-optimization program, which includes automated exposure control, adjustment of the mA and/or kV according to patient size and/or use of iterative reconstruction technique. Chest/Abdomen CTA 10/23/19 00:00 IMPRESSION: 1. Limited examination due to contrast bolus timing with no contrast present within pulmonary arteries. As such no evaluation for pulmonary embolus is possible. 2. Moderate right-sided pleural effusion with some loculation and small left- sided pleural effusion with some loculation. 3. Severe emphysematous changes. Venous Doppler Study 10/26/19 00:00 IMPRESSION: NO EVIDENCE DVT OR SVT IN THE RIGHT ARM. KUB X-Ray 10/28/19 08:57 IMPRESSION: Enteric tube terminates subdiaphragmatically with the proximal port at the level of the gastroesophageal junction. Consider advancing 5 to 6 cm. Gas within mildly prominent loops of bowel likely on the basis of ileus. No evidence of high-grade obstruction. Increased interstitial markings at the lung bases as seen on recent chest radiograph. Chest X-Ray 11/10/19 00:00 IMPRESSION: 1. Patchy bibasilar opacities and small bilateral effusions, right greater than left, mildly increased from prior. 2. Nasoenteric side port at GE junction. Consider advancing 5 to 10 cm. Assessment and Plan - Diagnosis (1) Pneumonia due to COVID-19 virus Is this a current diagnosis for this admission?: Yes Plan: As of 11/10/2019 patient's CODE STATUS has been switched to INSTRUCTIONAL MATERIAL DIRECTOR as per family and patient's request. BiPAP dependent. SPO2 WNL on FiO2 of 50%. Patient is admitted to [facility] on continuous cardiac telemetry. She is provided supplemental oxygen as needed to maintain saturations greater than 89%. Transitioning between HFNC and BiPAP as indicated by clinical status. Continue scheduled and as needed nebulizer treatments. Have resumed full dose Lovenox. Resume IV azithromycin x5 days; previously only received 3 doses early in course. Previously received course of hydroxychloroquine. Continue IV Decadron 4 mg twice daily Continue vitamin C, vitamin D, zinc, melatonin supplementation. Encouraged position changing; full right/left lateral positions. (2) Acute and chronic respiratory failure ([id number]) Qualifiers: Respiratory failure complication: hypoxia and hypercapnia Qualified Code(s): J96.21 - Acute and chronic respiratory failure with hypoxia; J96.22 - Acute and chronic respiratory failure with hypercapnia Is this a current diagnosis for this admission?: Yes Plan: As of 11/10/2019 patient's CODE STATUS has been switched to INSTRUCTIONAL MATERIAL DIRECTOR as per family and patient's request. Secondary to #1 in the setting of COPD. Management as above. (3) Perforation of sigmoid colon due to diverticulitis Is this a current diagnosis for this admission?: Yes Plan: As of 11/10/2019 patient's CODE STATUS has been switched to INSTRUCTIONAL MATERIAL DIRECTOR as per family and patient's request. s/p Pina procedure unfortunately complicated with wound dehiscence however ostomy is still patent. Tube feeds are on hold. Surgery consulted, due to multiple comorbidities patient not a candidate for more interventions. Patient is in agreement. Continued ostomy care is recommended. (4) Diverticulitis Is this a current diagnosis for this admission?: Yes Plan: As of 11/10/2019 patient's CODE STATUS has been switched to INSTRUCTIONAL MATERIAL DIRECTOR as per family and patient's request. General surgery consulted: Status post Delgado's procedure Abdominal drain removed by surgery Tolerating tube feeds with adequate stool output through ostomy. Surgery has signed off. 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 - Plan Summary Summary: Cautious optimism today; improved vital signs, labs, and oxygen needs. PT/OT/ST consultations are placed.
[2019-11-10] MEDS: PREDNISONE 10 MG TABLET PO SCH (17:19)
[2019-11-10] MEDS: PREDNISONE 1 MG TABLET PO SCH (17:19)
[2019-11-11] MEDS ORDERED: MORPHINE SULFATE 10 MG/ML INJ ONE (01:14)
[2019-11-11] MEDS: INSULIN GLARGINE,HUM.REC.ANLOG 1,000 UNIT/10 ML VIAL SUBCUT SCH ×2 (01:52→09:30)
[2019-11-11] MEDS: MELATONIN 3 MG TABLET PO SCH (01:53)
[2019-11-11] MEDS: INSULIN REG, HUMAN 100 UNIT/ML 3 ML VIAL (PYX) SUBCUT SCH ×4 (01:53→17:46)
[2019-11-11] MEDS: MORPHINE SULFATE 10 MG/ML INJ IV PRN ×3 (02:00→15:31)
[2019-11-11] MEDS: LEVOTHYROXINE SODIUM 0.1 MG TABLET PO SCH (05:43)
[2019-11-11] MEDS ORDERED: LORAZEPAM INJ 2 MG/1 ML VIAL IV PRN (06:59)
[2019-11-11] MEDS: PREDNISONE 10 MG TABLET PO SCH ×2 (09:30→17:46)
[2019-11-11] MEDS: PREDNISONE 1 MG TABLET PO SCH ×2 (09:30→17:45)
[2019-11-11] MEDS: PROMETHAZINE HCL INJ 25 MG/1 ML VIAL IV PRN (11:22)
--- NOTE | 2019-11-11 17:52 | PDOC PROGRESS REPORT ---
Subjective Progress Note for:: 11/11/19 Subjective:: The patient is a 58-year-old female with a past medical history of oxygen dependent COPD (3lpm and BiPAP at baseline), VALARIE, hypertension, hypothyroidism, and depression who was admitted 10/18/19 with perforated sigmoid diverticulitis with feculent peritonitis who underwent exploratory laparotomy with sigmoid colon resection with colostomy by Dr. Hawkins on 10/18/2019. She did initially require vasopressor therapy; she developed atrial fibrillation with RVR and so was briefly placed on a diltiazem drip. Notably, she is prescribed Cardizem CD at home. She is successfully extubated the following day, 10/19/2019. She is downgraded to the medical floor on 10/21/2019 with care resumed by her PCP, Dr. Gutierrez. Per his note, patient has end-stage COPD and had recently been referred to the lung transplant center at [facility]. 11/09/2019. Unfortunately overnight patient noted to have low BPs, hemoglobin dropping, still on BiPAP with FiO2 of 50% however patient still remains awake and alert and oriented x3, I had an extensive conversation with patient and up dated her about her prognosis, patient does not want to have anymore surgery regarding her colostomy, but she wants to remain full code. Also had a conversation with Dr. Barney surgeon about her colostomy is complication and he thinks having another surgery will be futile and she is not a good candidate for further surgeries. I updated her [id number] who is a nurse she stopped by with her Ms. Anderson's son to visit patient. They understand that patient is deteriorating and her prognosis is very poor however day want to honor her wishes. 11/10/2019. Patient and family have decided to transition care to MANAGER OF ENGINEERING. This morning patient was more alert and awake and updated her about her medical issues, patient was stating that she is hungry and wants to eat, but has a previous patient was becoming more confused and would not remember her previous conversation. Had extensive conversation with patient's son [id number] and he would like to transition patient's care to MANAGER OF ENGINEERING. 11/11/2019. Saw patient this evening, in no apparent distress. Comfortably sitting bed enjoying her dinner, being fed by 1 of the MANAGER PHP's. Denies any pain. Reason For Visit: ACUTE HYPERCARBIC RESPIRATORY FAILURE,NEED FOR INT Physical Exam Vital Signs: Temp Pulse Resp BP Pulse Ox 98.0 F 62 14 98/43 L 95 11/11/19 11:34 11/11/19 14:00 11/11/19 11:34 11/11/19 11:34 11/11/19 11:34 Intake & Output 11/10/19 11/11/19 11/12/19 06:59 06:59 06:59 Intake Total 2300 354 Output Total 1745 640 Balance 555 -286 Weight 67.2 kg 67.2 kg General appearance: PRESENT: no acute distress, well-developed, well-nourished Head exam: PRESENT: atraumatic, normocephalic Respiratory exam: PRESENT: clear to auscultation christina. ABSENT: rales, rhonchi, wheezes Cardiovascular exam: PRESENT: RRR. ABSENT: diastolic murmur, rubs, systolic murmur GI/Abdominal exam: PRESENT: other - Distended abdomen, ostomy filled with pus and necrotic material. Neurological exam: PRESENT: alert, awake, oriented to person, oriented to place, oriented to time, oriented to situation. ABSENT: motor sensory deficit Results Laboratory Results: 11/10/19 05:51 11/10/19 05:51 10/18/19 10/29/19 00:24 06:30 Creatine Kinase 78 Troponin I 0.012 Impressions: Abdomen/Pelvis CT 10/17/19 23:59 IMPRESSION: 1. 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 Urgent finding reported to Olu SILVEIRA at 10/18/2019 1:55 AM CDT This exam was performed according to our departmental dose-optimization program, which includes automated exposure control, adjustment of the mA and/or kV according to patient size and/or use of iterative reconstruction technique. Chest/Abdomen CTA 10/23/19 00:00 IMPRESSION: 1. Limited examination due to contrast bolus timing with no contrast present within pulmonary arteries. As such no evaluation for pulmonary embolus is possible. 2. Moderate right-sided pleural effusion with some loculation and small left- sided pleural effusion with some loculation. 3. Severe emphysematous changes. Venous Doppler Study 10/26/19 00:00 IMPRESSION: NO EVIDENCE DVT OR SVT IN THE RIGHT ARM. KUB X-Ray 10/28/19 08:57 IMPRESSION: Enteric tube terminates subdiaphragmatically with the proximal port at the level of the gastroesophageal junction. Consider advancing 5 to 6 cm. Gas within mildly prominent loops of bowel likely on the basis of ileus. No evidence of high-grade obstruction. Increased interstitial markings at the lung bases as seen on recent chest radiograph. Chest X-Ray 11/10/19 00:00 IMPRESSION: 1. Patchy bibasilar opacities and small bilateral effusions, right greater than left, mildly increased from prior. 2. Nasoenteric side port at GE junction. Consider advancing 5 to 10 cm. Assessment and Plan - Diagnosis (1) Pneumonia due to COVID-19 virus Is this a current diagnosis for this admission?: Yes Plan: As of 11/10/2019 patient's CODE STATUS has been switched to MANAGER OF ENGINEERING as per family and patient's request. BiPAP dependent. SPO2 WNL on FiO2 of 50%. Patient is admitted to [facility] on continuous cardiac telemetry. She is provided supplemental oxygen as needed to maintain saturations greater than 89%. Transitioning between HFNC and BiPAP as indicated by clinical status. Continue scheduled and as needed nebulizer treatments. Have resumed full dose Lovenox. Resume IV azithromycin x5 days; previously only received 3 doses early in course. Previously received course of hydroxychloroquine. Continue IV Decadron 4 mg twice daily Continue vitamin C, vitamin D, zinc, melatonin supplementation. Encouraged position changing; full right/left lateral positions. (2) Acute and chronic respiratory failure ([id number]) Qualifiers: Respiratory failure complication: hypoxia and hypercapnia Qualified Code(s): J96.21 - Acute and chronic respiratory failure with hypoxia; J96.22 - Acute and chronic respiratory failure with hypercapnia Is this a current diagnosis for this admission?: Yes Plan: As of 11/10/2019 patient's CODE STATUS has been switched to MANAGER OF ENGINEERING as per family and patient's request. Secondary to #1 in the setting of COPD. Management as above. (3) Perforation of sigmoid colon due to diverticulitis Is this a current diagnosis for this admission?: Yes Plan: As of 11/10/2019 patient's CODE STATUS has been switched to MANAGER OF ENGINEERING as per family and patient's request. s/p Pina procedure unfortunately complicated with wound dehiscence however ostomy is still patent. Tube feeds are on hold. Surgery consulted, due to multiple comorbidities patient not a candidate for more interventions. Patient is in agreement. Continued ostomy care is recommended. (4) Diverticulitis Is this a current diagnosis for this admission?: Yes Plan: As of 11/10/2019 patient's CODE STATUS has been switched to MANAGER OF ENGINEERING as per family and patient's request. General surgery consulted: Status post Delgado's procedure Abdominal drain removed by surgery Tolerating tube feeds with adequate stool output through ostomy. Surgery has signed off. (5) DANII (acute kidney injury) Is this a current diagnosis for this admission?: Yes Plan: Resolved. Likely due to sepsis and acute illness Avoid nephrotoxic medications as able. Monitor strict I&Os Follow-up chemistry (6) Anasarca Is this a current diagnosis for this admission?: Yes Plan: Secondary to hypoalbuminemia. Secondary to prolonged critical illness and poor nutrition. Continue tube feeds. Third round of albumin 50 g IV today followed by furosemide 20 mg IV to help mobilize fluid. Improved urine output yesterday following the same; ~4 L Continue daily weights, strict I&O's. (7) Atrial fibrillation with rapid ventricular response Is this a current diagnosis for this admission?: Yes Plan: Resolved. Off diltiazem gtt. Continue Cardizem 30 mg every 8 hours May transition to long-acting prior to discharge if heart rate remained stable Monitor on telemetry. (8) COPD (chronic obstructive pulmonary disease) Qualifiers: COPD type: emphysema Emphysema type: centrilobular Qualified Code(s): J43.2 - Centrilobular emphysema Is this a current diagnosis for this admission?: Yes Plan: No wheezing on physical examination however still BiPAP dependent. Patient is home O2 dependent at 3 L/min. Utilizes BiPAP nightly. Not a current tobacco user. Management of acute on chronic respiratory failure as above. (9) Grief Is this a current diagnosis for this admission?: Yes Plan: The patient's 11/06/19 of COVID19 respiratory failure. Patient witnessed ACLS attempts. Encouraged to talk with family/staff as needed. Have arranged for 1 family member to visit. Supportive care. 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 (11) Lymphocytosis Is this a current diagnosis for this admission?: Yes (12) Peritonitis, acute generalized Is this a current diagnosis for this admission?: Yes (13) Sepsis with acute respiratory failure and septic shock Qualifiers: Sepsis type: sepsis due to unspecified organism Is this a current diagnosis for this admission?: Yes (14) Swelling of right upper extremity Is this a current diagnosis for this admission?: Yes - Plan Summary Summary: Cautious optimism today; improved vital signs, labs, and oxygen needs. PT/OT/ST consultations are placed.
[2019-11-12] MEDS: INSULIN GLARGINE,HUM.REC.ANLOG 1,000 UNIT/10 ML VIAL SUBCUT SCH ×3 (01:12→21:10)
[2019-11-12] MEDS: MELATONIN 3 MG TABLET PO SCH ×2 (01:13→21:11)
[2019-11-12] MEDS: INSULIN REG, HUMAN 100 UNIT/ML 3 ML VIAL (PYX) SUBCUT SCH ×5 (01:13→23:27)
[2019-11-12] MEDS: LEVOTHYROXINE SODIUM 0.1 MG TABLET PO SCH (05:37)
[2019-11-12] MEDS: MORPHINE SULFATE 10 MG/ML INJ IV PRN ×2 (05:45→22:56)
[2019-11-12] MEDS: PREDNISONE 1 MG TABLET PO SCH ×2 (10:31→19:23)
[2019-11-12] MEDS: PREDNISONE 10 MG TABLET PO SCH ×2 (10:31→19:21)
--- NOTE | 2019-11-12 18:15 | PDOC PROGRESS REPORT ---
Subjective Progress Note for:: 11/12/19 Subjective:: The patient is a 58-year-old female with a past medical history of oxygen dependent COPD (3lpm and BiPAP at baseline), VALARIE, hypertension, hypothyroidism, and depression who was admitted 10/18/19 with perforated sigmoid diverticulitis with feculent peritonitis who underwent exploratory laparotomy with sigmoid colon resection with colostomy by Dr. Hawkins on 10/18/2019. She did initially require vasopressor therapy; she developed atrial fibrillation with RVR and so was briefly placed on a diltiazem drip. Notably, she is prescribed Cardizem CD at home. She is successfully extubated the following day, 10/19/2019. She is downgraded to the medical floor on 10/21/2019 with care resumed by her PCP, Dr. Gutierrez. Per his note, patient has end-stage COPD and had recently been referred to the lung transplant center at [facility]. 11/09/2019. Unfortunately overnight patient noted to have low BPs, hemoglobin dropping, still on BiPAP with FiO2 of 50% however patient still remains awake and alert and oriented x3, I had an extensive conversation with patient and up dated her about her prognosis, patient does not want to have anymore surgery regarding her colostomy, but she wants to remain full code. Also had a conversation with Dr. Barney surgeon about her colostomy is complication and he thinks having another surgery will be futile and she is not a good candidate for further surgeries. I updated her [id number] who is a nurse she stopped by with her Ms. Anderson's son to visit patient. They understand that patient is deteriorating and her prognosis is very poor however day want to honor her wishes. 11/10/2019. Patient and family have decided to transition care to EXECUTIVE CHEF. This morning patient was more alert and awake and updated her about her medical issues, patient was stating that she is hungry and wants to eat, but has a previous patient was becoming more confused and would not remember her previous conversation. Had extensive conversation with patient's son [id number] and he would like to transition patient's care to EXECUTIVE CHEF. 11/11/2019. Saw patient this evening, in no apparent distress. Comfortably sitting bed enjoying her dinner, being fed by 1 of the FISCAL ASSISTANT's. Denies any pain. 11/12/2019. No acute events overnight. Saw patient this evening, accompanied by her family, does not seem to be in any apparent distress, alert and refractory, cooperative with physical exertion. Answering questions appropriately. P.o. to lerant. Denies any fever, chills, nausea, vomiting. Reason For Visit: ACUTE HYPERCARBIC RESPIRATORY FAILURE,NEED FOR INT Physical Exam Vital Signs: Temp Pulse Resp BP Pulse Ox 98.0 F 88 22 H 102/48 L 95 11/12/19 07:42 11/12/19 07:42 11/12/19 07:42 11/12/19 07:42 11/12/19 08:00 Intake & Output 11/11/19 11/12/19 11/13/19 06:59 06:59 06:59 Intake Total 354 1074 120 Output Total 640 1225 375 Balance -286 -151 -255 Weight 67.2 kg 67.4 kg GI/Abdominal exam: PRESENT: other - Ostomy patent. No fecal material observed. About 5 cc of serosanguineous fluid. Neurological exam: PRESENT: alert, awake, oriented to person, oriented to place, oriented to time, oriented to situation. ABSENT: motor sensory deficit Results Laboratory Results: 11/10/19 05:51 11/10/19 05:51 10/18/19 10/29/19 00:24 06:30 Creatine Kinase 78 Troponin I 0.012 Impressions: Abdomen/Pelvis CT 10/17/19 23:59 IMPRESSION: 1. 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 Urgent finding reported to Olu SILVEIRA at 10/18/2019 1:55 AM CDT This exam was performed according to our departmental dose-optimization program, which includes automated exposure control, adjustment of the mA and/or kV according to patient size and/or use of iterative reconstruction technique. Chest/Abdomen CTA 10/23/19 00:00 IMPRESSION: 1. Limited examination due to contrast bolus timing with no contrast present within pulmonary arteries. As such no evaluation for pulmonary embolus is possible. 2. Moderate right-sided pleural effusion with some loculation and small left- sided pleural effusion with some loculation. 3. Severe emphysematous changes. Venous Doppler Study 10/26/19 00:00 IMPRESSION: NO EVIDENCE DVT OR SVT IN THE RIGHT ARM. KUB X-Ray 10/28/19 08:57 IMPRESSION: Enteric tube terminates subdiaphragmatically with the proximal port at the level of the gastroesophageal junction. Consider advancing 5 to 6 cm. Gas within mildly prominent loops of bowel likely on the basis of ileus. No evidence of high-grade obstruction. Increased interstitial markings at the lung bases as seen on recent chest radiograph. Chest X-Ray 11/10/19 00:00 IMPRESSION: 1. Patchy bibasilar opacities and small bilateral effusions, right greater than left, mildly increased from prior. 2. Nasoenteric side port at GE junction. Consider advancing 5 to 10 cm. Assessment and Plan - Diagnosis (1) Pneumonia due to COVID-19 virus Is this a current diagnosis for this admission?: Yes Plan: As of 11/10/2019 patient's CODE STATUS has been switched to EXECUTIVE CHEF as per family and patient's request. BiPAP dependent. SPO2 WNL on FiO2 of 50%. Patient is admitted to [facility] on continuous cardiac telemetry. She is provided supplemental oxygen as needed to maintain saturations greater than 89%. Transitioning between HFNC and BiPAP as indicated by clinical status. Continue scheduled and as needed nebulizer treatments. Have resumed full dose Lovenox. Resume IV azithromycin x5 days; previously only received 3 doses early in course. Previously received course of hydroxychloroquine. Continue IV Decadron 4 mg twice daily Continue vitamin C, vitamin D, zinc, melatonin supplementation. Encouraged position changing; full right/left lateral positions. (2) Acute and chronic respiratory failure ([id number]) Qualifiers: Respiratory failure complication: hypoxia and hypercapnia Qualified Code(s): J96.21 - Acute and chronic respiratory failure with hypoxia; J96.22 - Acute and chronic respiratory failure with hypercapnia Is this a current diagnosis for this admission?: Yes (3) Perforation of sigmoid colon due to diverticulitis Is this a current diagnosis for this admission?: Yes (4) Diverticulitis Is this a current diagnosis for this admission?: Yes 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 - Plan Summary Summary: Cautious optimism today; improved vital signs, labs, and oxygen needs. PT/OT/ST consultations are placed.
[2019-11-13] MEDS: INSULIN REG, HUMAN 100 UNIT/ML 3 ML VIAL (PYX) SUBCUT SCH ×3 (05:20→17:24)
[2019-11-13] MEDS: LEVOTHYROXINE SODIUM 0.1 MG TABLET PO SCH (05:21)
[2019-11-13] MEDS: PREDNISONE 10 MG TABLET PO SCH ×2 (09:21→17:20)
[2019-11-13] MEDS: PREDNISONE 1 MG TABLET PO SCH ×2 (09:21→17:23)
[2019-11-13] MEDS: INSULIN GLARGINE,HUM.REC.ANLOG 1,000 UNIT/10 ML VIAL SUBCUT SCH ×2 (09:21→23:15)
--- NOTE | 2019-11-13 12:35 | PDOC PROGRESS REPORT ---
Subjective Progress Note for:: 11/13/19 Subjective:: The patient is a 58-year-old female with a past medical history of oxygen dependent COPD (3lpm and BiPAP at baseline), VALARIE, hypertension, hypothyroidism, and depression who was admitted 10/18/19 with perforated sigmoid diverticulitis with feculent peritonitis who underwent exploratory laparotomy with sigmoid colon resection with colostomy by Dr. Hawkins on 10/18/2019. She did initially require vasopressor therapy; she developed atrial fibrillation with RVR and so was briefly placed on a diltiazem drip. Notably, she is prescribed Cardizem CD at home. She is successfully extubated the following day, 10/19/2019. She is downgraded to the medical floor on 10/21/2019 with care resumed by her PCP, Dr. Gutierrez. Per his note, patient has end-stage COPD and had recently been referred to the lung transplant center at [facility]. 11/09/2019. Unfortunately overnight patient noted to have low BPs, hemoglobin dropping, still on BiPAP with FiO2 of 50% however patient still remains awake and alert and oriented x3, I had an extensive conversation with patient and up dated her about her prognosis, patient does not want to have anymore surgery regarding her colostomy, but she wants to remain full code. Also had a conversation with Dr. Barney surgeon about her colostomy is complication and he thinks having another surgery will be futile and she is not a good candidate for further surgeries. I updated her [id number] who is a nurse she stopped by with her Ms. Anderson's son to visit patient. They understand that patient is deteriorating and her prognosis is very poor however day want to honor her wishes. 11/10/2019. Patient and family have decided to transition care to PNEUDRAULIC SYSTEMS MECHANIC. This morning patient was more alert and awake and updated her about her medical issues, patient was stating that she is hungry and wants to eat, but has a previous patient was becoming more confused and would not remember her previous conversation. Had extensive conversation with patient's son [id number] and he would like to transition patient's care to PNEUDRAULIC SYSTEMS MECHANIC. 11/11/2019. Saw patient this evening, in no apparent distress. Comfortably sitting bed enjoying her dinner, being fed by 1 of the SOUS CHEF's. Denies any pain. 11/12/2019. No acute events overnight. Saw patient this evening, accompanied by her family, does not seem to be in any apparent distress, alert and refractory, cooperative with physical exertion. Answering questions appropriately. P.o. to lerant. Denies any fever, chills, nausea, vomiting. 11/13/2019. No acute events overnight. Saw patient this morning, resting in bed no apparent distress, on on nasal cannula, alert and oriented x3, stating that she is feeling comfortable, denies any pain, she is able to tolerate her p.o. intake, denies any fever, chills, nausea, vomiting. Unfortunately her repeat COVID has come back positive and patient can be transitioned to another unit he has. Since patient is improving we will ask her if she wants to we consider consulting surgery for ostomy complication. Reason For Visit: ACUTE HYPERCARBIC RESPIRATORY FAILURE,NEED FOR INT Physical Exam Vital Signs: Temp Pulse Resp BP Pulse Ox 97.5 F 71 15 101/53 L 94 11/12/19 19:40 11/13/19 02:00 11/13/19 00:10 11/12/19 19:40 11/13/19 08:00 Intake & Output 11/12/19 11/13/19 11/14/19 06:59 06:59 06:59 Intake Total 1074 840 Output Total 1225 1325 Balance -151 -485 Weight 67.4 kg 68.5 kg Limited physical exam for practitioners safety as patient has COVID-19. General appearance: PRESENT: no acute distress, other - Fatigued and tired Head exam: PRESENT: atraumatic, normocephalic GI/Abdominal exam: PRESENT: other - Ostomy is patent, liquid feculent material in the ostomy bag. Neurological exam: PRESENT: alert, awake, oriented to person, oriented to place, oriented to time, oriented to situation Results Laboratory Results: 11/10/19 05:51 11/10/19 05:51 10/18/19 10/29/19 00:24 06:30 Creatine Kinase 78 Troponin I 0.012 Impressions: Abdomen/Pelvis CT 10/17/19 23:59 IMPRESSION: 1. 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 Urgent finding reported to Olu SILVEIRA at 10/18/2019 1:55 AM CDT This exam was performed according to our departmental dose-optimization program, which includes automated exposure control, adjustment of the mA and/or kV according to patient size and/or use of iterative reconstruction technique. Chest/Abdomen CTA 10/23/19 00:00 IMPRESSION: 1. Limited examination due to contrast bolus timing with no contrast present within pulmonary arteries. As such no evaluation for pulmonary embolus is possible. 2. Moderate right-sided pleural effusion with some loculation and small left- sided pleural effusion with some loculation. 3. Severe emphysematous changes. Venous Doppler Study 10/26/19 00:00 IMPRESSION: NO EVIDENCE DVT OR SVT IN THE RIGHT ARM. KUB X-Ray 10/28/19 08:57 IMPRESSION: Enteric tube terminates subdiaphragmatically with the proximal port at the level of the gastroesophageal junction. Consider advancing 5 to 6 cm. Gas within mildly prominent loops of bowel likely on the basis of ileus. No evidence of high-grade obstruction. Increased interstitial markings at the lung bases as seen on recent chest radiograph. Chest X-Ray 11/10/19 00:00 IMPRESSION: 1. Patchy bibasilar opacities and small bilateral effusions, right greater than left, mildly increased from prior. 2. Nasoenteric side port at GE junction. Consider advancing 5 to 10 cm. Assessment and Plan - Diagnosis (1) Pneumonia due to COVID-19 virus Is this a current diagnosis for this admission?: Yes Plan: As of 11/10/2019 patient's CODE STATUS has been switched to PNEUDRAULIC SYSTEMS MECHANIC as per family and patient's request. BiPAP dependent. SPO2 WNL on FiO2 of 50%. Patient is admitted to [facility] on continuous cardiac telemetry. She is provided supplemental oxygen as needed to maintain saturations greater than 89%. Transitioning between HFNC and BiPAP as indicated by clinical status. Continue scheduled and as needed nebulizer treatments. Have resumed full dose Lovenox. Resume IV azithromycin x5 days; previously only received 3 doses early in course. Previously received course of hydroxychloroquine. Continue IV Decadron 4 mg twice daily Continue vitamin C, vitamin D, zinc, melatonin supplementation. Encouraged position changing; full right/left lateral positions. (2) Perforation of sigmoid colon due to diverticulitis Is this a current diagnosis for this admission?: Yes Plan: As of 11/10/2019 patient's CODE STATUS has been switched to PNEUDRAULIC SYSTEMS MECHANIC as per family and patient's request. s/p Pina procedure unfortunately complicated with wound dehiscence however ostomy is still patent. Patient tolerating p.o. intake. Surgery consulted, due to multiple comorbidities patient not a candidate for more interventions. Patient is in agreement. If patient continues to recover we will ask her if she wants surgery to be consulted. Continue p.o. feeds, continued ostomy. (3) Acute and chronic respiratory failure ([id number]) Qualifiers: Respiratory failure complication: hypoxia and hypercapnia Qualified Code(s): J96.21 - Acute and chronic respiratory failure with hypoxia; J96.22 - Acute and chronic respiratory failure with hypercapnia Is this a current diagnosis for this admission?: Yes (4) Diverticulitis Is this a current diagnosis for this admission?: Yes 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 - Plan Summary Summary: Cautious optimism today; improved vital signs, labs, and oxygen needs. PT/OT/ST consultations are placed.
[2019-11-13] MEDS: MORPHINE SULFATE 10 MG/ML INJ IV PRN (18:39)
[2019-11-13] MEDS: MELATONIN 3 MG TABLET PO SCH (23:15)
[2019-11-14] MEDS: INSULIN REG, HUMAN 100 UNIT/ML 3 ML VIAL (PYX) SUBCUT SCH ×4 (05:14→17:15)
[2019-11-14] MEDS: LEVOTHYROXINE SODIUM 0.1 MG TABLET PO SCH (05:14)
[2019-11-14] MEDS: PREDNISONE 1 MG TABLET PO SCH ×2 (09:30→17:15)
[2019-11-14] MEDS: PREDNISONE 10 MG TABLET PO SCH ×2 (09:30→17:14)
--- NOTE | 2019-11-14 09:58 | PDOC PROGRESS REPORT ---
Subjective Progress Note for:: 11/14/19 Subjective:: The patient is a 58-year-old female with a past medical history of oxygen dependent COPD (3lpm and BiPAP at baseline), VALARIE, hypertension, hypothyroidism, and depression who was admitted 10/18/19 with perforated sigmoid diverticulitis with feculent peritonitis who underwent exploratory laparotomy with sigmoid colon resection with colostomy by Dr. Hawkins on 10/18/2019. She did initially require vasopressor therapy; she developed atrial fibrillation with RVR and so was briefly placed on a diltiazem drip. Notably, she is prescribed Cardizem CD at home. She is successfully extubated the following day, 10/19/2019. She is downgraded to the medical floor on 10/21/2019 with care resumed by her PCP, Dr. Gutierrez. Per his note, patient has end-stage COPD and had recently been referred to the lung transplant center at [facility]. 11/09/2019. Unfortunately overnight patient noted to have low BPs, hemoglobin dropping, still on BiPAP with FiO2 of 50% however patient still remains awake and alert and oriented x3, I had an extensive conversation with patient and up dated her about her prognosis, patient does not want to have anymore surgery regarding her colostomy, but she wants to remain full code. Also had a conversation with Dr. Barney surgeon about her colostomy is complication and he thinks having another surgery will be futile and she is not a good candidate for further surgeries. I updated her [id number] who is a nurse she stopped by with her Ms. Anderson's son to visit patient. They understand that patient is deteriorating and her prognosis is very poor however day want to honor her wishes. 11/10/2019. Patient and family have decided to transition care to PROSTHETIC AIDES TEACHER. This morning patient was more alert and awake and updated her about her medical issues, patient was stating that she is hungry and wants to eat, but has a previous patient was becoming more confused and would not remember her previous conversation. Had extensive conversation with patient's son [id number] and he would like to transition patient's care to PROSTHETIC AIDES TEACHER. 11/11/2019. Saw patient this evening, in no apparent distress. Comfortably sitting bed enjoying her dinner, being fed by 1 of the [employer] COMM[employer]'s. Denies any pain. 11/12/2019. No acute events overnight. Saw patient this evening, accompanied by her family, does not seem to be in any apparent distress, alert and refractory, cooperative with physical exertion. Answering questions appropriately. P.o. to lerant. Denies any fever, chills, nausea, vomiting. 11/13/2019. No acute events overnight. Saw patient this morning, resting in bed no apparent distress, on on nasal cannula, alert and oriented x3, stating that she is feeling comfortable, denies any pain, she is able to tolerate her p.o. intake, denies any fever, chills, nausea, vomiting. Unfortunately her repeat COVID has come back positive and patient can be transitioned to another unit he has. Since patient is improving we will ask her if she wants to we consider consulting surgery for ostomy complication. 11/14/2019. No acute events overnight. Saw patient this morning, resting in bed no apparent distress, on nasal cannula, alert and attentive, in no apparent distress, stating that she is doing okay, no complaints at this point, denies any fever, chills, nausea, vomiting. Patient still remains PROSTHETIC AIDES TEACHER, she was asked if she would like to change her CODE STATUS back to DNR/DNI as she is doing very well, he is stating that she is happy where things are at the moment but will discuss her CODE STATUS again with her family. After talking to her family patient and family have decided to rescind her PROSTHETIC AIDES TEACHER status and maintain the DNR/ DNI. Reason For Visit: ACUTE HYPERCARBIC RESPIRATORY FAILURE,NEED FOR INT Physical Exam Vital Signs: Temp Pulse Resp BP Pulse Ox 97.8 F 63 16 130/59 H 97 11/14/19 08:20 11/14/19 08:20 11/14/19 08:20 11/14/19 08:20 11/14/19 08:20 Intake & Output 11/13/19 11/14/19 11/15/19 06:59 06:59 06:59 Intake Total 840 220 Output Total 1325 1060 Balance -485 -840 Weight 68.5 kg 68.8 kg Limited exam as patient is covered positive for practitioner safety. General appearance: PRESENT: no acute distress, well-developed, well-nourished GI/Abdominal exam: PRESENT: other - Ostomy is patent, about 5 to 10 cc of liquid fecal material. Neurological exam: PRESENT: alert, awake, oriented to person, oriented to place, oriented to time, oriented to situation Results Laboratory Results: 11/10/19 05:51 11/10/19 05:51 10/18/19 10/29/19 00:24 06:30 Creatine Kinase 78 Troponin I 0.012 Impressions: Abdomen/Pelvis CT 10/17/19 23:59 IMPRESSION: 1. 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 Urgent finding reported to Olu SILVEIRA at 10/18/2019 1:55 AM CDT This exam was performed according to our departmental dose-optimization program, which includes automated exposure control, adjustment of the mA and/or kV according to patient size and/or use of iterative reconstruction technique. Chest/Abdomen CTA 10/23/19 00:00 IMPRESSION: 1. Limited examination due to contrast bolus timing with no contrast present within pulmonary arteries. As such no evaluation for pulmonary embolus is possible. 2. Moderate right-sided pleural effusion with some loculation and small left-s ided pleural effusion with some loculation. 3. Severe emphysematous changes. Venous Doppler Study 10/26/19 00:00 IMPRESSION: NO EVIDENCE DVT OR SVT IN THE RIGHT ARM. KUB X-Ray 10/28/19 08:57 IMPRESSION: Enteric tube terminates subdiaphragmatically with the proximal port at the level of the gastroesophageal junction. Consider advancing 5 to 6 cm. Gas within mildly prominent loops of bowel likely on the basis of ileus. No evidence of high-grade obstruction. Increased interstitial markings at the lung bases as seen on recent chest radiograph. Chest X-Ray 11/10/19 00:00 IMPRESSION: 1. Patchy bibasilar opacities and small bilateral effusions, right greater than left, mildly increased from prior. 2. Nasoenteric side port at GE junction. Consider advancing 5 to 10 cm. Assessment and Plan - Diagnosis (1) Pneumonia due to COVID-19 virus Is this a current diagnosis for this admission?: Yes Plan: Patient status was changed to PROSTHETIC AIDES TEACHER on 11/10/2019 as per patient and family request, PROSTHETIC AIDES TEACHER status was rescinded on 11/14/2019 as patient is doing well. Significant improvement. SPO2 WNL on 4 L nasal cannula. Continue telemetry, continue nebs, supplemental oxygen, incentive spirometry and pulmonary toileting. CBC CMP tomorrow. She is provided supplemental oxygen as needed to maintain saturations greater than 89%. Transitioning between HFNC and BiPAP as indicated by clinical status. Continue scheduled and as needed nebulizer treatments. Have resumed full dose Lovenox. Resume IV azithromycin x5 days; previously only received 3 doses early in course. Previously received course of hydroxychloroquine. Continue IV Decadron 4 mg twice daily Continue vitamin C, vitamin D, zinc, melatonin supplementation. Encouraged position changing; full right/left lateral positions. (2) Perforation of sigmoid colon due to diverticulitis Is this a current diagnosis for this admission?: Yes Plan: As of 11/10/2019 patient's CODE STATUS has been switched to PROSTHETIC AIDES TEACHER as per family and patient's request. s/p Pina procedure unfortunately complicated with wound dehiscence however ostomy is still patent. Patient tolerating p.o. intake. Surgery consulted, due to multiple comorbidities patient not a candidate for more interventions. Patient is in agreement. Patient is stable and doing well. Patient was asked if she would like to change her CODE STATUS back to DNR/DNI at some point reconsult surgery to evaluate her ostomy. Patient is stating that she is happy where things are at the moment but would like to discuss this with her family let us know. Continue p.o. feeds, continued ostomy. (3) Acute and chronic respiratory failure ([id number]) Qualifiers: Respiratory failure complication: hypoxia and hypercapnia Qualified Code(s): J96.21 - Acute and chronic respiratory failure with hypoxia; J96.22 - Acute and chronic respiratory failure with hypercapnia Is this a current diagnosis for this admission?: Yes (4) Diverticulitis Is this a current diagnosis for this admission?: Yes 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
[2019-11-14] MEDS: ACETAMINOPHEN SOLN 325 MG/10.15 ML UDCUP NG PRN (12:02)
[2019-11-14] MEDS: INSULIN GLARGINE,HUM.REC.ANLOG 1,000 UNIT/10 ML VIAL SUBCUT SCH ×2 (12:03→21:30)
[2019-11-14] MEDS: OXYCODONE-ACETAMINOPHEN 5-325 MG TABLET PO PRN ×2 (17:15→21:11)
[2019-11-14] MEDS ORDERED: LORAZEPAM INJ 2 MG/1 ML VIAL IV PRN (17:59)
[2019-11-14] MEDS ORDERED: MORPHINE SULFATE 10 MG/ML INJ IV PRN (18:00)
[2019-11-14] MEDS ORDERED: IPRATROPIUM/ALBUTEROL 0.5-2.5 MG/3 ML AMPUL NEB PRN (18:10)
[2019-11-14] MEDS: MELATONIN 3 MG TABLET PO SCH (21:11)
[2019-11-14] MEDS: HEPARIN SOD (PORCINE) 5,000 UNIT/ML 1 ML VIAL SUBCUT SCH (21:31)
[2019-11-14] MEDS: IPRATROPIUM/ALBUTEROL 0.5-2.5 MG/3 ML AMPUL NEB SCH (23:48)
[2019-11-15] MEDS: INSULIN REG, HUMAN 100 UNIT/ML 3 ML VIAL (PYX) SUBCUT SCH ×4 (01:16→23:34)
[2019-11-15] MEDS: NORMAL SALINE 1000 ML 1,000 ML IV PRN ×2 (06:00→19:00)
[2019-11-15] MEDS: HEPARIN SOD (PORCINE) 5,000 UNIT/ML 1 ML VIAL SUBCUT SCH ×3 (06:45→23:36)
[2019-11-15] MEDS: LEVOTHYROXINE SODIUM 0.1 MG TABLET PO SCH (06:46)
[2019-11-15 07:28] LABS: HEMOGLOBIN 9.8 g/dL (12.0-15.5); MEAN CORPUSCULAR HEMOGLOBIN 30.9 pg (27.0-33.4); MEAN CORPUSCULAR HGB CONC 33.7 g/dL (32.0-36.0); MEAN CORPUSCULAR VOLUME 92 fl (80-97); PLATELET COUNT 176 10^3/uL (150-450); RED BLOOD COUNT 3.17 10^6/uL (3.72-5.28); RED CELL DISTRIBUTION WIDTH 14.7 % (11.5-14.0); WHITE BLOOD COUNT 6.6 10^3/uL (4.0-10.5)
[2019-11-15 07:57] LABS: ALBUMIN 2.5 g/dL (3.5-5.0); ALKALINE PHOSPHATASE 69 U/L (38-126); ASPARTATE AMINO TRANSFERASE 16 U/L (14-36); BILIRUBIN,DIRECT 0.1 mg/dL (0.0-0.4); BILIRUBIN,TOTAL 1.5 mg/dL (0.2-1.3); BLOOD UREA NITROGEN 29 mg/dL (7-20); GLUCOSE 99 mg/dL (75-110); TOTAL PROTEIN 4.9 g/dL (6.3-8.2)
[2019-11-15 08:02] LABS: CARBON DIOXIDE 38 mmol/L (22-30); CHLORIDE 93 mmol/L (98-107)
[2019-11-15 08:14] LABS: ANION GAP 4 (5-19)
[2019-11-15] MEDS: IPRATROPIUM/ALBUTEROL 0.5-2.5 MG/3 ML AMPUL NEB SCH ×2 (08:21→15:54)
[2019-11-15] MEDS: OXYCODONE-ACETAMINOPHEN 5-325 MG TABLET PO PRN ×2 (10:31→20:36)
[2019-11-15] MEDS: ESCITALOPRAM OXALATE 10 MG TABLET PO SCH (10:31)
[2019-11-15] MEDS: PREDNISONE 10 MG TABLET PO SCH (10:32)
[2019-11-15] MEDS: ARIPIPRAZOLE 5 MG TABLET PO SCH (10:32)
[2019-11-15] MEDS: INSULIN GLARGINE,HUM.REC.ANLOG 1,000 UNIT/10 ML VIAL SUBCUT SCH ×2 (10:38→23:35)
--- NOTE | 2019-11-15 11:07 | PDOC PROGRESS REPORT ---
Subjective Progress Note for:: 11/15/19 Reason For Visit: ACUTE HYPERCARBIC RESPIRATORY FAILURE,NEED FOR INT Patient clinically improved; reconsider operative intervention Physical Exam Vital Signs: Temp Pulse Resp BP Pulse Ox 97.9 F 65 18 124/62 91 L 11/15/19 07:56 11/15/19 08:24 11/15/19 08:24 11/15/19 07:56 11/15/19 08:24 Intake & Output 11/14/19 11/15/19 11/16/19 06:59 06:59 06:59 Intake Total 220 1344 Output Total 1060 1145 Balance -840 199 Weight 68.8 kg 68.8 kg Results Laboratory Results: 11/15/19 06:30 11/15/19 06:30 11/15/19 11/15/19 06:30 06:30 WBC 6.6 RBC 3.17 L Hgb 9.8 L Hct 29.0 L MCV 92 MCH 30.9 MCHC 33.7 RDW 14.7 H Plt Count 176 Sodium 134.7 L Potassium 4.0 Chloride 93 L Carbon Dioxide 38 H Anion Gap 4 L BUN 29 H Creatinine 0.86 Est GFR ( Amer) > 60 Glucose 99 Calcium 8.0 L Total Bilirubin 1.5 H AST 16 Alkaline Phosphatase 69 Total Protein 4.9 L Albumin 2.5 L 10/18/19 10/29/19 00:24 06:30 Creatine Kinase 78 Troponin I 0.012 Impressions: Abdomen/Pelvis CT 10/17/19 23:59 IMPRESSION: 1. 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 Urgent finding reported to Olu SILVEIRA at 10/18/2019 1:55 AM CDT This exam was performed according to our departmental dose-optimization program, which includes automated exposure control, adjustment of the mA and/or kV according to patient size and/or use of iterative reconstruction technique. Chest/Abdomen CTA 10/23/19 00:00 IMPRESSION: 1. Limited examination due to contrast bolus timing with no contrast present within pulmonary arteries. As such no evaluation for pulmonary embolus is possible. 2. Moderate right-sided pleural effusion with some loculation and small left- sided pleural effusion with some loculation. 3. Severe emphysematous changes. Venous Doppler Study 10/26/19 00:00 IMPRESSION: NO EVIDENCE DVT OR SVT IN THE RIGHT ARM. KUB X-Ray 10/28/19 08:57 IMPRESSION: Enteric tube terminates subdiaphragmatically with the proximal port at the level of the gastroesophageal junction. Consider advancing 5 to 6 cm. Gas within mildly prominent loops of bowel likely on the basis of ileus. No evidence of high-grade obstruction. Increased interstitial markings at the lung bases as seen on recent chest radiograph. Chest X-Ray 11/10/19 00:00 IMPRESSION: 1. Patchy bibasilar opacities and small bilateral effusions, right greater than left, mildly increased from prior. 2. Nasoenteric side port at GE junction. Consider advancing 5 to 10 cm. Assessment & Plan - Diagnosis (1) Complication of ostomy Is this a current diagnosis for this admission?: Yes Plan: Impression: Fortunately, over the last week, patient's colostomy has sloughed necrotic mucosa, revealing a robust, pink, functional fresh mucosal surface. The ostomy continues to output out stool. Patient is less distended according to nursing report. However, the exposed portion of the viscera, likely loop of bowel inferior portion of the midline stapled incision persists. Recommendations: 1. In this situation, I would again recommend nonoperative management; I commend continue local wound care with a nonadhesive Xeroform to the loop of viscera at the inferior aspect of midline incision. Furthermore, continue routine ostomy care. 2. I discussed the above with nursing staff, as well as the hospitalist this morning. (2) Wound dehiscence Is this a current diagnosis for this admission?: Yes (3) Acute and chronic respiratory failure ([id number]) Qualifiers: Respiratory failure complication: hypoxia and hypercapnia Qualified Code(s): J96.21 - Acute and chronic respiratory failure with hypoxia; J96.22 - Acute and chronic respiratory failure with hypercapnia Is this a current diagnosis for this admission?: Yes
--- NOTE | 2019-11-15 11:14 | PDOC PROGRESS REPORT ---
Subjective Progress Note for:: 11/15/19 Subjective:: The patient is a 58-year-old female with a past medical history of oxygen dependent COPD (3lpm and BiPAP at baseline), VALARIE, hypertension, hypothyroidism, and depression who was admitted 10/18/19 with perforated sigmoid diverticulitis with feculent peritonitis who underwent exploratory laparotomy with sigmoid colon resection with colostomy by Dr. Hawkins on 10/18/2019. She did initially require vasopressor therapy; she developed atrial fibrillation with RVR and so was briefly placed on a diltiazem drip. Notably, she is prescribed Cardizem CD at home. She is successfully extubated the following day, 10/19/2019. She is downgraded to the medical floor on 10/21/2019 with care resumed by her PCP, Dr. Gutierrez. Per his note, patient has end-stage COPD and had recently been referred to the lung transplant center at [facility]. 11/09/2019. Unfortunately overnight patient noted to have low BPs, hemoglobin dropping, still on BiPAP with FiO2 of 50% however patient still remains awake and alert and oriented x3, I had an extensive conversation with patient and up dated her about her prognosis, patient does not want to have anymore surgery regarding her colostomy, but she wants to remain full code. Also had a conversation with Dr. Barney surgeon about her colostomy is complication and he thinks having another surgery will be futile and she is not a good candidate for further surgeries. I updated her [id number] who is a nurse she stopped by with her Ms. Anderson's son to visit patient. They understand that patient is deteriorating and her prognosis is very poor however day want to honor her wishes. 11/10/2019. Patient and family have decided to transition care to RN MDS. This morning patient was more alert and awake and updated her about her medical issues, patient was stating that she is hungry and wants to eat, but has a previous patient was becoming more confused and would not remember her previous conversation. Had extensive conversation with patient's son [id number] and he would like to transition patient's care to RN MDS. 11/11/2019. Saw patient this evening, in no apparent distress. Comfortably sitting bed enjoying her dinner, being fed by 1 of the [employer]'s. Denies any pain. 11/12/2019. No acute events overnight. Saw patient this evening, accompanied by her family, does not seem to be in any apparent distress, alert and refractory, cooperative with physical exertion. Answering questions appropriately. P.o. tolerant. Denies any fever, chills, nausea, vomiting. 11/13/2019. No acute events overnight. Saw patient this morning, resting in bed no apparent distress, on on nasal cannula, alert and oriented x3, stating that she is feeling comfortable, denies any pain, she is able to tolerate her p.o. intake, denies any fever, chills, nausea, vomiting. Unfortunately her repeat COVID has come back positive and patient can be transitioned to another unit he has. Since patient is improving we will ask her if she wants to we consider consulting surgery for ostomy complication. 11/14/2019. No acute events overnight. Saw patient this morning, resting in bed no apparent distress, on nasal cannula, alert and attentive, in no apparent distress, stating that she is doing okay, no complaints at this point, denies any fever, chills, nausea, vomiting. Patient still remains RN MDS, she was asked if she would like to change her CODE STATUS back to DNR/DNI as she is doing very well, he is stating that she is happy where things are at the moment but will discuss her CODE STATUS again with her family. After talking to her family patient and family have decided to rescind her RN MDS status and maintain the DNR/DNI. 11/15/2019. No acute events overnight. Resting bed comfortably no apparent distress, alert and oriented x3, tolerating p.o. intake, currently on full liquid diet, denies any fever, chills, nausea, vomiting, diarrhea. Patient would like surgery to be consulted for possible intervention into her ostomy complications, I have talked to Dr. Barney who kindly agreed to reevaluate her. Reason For Visit: ACUTE HYPERCARBIC RESPIRATORY FAILURE,NEED FOR INT Physical Exam Vital Signs: Temp Pulse Resp BP Pulse Ox 97.9 F 65 18 124/62 91 L 11/15/19 07:56 11/15/19 08:24 11/15/19 08:24 11/15/19 07:56 11/15/19 08:24 Intake & Output 11/14/19 11/15/19 11/16/19 06:59 06:59 06:59 Intake Total 220 1344 Output Total 1060 1145 Balance -840 199 Weight 68.8 kg 68.8 kg Limited physical exam due to patient being positive. General appearance: PRESENT: no acute distress, well-developed, well-nourished, other - weak Head exam: PRESENT: atraumatic, normocephalic GI/Abdominal exam: PRESENT: normal bowel sounds, soft, other - Ostomy is patent. ABSENT: distended, guarding, mass, organolmegaly, rebound, tenderness Extremities exam: PRESENT: other - Right upper extremity ecchymosis and swelling improving. Neurological exam: PRESENT: alert, awake, oriented to person, oriented to place, oriented to time, oriented to situation Results Laboratory Results: 11/15/19 06:30 11/15/19 06:30 11/15/19 11/15/19 06:30 06:30 WBC 6.6 RBC 3.17 L Hgb 9.8 L Hct 29.0 L MCV 92 MCH 30.9 MCHC 33.7 RDW 14.7 H Plt Count 176 Sodium 134.7 L Potassium 4.0 Chloride 93 L Carbon Dioxide 38 H Anion Gap 4 L BUN 29 H Creatinine 0.86 Est GFR ( Amer) > 60 Glucose 99 Calcium 8.0 L Total Bilirubin 1.5 H AST 16 Alkaline Phosphatase 69 Total Protein 4.9 L Albumin 2.5 L 10/18/19 10/29/19 00:24 06:30 Creatine Kinase 78 Troponin I 0.012 Impressions: Abdomen/Pelvis CT 10/17/19 23:59 IMPRESSION: 1. 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 Urgent finding reported to Olu SILVEIRA at 10/18/2019 1:55 AM CDT This exam was performed according to our departmental dose-optimization program, which includes automated exposure control, adjustment of the mA and/or kV according to patient size and/or use of iterative reconstruction technique. Chest/Abdomen CTA 10/23/19 00:00 IMPRESSION: 1. Limited examination due to contrast bolus timing with no contrast present within pulmonary arteries. As such no evaluation for pulmonary embolus is possible. 2. Moderate right-sided pleural effusion with some loculation and small left- sided pleural effusion with some loculation. 3. Severe emphysematous changes. Venous Doppler Study 10/26/19 00:00 IMPRESSION: NO EVIDENCE DVT OR SVT IN THE RIGHT ARM. KUB X-Ray 10/28/19 08:57 IMPRESSION: Enteric tube terminates subdiaphragmatically with the proximal port at the level of the gastroesophageal junction. Consider advancing 5 to 6 cm. Gas within mildly prominent loops of bowel likely on the basis of ileus. No evidence of high-grade obstruction. Increased interstitial markings at the lung bases as seen on recent chest radiograph. Chest X-Ray 11/10/19 00:00 IMPRESSION: 1. Patchy bibasilar opacities and small bilateral effusions, right greater than left, mildly increased from prior. 2. Nasoenteric side port at GE junction. Consider advancing 5 to 10 cm. Assessment and Plan - Diagnosis (1) Pneumonia due to COVID-19 virus Is this a current diagnosis for this admission?: Yes Plan: Patient currently DNR/DNR. Patient status was changed to RN MDS on 11/10/2019 as per patient and family request, RN MDS status was rescinded on 11/14/2019 as patient is doing well. Significant improvement. SPO2 WNL on 4 L nasal cannula. WBC WNL. Afebrile. Continue telemetry, continue nebs, supplemental oxygen, incentive spirometry and pulmonary toileting. Continue p.o. prednisone 40 mg daily, taper by 5 mg q. weekly as patient has been on high-dose steroids for more than 2 weeks. Changed to prednisone 40 mg daily on 11/15/2019. Continue vitamin C, vitamin D, zinc, melatonin supplementation. Encouraged position changing; full right/left lateral positions. 10/25/2019 COVID-19 positive. Repeat COVID-19 11/10/2019 positive. Initially she was transitioning between HFNC and BiPAP SPO2 WNL on nasal cannula. Completed IV azithromycin x5 days; previously only received 3 doses early in course. Completed a course of hydroxychloroquine. She has been on high-dose IV steroids for more than 2 weeks. Initially was placed on Decadron and switched to prednisone equivalent dose. Steroids need to be tapered slowly over the next month or so. (2) Perforation of sigmoid colon due to diverticulitis Is this a current diagnosis for this admission?: Yes Plan: s/p Pina procedure unfortunately complicated with wound dehiscence however ostomy is still patent. Patient tolerating p.o. intake. As per patient's request surgery was reconsulted and Dr. Barney has kindly reevaluated patient's ostomy as per his note and my conversation with him over the phone patient's colostomy has sloughed necrotic mucosa, revealing a robust, pink, functional fresh mucosal surface. Recommendation is continued wound care and conservative management. Continue oral feeds, advance as tolerated, continue wound care, monitor in and out. (3) Acute and chronic respiratory failure ([id number]) Qualifiers: Respiratory failure complication: hypoxia and hypercapnia Qualified Code(s): J96.21 - Acute and chronic respiratory failure with hypoxia; J96.22 - Acute and chronic respiratory failure with hypercapnia Is this a current diagnosis for this admission?: Yes Plan: Significant improvement. SPO2 WNL on nasal cannula. Secondary to #1 in the setting of COPD. Management as above. (4) Diverticulitis Is this a current diagnosis for this admission?: Yes Plan: General surgery consulted: Status post Delgado's procedure unfortunately complicated. Tolerating tube feeds with adequate, ostomy patent. Completed course of IV antibiotics. WBC WNL. Afebrile. Denies any abdominal pain. Plan as per #2. (5) DANII (acute kidney injury) Is this a current diagnosis for this admission?: Yes Plan: Resolved. Likely due to sepsis and acute illness Avoid nephrotoxic medications as able. Monitor strict I&Os Follow-up chemistry (6) Anasarca Is this a current diagnosis for this admission?: Yes Plan: Resolved. Secondary to hypoalbuminemia. Secondary to prolonged critical illness and poor nutrition. Was given multiple doses of albumin. Continue daily weights. Strict I&O's. (7) Atrial fibrillation with rapid ventricular response Is this a current diagnosis for this admission?: Yes Plan: Resolved. Off diltiazem gtt. Continue Cardizem 30 mg every 8 hours May transition to long-acting prior to discharge if heart rate remained stable Monitor on telemetry. (8) COPD (chronic obstructive pulmonary disease) Qualifiers: COPD type: emphysema Emphysema type: centrilobular Qualified Code(s): J43.2 - Centrilobular emphysema Is this a current diagnosis for this admission?: Yes Plan: Patient is home O2 dependent at 3 L/min. Plan as per #1. 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 (10) Lymphocytosis Is this a current diagnosis for this admission?: Yes Plan: Resolved. WBC WNL. (11) Peritonitis, acute generalized Is this a current diagnosis for this admission?: Yes Plan: Resolved. Secondary to perforated diverticulum with feculent peritonitis. Received a complete course of IV antibiotics. (12) Sepsis with acute respiratory failure and septic shock Qualifiers: Sepsis type: sepsis due to unspecified organism Is this a current diagnosis for this admission?: Yes Plan: Resolved. Due to COVID-19 Blood cultures negative Bronchial culture grew Shannan, normal tabitha (13) Swelling of right upper extremity Is this a current diagnosis for this admission?: Yes Plan: Ultrasound right upper extremity (10/25) was negative for DVT. Likely related to peripheral IV infiltration with aggressive IV fluids through that extremity. Dry dressing. Extremity elevated. (14) Grief Is this a current diagnosis for this admission?: Yes Plan: The patient's 11/06/19 of COVID19 respiratory failure. Patient witnessed ACLS attempts. Encouraged to talk with family/staff as needed. Have arranged for 1 family member to visit. Supportive care.
[2019-11-15] MEDS: MELATONIN 3 MG TABLET PO SCH (21:59)
[2019-11-16] MEDS: IPRATROPIUM/ALBUTEROL 0.5-2.5 MG/3 ML AMPUL NEB SCH ×3 (00:32→18:06)
[2019-11-16] MEDS: OXYCODONE-ACETAMINOPHEN 5-325 MG TABLET PO PRN ×4 (00:45→20:57)
[2019-11-16] MEDS: INSULIN REG, HUMAN 100 UNIT/ML 3 ML VIAL (PYX) SUBCUT SCH ×4 (01:00→18:08)
[2019-11-16] MEDS: LEVOTHYROXINE SODIUM 0.1 MG TABLET PO SCH (05:26)
[2019-11-16] MEDS: HEPARIN SOD (PORCINE) 5,000 UNIT/ML 1 ML VIAL SUBCUT SCH ×3 (05:26→22:30)
[2019-11-16] MEDS: NORMAL SALINE 1000 ML 1,000 ML IV PRN ×2 (05:27→19:00)
[2019-11-16] MEDS: ESCITALOPRAM OXALATE 10 MG TABLET PO SCH (09:43)
[2019-11-16] MEDS: PREDNISONE 10 MG TABLET PO SCH (09:44)
[2019-11-16] MEDS: ARIPIPRAZOLE 5 MG TABLET PO SCH (09:45)
[2019-11-16] MEDS: INSULIN GLARGINE,HUM.REC.ANLOG 1,000 UNIT/10 ML VIAL SUBCUT SCH ×2 (09:46→22:30)
--- NOTE | 2019-11-16 17:57 | PDOC PROGRESS REPORT ---
Subjective Progress Note for:: 11/16/19 Subjective:: Overview of clinical course thus far: The patient is a 58-year-old female with a past medical history of oxygen dependent COPD (3lpm and BiPAP at baseline), VALARIE, hypertension, hypothyroidism, and depression who was admitted 10/18/19 with perforated sigmoid diverticulitis with feculent peritonitis who underwent exploratory laparotomy with sigmoid colon resection with colostomy by Dr. Hawkins on 10/18/2019. She did initially require vasopressor therapy; she developed atrial fibrillation with RVR and so was briefly placed on a diltiazem drip. Notably, she is prescribed Cardizem CD at home. She is successfully extubated the following day, 10/19/2019. She is downgraded to the medical floor on 10/21/2019 with care resumed by her PCP, Dr. Gutierrez. Per his note, patient has end-stage COPD and had recently been referred to the lung transplant center at [facility]. Following downgrade to floor, patient had difficulty with her underlying COPD and required near continuous BiPAP. Pulmonology was consulted; per Dr. Dickey's note, she will benefit from AVAPS upon discharge. She did have continued episodes of proximal A. fib; cardiology was consulted. On 10/25/19, the patient tested positive for COVID ( reportedly tested positive at PCPs office which prompted her screening). She returned to the ICU on 10/25/19 and was promptly re-intubated. Notably, patient was placed on Hydroxychloroquine 10/24 - 10/31. She was also placed on IV Azithromycin and Rocephin at this time. Only received 3 days of therapy. She, again, required vasopressor support. Successfully extubated to HFNC on 10/27/19. However, oxygen needs were variable and patient was shortly placed back to BiPAP. She was downgraded to IMCU on 11/01/19 with service transferred to the hospital ist team. ---- The patient was seen on afternoon rounds. She is currently on supplemental oxygen by nasal cannula at 4 L/min maintaining saturations of 97%. She is home O2 dependent at 3lpm w/ BiPAP nightly. She reports fatigue, though overall improved. Worked with physical therapy today; was able to sit to the edge of the bed. This is her first time working with physical therapy in several weeks. She is feeling quite optimistic about her abilities today and discusses discharging to home with home health services. Did briefly visit potential SNF placement; patient adamantly declines and states that she believes that she has adequate home support. She denies fever/chills, chest pain, palpitations, abdominal pain, and nausea. Increased appetite. She has no other questions or concerns at this time. No concerns per nursing. Reason For Visit: ACUTE HYPERCARBIC RESPIRATORY FAILURE,NEED FOR INT Physical Exam Vital Signs: Temp Pulse Resp BP Pulse Ox 98.4 F 64 18 98/56 L 95 11/16/19 10:00 11/16/19 14:00 11/16/19 10:00 11/16/19 10:00 11/16/19 10:00 Intake & Output 11/15/19 11/16/19 11/17/19 06:59 06:59 06:59 Intake Total 1344 2571 Output Total 1145 1650 Balance 199 921 Weight 68.8 kg 67.1 kg General appearance: PRESENT: no acute distress, cooperative, well-developed, well-nourished Head exam: PRESENT: atraumatic, normocephalic Eye exam: PRESENT: conjunctiva pink, EOMI, PERRLA. ABSENT: scleral icterus Mouth exam: PRESENT: moist, tongue midline, other - Dry cracked lips Respiratory exam: PRESENT: clear to auscultation christina, symmetrical, unlabored, other - Supplemental oxygen via nasal cannula. ABSENT: rales, rhonchi, wheezes Cardiovascular exam: PRESENT: RRR. ABSENT: diastolic murmur, rubs, systolic murmur Pulses: PRESENT: normal dorsalis pedis pul Vascular exam: PRESENT: normal capillary refill GI/Abdominal exam: PRESENT: normal bowel sounds, soft, other - Ostomy with soft brown stool. ABSENT: distended, guarding, mass, organolmegaly, rebound, tenderness Rectal exam: PRESENT: deferred Extremities exam: PRESENT: full ROM. ABSENT: calf tenderness, clubbing, pedal edema Neurological exam: PRESENT: alert, awake, oriented to person, oriented to place, oriented to time, oriented to situation, CN II-XII grossly intact. ABSENT: motor sensory deficit Psychiatric exam: PRESENT: appropriate affect, normal mood. ABSENT: homicidal ideation, suicidal ideation Skin exam: PRESENT: dry, warm, other - Scattered ecchymosis. Dehiscence to abdominal incision is slightly increased as compared to 2 weeks ago (approximately 3 cm) long by 2 cm wide; no erythema or drainage present.. ABSENT: cyanosis, intact, rash Results Laboratory Results: 11/15/19 06:30 11/15/19 06:30 10/18/19 06 00:24 06:30 Creatine Kinase 78 Troponin I 0.012 Impressions: Abdomen/Pelvis CT 10/17/19 23:59 IMPRESSION: 1. 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 Urgent finding reported to Olu SILVEIRA at 10/18/2019 1:55 AM CDT This exam was performed according to our departmental dose-optimization program, which includes automated exposure control, adjustment of the mA and/or kV according to patient size and/or use of iterative reconstruction technique. Chest/Abdomen CTA 10/23/19 00:00 IMPRESSION: 1. Limited examination due to contrast bolus timing with no contr ast present within pulmonary arteries. As such no evaluation for pulmonary embolus is possible. 2. Moderate right-sided pleural effusion with some loculation and small left- sided pleural effusion with some loculation. 3. Severe emphysematous changes. Venous Doppler Study 10/26/19 00:00 IMPRESSION: NO EVIDENCE DVT OR SVT IN THE RIGHT ARM. KUB X-Ray 10/28/19 08:57 IMPRESSION: Enteric tube terminates subdiaphragmatically with the proximal port at the level of the gastroesophageal junction. Consider advancing 5 to 6 cm. Gas within mildly prominent loops of bowel likely on the basis of ileus. No evidence of high-grade obstruction. Increased interstitial markings at the lung bases as seen on recent chest radiograph. Chest X-Ray 11/10/19 00:00 IMPRESSION: 1. Patchy bibasilar opacities and small bilateral effusions, right greater than left, mildly increased from prior. 2. Nasoenteric side port at GE junction. Consider advancing 5 to 10 cm. Assessment and Plan - Diagnosis (1) Pneumonia due to COVID-19 virus Is this a current diagnosis for this admission?: Yes Plan: 10/25/2019 COVID-19 positive. Repeat COVID-19 11/10/2019 positive. Significant improvement. SPO2 WNL on 4 L nasal cannula. Utilizes 3 L/min at baseline. WBC WNL. Afebrile. Completed IV azithromycin x5 days; previously only received 3 doses early in course. Completed a course of hydroxychloroquine. Continue telemetry, continue nebs, supplemental oxygen, incentive spirometry and pulmonary toileting. Continue p.o. prednisone 40 mg daily, taper by 5 mg q. weekly as patient has been on high-dose steroids for more than 2 weeks. Changed to prednisone 40 mg daily on 11/15/2019. Next dose decrease 11/22/19. Continue vitamin C, vitamin D, zinc, melatonin supplementation. Encouraged position changing; full right/left lateral positions. (2) Acute and chronic respiratory failure ([id number]) Qualifiers: Respiratory failure complication: hypoxia and hypercapnia Qualified Code(s): J96.21 - Acute and chronic respiratory failure with hypoxia; J96.22 - Acute and chronic respiratory failure with hypercapnia Is this a current diagnosis for this admission?: Yes Plan: Significant improvement. SPO2 WNL on nasal cannula. Secondary to #1 in the setting of COPD. Management as above. (3) Grief Is this a current diagnosis for this admission?: Yes Plan: The patient's 11/06/19 of COVID19 respiratory failure. Patient witnessed ACLS attempts. Encouraged to talk with family/staff as needed. Have arranged for family member to visit. Doing well with start of Lexapro and Abilify. Supportive care. (4) DANII (acute kidney injury) Is this a current diagnosis for this admission?: Yes Plan: Resolved. Likely due to sepsis and acute illness Avoid nephrotoxic medications as able. Decreasing IV fluids today. Encourage p.o. fluids. Monitor strict I&Os Follow-up chemistry (5) COPD (chronic obstructive pulmonary disease) Qualifiers: COPD type: emphysema Emphysema type: centrilobular Qualified Code(s): J43.2 - Centrilobular emphysema Is this a current diagnosis for this admission?: Yes Plan: Patient is home O2 dependent at 3 L/min. Plan as per #1. (6) Lymphocytosis Is this a current diagnosis for this admission?: Yes Plan: Resolved. WBC WNL. (7) Atrial fibrillation with rapid ventricular response Is this a current diagnosis for this admission?: Yes Plan: Resolved. Off diltiazem gtt. Has been gradually weaned off of diltiazem; remains in normal sinus rhythm. Monitor on telemetry. (8) Swelling of right upper extremity Is this a current diagnosis for this admission?: Yes Plan: Resolved. Ultrasound right upper extremity (10/25) was negative for DVT. Likely related to peripheral IV infiltration with aggressive IV fluids through that extremity. 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 (10) Hypoalbuminemia Is this a current diagnosis for this admission?: Yes Plan: Remains low; 2.5. Now tolerating oral nutrition. Registered dietitian is consulted. (11) Hyperglycemia Is this a current diagnosis for this admission?: Yes Plan: A1C 5.3% Patient does not have a prior history of diabetes. Blood sugars have been persistently elevated. Likely secondary to steroids. Continue sliding scale insulin. (12) Anasarca Is this a current diagnosis for this admission?: Yes Plan: Resolved. Secondary to hypoalbuminemia. Secondary to prolonged critical illness and poor nutrition. Was given multiple doses of albumin. Continue daily weights. Strict I&O's. (13) Sepsis with acute respiratory failure and septic shock Qualifiers: Sepsis type: sepsis due to unspecified organism Is this a current diagnosis for this admission?: Yes Plan: Resolved. Due to COVID-19 Blood cultures negative Bronchial culture grew Shannan, normal tabitha (14) Peritonitis, acute generalized Is this a current diagnosis for this admission?: Yes Plan: Resolved. Secondary to perforated diverticulum with feculent peritonitis. Received a complete course of IV antibiotics. (15) Perforation of sigmoid colon due to diverticulitis Is this a current diagnosis for this admission?: Yes Plan: s/p Pina procedure unfortunately complicated with wound dehiscence however ostomy is still patent. Patient tolerating p.o. intake. As per patient's request surgery was reconsulted and Dr. Barney has kindly reevaluated patient's ostomy; as per his note, patient's colostomy has sloughed necrotic mucosa, revealing a robust, pink, functional fresh mucosal surface. Recommendation is continued wound care and conservative management. Continue oral feeds, advance as tolerated, continue wound care, monitor in and out. (16) Diverticulitis Is this a current diagnosis for this admission?: Yes Plan: General surgery consulted: Status post Delgado's procedure unfortunately complicated. Ostomy patent. Completed course of IV antibiotics. WBC WNL. Afebrile. Denies any abdominal pain. Plan as above. (17) Debility Is this a current diagnosis for this admission?: Yes Plan: PT/OT consulted. Patient indicates her interest in discharging to home with home health services. She reports that she has good support system at home; son lives with her. We will need to discuss with surgery any limitations on mobility and their anticipated clearance for discharge. Patient continues to improve anticipate that she will be ready for discharge in the near future. We will consult discharge planning. - Time Time Spent with patient: 35 or more minutes Medications reviewed and adjusted accordingly: Yes Anticipated discharge: Home with Homehealth
[2019-11-16] MEDS: MELATONIN 3 MG TABLET PO SCH (20:59)
[2019-11-17] MEDS: IPRATROPIUM/ALBUTEROL 0.5-2.5 MG/3 ML AMPUL NEB SCH ×3 (00:03→16:04)
[2019-11-17] MEDS: INSULIN REG, HUMAN 100 UNIT/ML 3 ML VIAL (PYX) SUBCUT SCH ×5 (00:30→23:13)
[2019-11-17] MEDS: OXYCODONE-ACETAMINOPHEN 5-325 MG TABLET PO PRN ×4 (03:23→19:46)
[2019-11-17 05:30] LABS: HEMATOCRIT 29.3 % (36.0-47.0); HEMOGLOBIN 9.9 g/dL (12.0-15.5); MEAN CORPUSCULAR HEMOGLOBIN 31.2 pg (27.0-33.4); MEAN CORPUSCULAR HGB CONC 33.7 g/dL (32.0-36.0); MEAN CORPUSCULAR VOLUME 93 fl (80-97); PLATELET COUNT 142 10^3/uL (150-450); RED BLOOD COUNT 3.17 10^6/uL (3.72-5.28); RED CELL DISTRIBUTION WIDTH 14.7 % (11.5-14.0); WHITE BLOOD COUNT 8.2 10^3/uL (4.0-10.5)
[2019-11-17] MEDS: LEVOTHYROXINE SODIUM 0.1 MG TABLET PO SCH (05:40)
[2019-11-17] MEDS: HEPARIN SOD (PORCINE) 5,000 UNIT/ML 1 ML VIAL SUBCUT SCH ×3 (05:41→22:54)
[2019-11-17 05:51] LABS: BLOOD UREA NITROGEN 25 mg/dL (7-20); CALCIUM 7.7 mg/dL (8.4-10.2); CHLORIDE 98 mmol/L (98-107); GLUCOSE 148 mg/dL (75-110); POTASSIUM 3.5 mmol/L (3.6-5.0)
[2019-11-17 05:57] LABS: CARBON DIOXIDE 34 mmol/L (22-30)
[2019-11-17 06:01] LABS: ANION GAP 3 (5-19)
[2019-11-17] MEDS ORDERED: POTASSIUM CHLORIDE 10 MEQ TABLET.ER PO ONE (08:30)
[2019-11-17] MEDS: ARIPIPRAZOLE 5 MG TABLET PO SCH (09:26)
[2019-11-17] MEDS: PREDNISONE 20 MG TABLET PO SCH (09:26)
[2019-11-17] MEDS: ESCITALOPRAM OXALATE 10 MG TABLET PO SCH (09:26)
[2019-11-17] MEDS: INSULIN GLARGINE,HUM.REC.ANLOG 1,000 UNIT/10 ML VIAL SUBCUT SCH ×2 (15:05→23:13)
[2019-11-17] MEDS: NYSTATIN/DEXAMETH/DIPHEN SUSP 120 ML PO SCH ×4 (15:10→22:56)
--- NOTE | 2019-11-17 16:32 | PDOC PROGRESS REPORT ---
Subjective Progress Note for:: 11/17/19 Subjective:: Overview of clinical course thus far: The patient is a 58-year-old female with a past medical history of oxygen dependent COPD (3lpm and BiPAP at baseline), VALARIE, hypertension, hypothyroidism, and depression who was admitted 10/18/19 with perforated sigmoid diverticulitis with feculent peritonitis who underwent exploratory laparotomy with sigmoid colon resection with colostomy by Dr. Hawkins on 10/18/2019. She did initially require vasopressor therapy; she developed atrial fibrillation with RVR and so was briefly placed on a diltiazem drip. Notably, she is prescribed Cardizem CD at home. She is successfully extubated the following day, 10/19/2019. She is downgraded to the medical floor on 10/21/2019 with care resumed by her PCP, Dr. Gutierrez. Per his note, patient has end-stage COPD and had recently been referred to the lung transplant center at [facility]. Following downgrade to floor, patient had difficulty with her underlying COPD and required near continuous BiPAP. Pulmonology was consulted; per Dr. Dickey's note, she will benefit from AVAPS upon discharge. She did have continued episodes of proximal A. fib; cardiology was consulted. On 10/25/19, the patient tested positive for COVID ( reportedly tested positive at PCPs office which prompted her screening). She returned to the ICU on 10/25/19 and was promptly re-intubated. Notably, patient was placed on Hydroxychloroquine 10/24 - 10/31. She was also placed on IV Azithromycin and Rocephin at this time. Only received 3 days of therapy. She, again, required vasopressor support. Successfully extubated to HFNC on 10/27/19. However, oxygen needs were variable and patient was shortly placed back to BiPAP. She was downgraded to IMCU on 11/01/19 with service transferred to the hospital ist team. ---- The patient was seen on afternoon rounds. She is currently on supplemental oxygen by nasal cannula at 5 L/min maintaining saturations of 97%. She is home O2 dependent at 3lpm w/ BiPAP nightly. She reports fatigue, though overall improved. Looking forward to working with physical therapy again today. She asked to have an additional swallow study; she is going report of her pured diet and is looking forward to a normal meal. She also asks for Magic mouthwash (currently ordered). She reports that she is hopeful to discharge to home, lives with family members, with home health services in the near future. She denies fever/chills, chest pain, palpitations, abdominal pain, and nausea. Reports good appetite appetite. She has no other questions or concerns at this time. No concerns per nursing. Reason For Visit: ACUTE HYPERCARBIC RESPIRATORY FAILURE,NEED FOR INT Physical Exam Vital Signs: Temp Pulse Resp BP Pulse Ox 97.4 F 61 18 144/68 H 96 11/17/19 06:28 11/17/19 16:04 11/17/19 16:04 11/17/19 06:28 11/17/19 16:04 Intake & Output 11/16/19 11/17/19 11/18/19 06:59 06:59 06:59 Intake Total 2571 1144 Output Total 1650 1285 Balance 921 -141 Weight 67.1 kg 67.1 kg General appearance: PRESENT: no acute distress, cooperative, well-developed, well-nourished, other - Chronically ill-appearing Head exam: PRESENT: atraumatic, normocephalic Eye exam: PRESENT: conjunctiva pink, EOMI, PERRLA. ABSENT: scleral icterus Mouth exam: PRESENT: moist, tongue midline, other - Dry cracked lips Respiratory exam: PRESENT: clear to auscultation christina, symmetrical, unlabored, other - Supplemental oxygen by nasal cannula. ABSENT: rales, rhonchi, wheezes Cardiovascular exam: PRESENT: RRR. ABSENT: diastolic murmur, rubs, systolic murmur Pulses: PRESENT: normal dorsalis pedis pul Vascular exam: PRESENT: normal capillary refill GI/Abdominal exam: PRESENT: normal bowel sounds, soft, other - Ostomy with soft brown stool.. ABSENT: distended, guarding, mass, organolmegaly, rebound, tenderness Rectal exam: PRESENT: deferred Extremities exam: PRESENT: full ROM. ABSENT: calf tenderness, clubbing, pedal edema Neurological exam: PRESENT: alert, awake, oriented to person, oriented to place, oriented to time, oriented to situation, CN II-XII grossly intact. ABSENT: motor sensory deficit Psychiatric exam: PRESENT: appropriate affect, normal mood. ABSENT: homicidal ideation, suicidal ideation Skin exam: PRESENT: dry, warm, other - Scattered ecchymosis. Dehiscence to abdominal incision is slightly increased as compared to 2 weeks ago (approximately 3 cm) long by 2 cm wide; no erythema or drainage present. ABSENT: cyanosis, rash Results Laboratory Results: 11/17/19 05:12 11/17/19 05:12 11/17/19 11/17/19 05:12 05:12 WBC 8.2 RBC 3.17 L Hgb 9.9 L Hct 29.3 L MCV 93 MCH 31.2 MCHC 33.7 RDW 14.7 H Plt Count 142 L Sodium 135.4 L Potassium 3.5 L Chloride 98 Carbon Dioxide 34 H Anion Gap 3 L BUN 25 H Creatinine 0.85 Est GFR ( Amer) > 60 Glucose 148 H Calcium 7.7 L 10/18/19 10/29/19 00:24 06:30 Creatine Kinase 78 Troponin I 0.012 Impressions: Abdomen/Pelvis CT 10/17/19 23:59 IMPRESSION: 1. 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 Urgent finding reported to Olu SILVEIRA at 10/18/2019 1:55 AM CDT This exam was performed according to our departmental dose-optimization program, which includes automated exposure control, adjustment of the mA and/or kV according to patient size and/or use of iterative reconstruction technique. Chest/Abdomen CTA 10/23/19 00:00 IMPRESSION: 1. Limited examination due to contrast bolus timing with no co ntrast present within pulmonary arteries. As such no evaluation for pulmonary embolus is possible. 2. Moderate right-sided pleural effusion with some loculation and small left- sided pleural effusion with some loculation. 3. Severe emphysematous changes. Venous Doppler Study 10/26/19 00:00 IMPRESSION: NO EVIDENCE DVT OR SVT IN THE RIGHT ARM. KUB X-Ray 10/28/19 08:57 IMPRESSION: Enteric tube terminates subdiaphragmatically with the proximal port at the level of the gastroesophageal junction. Consider advancing 5 to 6 cm. Gas within mildly prominent loops of bowel likely on the basis of ileus. No evidence of high-grade obstruction. Increased interstitial markings at the lung bases as seen on recent chest radiograph. Chest X-Ray 11/10/19 00:00 IMPRESSION: 1. Patchy bibasilar opacities and small bilateral effusions, right greater than left, mildly increased from prior. 2. Nasoenteric side port at GE junction. Consider advancing 5 to 10 cm. Assessment and Plan - Diagnosis (1) Pneumonia due to COVID-19 virus Is this a current diagnosis for this admission?: Yes Plan: 10/25/2019 COVID-19 positive. Repeat COVID-19 11/10/2019 positive. Significant improvement. SPO2 WNL on 4 L nasal cannula. Utilizes 3 L/min at baseline. WBC WNL. Afebrile. Completed IV azithromycin x5 days; previously only received 3 doses early in course. Completed a course of hydroxychloroquine. Continue telemetry, continue nebs, supplemental oxygen, incentive spirometry and pulmonary toileting. Continue p.o. prednisone 40 mg daily, taper by 5 mg q. weekly as patient has been on high-dose steroids for more than 2 weeks. Changed to prednisone 40 mg daily on 11/15/2019. Next dose decrease 11/22/19. Continue vitamin C, vitamin D, zinc, melatonin supplementation. Encouraged position changing; full right/left lateral positions. Discussed with infectious control; no indications for routine repeat COVID testing to determine clearance. Defer to also health department. Otherwise, recommend the patient begin 14-day quarantine once symptoms have resolved. (2) Acute and chronic respiratory failure ([id number]) Qualifiers: Respiratory failure complication: hypoxia and hypercapnia Qualified Code(s): J96.21 - Acute and chronic respiratory failure with hypoxia; J96.22 - Acute and chronic respiratory failure with hypercapnia Is this a current diagnosis for this admission?: Yes Plan: Significant improvement. SPO2 WNL on nasal cannula. Secondary to #1 in the setting of COPD. Management as above. (3) Grief Is this a current diagnosis for this admission?: Yes Plan: The patient's 11/06/19 of COVID19 respiratory failure. Patient witnessed ACLS attempts. Encouraged to talk with family/staff as needed. Have arranged for family member to visit. Doing well with start of Lexapro and Abilify. Supportive care. (4) DANII (acute kidney injury) Is this a current diagnosis for this admission?: Yes Plan: Resolved. Likely due to sepsis and acute illness Avoid nephrotoxic medications as able. Decreasing IV fluids today. Encourage p.o. fluids. Monitor strict I&Os Follow-up chemistry (5) COPD (chronic obstructive pulmonary disease) Qualifiers: COPD type: emphysema Emphysema type: centrilobular Qualified Code(s): J43 .2 - Centrilobular emphysema Is this a current diagnosis for this admission?: Yes Plan: Patient is home O2 dependent at 3 L/min. Plan as per #1. (6) Lymphocytosis Is this a current diagnosis for this admission?: Yes Plan: Resolved. WBC WNL. (7) Atrial fibrillation with rapid ventricular response Is this a current diagnosis for this admission?: Yes Plan: Resolved. Off diltiazem gtt. Has been gradually weaned off of diltiazem; remains in normal sinus rhythm. Monitor on telemetry. (8) Swelling of right upper extremity Is this a current diagnosis for this admission?: Yes Plan: Resolved. Ultrasound right upper extremity (10/25) was negative for DVT. Likely related to peripheral IV infiltration with aggressive IV fluids through that extremity. 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 (10) Hypoalbuminemia Is this a current diagnosis for this admission?: Yes Plan: Remains low; 2.5. Now tolerating oral nutrition. Registered dietitian is consulted. (11) Hyperglycemia Is this a current diagnosis for this admission?: Yes Plan: A1C 5.3% Patient does not have a prior history of diabetes. Blood sugars have been persistently elevated. Likely secondary to steroids. Continue sliding scale insulin. (12) Anasarca Is this a current diagnosis for this admission?: Yes Plan: Resolved. Secondary to hypoalbuminemia. Secondary to prolonged critical illness and poor nutrition. Was given multiple doses of albumin. Continue daily weights. Strict I&O's. (13) Sepsis with acute respiratory failure and septic shock Qualifiers: Sepsis type: sepsis due to unspecified organism Is this a current diagnosis for this admission?: Yes Plan: Resolved. Due to COVID-19 Blood cultures negative Bronchial culture grew Shannan, normal tabitha (14) Peritonitis, acute generalized Is this a current diagnosis for this admission?: Yes Plan: Resolved. Secondary to perforated diverticulum with feculent peritonitis. Received a complete course of IV antibiotics. (15) Perforation of sigmoid colon due to diverticulitis Is this a current diagnosis for this admission?: Yes Plan: s/p Pina procedure unfortunately complicated with wound dehiscence however ostomy is still patent. Patient tolerating p.o. intake. As per patient's request surgery was reconsulted and Dr. Barney has kindly reevaluated patient's ostomy; as per his note, patient's colostomy has sloughed necrotic mucosa, revealing a robust, pink, functional fresh mucosal surface. Recommendation is continued wound care and conservative management. Continue oral feeds, advance as tolerated, continue wound care, monitor in and out. Discussed with surgery today; patient should not lift heavy objects, otherwise, no mobility restrictions. Follow-up in the surgical clinic 10 to 14 days following discharge. (16) Diverticulitis Is this a current diagnosis for this admission?: Yes Plan: General surgery consulted: Status post Delgado's procedure unfortunately complicated. Ostomy patent. Completed course of IV antibiotics. WBC WNL. Afebrile. Denies any abdominal pain. Plan as above. (17) Debility Is this a current diagnosis for this admission?: Yes Plan: PT/OT consulted. Patient indicates her interest in discharging to home with home health services. She reports that she has good support system at home; son lives with her. Patient continues to improve anticipate that she will be ready for discharge in the near future. Per discharge planning note, plan to have family meeting tomorrow to discuss disposition. Patient would certainly benefit from discharge to SNF for rehab as she currently is a max assist to seated position at the edge of the bed. If patient is agreeable to SNF, we should begin the referral process now as the patient has maximized her hospital benefit and is now in the convalescent phase of her recovery. - Time Time Spent with patient: 35 or more minutes Medications reviewed and adjusted accordingly: Yes Anticipated discharge: Home with Homehealth - vs SNF Within: within 72 hours
[2019-11-17] MEDS: NYSTATIN TOPICAL POWDER 15 GM TP SCH ×2 (16:51→17:27)
[2019-11-17] MEDS: MELATONIN 3 MG TABLET PO SCH (22:56)
[2019-11-18] MEDS: IPRATROPIUM/ALBUTEROL 0.5-2.5 MG/3 ML AMPUL NEB SCH ×4 (00:19→20:40)
[2019-11-18] MEDS: NORMAL SALINE 1000 ML 1,000 ML IV PRN (01:42)
[2019-11-18] MEDS: HEPARIN SOD (PORCINE) 5,000 UNIT/ML 1 ML VIAL SUBCUT SCH ×4 (05:40→22:00)
[2019-11-18] MEDS: LEVOTHYROXINE SODIUM 0.1 MG TABLET PO SCH (05:41)
[2019-11-18] MEDS: INSULIN REG, HUMAN 100 UNIT/ML 3 ML VIAL (PYX) SUBCUT SCH ×4 (06:12→23:27)
[2019-11-18] MEDS: OXYCODONE-ACETAMINOPHEN 5-325 MG TABLET PO PRN ×2 (06:30→20:36)
[2019-11-18 06:48] LABS: HEMATOCRIT 29.9 % (36.0-47.0); HEMOGLOBIN 10.3 g/dL (12.0-15.5); MEAN CORPUSCULAR HEMOGLOBIN 31.5 pg (27.0-33.4); MEAN CORPUSCULAR HGB CONC 34.4 g/dL (32.0-36.0); MEAN CORPUSCULAR VOLUME 92 fl (80-97); PLATELET COUNT 145 10^3/uL (150-450); RED BLOOD COUNT 3.26 10^6/uL (3.72-5.28); RED CELL DISTRIBUTION WIDTH 14.8 % (11.5-14.0); WHITE BLOOD COUNT 9.2 10^3/uL (4.0-10.5)
[2019-11-18 06:53] LABS: BLOOD UREA NITROGEN 21 mg/dL (7-20); CALCIUM 7.8 mg/dL (8.4-10.2)
[2019-11-18 06:56] LABS: GLUCOSE 51 mg/dL (75-110)
[2019-11-18 06:59] LABS: CARBON DIOXIDE 35 mmol/L (22-30); CHLORIDE 99 mmol/L (98-107)
[2019-11-18 07:03] LABS: ANION GAP 3 (5-19)
[2019-11-18] MEDS: PREDNISONE 20 MG TABLET PO SCH (09:33)
[2019-11-18] MEDS: ESCITALOPRAM OXALATE 10 MG TABLET PO SCH (09:33)
[2019-11-18] MEDS: NYSTATIN/DEXAMETH/DIPHEN SUSP 120 ML PO SCH ×4 (09:53→21:34)
[2019-11-18] MEDS: ARIPIPRAZOLE 5 MG TABLET PO SCH (09:53)
[2019-11-18] MEDS: INSULIN GLARGINE,HUM.REC.ANLOG 1,000 UNIT/10 ML VIAL SUBCUT SCH ×2 (09:53→21:33)
[2019-11-18] MEDS: NYSTATIN TOPICAL POWDER 15 GM TP SCH ×2 (09:54→17:17)
--- NOTE | 2019-11-18 16:03 | PDOC PROGRESS REPORT ---
Subjective Progress Note for:: 11/18/19 Subjective:: Overview of clinical course thus far: The patient is a 58-year-old female with a past medical history of oxygen dependent COPD (3lpm and BiPAP at baseline), VALARIE, hypertension, hypothyroidism, and depression who was admitted 10/18/19 with perforated sigmoid diverticulitis with feculent peritonitis who underwent exploratory laparotomy with sigmoid colon resection with colostomy by Dr. Hawkins on 10/18/2019. She did initially require vasopressor therapy; she developed atrial fibrillation with RVR and so was briefly placed on a diltiazem drip. Notably, she is prescribed Cardizem CD at home. She is successfully extubated the following day, 10/19/2019. She is downgraded to the medical floor on 10/21/2019 with care resumed by her PCP, Dr. Gutierrez. Per his note, patient has end-stage COPD and had recently been referred to the lung transplant center at [facility]. Following downgrade to floor, patient had difficulty with her underlying COPD and required near continuous BiPAP. Pulmonology was consulted; per Dr. Dickey's note, she will benefit from AVAPS upon discharge. She did have continued episodes of proximal A. fib; cardiology was consulted. On 10/25/19, the patient tested positive for COVID ( reportedly tested positive at PCPs office which prompted her screening). She returned to the ICU on 10/25/19 and was promptly re-intubated. Notably, patient was placed on Hydroxychloroquine 10/24 - 10/31. She was also placed on IV Azithromycin and Rocephin at this time. Only received 3 days of therapy. She, again, required vasopressor support. Successfully extubated to HFNC on 10/27/19. However, oxygen needs were variable and patient was shortly placed back to BiPAP. She was downgraded to IMCU on 11/01/19 with service transferred to the hospital ist team. ---- The patient was seen on morning rounds. She is currently on her baseline oxygen requirement; she is home O2 dependent at 3lpm w/ BiPAP nightly. She reports fatigue. She admits to nervousness/anxiety regarding discussions about her pending discharged. We discussed that she is now in the convalescent/recovery phase of her illness. We are no longer managing acute issues and her remaining care would be appropriately provided either at home with excellent family and home health support or at SNF for continued nursing and physical therapy rehabilitation. We discussed that this would include wound care, colostomy care and teaching, and continued physical therapy. Patient became slightly tearful; strongly desires to go home, but admits that this is likely too much to ask of her family at this time. She does tell me that she will discuss with her son her recommendations that she go to SNF for short-term rehab prior to returning home. She denies fever/chills, chest pain, palpitations, abdominal pain, and nausea. Reports good appetite appetite looking forward to speech evaluation so that her diet may be advanced. She has no other questions or concerns at this time. No concerns per nursing. Reason For Visit: ACUTE HYPERCARBIC RESPIRATORY FAILURE,NEED FOR INT Physical Exam Vital Signs: Temp Pulse Resp BP Pulse Ox 98.0 F 62 19 133/68 H 92 11/18/19 11:50 11/18/19 14:00 11/18/19 11:50 11/18/19 11:50 11/18/19 11:50 Intake & Output 11/17/19 11/18/19 11/19/19 06:59 06:59 06:59 Intake Total 1144 1000 250 Output Total 1285 800 300 Balance -141 200 -50 Weight 67.1 kg 67 kg 67 kg General appearance: PRESENT: no acute distress, cooperative, well-developed, well-nourished, other - Chronically ill-appearing Head exam: PRESENT: atraumatic, normocephalic Eye exam: PRESENT: conjunctiva pink, EOMI, PERRLA. ABSENT: scleral icterus Mouth exam: PRESENT: moist, tongue midline, other - Dry cracked lips; improved Respiratory exam: PRESENT: clear to auscultation christina, symmetrical, unlabored, other - Baseline supplemental oxygen. ABSENT: rales, rhonchi, wheezes Cardiovascular exam: PRESENT: RRR. ABSENT: diastolic murmur, rubs, systolic murmur Pulses: PRESENT: normal dorsalis pedis pul Vascular exam: PRESENT: normal capillary refill GI/Abdominal exam: PRESENT: normal bowel sounds, soft, tenderness - Midline inci sional tenderness, other - Ostomy with liquid brown stool. ABSENT: distended, guarding, mass, organolmegaly, rebound Rectal exam: PRESENT: deferred Extremities exam: PRESENT: full ROM. ABSENT: calf tenderness, clubbing, pedal edema Neurological exam: PRESENT: alert, awake, oriented to person, oriented to place, oriented to time, oriented to situation, CN II-XII grossly intact. ABSENT: motor sensory deficit Psychiatric exam: PRESENT: anxious, appropriate affect, normal mood. ABSENT: homicidal ideation, suicidal ideation Skin exam: PRESENT: dry, warm, other - Scattered ecchymosis. Dehiscence to abdominal incision is slightly increased as compared to 2 weeks ago (a pproximately 3 cm) long by 2 cm wide; no erythema or drainage present. ABSENT: cyanosis, rash Results Laboratory Results: 11/18/19 06:05 11/18/19 06:05 11/18/19 11/18/19 06:05 06:05 WBC 9.2 RBC 3.26 L Hgb 10.3 L Hct 29.9 L MCV 92 MCH 31.5 MCHC 34.4 RDW 14.8 H Plt Count 145 L Sodium 136.7 L Potassium 4.0 Chloride 99 Carbon Dioxide 35 H Anion Gap 3 L BUN 21 H Creatinine 0.86 Est GFR ( Amer) > 60 Glucose 51 L Calcium 7.8 L 10/18/19 10/29/19 00:24 06:30 Creatine Kinase 78 Troponin I 0.012 Impressions: Abdomen/Pelvis CT 10/17/19 23:59 IMPRESSION: 1. 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 Urgent finding reported to Olu SILVEIRA at 10/18/2019 1:55 AM CDT This exam was performed according to our departmental dose-optimization program, which includes automated exposure control, adjustment of the mA and/or kV according to patient size and/or use of iterative reconstruction technique. Chest/Abdomen CTA 10/23/19 00:00 IMPRESSION: 1. Limited examination due to contrast bolus timing with no contrast present within pulmonary arteries. As such no evaluation for pulmonary embolus is possible. 2. Moderate right-sided pleural effusion with some loculation and small left- sided pleural effusion with some loculation. 3. Severe emphysematous changes. Venous Doppler Study 10/26/19 00:00 IMPRESSION: NO EVIDENCE DVT OR SVT IN THE RIGHT ARM. KUB X-Ray 10/28/19 08:57 IMPRESSION: Enteric tube terminates subdiaphragmatically with the proximal port at the level of the gastroesophageal junction. Consider advancing 5 to 6 cm. Gas within mildly prominent loops of bowel likely on the basis of ileus. No evidence of high-grade obstruction. Increased interstitial markings at the lung bases as seen on recent chest radiograph. Chest X-Ray 11/10/19 00:00 IMPRESSION: 1. Patchy bibasilar opacities and small bilateral effusions, right greater than left, mildly increased from prior. 2. Nasoenteric side port at GE junction. Consider advancing 5 to 10 cm. Assessment and Plan - Diagnosis (1) Pneumonia due to COVID-19 virus Is this a current diagnosis for this admission?: Yes Plan: 10/25/2019 COVID-19 positive. Repeat COVID-19 11/10/2019 positive. WBC WNL. Afebrile. Now maintaining saturations on her baseline oxygen requirement. Completed IV azithromycin x5 days; previously only received 3 doses early in course. Completed a course of hydroxychloroquine. Continue telemetry, continue nebs, supplemental oxygen, incentive spirometry and pulmonary toileting. Continue p.o. prednisone 40 mg daily, taper by 5 mg q. weekly as patient has been on high-dose steroids for more than 2 weeks. Changed to prednisone 40 mg daily on 11/15/2019. Next dose decrease 11/22/19. Continue vitamin C, vitamin D, zinc, melatonin supplementation. Encouraged position changing. Discussed with infection control; no indications for routine repeat COVID testing to determine clearance. Defer to [facility]. Otherwise, recommend the patient begin 14-day quarantine once symptoms have resolved. (2) Acute and chronic respiratory failure ([id number]) Qualifiers: Respiratory failure complication: hypoxia and hypercapnia Qualified Code(s): J96.21 - Acute and chronic respiratory failure with hypoxia; J96.22 - Acute and chronic respiratory failure with hypercapnia Is this a current diagnosis for this admission?: Yes Plan: Acute exacerbation has resolved. Patient is now maintaining saturations on her baseline oxygen and BiPAP requirements relating to her chronic respiratory failure Secondary to #1 in the setting of COPD. Management as above. (3) Grief Is this a current diagnosis for this admission?: Yes Plan: The patient's 11/06/19 of COVID19 respiratory failure. Patient witnessed ACLS attempts. Encouraged to talk with family/staff as needed. Have arranged for family member to visit. Continue home dose Lexapro and Abilify. Supportive care. (4) DANII (acute kidney injury) Is this a current diagnosis for this admission?: Yes Plan: Resolved. Likely due to sepsis and acute illness Avoid nephrotoxic medications as able. Encourage p.o. fluids; adequate intake. Discontinue IV fluids Monitor strict I&Os Follow-up chemistry (5) COPD (chronic obstructive pulmonary disease) Qualifiers: COPD type: emphysema Emphysema type: centrilobular Qualified Code(s): J43.2 - Centrilobular emphysema Is this a current diagnosis for this admission?: Yes Plan: Patient is home O2 dependent at 3 L/min. Plan as per #1. (6) Lymphocytosis Is this a current diagnosis for this admission?: Yes Plan: Resolved. WBC WNL. (7) Atrial fibrillation with rapid ventricular response Is this a current diagnosis for this admission?: Yes Plan: Resolved. Off diltiazem gtt. Has been gradually weaned off of diltiazem; remains in normal sinus rhythm. Monitor on telemetry. (8) Swelling of right upper extremity Is this a current diagnosis for this admission?: Yes Plan: Resolved. Ultrasound right upper extremity (10/25) was negative for DVT. Likely related to peripheral IV infiltration with aggressive IV fluids through that extremity. Patient complains of persistent weakness have asked OT to evaluate. 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 (10) Hypoalbuminemia Is this a current diagnosis for this admission?: Yes Plan: Remains low; 2.5. Now tolerating oral nutrition. Registered dietitian is consulted. (11) Hyperglycemia Is this a current diagnosis for this admission?: Yes Plan: A1C 5.3% Blood sugars have been persistently elevated. Likely secondary to steroids. Decrease Lantus Continue sliding scale insulin. (12) Anasarca Is this a current diagnosis for this admission?: Yes Plan: Resolved. Secondary to hypoalbuminemia. Secondary to prolonged critical illness and poor nutrition. Was given multiple doses of albumin. Continue daily weights. Strict I&O's. (13) Sepsis with acute respiratory failure and septic shock Qualifiers: Sepsis type: sepsis due to unspecified organism Is this a current diagnosis for this admission?: Yes Plan: Resolved. Due to COVID-19 Blood cultures negative Bronchial culture grew Shannan, normal tabitha (14) Peritonitis, acute generalized Is this a current diagnosis for this admission?: Yes Plan: Resolved. Secondary to perforated diverticulum with feculent peritonitis. Received a complete course of IV antibiotics. (15) Perforation of sigmoid colon due to diverticulitis Is this a current diagnosis for this admission?: Yes Plan: s/p Pina procedure unfortunately complicated with wound dehiscence however ostomy is still patent. Patient tolerating p.o. intake. As per patient's request surgery was reconsulted and Dr. Barney has kindly reevaluated patient's ostomy; as per his note, patient's colostomy has sloughed necrotic mucosa, revealing a robust, pink, functional fresh mucosal surface. Recommendation is continued wound care and conservative management. Continue oral feeds, advance as tolerated, continue wound care, monitor in and out. Discussed with surgery; patient should not lift heavy objects, otherwise, no mobility restrictions. Follow-up in the surgical clinic 10 to 14 days following discharge. (16) Diverticulitis Is this a current diagnosis for this admission?: Yes Plan: General surgery consulted: Status post Delgado's procedure unfortunately complicated. Ostomy patent. Completed course of IV antibiotics. WBC WNL. Afebrile. Denies any abdominal pain. Plan as above. (17) Debility Is this a current diagnosis for this admission?: Yes Plan: Patient was adamant that she be discharged home with home health services. Christ conversation had with her today regarding her ADL/hygiene needs at home. We discussed that her family members would have to be directly involved in providing for her meals, hygiene, wound and ostomy care. She was advised that we recommended that she had somebody present 24/ until her mobility improved for safety reasons. The patient expressed understanding and stated that she wished to continue with plan to discharge to home. Shortly later, patient, family, and discharge planning discussed her needs and jointly decided the patient would benefit from SNF for short-term rehab. Discharge planning is consulted and has sent referral. Patient remains stable for discharge to either home with extensive services or to SNF for rehab. Continue PT/OT/ST. - Time Time Spent with patient: 35 or more minutes Medications reviewed and adjusted accordingly: Yes Anticipated discharge: SNF Within: when bed available
[2019-11-18] MEDS: MELATONIN 3 MG TABLET PO SCH (21:31)
[2019-11-19] MEDS: LEVOTHYROXINE SODIUM 0.1 MG TABLET PO SCH (05:09)
[2019-11-19] MEDS: HEPARIN SOD (PORCINE) 5,000 UNIT/ML 1 ML VIAL SUBCUT SCH ×2 (05:10→13:23)
[2019-11-19] MEDS: OXYCODONE-ACETAMINOPHEN 5-325 MG TABLET PO PRN ×2 (05:49→15:54)
[2019-11-19] MEDS: IPRATROPIUM/ALBUTEROL 0.5-2.5 MG/3 ML AMPUL NEB SCH ×2 (08:05→19:42)
[2019-11-19] MEDS: INSULIN REG, HUMAN 100 UNIT/ML 3 ML VIAL (PYX) SUBCUT SCH ×3 (09:30→16:15)
[2019-11-19] MEDS: INSULIN GLARGINE,HUM.REC.ANLOG 1,000 UNIT/10 ML VIAL SUBCUT SCH (09:31)
[2019-11-19] MEDS: ARIPIPRAZOLE 5 MG TABLET PO SCH (10:01)
[2019-11-19] MEDS: PREDNISONE 20 MG TABLET PO SCH (10:01)
[2019-11-19] MEDS: ESCITALOPRAM OXALATE 10 MG TABLET PO SCH (10:01)
[2019-11-19] MEDS: NYSTATIN/DEXAMETH/DIPHEN SUSP 120 ML PO SCH ×3 (10:01→17:16)
[2019-11-19] MEDS: NYSTATIN TOPICAL POWDER 15 GM TP SCH ×2 (10:02→17:16)
--- NOTE | 2019-11-19 13:30 | PDOC PROGRESS REPORT ---
Subjective Progress Note for:: 11/19/19 Subjective:: Overview of clinical course thus far: The patient is a 58-year-old female with a past medical history of oxygen dependent COPD (3lpm and BiPAP at baseline), VALARIE, hypertension, hypothyroidism, and depression who was admitted 10/18/19 with perforated sigmoid diverticulitis with feculent peritonitis who underwent exploratory laparotomy with sigmoid colon resection with colostomy by Dr. Hawkins on 10/18/2019. She did initially require vasopressor therapy; she developed atrial fibrillation with RVR and so was briefly placed on a diltiazem drip. Notably, she is prescribed Cardizem CD at home. She is successfully extubated the following day, 10/19/2019. She is downgraded to the medical floor on 10/21/2019 with care resumed by her PCP, Dr. Gutierrez. Per his note, patient has end-stage COPD and had recently been referred to the lung transplant center at [facility]. Following downgrade to floor, patient had difficulty with her underlying COPD and required near continuous BiPAP. Pulmonology was consulted; per Dr. Dickey's note, she will benefit from AVAPS upon discharge. She did have continued episodes of proximal A. fib; cardiology was consulted. On 10/25/19, the patient tested positive for COVID ( reportedly tested positive at PCPs office which prompted her screening). She returned to the ICU on 10/25/19 and was promptly re-intubated. Notably, patient was placed on Hydroxychloroquine 10/24 - 10/31. She was also placed on IV Azithromycin and Rocephin at this time. Only received 3 days of therapy. She, again, required vasopressor support. Successfully extubated to HFNC on 10/27/19. However, oxygen needs were variable and patient was shortly placed back to BiPAP. She was downgraded to IMCU on 11/01/19 with service transferred to the hospital ist team. ---- The patient was seen on afternoon rounds. She is currently on her baseline oxygen requirement; she is home O2 dependent at 3lpm w/ BiPAP nightly. She reports fatigue. Otherwise, she has no new complaints. She is pleased that her diet was advanced she is now having "real food." She denies fever/chills, chest pain, palpitations, dyspnea, orthopnea, cough, abdominal pain, and nausea. She has no other questions or concerns at this time. No concerns per nursing. Reason For Visit: ACUTE HYPERCARBIC RESPIRATORY FAILURE,NEED FOR INT Physical Exam Vital Signs: Temp Pulse Resp BP Pulse Ox 97.7 F 71 18 134/68 H 95 11/19/19 10:51 11/19/19 10:51 11/19/19 10:51 11/19/19 10:51 11/19/19 10:51 Intake & Output 11/18/19 11/19/19 11/20/19 06:59 06:59 06:59 Intake Total 1000 1615 460 Output Total 800 1100 Balance 200 515 460 Weight 67 kg 67 kg General appearance: PRESENT: no acute distress, cooperative, well-developed, well-nourished - Overweight, other - Chronically ill-appearing Head exam: PRESENT: atraumatic, normocephalic Eye exam: PRESENT: conjunctiva pink, EOMI, PERRLA. ABSENT: scleral icterus Mouth exam: PRESENT: moist, tongue midline, other - Direct, cracked, lips; improved Respiratory exam: PRESENT: clear to auscultation christina, symmetrical, unlabored, other - Baseline oxygen requirement. ABSENT: rales, rhonchi, wheezes Cardiovascular exam: PRESENT: RRR. ABSENT: diastolic murmur, rubs, systolic murmur Pulses: PRESENT: normal dorsalis pedis pul Vascular exam: PRESENT: normal capillary refill GI/Abdominal exam: PRESENT: normal bowel sounds, soft, other - Ostomy; midline incision with ~3 cm dehiscence at the inferior aspect (evidence of healing; no surrounding erythema or drainage). ABSENT: distended, guarding, mass, organolmegaly, rebound, tenderness Rectal exam: PRESENT: deferred Extremities exam: PRESENT: full ROM. ABSENT: calf tenderness, clubbing, pedal edema Neurological exam: PRESENT: alert, awake, oriented to person, oriented to place, oriented to time, oriented to situation, CN II-XII grossly intact. ABSENT: motor sensory deficit Psychiatric exam: PRESENT: flat affect, normal mood. ABSENT: homicidal ideation, suicidal ideation Skin exam: PRESENT: dry, intact, warm. ABSENT: cyanosis, rash Results Laboratory Results: 11/18/19 06:05 11/18/19 06:05 10/18/19 10/29/19 00:24 06:30 Creatine Kinase 78 Troponin I 0.012 Impressions: Abdomen/Pelvis CT 10/17/19 23:59 IMPRESSION: 1. 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 Urgent finding reported to Olu SILVEIRA at 10/18/2019 1:55 AM CDT This exam was performed according to our departmental dose-optimization program, which includes automated exposure control, adjustment of the mA and/or kV according to patient size and/or use of iterative reconstruction technique. Chest/Abdomen CTA 10/23/19 00:00 IMPRESSION: 1. Limited examination due to contrast bolus timing with no c ontrast present within pulmonary arteries. As such no evaluation for pulmonary embolus is possible. 2. Moderate right-sided pleural effusion with some loculation and small left- sided pleural effusion with some loculation. 3. Severe emphysematous changes. Venous Doppler Study 10/26/19 00:00 IMPRESSION: NO EVIDENCE DVT OR SVT IN THE RIGHT ARM. KUB X-Ray 10/28/19 08:57 IMPRESSION: Enteric tube terminates subdiaphragmatically with the proximal port at the level of the gastroesophageal junction. Consider advancing 5 to 6 cm. Gas within mildly prominent loops of bowel likely on the basis of ileus. No evidence of high-grade obstruction. Increased interstitial markings at the lung bases as seen on recent chest radiograph. Chest X-Ray 11/10/19 00:00 IMPRESSION: 1. Patchy bibasilar opacities and small bilateral effusions, right greater than left, mildly increased from prior. 2. Nasoenteric side port at GE junction. Consider advancing 5 to 10 cm. Assessment and Plan - Diagnosis (1) Pneumonia due to COVID-19 virus Is this a current diagnosis for this admission?: Yes Plan: 6 significantly improved; WBC WNL. Afebrile. Now maintaining saturations on her baseline oxygen requirement. 10/25/2019 COVID-19 positive. Repeat COVID-19 11/10/2019 positive. Completed IV azithromycin x5 days; previously only received 3 doses early in course. Completed a course of hydroxychloroquine. Continue p.o. prednisone 40 mg daily, taper by 5 mg q. weekly as patient has been on high-dose steroids for more than 2 weeks. Changed to prednisone 40 mg daily on 11/15/2019. Next dose decrease 11/22/19. Continue vitamin C, vitamin D, zinc, melatonin supplementation. Encouraged position changing. Discussed with infection control; no indications for routine repeat COVID testing to determine clearance. Defer to [facility] department. Otherwise, recommend the patient begin 14-day quarantine once symptoms have resolved. (2) Acute and chronic respiratory failure ([id number]) Qualifiers: Respiratory failure complication: hypoxia and hypercapnia Qualified Code(s): J96.21 - Acute and chronic respiratory failure with hypoxia; J96.22 - Acute and chronic respiratory failure with hypercapnia Is this a current diagnosis for this admission?: Yes Plan: Acute exacerbation has resolved. Patient is now maintaining saturations on her baseline oxygen and BiPAP requ irements relating to her chronic respiratory failure Secondary to #1 in the setting of COPD. Management as above. (3) Grief Is this a current diagnosis for this admission?: Yes Plan: The patient's 11/06/19 of COVID19 respiratory failure. Patient witnessed ACLS attempts. Encouraged to talk with family/staff as needed. Have arranged for family member to visit. Continue home dose Lexapro and Abilify. Supportive care. (4) DANII (acute kidney injury) Is this a current diagnosis for this admission?: Yes Plan: Resolved. Likely due to sepsis and acute illness Avoid nephrotoxic medications as able. Encourage p.o. fluids; adequate intake. Discontinue IV fluids Monitor strict I&Os Follow-up chemistry (5) COPD (chronic obstructive pulmonary disease) Qualifiers: COPD type: emphysema Emphysema type: centrilobular Qualified Code(s): J43.2 - Centrilobular emphysema Is this a current diagnosis for this admission?: Yes Plan: Patient is home O2 dependent at 3 L/min. Plan as per #1. (6) Lymphocytosis Is this a current diagnosis for this admission?: Yes Plan: Resolved. WBC WNL. (7) Atrial fibrillation with rapid ventricular response Is this a current diagnosis for this admission?: Yes Plan: Resolved. Off diltiazem gtt. Has been gradually weaned off of diltiazem; remains in normal sinus rhythm. Monitor on telemetry. (8) Swelling of right upper extremity Is this a current diagnosis for this admission?: Yes Plan: Resolved. Ultrasound right upper extremity (10/25) was negative for DVT. Likely related to peripheral IV infiltration with aggressive IV fluids through that extremity. Patient complains of persistent weakness have asked OT to evaluate. 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 (10) Hypoalbuminemia Is this a current diagnosis for this admission?: Yes Plan: Remains low; 2.5. Now tolerating oral nutrition. Registered dietitian is consulted. (11) Hyperglycemia Is this a current diagnosis for this admission?: Yes Plan: A1C 5.3% Blood sugars have been persistently elevated. Likely secondary to steroids. Discontinue lantus. Continue sliding scale insulin. (12) Anasarca Is this a current diagnosis for this admission?: Yes Plan: Resolved. Secondary to hypoalbuminemia. Secondary to prolonged critical illness and poor nutrition. Was given multiple doses of albumin. Continue daily weights. Strict I&O's. (13) Sepsis with acute respiratory failure and septic shock Qualifiers: Sepsis type: sepsis due to unspecified organism Is this a current diagnosis for this admission?: Yes Plan: Resolved. Due to COVID-19 Blood cultures negative Bronchial culture grew Shannan, normal tabitha (14) Peritonitis, acute generalized Is this a current diagnosis for this admission?: Yes Plan: Resolved. Secondary to perforated diverticulum with feculent peritonitis. Received a complete course of IV antibiotics. (15) Perforation of sigmoid colon due to diverticulitis Is this a current diagnosis for this admission?: Yes Plan: s/p Pina procedure unfortunately complicated with wound dehiscence however ostomy is still patent. Patient tolerating p.o. intake. As per patient's request surgery was reconsulted and Dr. Barney has kindly reevaluated patient's ostomy; as per his note, patient's colostomy has sloughed necrotic mucosa, revealing a robust, pink, functional fresh mucosal surface. Recommendation is continued wound care and conservative management. Continue oral feeds, advance as tolerated, continue wound care, monitor in and out. Discussed with surgery; patient should not lift heavy objects, otherwise, no mobility restrictions. Follow-up in the surgical clinic 10 to 14 days following discharge. (16) Diverticulitis Is this a current diagnosis for this admission?: Yes Plan: General surgery consulted: Status post Delgado's procedure unfortunately complicated. Ostomy patent. Completed course of IV antibiotics. WBC WNL. Afebrile. Denies any abdominal pain. Plan as above. (17) Debility Is this a current diagnosis for this admission?: Yes Plan: Patient was adamant that she be discharged home with home health services. Christ conversation had with her today regarding her ADL/hygiene needs at home. We discussed that her family members would have to be directly involved in providing for her meals, hygiene, wound and ostomy care. She was advised that we recommended that she had somebody present 24/ until her mobility improved for safety reasons. The patient expressed understanding and stated that she wished to continue with plan to discharge to home. Shortly later, patient, family, and discharge planning discussed her needs and jointly decided the patient would benefit from SNF for short-term rehab. Discharge planning is consulted and has sent referral. Patient remains stable for discharge to either home with extensive services or to SNF for rehab. Continue PT/OT/ST. - Time Time Spent with patient: 25-34 minutes Medications reviewed and adjusted accordingly: Yes Anticipated discharge: Home with Homehealth - vs SNF Within: Other - Disposition per patient/family and discharge planning. Medically stable for discharge to SNF or Home with home services.
--- NOTE | 2019-11-19 17:24 | PDOC TRANSFER SUMMARY ---
Impression - Admit/DC Date/PCP Admission Date/Primary Care Provider: 10/18/19 04:32 NO LOCALMD Discharge Date: 11/19/19 - Discharge Diagnosis (1) Pneumonia due to COVID-19 virus Is this a current diagnosis for this admission?: Yes (2) Acute and chronic respiratory failure ([id number]) Is this a current diagnosis for this admission?: Yes (3) Grief Is this a current diagnosis for this admission?: Yes (4) DANII (acute kidney injury) Is this a current diagnosis for this admission?: Yes (5) COPD (chronic obstructive pulmonary disease) Is this a current diagnosis for this admission?: Yes (6) Lymphocytosis Is this a current diagnosis for this admission?: Yes (7) Atrial fibrillation with rapid ventricular response Is this a current diagnosis for this admission?: Yes (8) Swelling of right upper extremity Is this a current diagnosis for this admission?: Yes (9) Hypothyroidism Is this a current diagnosis for this admission?: Yes (10) Hypoalbuminemia Is this a current diagnosis for this admission?: Yes (11) Hyperglycemia Is this a current diagnosis for this admission?: Yes (12) Anasarca Is this a current diagnosis for this admission?: Yes (13) Sepsis with acute respiratory failure and septic shock Is this a current diagnosis for this admission?: Yes (14) Peritonitis, acute generalized Is this a current diagnosis for this admission?: Yes (15) Perforation of sigmoid colon due to diverticulitis Is this a current diagnosis for this admission?: Yes (16) Diverticulitis Is this a current diagnosis for this admission?: Yes (17) Debility Is this a current diagnosis for this admission?: Yes - Additional Information Resuscitation Status: Full Code Discharge Diet: Cardiac, Diabetic Discharge Activity: Activity As Tolerated, Balance Activity w/Rest, Slowly Increase Activity, Supervised Activity Referrals: [facility] [Provider Group] - 11/29/19 8:45 am (Follow-up in 10 to 14 days.) MELLISA BERUMEN DO [NO LOCAL MD] - 11/25/19 8:40 am ( ) Prescriptions: Blood-Glucose Meter [Blood Glucose Meter] 1 unit MC DAILY PRN #1 unit PRN Reason: Blood Sugar Diagnostic [Blood Glucose Test] 1 each MC BID #60 strip Lancets [Blood Lancets] 1 each MC BID #60 each Prednisone [Deltasone 20 mg Tablet] 20 mg PO ASDIR PRN #30 tablet PRN Reason: Insulin Glargine,Hum.rec.anlog [Lantus Insulin 100 Unit/mL Insulin Pen] 6 unit SUBCUT Q12 #10 ml Pen Needle, Diabetic [Pen [place]] 1 each MC BID #60 dis.needle Oxycodone HCl/Acetaminophen [Percocet 5-325 mg Tablet] 1 tab PO Q6HP PRN #20 tablet PRN Reason: Levothyroxine Sodium [Synthroid 0.1 mg Tablet] 0.1 mg PO Q6AM #30 tablet Home Medications: Aripiprazole [Abilify] 5 mg PO DAILY 07/13/18 Budesonide [Pulmicort Neb 0.5 mg/2 ml Ampul] 0.5 mg NEB RTBID 10/18/19 Escitalopram Oxalate [Lexapro 10 mg Tablet] 20 mg PO DAILY 10/18/19 Ipratropium [place] [Atrovent 0.02% Neb 0.5 mg/2.5 ml Ampul] 0.5 mg NEB RTQID 10/18/19 Levalbuterol HCl [Xopenex Neb 1.25 mg/3 ml Ampul] 1.25 mg NEB RTQ8HP PRN 10/18/19 Levothyroxine Sodium [Synthroid 0.1 mg Tablet] 0.1 mg PO QAM 10/18/19 Acetaminophen [Tylenol Soln 325 mg/10.15 ml Udcup] 650 mg NG Q4HP PRN udc 11/18/19 Blood Sugar Diagnostic [Blood Glucose Test] 1 each MC BID #60 strip 11/18/19 Blood-Glucose Meter [Blood Glucose Meter] 1 unit MC DAILY PRN #1 unit 11/18/19 Insulin Glargine,Hum.rec.anlog [Lantus Insulin 100 Unit/mL Insulin Pen] 6 unit SUBCUT Q12 #10 ml 11/18/19 Lancets [Blood Lancets] 1 each MC BID #60 each 11/18/19 Levothyroxine Sodium [Synthroid 0.1 mg Tablet] 0.1 mg PO Q6AM #30 tablet 11/18/19 Oxycodone HCl/Acetaminophen [Percocet 5-325 mg Tablet] 1 tab PO Q6HP PRN #20 tablet 11/18/19 Pen Needle, Diabetic [Pen [place]] 1 each MC BID #60 dis.needle 11/18/19 Prednisone [Deltasone 20 mg Tablet] 20 mg PO ASDIR PRN #30 tablet 11/18/19 History of Present Illiness History of Present Illness: Per H&P by Pedrito Farrell NP: DEBI CHAVEZ is a 58 year old female with medical history of COPD on home oxygen at 2 L nasal cannula. Was recently discharged from [place] with COPD exacerbation on prednisone. Presented to the ED with a 2 day history of increasing abdominal pain. She reported abdominal pain that is sharp,stabbing, and is constant. She rates it 6 out of 10. Her pain is diffuse. It does not radiate. Movement and palpation make it worse. Nothing makes it better. She is on opiates for chronic pain also suffers from chronic constipation. She denies CP, headache orthostasis, nausea, vomiting, fevers, chills, melena, hematochezia, hematemesis, blurry vision, dizziness, orthostas is. CT A/P showed perforated cecal volvulus with dilationof the cecum directed toward the left upper abdomen and free intraperitoneal air and fluid. She was taken to the OR by Dr. Hawkins for exploratory lap. She is status post sigmoid resection with end colostomy. She is admitted to the ICU for further management, she is currently intubated. Hospital Course Hospital Course: Overview of clinical course: The patient is a 58-year-old female with a past medical history of oxygen dependent COPD (3lpm and BiPAP at baseline), VALARIE, hypertension, hypothyroidism, and depression who was admitted 10/18/19 with perforated sigmoid diverticulitis with feculent peritonitis who underwent exploratory laparotomy with sigmoid colon resection with colostomy by Dr. Hawkins on 10/18/2019. She did initially require vasopressor therapy; she developed atrial fibrillation with RVR and so was briefly placed on a diltiazem drip. Notably, she is prescribed Cardizem CD at home. She is successfully extubated the following day, 10/19/2019. She is downgraded to the medical floor on 10/21/2019 with care resumed by her PCP, Dr. Gutierrez. Per his note, patient has end-stage COPD and had recently been referred to the lung transplant center at [facility]. Following downgrade to floor, patient had difficulty with her underlying COPD and required near continuous BiPAP. Pulmonology was consulted; per Dr. Dickey's note, she will benefit from AVAPS upon discharge. She did have continued episodes of proximal A. fib; cardiology was consulted. On 10/25/19, the patient tested positive for COVID ( reportedly tested positive at PCPs office which prompted her screening). She returned to the ICU on 10/25/19 and was promptly re-intubated. Notably, patient was placed on Hydroxychloroquine 10/24 - 10/31. She was also placed on IV Azithromycin and Rocephin at this time. Only received 3 days of therapy. She, again, required vasopressor support. Successfully extubated to HFNC on 10/27/19. However, oxygen needs were variable and patient was shortly placed back to BiPAP. She was downgraded to IMCU on 11/01/19 with service transferred to the hospitalist team. Has returned to her baseline respiratory status (11/16) and is now medically stable for discharge. ---- (1) Pneumonia due to COVID-19 virus Resolved; WBC WNL. Afebrile. Now maintaining saturations on her baseline oxygen requirement. 10/25/2019 COVID-19 positive. Repeat COVID-19 11/10/2019 positive. Completed IV azithromycin x5 days; previously only received 3 doses early in course. Completed a course of hydroxychloroquine. Continue p.o. prednisone 40 mg daily, taper by 5 mg q. weekly as patient has been on high-dose steroids for more than 2 weeks. Changed to prednisone 40 mg daily on 11/15/2019. Next dose decrease 11/22/19. Continue vitamin C, vitamin D, zinc, melatonin supplementation. (2) Acute and chronic respiratory failure ([id number]) Acute exacerbation has resolved. Patient is now maintaining saturations on her baseline oxygen and BiPAP requirements relating to her chronic respiratory failure Secondary to #1 in the setting of COPD. Management as above. (3) Grief The patient's 11/06/19 of COVID19 respiratory failure. Patient witnessed ACLS attempts. Encouraged to talk with family/staff as needed. Have arranged for family member to visit. Continue home dose Lexapro and Abilify. Supportive care. (4) DANII (acute kidney injury) Resolved. Due to sepsis and acute illness Avoid nephrotoxic medications as able. Encourage p.o. fluids; adequate intake. (5) COPD (chronic obstructive pulmonary disease) Patient is home O2 dependent at 3 L/min. Plan as per #1. (6) Lymphocytosis Resolved. (7) Atrial fibrillation with rapid ventricular response Resolved; now in NSR. Paroxysmal atrial fibrillation secondary to acute illness with respiratory component. Off diltiazem gtt. Has been gradually weaned off of diltiazem; remains in normal sinus rhythm. (8) Swelling of right upper extremity Resolved. Ultrasound right upper extremity (10/25) was negative for DVT. Likely related to peripheral IV infiltration with aggressive IV fluids through that extremity. Patient complains of persistent weakness; recommend continued PT/OT (9) Hypothyroidism Continue home dose levothyroxine. (10) Hypoalbuminemia Remains low; 2.5. Now tolerating oral nutrition. Should improve as patient's diet is advanced and p.o. intake increases. (11) Hyperglycemia A1C 5.3% Blood sugars have been persistently elevated secondary to steroids. Have discontinue lantus. Continue sliding scale insulin. (12) Anasarca Resolved. Secondary to hypoalbuminemia related to prolonged critical illness and poor nutrition. (13) Sepsis with acute respiratory failure and septic shock Resolved. Due to COVID-19 (14) Peritonitis, acute generalized Resolved. Secondary to perforated diverticulum with feculent peritonitis. Received a complete course of IV antibiotics. (15) Perforation of sigmoid colon due to diverticulitis s/p Pina procedure unfortunately complicated with wound dehiscence however ostomy is still patent. Patient tolerating p.o. intake. Recommendation is continued wound care of abdominal incision (nonstick dressing) and standard ostomy care. Discussed with surgery; patient should not lift heavy objects, otherwise, no mobility restrictions. Follow-up in the surgical clinic 10 to 14 days following discharge. (16) Diverticulitis General surgery consulted: Status post Delgado's procedure unfortunately complicated. Ostomy patent. Completed course of IV antibiotics. WBC WNL. Afebrile. Denies any abdominal pain. Plan as above. (17) Debility Secondary to prolonged acute illness. Continue PT/OT/ST. Physical Exam Vital Signs: Temp Pulse Resp BP Pulse Ox 97.5 F 72 17 130/55 H 94 11/19/19 15:47 11/19/19 15:47 07/17/20 15:47 11/19/19 15:47 11/19/19 15:47 Intake & Output 11/18/19 11/19/19 11/20/19 06:59 06:59 06:59 Intake Total 1000 1615 460 Output Total 800 1100 Balance 200 515 460 Weight 67 kg 67 kg General appearance: PRESENT: no acute distress, well-developed, well-nourished Head exam: PRESENT: atraumatic, normocephalic Eye exam: PRESENT: conjunctiva pink, EOMI, PERRLA. ABSENT: scleral icterus Ear exam: PRESENT: normal external ear exam Mouth exam: PRESENT: moist, tongue midline Neck exam: ABSENT: carotid bruit, JVD, lymphadenopathy, thyromegaly Respiratory exam: PRESENT: clear to auscultation christina. ABSENT: rales, rhonchi, wheezes Cardiovascular exam: PRESENT: RRR. ABSENT: diastolic murmur, rubs, systolic murmur Pulses: PRESENT: normal dorsalis pedis pul Vascular exam: PRESENT: normal capillary refill GI/Abdominal exam: PRESENT: normal bowel sounds, soft. ABSENT: distended, guarding, mass, organolmegaly, rebound, tenderness Rectal exam: PRESENT: deferred Extremities exam: PRESENT: full ROM. ABSENT: calf tenderness, clubbing, pedal edema Neurological exam: PRESENT: alert, awake, oriented to person, oriented to place, oriented to time, oriented to situation, CN II-XII grossly intact. ABSENT: motor sensory deficit Psychiatric exam: PRESENT: appropriate affect, normal mood. ABSENT: homicidal ideation, suicidal ideation Skin exam: PRESENT: dry, intact, warm. ABSENT: cyanosis, rash Results Laboratory Results: WBC 9.2 10^3/uL (4.0-10.5) 11/18/19 06:05 RBC 3.26 10^6/uL (3.72-5.28) L 11/18/19 06:05 Hgb 10.3 g/dL (12.0-15.5) L 11/18/19 06:05 Hct 29.9 % (36.0-47.0) L 11/18/19 06:05 MCV 92 fl (80-97) 11/18/19 06:05 MCH 31.5 pg (27.0-33.4) 11/18/19 06:05 MCHC 34.4 g/dL (32.0-36.0) 11/18/19 06:05 RDW 14.8 % (11.5-14.0) H 11/18/19 06:05 Plt Count 145 10^3/uL (150-450) L 11/18/19 06:05 Lymph % (Auto) Not Reportable 11/10/19 05:51 [place] % (Auto) Not Reportable 11/10/19 05:51 Eos % (Auto) Not Reportable 11/10/19 05:51 Baso % (Auto) Not Reportable 11/10/19 05:51 Reticulocyte # 0.083 10^6/uL (0.028-0.122) 10/29/19 06:30 Absolute Neuts (auto) Not Reportable 11/10/19 05:51 Absolute Lymphs (auto) Not Reportable 11/10/19 05:51 Absolute Monos (auto) Not Reportable 11/10/19 05:51 Absolute Eos (auto) Not Reportable 11/10/19 05:51 Absolute Basos (auto) Not Reportable 11/10/19 05:51 Total Counted 100 11/10/19 05:51 Seg Neutrophils % Not Reportable 11/10/19 05:51 Seg Neuts % (Manual) 92 % (42-78) H 11/10/19 05:51 Band Neutrophils % 1 % (3-5) L 11/10/19 05:51 Lymphocytes % (Manual) 2 % (13-45) L 11/10/19 05:51 Atypical Lymphs % Cancelled 10/29/19 06:30 Monocytes % (Manual) 5 % (3-13) 11/10/19 05:51 Eosinophils % (Manual) 0 % (0-6) 11/10/19 05:51 Basophils % (Manual) 0 % (0-2) 11/10/19 05:51 Metamyelocytes % Cancelled 10/29/19 06:30 Myelocytes % Cancelled 10/29/19 06:30 Promyelocytes % Cancelled 10/29/19 06:30 Immature Leukocytes % Cancelled 10/29/19 06:30 Abs Neuts (Manual) 19.8 10^3/uL (1.7-8.2) H 11/10/19 05:51 Abs Lymphs (Manual) 0.4 10^3/uL (0.5-4.7) L 11/10/19 05:51 Abs Monocytes (Manual) 1.1 10^3/uL (0.1-1.4) 11/10/19 05:51 Absolute Eos (Manual) 0.0 10^3/uL (0.0-0.6) 11/10/19 05:51 Abs Basophils (Manual) 0.0 10^3/uL (0.0-0.2) 11/10/19 05:51 Nucleated RBCs Cancelled 10/29/19 06:30 Differential Comment Cancelled 10/29/19 06:30 Hypersegmented Neuts PRESENT 11/07/19 05:30 Smudge Cells Cancelled 10/29/19 06:30 Toxic Granulation 1+ 11/09/19 05:16 Toxic Vacuolation PRESENT 11/05/19 11:30 Dohle Bodies Cancelled 10/29/19 06:30 Abigail Rods Cancelled 10/29/19 06:30 WBC Morphology Comment Cancelled 10/29/19 06:30 Platelet Estimate Cancelled 10/29/19 06:30 Platelet Estimate Cancelled 10/29/19 06:30 Clumped Platelets PRESENT 11/03/19 06:00 Large Platelets PRESENT 11/10/19 05:51 Giant Platelets Cancelled 10/29/19 06:30 Platelet Comment ADEQUATE 11/10/19 05:51 Polychromasia SLIGHT 10/29/19 06:30 Hypochromasia Cancelled 10/29/19 06:30 Poikilocytosis SLIGHT 11/10/19 05:51 Basophilic Stippling PRESENT 11/10/19 05:51 Anisocytosis SLIGHT 11/10/19 05:51 Microcytosis Cancelled 10/29/19 06:30 Macrocytosis Cancelled 10/29/19 06:30 Spherocytes Cancelled 10/29/19 06:30 Pappenheimer Bodies Cancelled 10/29/19 06:30 Sickle Cells Cancelled 10/29/19 06:30 Target Cells Cancelled 10/29/19 06:30 Tear Drop Cells SLIGHT 11/10/19 05:51 Ovalocytes SLIGHT 11/10/19 05:51 Stomatocytes Cancelled 10/29/19 06:30 Helmet Cells Cancelled 06/26/20 06:30 Sanderson-Minor Bodies Cancelled 10/29/19 06:30 Quan Cells Cancelled 10/29/19 06:30 Acanthocytes (Spur) Cancelled 10/29/19 06:30 Rouleaux Cancelled 10/29/19 06:30 Schistocytes Cancelled 10/29/19 06:30 RBC Morph Comment NORMO-CYTIC/CHROMIC 11/07/19 05:30 Retic Count (auto) 1.90 % (0.66-2.85) 10/29/19 06:30 Haptoglobin 172 mg/dL (33-346) 10/29/19 06:30 G6PD 489 (146-376) H 10/29/19 06:30 RBC G6PD 4.38 x10E6/uL (3.77-5.28) 10/29/19 06:30 PT 14.1 SEC (11.4-15.4) 10/29/19 06:30 INR 1.09 10/29/19 06:30 APTT 25.2 SEC (23.5-35.8) 10/29/19 06:30 Fibrinogen 193 mg/dL (209-497) L 10/29/19 06:30 D-Dimer 3.50 ug/mL (0.00-0.50) H 11/07/19 05:30 Carbonic Acid 1.86 mmol/L (1.05-1.35) H 11/10/19 13:27 HCO3/H2CO3 Ratio 16:1 11/10/19 13:27 ABG pH 7.32 (7.35-7.45) L 11/10/19 13:27 ABG pCO2 61.8 mmHg (35-45) H 11/10/19 13:27 ABG pO2 76.1 mmHg (80-100) L 11/10/19 13:27 ABG HCO3 31.1 mmol/L (20-24) H 11/10/19 13:27 ABG Total CO2 33.0 mmol/L (21-25) H 11/10/19 13:27 ABG O2 Saturation 93.8 % (94-98) L 11/10/19 13:27 ABG Base Excess 3.4 mmol/L 11/10/19 13:27 VBG pH 7.38 (7.30-7.42) 10/27/19 08:55 VBG pCO2 42.9 mmHg (35-63) 10/27/19 08:55 VBG HCO3 24.7 mmol/L (20-32) 10/27/19 08:55 VBG Base Excess -0.5 mmol/L 10/27/19 08:55 FiO2 5L 11/10/19 13:27 Sodium 136.7 mmol/L (137-145) L 11/18/19 06:05 Potassium 4.0 mmol/L (3.6-5.0) 11/18/19 06:05 Chloride 99 mmol/L (98-107) 11/18/19 06:05 Carbon Dioxide 35 mmol/L (22-30) H 11/18/19 06:05 Anion Gap 3 (5-19) L 11/18/19 06:05 BUN 21 mg/dL (7-20) H 11/18/19 06:05 Creatinine 0.86 mg/dL (0.52-1.25) 11/18/19 06:05 Est GFR ( Amer) > 60 (>60) 11/18/19 06:05 Est GFR (Non-Af Amer) Cancelled 10/20/19 04:30 Est GFR (MDRD) Non-Af > 60 (>60) 11/18/19 06:05 Glucose 51 mg/dL (75-110) L 11/18/19 06:05 POC Glucose 139 mg/dL (70-110) H 11/19/19 15:49 Hemoglobin A1c % 5.3 % (4.7-6.0) 11/07/19 05:30 Lactic Acid 0.8 mmol/L (0.7-2.1) 10/24/19 11:01 Calcium 7.8 mg/dL (8.4-10.2) L 11/18/19 06:05 Ionized Calcium Dayna 1.07 mmol/L (1.14-1.30) L 10/31/19 05:25 Phosphorus 4.9 mg/dL (2.5-4.5) H 10/29/19 06:30 Magnesium 1.9 mg/dL (1.6-2.3) 11/10/19 05:51 Ferritin 158.00 ng/mL (11.1-264.0) 11/07/19 05:30 Total Bilirubin 1.5 mg/dL (0.2-1.3) H 11/15/19 06:30 Direct Bilirubin 0.1 mg/dL (0.0-0.4) 11/15/19 06:30 Neonat Total Bilirubin Not Reportable 11/15/19 06:30 Neonat Direct Bilirubin Not Reportable 11/15/19 06:30 Neonat Indirect Bili Not Reportable 11/15/19 06:30 AST 16 U/L (14-36) 11/15/19 06:30 ALT 14 U/L (<35) 11/15/19 06:30 Alkaline Phosphatase 69 U/L (38-126) 11/15/19 06:30 Lactate Dehydrogenase 371 U/L (120-246) H 11/07/19 05:30 Creatine Kinase 78 U/L (30-135) 10/29/19 06:30 Troponin I 0.012 ng/mL 10/18/19 00:24 C-Reactive Protein 37.7 mg/L (<10.0) H 11/07/19 05:30 Total Protein 4.9 g/dL (6.3-8.2) L 11/15/19 06:30 Albumin 2.5 g/dL (3.5-5.0) L 11/15/19 06:30 Triglycerides 165 mg/dL (<150) H 11/07/19 05:30 Cholesterol 132.73 mg/dL (0-200) 11/07/19 05:30 LDL Cholesterol Direct 69 mg/dL (<100) 11/07/19 05:30 VLDL Cholesterol 33.0 mg/dL (10-31) H 11/07/19 05:30 HDL Cholesterol 46 mg/dL (>40) 11/07/19 05:30 Lipase 19.3 U/L (23-300) L 10/18/19 00:24 EGFR Cancelled 10/20/19 04:30 TSH 1.14 uIU/mL (0.47-4.68) 10/25/19 21:45 Random Cortisol 19.90 ug/dL (None Established) 10/25/19 21:45 Urine Color YELLOW 11/08/19 05:45 Urine Appearance CLOUDY 11/08/19 05:45 Urine pH 7.0 (5.0-9.0) 11/08/19 05:45 Ur Specific [place] 1.012 11/08/19 05:45 Urine Protein NEGATIVE mg/dL (NEGATIVE) 11/08/19 05:45 Urine Glucose (UA) NEGATIVE mg/dL (NEGATIVE) 11/08/19 05:45 Urine Ketones NEGATIVE mg/dL (NEGATIVE) 11/08/19 05:45 Urine Blood SMALL (NEGATIVE) H 11/08/19 05:45 Urine Nitrite NEGATIVE (NEGATIVE) 11/08/19 05:45 Urine Bilirubin NEGATIVE (NEGATIVE) 11/08/19 05:45 Urine Urobilinogen NEGATIVE mg/dL (<2.0) 11/08/19 05:45 Ur Leukocyte Esterase SMALL (NEGATIVE) H 11/08/19 05:45 Urine WBC (Auto) 10 /HPF 11/08/19 05:45 Urine RBC (Auto) 13 /HPF 10/25/19 21:45 U Hyaline Cast (Auto) 1 /LPF 10/18/19 03:48 Urine Bacteria (Auto) TRACE /HPF 10/25/19 21:45 Squamous Epi Cells Auto 2 /HPF 10/25/19 21:45 U Non-Squamous Epis Auto 1 /HPF 10/25/19 21:45 Urine Mucus (Auto) RARE /LPF 11/08/19 05:45 Urine Yeast (Budding) PRESENT /HPF 11/08/19 05:45 Urine Ascorbic Acid 20 (NEGATIVE) H 11/08/19 05:45 COVID-19 Source NASOPHARYNGEAL 11/10/19 13:45 COVID-19 (ITALO) DETECTED H 11/10/19 13:45 SARS-CoV-2 (PCR) POSITIVE (NEGATIVE) A* 10/25/19 08:55 Slides for Path Review Cancelled 10/29/19 06:30 Slides for Path Review Cancelled 10/29/19 06:30 Blood Type O POSITIVE 11/09/19 06:13 Blood Type Confirm O POSITIVE 10/26/19 04:30 Antibody Screen NEGATIVE 11/09/19 06:13 Direct Antiglob Test NEGATIVE 10/29/19 06:30 Crossmatch See Detail 11/09/19 06:13 10/18/19 00:24 Troponin I 0.012 Impressions: Abdomen/Pelvis CT 10/17/19 23:59 IMPRESSION: 1. 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 Urgent finding reported to Olu SILVEIRA at 10/18/2019 1:55 AM CDT This exam was performed according to our departmental dose-optimization program, which includes automated exposure control, adjustment of the mA and/or kV according to patient size and/or use of iterative reconstruction technique. Chest X-Ray 10/18/19 00:00 IMPRESSION: Tubes and lines in good positioning. Left apical pleuroparenchymal scarring. No acute infiltrates. Chest X-Ray 10/18/19 06:42 IMPRESSION: Obstructive lung disease. Tubes in good positioning Chest X-Ray 10/19/19 06:00 IMPRESSION: Obstructive lung disease. No acute infiltrate. A nasogastric tube, right jugular central line in good positioning Chest X-Ray 10/23/19 00:00 IMPRESSION: New bibasilar hazy opacities. This may represent atelectasis, however an infectious process such as pneumonia could have a similar appearance. Clinical correlation is required. Chest/Abdomen CTA 10/23/19 00:00 IMPRESSION: 1. Limited examination due to contrast bolus timing with no contrast present within pulmonary arteries. As such no evaluation for pulmonary embolus is possible. 2. Moderate right-sided pleural effusion with some loculation and small left-sided pleural effusion with some loculation. 3. Severe emphysematous changes. Chest X-Ray 10/25/19 08:00 IMPRESSION: Unchanged bilateral basilar predominant pleural and parenchymal opacities. Chest X-Ray 10/25/19 14:48 IMPRESSION: Tube placement as described. Airspace disease in both lung bases, pneumonia versus atelectasis. Venous Doppler Study 10/26/19 00:00 IMPRESSION: NO EVIDENCE DVT OR SVT IN THE RIGHT ARM. Chest X-Ray 10/26/19 05:36 IMPRESSION: Tubes and lines as above. Otherwise unchanged radiographic appearance of the chest. Chest X-Ray 10/27/19 05:00 IMPRESSION: 1. Interval development of mixed interstitial and airspace opacities as above. Findings may represent early CHF exacerbation. Infectious etiology is not excluded. 2. Lines and tubes as above. Chest X-Ray 10/28/19 00:00 IMPRESSION: Interval extubation. Other findings are stable copyright 2011 [employer]- All Rights Reserved KUB X-Ray 10/28/19 08:57 IMPRESSION: Enteric tube terminates subdiaphragmatically with the proximal port at the level of the gastroesophageal junction. Consider advancing 5 to 6 cm. Gas within mildly prominent loops of bowel likely on the basis of ileus. No evidence of high-grade obstruction. Increased interstitial markings at the lung bases as seen on recent chest radiograph. Chest X-Ray 11/06/19 07:00 IMPRESSION: Persistent increased interstitial markings at both lung bases, stable. Nasogastric tube, triple-lumen central line good positioning Chest X-Ray 11/10/19 00:00 IMPRESSION: 1. Patchy bibasilar opacities and small bilateral effusions, right greater than left, mildly increased from prior. 2. Nasoenteric side port at GE junction. Consider advancing 5 to 10 cm. Plan Plan of Treatment: Discharge to SNF for continued wound care, ostomy care/teaching, PT/OT/ST. Patient utilizes supplemental oxygen at 3 L/min and BiPAP nightly at baseline. She is returned to her baseline respiratory status. No lifting >5lbs, otherwise, no mobility restrictions. Plan nonstick dressing to abdominal incision and cover with dry dressing; change daily and as needed. Recommend patient follow-up with primary care provider within 1 week. Follow-up with the [facility] within 2 weeks. Take medications as prescribed. Return to the emergency department as needed for concerning symptoms. Time Spent: Greater than 30 Minutes Stroke Is this a Stroke Patient?: No Acute Heart Failure - Is this a Heart Failure Patient?: No
[2019-11-19 17:32] VITALS: BP 128/61
== END 2019-11-19 20:05 | DRG 853 ==
LOC: ER 23:37 → EH 10-18 04:32 → ICU 10-18 06:33 → 4S 10-20 16:38 → 3W 10-23 13:20 → ICU 10-25 13:20 → 3N 10-31 18:23
PROVIDERS: ADMIT Surgery; ATTEND Surgery
PROC: 0D1M0Z4 Bypass Descending Colon to Cutaneous, Open Approach (ICD-10-PCS; 2019-10-18)
PROC: 0BH17EZ Insertion of Endotracheal Airway into Trachea, Via Natural or Artificial Opening (ICD-10-PCS; 2019-10-18)
PROC: 5A1935Z Respiratory Ventilation, Less than 24 Consecutive Hours (ICD-10-PCS; 2019-10-18)
PROC: 03H533Z Insertion of Infusion Device into Right Axillary Artery, Percutaneous Approach (ICD-10-PCS; 2019-10-18)
PROC: B548ZZA Ultrasonography of Superior Vena Cava, Guidance (ICD-10-PCS; 2019-10-18)
PROC: 02HV33Z Insertion of Infusion Device into Superior Vena Cava, Percutaneous Approach (ICD-10-PCS; 2019-10-18)
PROC: B548ZZA Ultrasonography of Superior Vena Cava, Guidance (ICD-10-PCS; 2019-10-18)
PROC: 0DTN0ZZ Resection of Sigmoid Colon, Open Approach (ICD-10-PCS; principal; 2019-10-18 04:15)
PROC: 0BH17EZ Insertion of Endotracheal Airway into Trachea, Via Natural or Artificial Opening (ICD-10-PCS; 2019-10-25)
PROC: 5A1945Z Respiratory Ventilation, 24-96 Consecutive Hours (ICD-10-PCS; 2019-10-25)
PROC: 02HV33Z Insertion of Infusion Device into Superior Vena Cava, Percutaneous Approach (ICD-10-PCS; 2019-10-25)
PROC: B548ZZA Ultrasonography of Superior Vena Cava, Guidance (ICD-10-PCS; 2019-10-25)
PROC: 04HY32Z Insertion of Monitoring Device into Lower Artery, Percutaneous Approach (ICD-10-PCS; 2019-10-25)
PROC: 30233N1 Transfusion of Nonautologous Red Blood Cells into Peripheral Vein, Percutaneous Approach (ICD-10-PCS; 2019-10-26)
PROC: 30233N1 Transfusion of Nonautologous Red Blood Cells into Peripheral Vein, Percutaneous Approach (ICD-10-PCS; 2019-10-29)
PROC: 30233N1 Transfusion of Nonautologous Red Blood Cells into Peripheral Vein, Percutaneous Approach (ICD-10-PCS; 2019-11-09)
DX: A41.9 Sepsis, unspecified organism (principal); R65.21 Severe sepsis with septic shock; K56.2 Volvulus; K65.0 Generalized (acute) peritonitis; J96.21 Acute and chronic respiratory failure with hypoxia; U07.1 COVID-19; J12.89 Other viral pneumonia; J96.22 Acute and chronic respiratory failure with hypercapnia; K57.20 Diverticulitis of large intestine with perforation and abscess without bleeding; J90 Pleural effusion, not elsewhere classified; F33.2 Major depressive disorder, recurrent severe without psychotic features; N17.9 Acute kidney failure, unspecified; E46 Unspecified protein-calorie malnutrition; K94.09 Other complications of colostomy; T81.31XA Disruption of external operation (surgical) wound, not elsewhere classified, initial encounter; D64.9 Anemia, unspecified; J41.1 Mucopurulent chronic bronchitis; J43.2 Centrilobular emphysema; I10 Essential (primary) hypertension; E87.6 Hypokalemia; F43.21 Adjustment disorder with depressed mood; I48.0 Paroxysmal atrial fibrillation; E88.09 Other disorders of plasma-protein metabolism, not elsewhere classified; R73.9 Hyperglycemia, unspecified; E06.3 Autoimmune thyroiditis; D72.829 Elevated white blood cell count, unspecified; K59.00 Constipation, unspecified; M79.89 Other specified soft tissue disorders; T48.6X5A Adverse effect of antiasthmatics, initial encounter; Y92.230 Patient room in hospital as the place of occurrence of the external cause; Z79.2 Long term (current) use of antibiotics; Z79.891 Long term (current) use of opiate analgesic; Z79.51 Long term (current) use of inhaled steroids; Z79.52 Long term (current) use of systemic steroids; Z79.899 Other long term (current) drug therapy; Z99.81 Dependence on supplemental oxygen
CPT/HCPCS: 00790; 31500; 36415; 36430; 36556; 36600; 36620; 51702; 71045; 71275; 74018; 74177; 80048; 80053; 80061; 80076; 81001; 82040; 82330; 82533; 82550; 82728; 82803; 82960; 82962; 83010; 83036; 83605; 83615; 83690; 83735; 84100; 84443; 84484; 85025; 85027; 85045; 85379; 85384; 85610; 85730; 86140; 86850; 86880; 86900; 86901; 86920; 87040; 87070; 87205; 87635; 88307; 93005; 93010; 93971; 94002; 94003; 94640; 94660; 96361; 96365; 96375; 99140; 99221; 99285; 99291; 99292; C1887; C9113; C9803; J0131; J0330; J0456; J0696; J1100; J1170; J1642; J1644; J1650; J1720; J1815; J1885; J1940; J2060; J2250; J2270; J2370; J2405; J2543; J2550; J2704; J2920; J2930; J3010; J3475; J3480; J3490; J7030; J7050; J7060; J7120; J7512; J7614; J7620; J7626; P9016; P9041; P9047; S0028

== ENCOUNTER → 2020-01-03 | Outpatient (CLI) | payer SELFPAY ==
--- NOTE | 2020-01-03 16:47 | RADIOLOGY REPORT (SQ) ---
10/22 EXAM DESCRIPTION: CT CHEST WITHOUT IMAGES COMPLETED DATE/TIME: 01/03/2020 4:28 pm REASON FOR STUDY: COPD COMPARISON: 10/23/2019 TECHNIQUE: CT scan performed of the chest without intravenous contrast. Images reviewed with lung, soft tissue and bone windows. Reconstructed coronal and sagittal MPR images reviewed. All images st ored on PACS. All CT scanners at this facility use dose modulation, iterative reconstruction, and/or weight based d osing when appropriate to reduce radiation dose to as low as reasonably achievable (ALARA). [facility]: Dose Right [facility]: CareDose [facility]: Dose Right [facility]: Teradose 4D [facility]: Nature's Therapy RADIATION DOSE: CT Rad equipment meets quality standard of care and radiation dose reduction techniq ues were employed. CTDIvol: 7.7 mGy. DLP: 331 mGy-cm. mGy. LIMITATIONS: No technical limitations. FINDINGS: LUNGS AND PLEURA: Severe panacinar emphysema. There is irregular consolidation within the left lung apex, increased from prior. Mild additional patchy consolidation within the bilateral kelby g bases, similar to prior. Interval resolution of previously seen bilateral pleural effusions. Ther e are scattered nodular opacities throughout both lungs, grossly stable. For reference largest left apical nodule measures 10 mm (series 4, image 34). No pneumothorax. HILAR AND MEDIASTINAL STRUCTURES: Stable shotty mediastinal nodes without discrete adenopathy. HEART AND VASCULAR STRUCTURES: Normal heart size. Scattered coronary atherosclerosis. No pericardia l effusion. UPPER ABDOMEN: No significant findings. Limited exam. THYROID AND OTHER SOFT TISSUES: No masses. No adenopathy. BONES: No acute bony abnormality. No discrete lytic or blastic osseous lesions. HARDWARE: None in the chest. OTHER: No other significant findings. IMPRESSION: 1. Severe panacinar emphysema with increased patchy consolidation at the left lung apex suggestive of superimposed pneumonia. 2. Resolution of previously seen bilateral pleural effusions. 3. Grossly stable scattered bilateral pulmonary nodules as above. TECHNICAL DOCUMENTATION: JOB ID: [id number] Quality ID # [id number]: Final reports with documentation of one or more dose reduction techniques (e.g., Au tomated exposure control, adjustment of the mA and/or kV according to patient size, use of iterative reconstruction technique) 2010 [employer]- All Rights Reserved Reading location - IP/workstation name: [email or web address]
== END ==
LOC: RAD 15:28
PROVIDERS: ATTEND Internal Medicine
DX: J43.2 Centrilobular emphysema (principal); D72.829 Elevated white blood cell count, unspecified
CPT/HCPCS: 71250